=== PATIENT | female | born 1960 | race African-American/Black ===

== ENCOUNTER 2017-11-05 08:43 | Inpatient (IN) | payer MEDICARE, MEDICAID, SELFPAY ==
[2017-11-05] VITALS (14 sets, daily range): BP systolic 99–136; BP diastolic 64–80; PULSE 56–85; RESP 10–18; TEMP 36.6–37.4; O2SAT 100; BMI 44.4; BMI 40.7
--- NOTE | 2017-11-05 08:55 | CT_ITS ---
STUDY: CT BRAIN WITHOUT CONTRAST REASON FOR EXAM: Female, 57 years old. Change in mental status. Recent CVA RADIATION DOSAGE (If Supplied By Facility): CTDIvol = ( 44.99 ) mGy, DLP = ( 779.24 ) mGycm TECHNIQUE: Transaxial CT imaging of the brain was performed without administration of intravenous contrast material. Individualized dose optimization techniques were used for this CT. COMPARISON: 08/11/2017 FINDINGS: Normal soft tissue structures. Normal calvarium. There is mild cerebral atrophy with widening of the extra-axial spaces and ventricular dilatation. There are areas of decreased attenuation within the white matter tracts of the supratentorial brain, consistent with microvascular disease changes. Normal basal ganglia and thalami. Normal brainstem. There is mild cerebellar atrophy. There is no intracranial hemorrhage. There are no findings of an acute ischemic infarction. Normal visualized paranasal sinuses. CT/Brain/Head without Contrast IMPRESSION: Chronic involutional changes of the brain. Electronically Signed: Álvaro Brooke DO at 9:50 EDT Tel , Service support ,
--- NOTE | 2017-11-05 08:55 | EKG12_ITS ---
Test Reason : SYNCOPE Blood Pressure : / mmHG Vent. Rate : 075 BPM Atrial Rate : 075 BPM P-R Int : 154 ms QRS Dur : 106 ms QT Int : 390 ms P-R-T Axes : 040 -23 017 degrees QTc Int : 435 ms Normal sinus rhythm Normal ECG Confirmed by LUIS FELIPE ALFARO MD ([id number]), senior technical editor ATA LUGO ([id number] on 11/06/2017 2:31:35 PM Referred By: LUTHER Confirmed By:LUIS FELIPE ALFARO MD
--- NOTE | 2017-11-05 08:55 | RAD_ITS ---
STUDY: X-RAY CHEST REASON FOR EXAM: Female, 57 years old. Shortness of breath TECHNIQUE: Single AP portable view of the chest. COMPARISON: 08/11/2017 FINDINGS: Hypoinflated lungs. Mild interstitial edema and vascular congestion with bibasilar infiltrates. There is mild cardiac enlargement. Normal mediastinum and jayjay. Normal visualized pulmonary arteries. There is atherosclerotic tortuosity of the aortic arch and descending thoracic aorta. There are diffuse degenerative changes of the visualized thoracic spine. Normal visualized ribs, clavicles, and shoulders. There is no demonstrated abnormality of the visualized soft tissue structures of the upper abdomen. RAD/Chest 1 View (Portable) IMPRESSION: Hypoinflated lungs with interstitial edema and bibasilar infiltrates Electronically Signed: Álvaro Brooke DO at 9:54 EDT Tel , Service support ,
[2017-11-05 09:18] LABS: Mucous, Urine 0 SEEN /hpf (<or=2+)
[2017-11-05 09:21] LABS: Absolute Lymphocyte Count 2.72 X10^3/ul (0.83-4.51); Absolute Neutrophil Count 6.4 X10^3/uL (2.0-7.7); Basophil# 0.03 X10^3/uL; Basophil% 0.3 % (0-1); Eosinophil# 0.36 X10^3/uL; Eosinophils% 3.5 % (0-5); Hematocrit 39.5 % (37-47); Hemoglobin 12.2 g/dl (12.0-15.0); Lymphocyte # 2.72 X10^3/ul (4.0); Lymphocyte % 26.6 % (19-41); Mean Corp Hgb Conc 30.9 g/gl (32-36); Mean Corpuscular Hgb 29.8 pg (27.0-32.0); Mean Corpuscular Volume 96.3 fL (81-99); Mean Platelet Vol. 10.1 fl (6.2-12.0); Monocyte# 0.72 X10^3/uL; Neutrophil # 6.38 X10^3/uL (2.7-7.7); Neutrophil % 62.4 % (47-70); Platelet Count 281 K/mm3 (150-450); RBC Distribution Width CV 13.6 % (11.6-14.6); RBC Distribution Width SD 47.1 fl (35.1-43.9); White Blood Count 10.2 K/mm3 (4.4-11.0)
[2017-11-05 09:22] LABS: POSITIVE COUNT NO; POSITIVE DIFFERENTIAL NO; POSITIVE MORPHOLOGY NO
[2017-11-05 09:31] LABS: Allen Test POS; Base Excess 8 mmol/L (-2 to +2); Bicarbonate 32.4 mmol/L (22-26); Blood Gas Specimen Type ART; O2 Delivery Device Nasal Can; PO2 83 mmHG (75-100); SITE L Radial; SO2 96 % (95-99); Time Given 925; Total Carbon Dioxide 34 mmol/L; pCO2 49.5 mmHg (35-45); pH 7.42 (7.35-7.45)
[2017-11-05 09:33] LABS: Color, Urine Yellow (Yellow); Urine Clarity Clear (Clear)
[2017-11-05 09:34] LABS: Glucose, Dipstick NEGATIVE (Normal); Ketone-Dipstick Negative (Negative); Leukocyte Esterase-Dipstick 25 /ul (Negative); Nitrite-Dipstick Negative (Negative); Occult Blood-Urine 250 /ul (Negative); Protein-Dipstick Negative (Negative); Urine Bilirubin Dipstick Negative (Negative); Urine Urobilinogen 1 mg/dl (Normal)
[2017-11-05 09:35] LABS: Hyaline Cast 5-10 SEEN /lpf (0-5); Red Blood Cells-Urine 25-50 SEEN /hpf (0-5); Squamous Epithelial Cells - UA 0-5 SEEN /hpf (5-10); White Blood Cells 0-5 SEEN /hpf (0-5)
[2017-11-05 09:36] LABS: Bacteria RARE /hpf (None Seen)
[2017-11-05 09:50] LABS: ALB/GLOB Ratio 0.7 RATIO (0.9-2.4); AST(SGOT) 29 U/L (15-37); Alanine Aminotransfer ALT/SGPT 22 U/L (13-56); Albumin, Serum 3.1 g/dL (3.2-5.0); Alkaline Phosphatase 71 U/L (45-117); Anion Gap 7 (5-15); BUN 14 mg/dL (7-18); BUN/Creat Ratio 11.3 RATIO (10-20); Calcium,Total 9.5 mg/dL (8.5-10.1); Chloride 103 mmol/L (98-107); Creatinine, Serum 1.24 mg/dL (0.55-1.02); EST Glomerular Filtration Rate 47 mL/min (>60); Est Glom Filt Rate - Afr Amer 57 mL/min (>60); Estimated Creatinine Clearance 45.73 ml/min; Globulin 4.5 g/dL (2.2-4.2); Glucose 133 mg/dL (74-106); Potassium 3.9 mmol/L (3.5-5.1); Protein, Total 7.6 g/dL (6.4-8.2); Sodium Level 143 mmol/L (136-145)
[2017-11-05 09:51] LABS: BNP,B-Type NATRIURETIC PEPTIDE 13.6 pg/mL (0-100)
[2017-11-05 10:42] LABS: International Normalized Ratio 1.2; Prothrombin Time (Protime)PT. 14.9 SECONDS (11.7-14.9)
[2017-11-05 10:43] LABS: Partial Thromboplast Time 35.4 Seconds (24.1-36.2)
--- NOTE | 2017-11-05 10:48 | ED.RN ---
CALLED PHARMACY REGARDING ATB.
--- NOTE | 2017-11-05 10:50 | ED.VISSUMM ---
- ER Visit Summary Date of Service: 11/05/17 Chief Complaint: Altered mental status History of Present Illness: The patient is a 57 F with altered mental status. The patient has a remote history of stroke in 1982 and also had a stroke earlier this month. He has both chronic right and left side deficits. She also had cervical spine surgery earlier this month. Patient has recently went home. Today she was somnolent and may have briefly lost consciousness. The patient denies any other related symptoms. She has low back pain, but this is not new. Physical Examination: Afebrile and vital signs unremarkable. 100% on nasal cannula. Patient is somnolent but arouses to voice. No focal or lateralizing neurologic abnormalities grossly. NIH stroke scale is 1 for mental status. Atraumatic. Neck maintained in a cervical collar. Anterior incision site appears normal. Nontender. Heart regular. Lungs clear. Abdomen soft. Skin appears normal. Test Results: See below Emergency Department Course and Treatment: Patient has an extensive medical history, including COPD, stroke, and recent neck surgery with hospitalization. A broad workup was pursued. Head CT showed chronic changes. Chest x-ray showed hypoinflation, but signs of bilateral infiltrates. This is different from previous. EKG showed sinus rhythm. No sign of acute ischemia or infarction. Troponin and BMP unremarkable. Labs were all fairly unremarkable. Urinalysis showed blood but no sign of infection. ABG was also fairly unremarkable. Patient had no change in reevaluation. Her vitals remained stable. Her mental status remained the same. No new neurologic signs or symptoms. No focal abnormalities. Cultures were sent. She was started on Azactam and vancomycin. I spoke with the hospitalist who also recommended Lasix. She will be admitted for change in mental status, HCAP, and because of her underlying comorbidities. Treatment Plan: As above Disposition: Admission Impression: 1. Altered mental status--somnolence 2. HCAP This note was generated with sciencebite dictation software. It may contain incorrect words, spelling, and punctuation that were not noted in review of the chart prior to signing ED Disposition - Plan for ED Patient: Chief Complaint: Fatigue Referrals: Nicko Uribe MD [Primary Care Provider] -
[2017-11-05] MEDS: Furosemide 40 MG/4 ML Vial IV ×2 (11:04→17:04)
--- NOTE | 2017-11-05 12:01 | HP.PCM_ITS ---
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 Prior to that, patient returned to home on past Friday after rehab from cervical spine surgery. She has been weak and lethargic yesterday and then in the morning when she woke up she was found with whisper in low volume but no slurring and then she slumped over the chair. There is no concrete history of new weakness but patient has significant residual deficit from the previous stroke and her baseline was using Rollator to ambulate and she drags her left lower extremity as per the son. ] In the ER, basic workup including CT head does not show acute change. Chest x- ray shows interstitial edema and bibasilar infiltrates. She denies history of cough cold fever or tachypnea. In ED he was given vancomycin and aztreonam for the suspicion of pneumonia Past Medical History Allergies aspirin Allergy (Verified 11/05/17 08:54) Shortness of breath Penicillins [PCN] Allergy (Verified 11/05/17 08:54) Shortness of breath Home Medications: Ambulatory Orders Medication Instructions Recorded Cholecalciferol (Vitamin D3) 50,000 unit PO DAILY 11/05/17 [Vitamin D] Cyclobenzaprine [Flexeril] 10 mg PO BID 11/05/17 Diltiazem HCl [Diltiazem 24Hr ER] 120 mg PO BID 11/05/17 Duloxetine HCl 30 mg PO DAILY 11/05/17 Esomeprazole Magnesium 40 mg PO BID 11/05/17 Fluticasone/Salmeterol [Advair 1 each IH DAILY 11/05/17 500-50 Diskus] Levetiracetam [Levetiracetam ER] 500 mg PO BID 11/05/17 Methotrexate 20 mg PO Q7D 11/05/17 Mirtazapine [Remeron] 15 mg PO QHS 11/05/17 Oxybutynin [Ditropan] 5 mg PO TID 11/05/17 Oxycodone CR [Oxycontin] 10 mg PO BID 11/05/17 Oxycodone HCl/Acetaminophen 1 - 2 tablet PO Q6H PRN PRN 11/05/17 [Percocet 5-325] Potassium Chloride [Klor-Con M20] 2 tablet PO TID 11/05/17 Pregabalin [Lyrica] 150 mg PO BID 11/05/17 Torsemide [Demadex] 20 mg PO BID 11/05/17 Zolpidem Tartrate 5 mg PO QHS PRN 11/05/17 Smoking Status: Former smoker - *Family History Paternal History Items: No pertinent history Review of Systems Constitutional: Denies: Chills, Fever Cardiovascular: Denies: Chest Pain, Palpitations Respiratory: Denies: Cough, Shortness of breath at rest, Sputum production Gastrointestinal: Denies: Abdominal Pain, Nausea, Vomiting Genitourinary: Denies: Dysuria Musculoskeletal: Reports: Joint Pain. Denies: Joint Tenderness Skin: Denies: Rash, Wounds Neurological: Denies: Numbness, Tingling, Focal weakness Psychiatric: Denies: Anxiety, Depression, Homicidal Ideations, Suicidal Ideations Hematologic/ Lymphatic: Denies: Easy Bruising, Easy Bleeding Unable to obtain accurate/complete ROS d/t: Due to Altered mental status VTE Information - Inpt Only VTE Present on Admission: No VTE Mechan Device Prophylaxis: SCD's VTE Pharm Prophylaxis ordered?: Yes Patient Problems: Active and Suspected Problems Encephalopathy (Acute) - Physical Exam General: Confused, Disoriented, Lethargic HEENT: Atraumatic, PERRLA, EOMI, Normocephalic Oral: Dry Mucosa Neck: Supple, No JVD, Negative Carotid Bruits Lungs: No rhonchi, No wheeze, Diminished, Rales Cardiovascular: Regular rate, Regular Rhythm, Normal S1, Normal S2, No murmurs Abdomen: Bowel Sounds Present, Soft, Non Tender, Non-Distended Extremities: Capillary Refill Less than 3 Seconds, Edema Skin: No rashes, No breakdown Musculoskeletal: Arthritic Changes, Muscle Wasting Neurological: - - Patient is mainly bilateral lower extremity weakness with left more than right. Baseline, she walks on rolator. 3+/4 left knees jerk. 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 Prior to that, patient returned to home on past Friday after rehab from cervical spine surgery. She has been weak and lethargic yesterday and then in the morning when she woke up she was found with whisper in low volume but no slurring and then she slumped over the chair. There is no concrete history of new weakness but patient has significant residual deficit from the previous stroke and her baseline was using Rollator to ambulate and she drags her left lower extremity as per the son. ] In the ER, basic workup including CT head does not show acute change. The normal sinus rhythm. Chest x-ray shows interstitial edema and bibasilar infiltrates. She denies history of cough cold fever or tachypnea. In ED he was given vancomycin and aztreonam for the suspicion of pneumonia. 1. Acute encephalopathy most probably due to polypharmacy/metabolic encephalopathy: Patient is being admitted on PCU. MRI brain ordered to rule out new stroke. MRI C-spine ordered. 2D echo and carotid Doppler ordered. Neuro consult. On a stroke protocol until Ruled out. PT/OT and speech and swallow evaluation. shelter she was on mechanical soft diet. [facility] most of her workup regarding a stroke was done there. 2. CHF exacerbation: Even though, BNP is normal clinically she seems CHF exacerbation. 2D echo ordered as mentioned above. Lasix 40 mg IV daily. Strict I&O's. Home medication shows that she is on torsemide 20 mg twice daily 3. Bibasilar atelectasis with low suspicion for pneumonia with history of presumed COPD: Empirically started on IV vancomycin and aztreonam. Changed to IV Levaquin. Pneumonia workup ordered including urinary antigens, and sputum culture and blood cultures ?2. Does not have SIRS criteria. On Advair. Does not seem to be in COPD exacerbation 4. Multiple comorbidities including hypertension, COPD, chronic pain syndrome, chronic peripheral neuropathy/radiculopathy, possible GERD: She is on multiple pain medication, methotrexate, Lyrica and duloxetine exact indication unclear. Functional decline secondary to multiple strokes and morbid obesity: PT and OT ordered. DVT prophylaxis: On heparin 500 subcutaneous twice daily and B/L Below knee stockings. Total time spent in history and physical, labs and imaging review, discussion with the patient's son and [id number] more than 50 minutes This note was generated with Bactest dictation software. Every effort was made to ensure accuracy, however computerized admiralty lawyer mistakes may persist. Code Visit Inpatient E&M: 35166 Init Hosp L3
--- NOTE | 2017-11-05 12:21 | MRI_ITS ---
STUDY: MRI BRAIN WITHOUT CONTRAST REASON FOR EXAM: Female, 57 years old. TIA TECHNIQUE: Standardized multiplanar fat and water weighted pulse sequences were obtained. COMPARISON: CT of the brain on November 05, 2017 FINDINGS: Normal size of the ventricles and extra-axial spaces for the patient's age. Minimal periventricular white matter ischemic change without mass effect or restricted diffusion. Normal bilateral basal ganglia. Normal thalami. There is no extra-axial fluid accumulation. Normal flow voids within the major intracranial circulation suggesting patency by spin echo criteria. Normal sella turcica, pituitary gland, infundibular stalk, optic chiasm and hypothalamus. Normal tectal plate and pineal gland. Normal midbrain, garo and medulla. Normal cerebellum. Normal basal cisterns. Normal bilateral temporal bones. Normal bilateral internal auditory canals. No demonstrated orbital abnormality, within the constraints of a routine brain study. There is minor mucosal thickening of the ethmoid air cells. Normal calvarium and skull base. Normal visualized soft tissue structures. Normal visualized upper cervical spine. MRI/Brain without Contrast IMPRESSION: Minimal periventricular white matter ischemic changes without evidence for acute infarct Electronically Signed: Nicko Hernandez MD at 22:45 EDT , Service support ,
--- NOTE | 2017-11-05 12:23 | ECHOCS_ITS ---
Reason For Study: TIA/CVA Procedure This was a 2D Doppler, Color Flow transthoracic echocardiogram. The study was technically difficult. Pt scanned supine due to neck brace and recent neck surgery. Exam performed portable in patient room. Left Ventricle Normal LV size. Left ventricular systolic function is normal. The estimated ejection fraction is 65 %. Normal diastology for age. No regional wall motion abnormalities noted. Right Ventricle Normal RV size. Normal systolic function. Atria Normal left atrium. Normal right atrium. Mitral Valve Mitral valve not well visualized. Tricuspid Valve The tricuspid valve is not well visualized. Unable to estimate RV systolic pressure, pulmonary artery pressure probably normal. Aortic Valve The aortic valve is not well visualized. Pulmonic Valve The pulmonic valve is not well visualized. Great Vessels Normal aortic root. The pulmonary artery is normal size. Normal inferior vena cava. Pericardium/Pleural No pericardial effusion. Medication Performed a rapid injection of agitated mix of 9 cc saline and 1cc air to assess for atrial septal defect. Definity0.3ml given slow IV push to enhance endocardial definition. MMode/2D Measurements & Calculations LVIDd: 4.1 cm IVSd: 1.1 cm Ao root diam: 3.4 cm LVIDs: 2.9 cm LVPWd: 1.1 cm LA dimension: 4.3 cm FS: 29.6 % LAV(MOD-bp): 30.1 ml LAV(MOD-bp) Indexed: 13.0 ml/m2 LA A4 area: 15.7 cm2 RA A4 area: 8.8 cm2 LAV(MOD-sp2): 18.4 ml LAV(MOD-sp4): 37.8 ml Doppler Measurements & Calculations MV E max marcel: 75.3 cm/sec Lat Peak E' Marcel: 6.3 cm/sec Med Peak E' Marcel: 6.8 cm/sec MV A max marcel: 53.5 cm/sec E/E' lat: 11.9 E/E' med: 11.0 MV E/A: 1.4 Ao V2 max: 99.2 cm/sec LV V1 max: 88.2 cm/sec PA V2 max: 84.6 cm/sec Ao max P.9 mmHg LV V1 max P.1 mmHg Ao V2 mean: 79.2 cm/sec Ao mean P.6 mmHg Ao V2 VTI: 21.5 cm Interpretation Summary Normal LV size. Left ventricular systolic function is normal. The estimated ejection fraction is 65 %. Normal diastology for age. Contrast injection was performed. Ordering Physician: Baljinder Bernal Referring Physician: Nicko Uribe Performed By: Macey Webb RDCS, RVT
[2017-11-05 13:01] LABS: Thyroid Stim Hormone (TSH) 1.61 uIU/mL (0.358-3.74)
[2017-11-05] MEDS: Clopidogrel Bisulfate 75 MG Tablet PO (13:52)
--- NOTE | 2017-11-05 13:52 | PCM.CONS.GEN ---
Problem List (1) Encephalopathy Status: Acute Reason for Consult Date of Consultation: 11/05/17 Reason for Consultation: encephalopathy History of Present Illness: The patient is a 57 year old CF with PMH HTN, HLD, H/O stroke, ? H/O brain hemorrhage, ? leukemia, neuropathy, ? H/O seizures vs GARY, panic attacks, admitted with AMS. History could not be obtained from the patient, is obtained from medical records and charts. [id number] and son are extremely poor historians and not aware of her medical issues, per son she recently had cervical spine surgery for compression around October 10 2017, then was sent to [place], came back to stay with them about 3-4 days ago, this morning (11/05/17) was found slumped over on the chair, was not responding per son and daughter-in law, lasted for about 15 minutes, denies any tongue bite, or urinary continence or witnessed seizures. Patient's son not sure if she has any seizures, per patient she may have had seizures long time back, but she tells me she also had panic attacks. At present patient denies any focal motor weakness, denies any OLIVAREZ, dizziness, or sensory loss, denies any vision loss. Per son prior to the cervical spine surgery she used to live alone, was using cane and rollator to ambulate, had weakness in the right LE and was dragging it, does not drive, denies any frequent falls. [] Past Medical History Allergies aspirin Allergy (Verified 11/05/17 08:54) Shortness of breath Penicillins [PCN] Allergy (Verified 11/05/17 08:54) Shortness of breath Home Medications: Ambulatory Orders Medication Instructions Recorded Cholecalciferol (Vitamin D3) 50,000 unit PO DAILY 11/05/17 [Vitamin D] Cyclobenzaprine [Flexeril] 10 mg PO BID 11/05/17 Diltiazem HCl [Diltiazem 24Hr ER] 120 mg PO BID 11/05/17 Duloxetine HCl 30 mg PO DAILY 11/05/17 Esomeprazole Magnesium 40 mg PO BID 11/05/17 Fluticasone/Salmeterol [Advair 1 each IH DAILY 11/05/17 500-50 Diskus] Levetiracetam [Levetiracetam ER] 500 mg PO BID 03/28/18 Methotrexate 20 mg PO Q7D 11/05/17 Mirtazapine [Remeron] 15 mg PO QHS 11/05/17 Oxybutynin [Ditropan] 5 mg PO TID 11/05/17 Oxycodone CR [Oxycontin] 10 mg PO BID 11/05/17 Oxycodone HCl/Acetaminophen 1 - 2 tablet PO Q6H PRN PRN 11/05/17 [Percocet 5-325] Potassium Chloride [Klor-Con M20] 2 tablet PO TID 11/05/17 Pregabalin [Lyrica] 150 mg PO BID 11/05/17 Torsemide [Demadex] 20 mg PO BID 11/05/17 Zolpidem Tartrate 5 mg PO QHS PRN 11/05/17 Lives: Alone Smoking Status: Former smoker Alcohol: None Drugs: None Review of Systems Constitutional: Reports: - - ROS could not be obtained since patient has AMS Patient Problems: Active and Suspected Problems Encephalopathy (Acute) - Physical Exam General: Lethargic, - HEENT: Normocephalic Neck: Supple Lungs: Normal air movement Cardiovascular: Normal S1, Normal S2 Abdomen: Soft Extremities: No cyanosis Skin: No rashes Musculoskeletal: No Tenderness to Palpation of Joints or Extremities Neurological: - - drowsy, arousable, pupils BERL, no facial droop, CN 2-12 grossly intact, limited Neurology examination, moves all 4 extremities, sensory examination/cerebellar/gait could not be assessed. Reflexes + B/L B/S/T/K/A Vital Signs Temp Pulse Resp BP Pulse Ox 98.4 F 64 18 113/67 100 11/05/17 12:02 11/05/17 12:02 11/05/17 12:02 11/05/17 12:02 11/05/17 12:02 Oxygen Flow Rate (L/min) 3 Oxygen Delivery Method Nasal Cannula Weight: 121.5 kg Body Mass Index (BMI) 40.7 Intake and Output for Last 24 Hours 11/03/17 11/04/17 11/05/17 23:59 23:59 23:59 Intake Total 125 / 125 Balance 125 / 125 Laboratory Tests Past 24 Hrs 11/05/17 13:00 Troponin I < 0.02 Assessment/Plan Active and Suspected Problems Encephalopathy (Acute) The patient is a 57 year old CF with PMH HTN, HLD, H/O stroke, ? H/O brain hemorrhage, ? leukemia, neuropathy, ? H/O seizures vs GARY, panic attacks, admitted with AMS. History could not be obtained from the patient, is obtained from medical records and charts. [id number]-wod and son are extremely poor historians and not aware of her medical issues, per son she recently had cervical spine surgery for compression around October 10 2017, then was sent to [place], came back to stay with them about 3-4 days ago, this morning (11/05/17) was found slumped over on the chair, was not responding per son and daughter-in law, lasted for about 15 minutes, denies any tongue bite, or urinary continence or witnessed seizures. Patient's son not sure if she has any seizures, per patient she may have had seizures long time back, but she tells me she also had panic attacks. At present patient denies any focal motor weakness, denies any OLIVAREZ, dizziness, or sensory loss, denies any vision loss. Impression Metabolic Encephalopathy Possible Polypharmacy Plan -Recommend MRI brain w/o contrast and MRI C spine w/o contrast if no contraindication -Recommend EEG -Continue Keppra at home dose -Labs reviewed. -Please get records from [facility] if possible, all her care was there prior to this admission here and she and family are very poor historians -Further medical management per primary team -PT/OT -Seizure precautions -Fall precautions -GI/DVT prophylaxis -Please call with questions if any -Thank you for allowing us to participate in patient's care and management I spent 60 minutes taking history, doing physical examination, reviewing medical records, coordinating care and counseling patient and family. Code Visit Inpatient E&M: 34851 Init Hosp L3
--- NOTE | 2017-11-05 13:57 | MRI_ITS ---
STUDY: MRI CERVICAL SPINE WITHOUT CONTRAST REASON FOR EXAM: Female, 57 years old. Neck pain status post cervical fusion TECHNIQUE: Standardized fat and water weighted pulse sequences were obtained in the sagittal and axial planes. COMPARISON: None FINDINGS: Normal foramen magnum and brainstem-cervical cord junction. Normal craniovertebral junction. Normal anterior atlantoaxial articulation. Normal odontoid process. Normal cervical lordosis. Normal vertebral bodies and posterior osseous elements. C2-3: Normal endplates. Normal disc height, signal and morphology. Normal central canal and intervertebral neural foramina. C3-4: Normal endplates. Normal disc height, signal and morphology. Normal central canal and intervertebral neural foramina. C4-5: Status post anterior fusion. Tiny left paracentral osteophyte protrusion... Normal central canal. Moderate left neuroforaminal stenosis secondary to bony hypertrophy and mild narrowing on the right C5-6: Mild endplate spurring Narrowed disc height, signal and tiny left paracentral disc protrusion.. Mild narrowing of the central canal and impingement upon ventral surface of the cord. Severe left neuroforaminal stenosis secondary to bony hypertrophy C6-7: Mild endplate spurring. Normal disc height, signal and tiny central disc protrusion.. Mild narrowing of central canal severe left neuroforaminal stenosis secondary to bony hypertrophy C7-T1: Normal endplates. Normal disc height, signal and tiny central disc protrusion.. Normal central canal. Severe bilateral neural foraminal stenosis secondary to bony hypertrophy. Normal cervical cord. Normal visualized soft tissue structures. MRI/Spine Cervical (Routine) IMPRESSION: Postop change status post anterior fusion at C4-5. Moderate spondylosis and multilevel spinal stenosis secondary to disc disease and bony hypertrophy most severe at C7-T1. Findings as above Electronically Signed: Nicko Hernandez MD at 23:29 EDT , Service support ,
--- NOTE | 2017-11-05 14:03 | CON.PCM_ITS ---
Problem List (1) Encephalopathy Status: Acute Reason for Consult Date of Consultation: 11/05/17 Reason for Consultation: encephalopathy History of Present Illness: The patient is a 57 year old CF with PMH HTN, HLD, H/O stroke, ? H/O brain hemorrhage, ? leukemia, neuropathy, ? H/O seizures vs GARY, panic attacks, admitted with AMS. History could not be obtained from the patient, is obtained from medical records and charts. [id number] and son are extremely poor historians and not aware of her medical issues, per son she recently had cervical spine surgery for compression around October 10 2017, then was sent to ID, came back to stay with them about 3-4 days ago, this morning (11/05/17) was found slumped over on the chair, was not responding per son and daughter-in law , lasted for about 15 minutes, denies any tongue bite, or urinary continence or witnessed seizures. Patient's son not sure if she has any seizures, per patient she may have had seizures long time back, but she tells me she also had panic attacks. At present patient denies any focal motor weakness, denies any OLIVAREZ, dizziness, or sensory loss, denies any vision loss. Per son prior to the cervical spine surgery she used to live alone, was using cane and rollator to ambulate, had weakness in the right LE and was dragging it, does not drive, denies any frequent falls. [] Past Medical History Allergies aspirin Allergy (Verified 11/05/17 08:54) Shortness of breath Penicillins [PCN] Allergy (Verified 11/05/17 08:54) Shortness of breath Home Medications: Ambulatory Orders Medication Instructions Recorded Cholecalciferol (Vitamin D3) 50,000 unit PO DAILY 11/05/17 [Vitamin D] Cyclobenzaprine [Flexeril] 10 mg PO BID 11/05/17 Diltiazem HCl [Diltiazem 24Hr ER] 120 mg PO BID 11/05/17 Duloxetine HCl 30 mg PO DAILY 11/05/17 Esomeprazole Magnesium 40 mg PO BID 11/05/17 Fluticasone/Salmeterol [Advair 1 each IH DAILY 11/05/17 500-50 Diskus] Levetiracetam [Levetiracetam ER] 500 mg PO BID 03/28/18 Methotrexate 20 mg PO Q7D 11/05/17 Mirtazapine [Remeron] 15 mg PO QHS 11/05/17 Oxybutynin [Ditropan] 5 mg PO TID 11/05/17 Oxycodone CR [Oxycontin] 10 mg PO BID 11/05/17 Oxycodone HCl/Acetaminophen 1 - 2 tablet PO Q6H PRN PRN 11/05/17 [Percocet 5-325] Potassium Chloride [Klor-Con M20] 2 tablet PO TID 11/05/17 Pregabalin [Lyrica] 150 mg PO BID 11/05/17 Torsemide [Demadex] 20 mg PO BID 11/05/17 Zolpidem Tartrate 5 mg PO QHS PRN 11/05/17 Lives: Alone Smoking Status: Former smoker Alcohol: None Drugs: None Review of Systems Constitutional: Reports: - - ROS could not be obtained since patient has AMS Patient Problems: Active and Suspected Problems Encephalopathy (Acute) - Physical Exam General: Lethargic, - HEENT: Normocephalic Neck: Supple Lungs: Normal air movement Cardiovascular: Normal S1, Normal S2 Abdomen: Soft Extremities: No cyanosis Skin: No rashes Musculoskeletal: No Tenderness to Palpation of Joints or Extremities Neurological: - - drowsy, arousable, pupils BERL, no facial droop, CN 2-12 grossly intact, limited Neurology examination, moves all 4 extremities, sensory examination/cerebellar/gait could not be assessed. Reflexes + B/L B/S/T/K/A Vital Signs Temp Pulse Resp BP Pulse Ox 98.4 F 64 18 113/67 100 11/05/17 12:02 11/05/17 12:02 11/05/17 12:02 11/05/17 12:02 11/05/17 12:02 Oxygen Flow Rate (L/min) 3 Oxygen Delivery Method Nasal Cannula Weight: 121.5 kg Body Mass Index (BMI) 40.7 Intake and Output for Last 24 Hours 11/03/17 11/04/17 11/05/17 23:59 23:59 23:59 Intake Total 125 / 125 Balance 125 / 125 Laboratory Tests Past 24 Hrs 11/05/17 13:00 Troponin I < 0.02 Assessment/Plan Active and Suspected Problems Encephalopathy (Acute) The patient is a 57 year old CF with PMH HTN, HLD, H/O stroke, ? H/O brain hemorrhage, ? leukemia, neuropathy, ? H/O seizures vs GARY, panic attacks, admitted with AMS. History could not be obtained from the patient, is obtained from medical records and charts. [id number] and son are extremely poor historians and not aware of her medical issues, per son she recently had cervical spine surgery for compression around October 10 2017, then was sent to ID, came back to stay with them about 3-4 days ago, this morning (11/05/17) was found slumped over on the chair, was not responding per son and daughter-in law , lasted for about 15 minutes, denies any tongue bite, or urinary continence or witnessed seizures. Patient's son not sure if she has any seizures, per patient she may have had seizures long time back, but she tells me she also had panic attacks. At present patient denies any focal motor weakness, denies any OLIVAREZ, dizziness, or sensory loss, denies any vision loss. Impression Metabolic Encephalopathy Possible Polypharmacy Plan -Recommend MRI brain w/o contrast and MRI C spine w/o contrast if no contraindication -Recommend EEG -Continue Keppra at home dose -Labs reviewed. -Please get records from [facility] if possible, all her care was there prior to this admission here and she and family are very poor historians -Further medical management per primary team -PT/OT -Seizure precautions -Fall precautions -GI/DVT prophylaxis -Please call with questions if any -Thank you for allowing us to participate in patient's care and management I spent 60 minutes taking history, doing physical examination, reviewing medical records, coordinating care and counseling patient and family. Code Visit Inpatient E&M: 17330 Init Hosp L3
--- NOTE | 2017-11-05 15:01 | CDU_ITS ---
Reason For Study: CVA Rt. Velocities/BP Lt. Velocities/BP Prox CCA 102/18.8 cm/sec. Prox CCA 108/22.0 cm/sec. Mid CCA 114/23.5 cm/sec. Mid CCA 104/25.1 cm/sec. Dist CCA 79.2/17.6 cm/sec. Dist CCA 127/28.3 cm/sec. Prox ICA 79.7/17.0 cm/sec. Prox ICA 66.0/16.5 cm/sec. Mid ICA 67.4/19.9 cm/sec. Mid ICA 74.6/28.3 cm/sec. Dist ICA 52.2/19.9 cm/sec. Dist ICA 60.5/20.4 cm/sec. Rt. ICA/CCA = .7. Lt. ICA/CCA = .7. Prox ECA 79.7/14.7 cm/sec. Prox ECA 160/20.6 cm/sec. Rt. Vert. 65.1/15.8 cm/sec. Lt. Vert. 59.8/17.0 cm/sec. Right Extracranial There is intimal thickening but no significant atherosclerotic plaque noted in the right common carotid artery. There is intimal thickening but no significant atherosclerotic plaque noted in the right internal carotid artery. There is intimal thickening but no significant atherosclerotic plaque noted in the right external carotid artery. Antegrade flow is noted in the right vertebral artery. Left Extracranial There is intimal thickening but no significant atherosclerotic plaque noted in the left common carotid artery. There is intimal thickening but no significant atherosclerotic plaque noted in the left internal carotid artery. There is intimal thickening but no significant atherosclerotic plaque noted in the left external carotid artery. Antegrade flow is noted in the left vertebral artery. Procedure Carotid Duplex 56241. The exam was diagnostic. Exam performed portable in patient room. Interpretation Summary No hemodynamically significant plague bilateral internal carotid arteries with <50% stenosis bilaterally. Normal flow right external carotid Mild disease left external carotid Patent and antegrade vertebrals bilaterally. Ordering Physician: Baljinder Bernal Performed By: Travon Michelle RVT
[2017-11-05 15:52] LABS: M R Staph aureus DNA By PCR Negative (Negative); Probe Check PASS; Specimen Processing Control PASS
[2017-11-05 17:10] LABS: Bedside Glucose 81 mg/dL (70-110)
[2017-11-05] MEDS: Budesonide Respules 0.5 MG/2 ML AMPUL.NEB. INHALATION (18:26)
[2017-11-05] MEDS: Ipratropium/Albuterol Sulfate 3 ML AMPUL.NEB INHALATION ×2 (18:26→23:14)
[2017-11-05] MEDS: Menthol/Lanolin/Calamine/Znox 113 GM Tube 1 APPLIC TOPICAL (21:29)
[2017-11-05] MEDS: Oxybutynin 5 MG Tablet PO (21:30)
[2017-11-05] MEDS: Famotidine 20 MG Tablet PO (21:30)
[2017-11-05] MEDS: levETIRAcetam 500 MG Tablet PO (21:30)
[2017-11-05] MEDS: Heparin Injection 5,000 UNITS/ML Syringe 5000 UNITS SC (21:32)
[2017-11-05 21:56] LABS: Bedside Glucose 89 mg/dL (70-110)
[2017-11-06] VITALS (18 sets, daily range): BP systolic 100–139; BP diastolic 52–79; PULSE 64–96; RESP 14–18; TEMP 36.7–37.2; O2SAT 96–100; BMI 40.7
[2017-11-06] MEDS: Ipratropium/Albuterol Sulfate 3 ML AMPUL.NEB INHALATION ×6 (02:30→22:27)
--- NOTE | 2017-11-06 05:55 | RAD_ITS ---
STUDY: X-RAY CHEST REASON FOR EXAM: Female, 57 years old. Right lower lobe CAP TECHNIQUE: PA and lateral views of the chest. COMPARISON: Chest x-ray yesterday FINDINGS: Improved aeration of the lungs with continued bibasilar airspace disease. There is no demonstrated pleural abnormality. There is mild cardiac enlargement. Normal mediastinum and jayjay. Normal visualized pulmonary arteries. Normal visualized aortic arch and descending thoracic aorta. There are diffuse degenerative changes of the visualized thoracic spine. Normal visualized ribs, clavicles, and shoulders. There is no demonstrated abnormality of the visualized soft tissue structures of the upper abdomen. RAD/Chest PA and Lateral IMPRESSION: Improved aeration of the lungs with continued bibasilar airspace disease Electronically Signed: Álvaro Brooke DO at 9:16 EDT Tel , Service support ,
[2017-11-06] MEDS: Oxybutynin 5 MG Tablet PO ×3 (05:56→22:37)
[2017-11-06 06:29] LABS: Anion Gap 7 (5-15); BUN 13 mg/dL (7-18); BUN/Creat Ratio 16.3 RATIO (10-20); Calcium,Total 8.5 mg/dL (8.5-10.1); Chloride 103 mmol/L (98-107); Cholesterol 123 mg/dL (200); EST Glomerular Filtration Rate 78 mL/min (>60); Est Glom Filt Rate - Afr Amer 95 mL/min (>60); Estimated Creatinine Clearance 76.38 ml/min; Glucose 83 mg/dL (74-106); High Density Lipoprotein 57 mg/dL; Potassium 3.9 mmol/L (3.5-5.1); Sodium Level 141 mmol/L (136-145); Triglycerides 95 mg/dL; Very Low Density Lipoprotein 19 mg/dL (5-40)
[2017-11-06] MEDS: Budesonide Respules 0.5 MG/2 ML AMPUL.NEB. INHALATION ×2 (07:02→18:47)
[2017-11-06] MEDS: levETIRAcetam 500 MG Tablet PO ×2 (09:13→22:38)
[2017-11-06] MEDS: DULoxetine Hcl 30 MG Capsule PO (09:14)
[2017-11-06] MEDS: Furosemide 40 MG/4 ML Vial IV ×2 (09:15→17:11)
[2017-11-06] MEDS: Acetaminophen 325 MG Tablet 650 MG PO (09:15)
[2017-11-06] MEDS: Heparin Injection 5,000 UNITS/ML Syringe 5000 UNITS SC ×2 (09:15→22:37)
[2017-11-06] MEDS: Famotidine 20 MG Tablet PO ×2 (09:16→22:37)
[2017-11-06] MEDS: Atorvastatin Calcium 80 MG Tablet PO (09:16)
[2017-11-06] MEDS: Clopidogrel Bisulfate 75 MG Tablet PO (09:17)
[2017-11-06] MEDS: 0.9% NaCl Peripheral Flush Adult/Peds IV ×2 (09:27→17:11)
--- NOTE | 2017-11-06 10:22 | EEG ---
- Electroencephalogram Date of service: 11/06/17 History EEG is being done in this 57 yr F to rule out seizures EEG Description: This is an 18 channel EEG with 10-20 lead placement system. Bipolar montages, Referential and Circumferential montages were reviewed. Photic stimulation and Hyperventilation were performed. The posterior dominant background rhythm is 7 HZ synchronous, symmetric, reacting to eye opening and closing. Photo stimulation did not elicit normal driving response or any abnormal photoparoxysmal response, Hyperventilation did not elicit any abnormal photoparoxysmal response. Sleep was identified. There was no epileptiform discharges or electrographic seizures noted during this recording. There is generalized back ground slowing in the theta frequency range EEG Interpretation This is an abnormal EEG due to mild generalized background slowing. This can be seen in generalized cerebral dysfunction like encephalopathy. Clinical correlation is advised. There is no epileptiform discharges or electrographic seizures noted during the record.
[2017-11-06 11:10] LABS: Bedside Glucose 86 mg/dL (70-110)
[2017-11-06 11:20] LABS: Bedside Glucose 144 mg/dL (70-110)
--- NOTE | 2017-11-06 11:39 | CASEMGMT ---
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 Prior to that, patient returned to home on past Friday after rehab from cervical spine surgery. She has been weak and lethargic yesterday and then in the morning when she woke up she was found with whisper in low volume but no slurring and then she slumped over the chair. There is no concrete history of new weakness but patient has significant residual deficit from the previous stroke and her baseline was using Rollator to ambulate and she drags her left lower extremity as per the son. In the ER, basic workup including CT head does not show acute change. Chest x-ray shows interstitial edema and bibasilar infiltrates. She denies history of cough cold fever or tachypnea. In ED he was given vancomycin and aztreonam for the suspicion of pneumonia. Consults: Neurology, Wound RN, Nutrition Functional Status: Per patient and PT/OT documentation, prior to 10/10/17, pt living at home in apt, mod indep w/ quad cane, cooked/cleaned unsafe with tub transfers so started sponge bathing, states sleeping on her couch at home. Does not drive, household distance ambulator only, motorized cart in stores. Since 10/10/17, sx then trsfr to snf for rehab: at best walking 45ft w/ walker with therapy per friend at bedside. Patient was d/c from rehab 11/03 to son's home and admitted to [facility] 11/05. Mild memory impairment noted by BENEDICT VENTURA and therapy. Transition Planning/Care Coordination: BENEDICT VENTURA reviewed PT/OT documentation and note recommendations for SNF. BENEDICT VENTURA then met with patient to begin transition planning and to discuss goals and options. Per patient, she would be willing to go back to SNF, but states my insurance cut me early. Patient states she would like to speak with son, and BENEDICT VENTURA affirms this is a good decision and offers to come back when her son is here to discuss further. Patient is agreeable to this plan. BENEDICT VENTURA made referral to SW for placement and for coping and support due to patient's functional decline. Patient does have [facility], and if not approved by her [place] [employer] for transition to SNF, may be able to go under NURY. SW and BENEDICT VENTURA will continue to follow for safe transition plan. Rhina Castillo BSN, RN-BC, CCM
[2017-11-06] MEDS: Menthol/Lanolin/Calamine/Znox 113 GM Tube 1 APPLIC TOPICAL ×2 (14:45→22:36)
--- NOTE | 2017-11-06 15:39 | PCM.PN.HOSP ---
Patient Problems: Active and Suspected Problems Encephalopathy (Acute) Subjective: The patient is awake and alert and is able to comprehend speech and speak coherent. Lower extremities are weak, most probably from neuropathy as she had cervical spine decompression in October 2017. MRI brain reported as normal and does not show evidence of acute infarct or previous infarct. Vitals/I&O's: Vital Signs Temp Pulse Resp BP Pulse Ox 98.5 F 96 18 101/58 L 100 11/06/17 13:30 11/06/17 14:55 11/06/17 14:22 11/06/17 13:30 11/06/17 13:30 Oxygen Flow Rate (L/min) 3 Oxygen Delivery Method Nasal Cannula Weight: 267 lb 13.786 oz Body Mass Index (BMI) 40.7 Intake and Output for Last 24 Hours 11/04/17 11/05/17 11/06/17 23:59 23:59 23:59 Intake Total 991 / 991 684 / 684 Output Total 1550 / 1550 1150 / 1150 Balance -559 / -559 -466 / -466 General: Alert, Oriented x3, Cooperative HEENT: Atraumatic, PERRLA, EOMI, Normocephalic, - - cervical collar after C-spine surgery. Patient had surgical decompression of C4 and 5 vertebrae Oral: Dry Mucosa Neck: Supple, No JVD, Negative Carotid Bruits Lungs: No rhonchi, No wheeze, Diminished Cardiovascular: Regular rate, Regular Rhythm, Normal S1, Normal S2, No murmurs Abdomen: Bowel Sounds Present, Soft, Non Tender, Non-Distended Extremities: Capillary Refill Less than 3 Seconds, Edema Skin: No rashes, No breakdown Musculoskeletal: Arthritic Changes, Muscle Wasting Neurological: Cranial nerves II-XII grossly intact, - - Muscle strength 3/5 in left lower extremity are 4/5 in right lower extremity Psych/Mental Status: Normal Affect, Appropriate Microbiology Past 72 Hours 11/05/17 14:40 Mucosa - Nasopharyngeal Respiratory Panel (PCR) - Final 11/05/17 15:00 Urine Catheter - Catheter Legionella Antigen - Final 11/05/17 15:00 Urine Catheter - Catheter Streptococcus pneumoniae Antigen (M - Final Laboratory Results 11/05/17 14:00: MRSA (PCR) Negative 11/05/17 17:00: Troponin I < 0.02 11/05/17 17:04: POC Glucose 81 11/05/17 21:50: POC Glucose 89 11/05/17 23:25: Troponin I < 0.02 11/06/17 05:35: Sodium 141, Potassium 3.9, Chloride 103, Carbon Dioxide 31.0, Anion Gap 7, BUN 13, Creatinine 0.80, Estim Creat Clear Calc 76.38, Est GFR (MDRD) Af Amer 95, Est GFR (MDRD) Non-Af 78, BUN/Creatinine Ratio 16.3, Glucose 83, Calcium 8.5, Triglycerides 95, Cholesterol 123, LDL Cholesterol 47, VLDL Cholesterol 19, HDL Cholesterol 57 11/06/17 06:45: POC Glucose 86 11/06/17 11:07: POC Glucose 144 H Current Medications Acetaminophen (Tylenol) 650 mg PO Q4H PRN PRN PRN Reason: Headache/Temp>99F Last Admin: 11/06/17 09:15 Dose: 650 mg Acetaminophen (Tylenol) 650 mg RECTAL Q4H PRN PRN PRN Reason: Headache/Temp>99F Al Hydroxide/Mg Hydroxide (Mylanta Ii) 30 ml PO Q6H PRN PRN PRN Reason: Gastric Burning Albuterol Sulfate (Ventolin Aerosols) 2.5 mg INHALATION Q2H PRN PRN PRN Reason: SHORTNESS OF BREATH Albuterol/Ipratropium (Duoneb) 3 ml INHALATION Q4H.RT REPLACED BY [facility] Last Admin: 11/06/17 14:22 Dose: 3 ml Atorvastatin Calcium (Lipitor) 80 mg PO DAILY REPLACED BY [facility] Last Admin: 11/06/17 09:16 Dose: 80 mg Bisacodyl (Dulcolax) 10 mg RECTAL DAILY PRN PRN PRN Reason: Constipation Budesonide (Pulmicort Aerosol) 0.5 mg INHALATION Q12H.RT REPLACED BY [facility] Last Admin: 11/06/17 07:02 Dose: 0.5 mg Calamine/Phenol (Calmoseptine Ointment) 1 applic TOPICAL TID REPLACED BY [facility] PRN Reason: Protocol Last Admin: 11/06/17 14:45 Dose: 1 applicatio Clopidogrel Bisulfate (Plavix) 75 mg PO DAILY REPLACED BY [facility] Last Admin: 11/06/17 09:17 Dose: 75 mg Cyclobenzaprine HCl (Flexeril) 10 mg PO BID REPLACED BY [facility] Last Admin: 11/06/17 09:27 Dose: 10 mg Diltiazem HCl (Cardizem Sr) 120 mg PO BID REPLACED BY [facility] Last Admin: 11/06/17 09:13 Dose: Not Given Docusate Sodium (Colace) 200 mg PO BID PRN PRN PRN Reason: Constipation Duloxetine HCl (Cymbalta) 30 mg PO DAILY REPLACED BY [facility] Last Admin: 11/06/17 09:14 Dose: 30 mg Famotidine (Pepcid) 20 mg PO BID REPLACED BY [facility] Last Admin: 11/06/17 09:16 Dose: 20 mg Furosemide (Lasix) 40 mg IV BIDLX REPLACED BY [facility] Last Admin: 11/06/17 09:15 Dose: 40 mg Guaifenesin (Mucinex) 1,200 mg PO BID REPLACED BY [facility] Last Admin: 11/06/17 08:41 Dose: Not Given Heparin Sodium (Porcine) () 5,000 units SC BID REPLACED BY [facility] Last Admin: 11/06/17 09:15 Dose: 5,000 units Levofloxacin 500 mg/ N/A 100 mls @ 100 mls/hr IV Q24 REPLACED BY [facility] Last Admin: 11/06/17 09:16 Dose: 100 mls/hr Levetiracetam (Keppra Tablet) 500 mg PO BID REPLACED BY [facility] Last Admin: 11/06/17 09:13 Dose: 500 mg Mirtazapine (Remeron) 15 mg PO QHS REPLACED BY [facility] Last Admin: 11/05/17 21:31 Dose: Not Given Ondansetron HCl (Zofran) 4 mg IV Q8H PRN PRN PRN Reason: Nausea Oxybutynin Chloride (Ditropan) 5 mg PO TID REPLACED BY [facility] Last Admin: 11/06/17 14:45 Dose: 5 mg Oxycodone HCl (Oxyir) 5 mg PO Q4H PRN PRN Reason: PAIN Pantoprazole Sodium (Protonix) 40 mg PO BID REPLACED BY [facility] Last Admin: 11/06/17 09:17 Dose: Not Given Polyethylene Glycol (Miralax) 17 gm PO DAILY REPLACED BY [facility] Last Admin: 11/06/17 09:16 Dose: Not Given Potassium Chloride (K-Dur) 40 meq PO BID REPLACED BY [facility] Last Admin: 11/06/17 09:14 Dose: 40 meq Pregabalin (Lyrica) 150 mg PO BID REPLACED BY [facility] Last Admin: 11/06/17 09:16 Dose: Not Given Sodium Chloride () 5 - 30 ml IV UD PRN PRN Reason: SALINE FLUSH Last Admin: 11/06/17 09:27 Dose: 10 ml Zolpidem Tartrate (Ambien (Generic)) 5 mg PO QHS PRN PRN PRN Reason: INSOMNIA Medical Necessity - Tobacco Use Smoking Status: Former smoker Assessment/Plan Active and Suspected Problems Encephalopathy (Acute) The patient is a 57 year old F with multiple comorbidities but significant of a stroke ICH (1981 with left-sided hemiplegia) and an ischemic stroke with right-sided weakness about February 2017 with no record in [facility] (her care was in [facility]) and recent cervical spine decompression surgery on October 10, 2017 came to ER for episode of altered mental status and then passed out in the morning. Prior to that, patient returned to home on past Friday after rehab from cervical spine surgery. She has been weak and lethargic yesterday and then in the morning when she woke up she was found with whisper in low volume but no slurring and then she slumped over the chair. There is no concrete history of new weakness but patient has significant residual deficit from the previous stroke and her baseline was using Rollator to ambulate and she drags her left lower extremity as per the son. ] In the ER, basic workup including CT head does not show acute change. The normal sinus rhythm. Chest x-ray shows interstitial edema and bibasilar infiltrates. She denies history of cough cold fever or tachypnea. In ED he was given vancomycin and aztreonam for the suspicion of pneumonia. 1. Acute encephalopathy most probably due to polypharmacy/metabolic encephalopathy ruled out: Patient is being admitted on PCU. MRI brain reported as minimal periventricular white matter ischemic changes without evidence for acute infarct. MRI C-spine shows postop changes of anterior fusion of C4-C5. Moderate spondylosis and multilevel spinal stenosis due to disc degeneration and bony hypertrophy. Carotid Doppler does not show hemodynamically significant occlusion or stenosis. PT/OT and speech and swallow evaluation. assisted she was on mechanical soft diet. Medical record including MRI Brain of August 2017 reviewed from [facility] which does not show acute or chronic major infarct 2. CHF exacerbation: Even though, BNP is normal clinically she seems CHF exacerbation echo shows normal LV size with systolic function, EF 65%. Normal diastolic. Normal RV size and systolic function. Normal right and left atria. Rest tricuspid valve, aortic valve and pulmonary wall not visualized; technically difficult study because of body habitus. Continue Lasix 40 mg IV daily. Strict I&O's. Home medication shows that she is on torsemide 20 mg twice daily 3. Bibasilar atelectasis with history of presumed COPD; doubt: Empirically started on IV vancomycin and aztreonam and was changed to IV Levaquin. Pneumonia workup ordered including urinary antigens are negative. Urine culture negative. Blood cultures ?2 are negative till date. Does not have SIRS criteria. On Advair. I reviewed and shows bibasilar atelectasis with hypoventilation in peripheral and lower lobes. Incentive spirometry. Discontinue antibiotics. 4. Multiple comorbidities including hypertension, COPD, chronic pain syndrome, chronic peripheral neuropathy/radiculopathy, possible GERD: She is on multiple pain medication, methotrexate, Lyrica and duloxetine exact indication unclear. Functional decline secondary to multiple strokes and morbid obesity: PT and OT ordered. DVT prophylaxis: On heparin 500 subcutaneous twice daily and B/L Below knee stockings. Disposition: Depends on the recommendation of PT and OT Total time spent in history and physical, labs and imaging review, discussion with the patient's son and [id number] more than 50 minutes This note was generated with [employer] dictation software. Every effort was made to ensure accuracy, however computerized lithographic press operator apprentice mistakes may persist. Microbiology Past 72 Hours 11/05/17 09:05 Urine, Random Urine Culture - Preliminary Culture exhibits no growth. 11/05/17 14:40 Mucosa - Nasopharyngeal Respiratory Panel (PCR) - Final 11/05/17 15:00 Urine Catheter - Catheter Legionella Antigen - Final 11/05/17 15:00 Urine Catheter - Catheter Streptococcus pneumoniae Antigen (M - Final Laboratory Results 11/05/17 14:00: MRSA (PCR) Negative 11/05/17 17:00: Troponin I < 0.02 11/05/17 17:04: POC Glucose 81 11/05/17 21:50: POC Glucose 89 11/05/17 23:25: Troponin I < 0.02 11/06/17 05:35: Sodium 141, Potassium 3.9, Chloride 103, Carbon Dioxide 31.0, Anion Gap 7, BUN 13, Creatinine 0.80, Estim Creat Clear Calc 76.38, Est GFR (MDRD) Af Amer 95, Est GFR (MDRD) Non-Af 78, BUN/Creatinine Ratio 16.3, Glucose 83, Calcium 8.5, Triglycerides 95, Cholesterol 123, LDL Cholesterol 47, VLDL Cholesterol 19, HDL Cholesterol 57 11/06/17 06:45: POC Glucose 86 11/06/17 11:07: POC Glucose 144 H Clinical Impression(s) from Imaging Studies Brain CT 11/05/17 08:55 IMPRESSION: Chronic involutional changes of the brain. Chest X-Ray 11/05/17 08:55 IMPRESSION: Hypoinflated lungs with interstitial edema and bibasilar infiltrates Brain MRI 11/05/17 12:21 IMPRESSION: Minimal periventricular white matter ischemic changes without evidence for acute infarct Cervical Spine MRI 11/05/17 13:57 IMPRESSION: Postop change status post anterior fusion at C4-5. Moderate spondylosis and multilevel spinal stenosis secondary to disc disease and bony hypertrophy most severe at C7-T1. Findings as above Chest X-Ray 11/06/17 05:55 IMPRESSION: Improved aeration of the lungs with continued bibasilar airspace disease Code Visit Inpatient E&M: 95018 Subs Hosp L3
--- NOTE | 2017-11-06 15:57 | PN_ITS ---
Patient Problems: Active and Suspected Problems Encephalopathy (Acute) Subjective: The patient is awake and alert and is able to comprehend speech and speak coherent. Lower extremities are weak, most probably from neuropathy as she had cervical spine decompression in October 2017. MRI brain reported as normal and does not show evidence of acute infarct or previous infarct. Vitals/I&O's: Vital Signs Temp Pulse Resp BP Pulse Ox 98.5 F 96 18 101/58 L 100 11/06/17 13:30 11/06/17 14:55 11/06/17 14:22 11/06/17 13:30 11/06/17 13:30 Oxygen Flow Rate (L/min) 3 Oxygen Delivery Method Nasal Cannula Weight: 267 lb 13.786 oz Body Mass Index (BMI) 40.7 Intake and Output for Last 24 Hours 11/04/17 11/05/17 11/06/17 23:59 23:59 23:59 Intake Total 991 / 991 684 / 684 Output Total 1550 / 1550 1150 / 1150 Balance -559 / -559 -466 / -466 General: Alert, Oriented x3, Cooperative HEENT: Atraumatic, PERRLA, EOMI, Normocephalic, - - cervical collar after C- spine surgery. Patient had surgical decompression of C4 and 5 vertebrae Oral: Dry Mucosa Neck: Supple, No JVD, Negative Carotid Bruits Lungs: No rhonchi, No wheeze, Diminished Cardiovascular: Regular rate, Regular Rhythm, Normal S1, Normal S2, No murmurs Abdomen: Bowel Sounds Present, Soft, Non Tender, Non-Distended Extremities: Capillary Refill Less than 3 Seconds, Edema Skin: No rashes, No breakdown Musculoskeletal: Arthritic Changes, Muscle Wasting Neurological: Cranial nerves II-XII grossly intact, - - Muscle strength 3/5 in left lower extremity are 4/5 in right lower extremity Psych/Mental Status: Normal Affect, Appropriate Microbiology Past 72 Hours 11/05/17 14:40 Mucosa - Nasopharyngeal Respiratory Panel (PCR) - Final 11/05/17 15:00 Urine Catheter - Catheter Legionella Antigen - Final 11/05/17 15:00 Urine Catheter - Catheter Streptococcus pneumoniae Antigen ( M - Final Laboratory Results 11/05/17 14:00: MRSA (PCR) Negative 11/05/17 17:00: Troponin I < 0.02 11/05/17 17:04: POC Glucose 81 11/05/17 21:50: POC Glucose 89 11/05/17 23:25: Troponin I < 0.02 11/06/17 05:35: Sodium 141, Potassium 3.9, Chloride 103, Carbon Dioxide 31.0, Anion Gap 7, BUN 13, Creatinine 0.80, Estim Creat Clear Calc 76.38, Est GFR ( MDRD) Af Amer 95, Est GFR (MDRD) Non-Af 78, BUN/Creatinine Ratio 16.3, Glucose 83, Calcium 8.5, Triglycerides 95, Cholesterol 123, LDL Cholesterol 47, VLDL Cholesterol 19, HDL Cholesterol 57 11/06/17 06:45: POC Glucose 86 11/06/17 11:07: POC Glucose 144 H Current Medications Acetaminophen (Tylenol) 650 mg PO Q4H PRN PRN PRN Reason: Headache/Temp>99F Last Admin: 11/06/17 09:15 Dose: 650 mg Acetaminophen (Tylenol) 650 mg RECTAL Q4H PRN PRN PRN Reason: Headache/Temp>99F Al Hydroxide/Mg Hydroxide (Mylanta Ii) 30 ml PO Q6H PRN PRN PRN Reason: Gastric Burning Albuterol Sulfate (Ventolin Aerosols) 2.5 mg INHALATION Q2H PRN PRN PRN Reason: SHORTNESS OF BREATH Albuterol/Ipratropium (Duoneb) 3 ml INHALATION Q4H.RT [facility] Last Admin: 11/06/17 14:22 Dose: 3 ml Atorvastatin Calcium (Lipitor) 80 mg PO DAILY [facility] Last Admin: 11/06/17 09:16 Dose: 80 mg Bisacodyl (Dulcolax) 10 mg RECTAL DAILY PRN PRN PRN Reason: Constipation Budesonide (Pulmicort Aerosol) 0.5 mg INHALATION Q12H.RT [facility] Last Admin: 11/06/17 07:02 Dose: 0.5 mg Calamine/Phenol (Calmoseptine Ointment) 1 applic TOPICAL TID [facility] PRN Reason: Protocol Last Admin: 11/06/17 14:45 Dose: 1 applicatio Clopidogrel Bisulfate (Plavix) 75 mg PO DAILY [facility] Last Admin: 11/06/17 09:17 Dose: 75 mg Cyclobenzaprine HCl (Flexeril) 10 mg PO BID [facility] Last Admin: 11/06/17 09:27 Dose: 10 mg Diltiazem HCl (Cardizem Sr) 120 mg PO BID [facility] Last Admin: 11/06/17 09:13 Dose: Not Given Docusate Sodium (Colace) 200 mg PO BID PRN PRN PRN Reason: Constipation Duloxetine HCl (Cymbalta) 30 mg PO DAILY [facility] Last Admin: 11/06/17 09:14 Dose: 30 mg Famotidine (Pepcid) 20 mg PO BID [facility] Last Admin: 11/06/17 09:16 Dose: 20 mg Furosemide (Lasix) 40 mg IV BIDLX [facility] Last Admin: 11/06/17 09:15 Dose: 40 mg Guaifenesin (Mucinex) 1,200 mg PO BID [facility] Last Admin: 11/06/17 08:41 Dose: Not Given Heparin Sodium (Porcine) () 5,000 units SC BID [facility] Last Admin: 11/06/17 09:15 Dose: 5,000 units Levofloxacin 500 mg/ N/A 100 mls @ 100 mls/hr IV Q24 [facility] Last Admin: 11/06/17 09:16 Dose: 100 mls/hr Levetiracetam (Keppra Tablet) 500 mg PO BID [facility] Last Admin: 11/06/17 09:13 Dose: 500 mg Mirtazapine (Remeron) 15 mg PO QHS [facility] Last Admin: 11/05/17 21:31 Dose: Not Given Ondansetron HCl (Zofran) 4 mg IV Q8H PRN PRN PRN Reason: Nausea Oxybutynin Chloride (Ditropan) 5 mg PO TID [facility] Last Admin: 11/06/17 14:45 Dose: 5 mg Oxycodone HCl (Oxyir) 5 mg PO Q4H PRN PRN Reason: PAIN Pantoprazole Sodium (Protonix) 40 mg PO BID [facility] Last Admin: 11/06/17 09:17 Dose: Not Given Polyethylene Glycol (Miralax) 17 gm PO DAILY [facility] Last Admin: 11/06/17 09:16 Dose: Not Given Potassium Chloride (K-Dur) 40 meq PO BID [facility] Last Admin: 11/06/17 09:14 Dose: 40 meq Pregabalin (Lyrica) 150 mg PO BID [facility] Last Admin: 11/06/17 09:16 Dose: Not Given Sodium Chloride () 5 - 30 ml IV UD PRN PRN Reason: SALINE FLUSH Last Admin: 11/06/17 09:27 Dose: 10 ml Zolpidem Tartrate (Ambien (Generic)) 5 mg PO QHS PRN PRN PRN Reason: INSOMNIA Medical Necessity - Tobacco Use Smoking Status: Former smoker Assessment/Plan Active and Suspected Problems Encephalopathy (Acute) The patient is a 57 year old F with multiple comorbidities but significant of a 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 Prior to that, patient returned to home on past Friday after rehab from cervical spine surgery. She has been weak and lethargic yesterday and then in the morning when she woke up she was found with whisper in low volume but no slurring and then she slumped over the chair. There is no concrete history of new weakness but patient has significant residual deficit from the previous stroke and her baseline was using Rollator to ambulate and she drags her left lower extremity as per the son. ] In the ER, basic workup including CT head does not show acute change. The normal sinus rhythm. Chest x-ray shows interstitial edema and bibasilar infiltrates. She denies history of cough cold fever or tachypnea. In ED he was given vancomycin and aztreonam for the suspicion of pneumonia. 1. Acute encephalopathy most probably due to polypharmacy/metabolic encephalopathy ruled out: Patient is being admitted on PCU. MRI brain reported as minimal periventricular white matter ischemic changes without evidence for acute infarct. MRI C-spine shows postop changes of anterior fusion of C4-C5. Moderate spondylosis and multilevel spinal stenosis due to disc degeneration and bony hypertrophy. Carotid Doppler does not show hemodynamically significant occlusion or stenosis. PT/OT and speech and swallow evaluation. half-way she was on mechanical soft diet. Medical record including MRI Brain of August 2017 reviewed from [facility] which does not show acute or chronic major infarct 2. CHF exacerbation: Even though, BNP is normal clinically she seems CHF exacerbation echo shows normal LV size with systolic function, EF 65%. Normal diastolic. Normal RV size and systolic function. Normal right and left atria. Rest tricuspid valve, aortic valve and pulmonary wall not visualized; technically difficult study because of body habitus. Continue Lasix 40 mg IV daily. Strict I&O's. Home medication shows that she is on torsemide 20 mg twice daily 3. Bibasilar atelectasis with history of presumed COPD; doubt: Empirically started on IV vancomycin and aztreonam and was changed to IV Levaquin. Pneumonia workup ordered including urinary antigens are negative. Urine culture negative. Blood cultures ?2 are negative till date. Does not have SIRS criteria. On Advair. I reviewed and shows bibasilar atelectasis with hypoventilation in peripheral and lower lobes. Incentive spirometry. Discontinue antibiotics. 4. Multiple comorbidities including hypertension, COPD, chronic pain syndrome, chronic peripheral neuropathy/radiculopathy, possible GERD: She is on multiple pain medication, methotrexate, Lyrica and duloxetine exact indication unclear. Functional decline secondary to multiple strokes and morbid obesity: PT and OT ordered. DVT prophylaxis: On heparin 500 subcutaneous twice daily and B/L Below knee stockings. Disposition: Depends on the recommendation of PT and OT Total time spent in history and physical, labs and imaging review, discussion with the patient's son and [id number] more than 50 minutes This note was generated with [employer] dictation software. Every effort was made to ensure accuracy, however computerized drop crew laborer mistakes may persist. Microbiology Past 72 Hours 11/05/17 09:05 Urine, Random Urine Culture - Preliminary Culture exhibits no growth. 11/05/17 14:40 Mucosa - Nasopharyngeal Respiratory Panel (PCR) - Final 11/05/17 15:00 Urine Catheter - Catheter Legionella Antigen - Final 11/05/17 15:00 Urine Catheter - Catheter Streptococcus pneumoniae Antigen ( M - Final Laboratory Results 11/05/17 14:00: MRSA (PCR) Negative 11/05/17 17:00: Troponin I < 0.02 11/05/17 17:04: POC Glucose 81 11/05/17 21:50: POC Glucose 89 11/05/17 23:25: Troponin I < 0.02 11/06/17 05:35: Sodium 141, Potassium 3.9, Chloride 103, Carbon Dioxide 31.0, Anion Gap 7, BUN 13, Creatinine 0.80, Estim Creat Clear Calc 76.38, Est GFR ( MDRD) Af Amer 95, Est GFR (MDRD) Non-Af 78, BUN/Creatinine Ratio 16.3, Glucose 83, Calcium 8.5, Triglycerides 95, Cholesterol 123, LDL Cholesterol 47, VLDL Cholesterol 19, HDL Cholesterol 57 11/06/17 06:45: POC Glucose 86 11/06/17 11:07: POC Glucose 144 H Clinical Impression(s) from Imaging Studies Brain CT 11/05/17 08:55 IMPRESSION: Chronic involutional changes of the brain. Chest X-Ray 11/05/17 08:55 IMPRESSION: Hypoinflated lungs with interstitial edema and bibasilar infiltrates Brain MRI 11/05/17 12:21 IMPRESSION: Minimal periventricular white matter ischemic changes without evidence for acute infarct Cervical Spine MRI 11/05/17 13:57 IMPRESSION: Postop change status post anterior fusion at C4-5. Moderate spondylosis and multilevel spinal stenosis secondary to disc disease and bony hypertrophy most severe at C7-T1. Findings as above Chest X-Ray 11/06/17 05:55 IMPRESSION: Improved aeration of the lungs with continued bibasilar airspace disease Code Visit Inpatient E&M: 45002 Subs Hosp L3
[2017-11-06 17:21] LABS: Bedside Glucose 132 mg/dL (70-110)
[2017-11-06] MEDS: dilTIAZem 60 MG CAP.SR.12H 120 MG PO (22:36)
[2017-11-06] MEDS: Pregabalin 75 MG Capsule PO (22:37)
[2017-11-06] MEDS: Pantoprazole Sodium 40 MG Tablet PO (22:38)
[2017-11-06 23:06] LABS: Bedside Glucose 108 mg/dL (70-110)
[2017-11-07] VITALS (13 sets, daily range): BP systolic 95–100; BP diastolic 53–63; PULSE 67–83; RESP 14–18; TEMP 36.9–37; O2SAT 97–100; BMI 40.7
[2017-11-07] MEDS: Ipratropium/Albuterol Sulfate 3 ML AMPUL.NEB INHALATION ×4 (03:03→18:41)
[2017-11-07 06:19] LABS: Anion Gap 6 (5-15); BUN 11 mg/dL (7-18); BUN/Creat Ratio 13.8 RATIO (10-20); Chloride 103 mmol/L (98-107); EST Glomerular Filtration Rate 78 mL/min (>60); Est Glom Filt Rate - Afr Amer 95 mL/min (>60); Estimated Creatinine Clearance 76.38 ml/min; Glucose 88 mg/dL (74-106); Potassium 3.7 mmol/L (3.5-5.1); Sodium Level 141 mmol/L (136-145)
[2017-11-07] MEDS: Oxybutynin 5 MG Tablet PO ×2 (06:22→13:31)
[2017-11-07] MEDS: Acetaminophen 325 MG Tablet 650 MG PO (06:22)
[2017-11-07] MEDS: Budesonide Respules 0.5 MG/2 ML AMPUL.NEB. INHALATION ×2 (06:59→18:41)
[2017-11-07 07:16] LABS: Bedside Glucose 88 mg/dL (70-110)
--- NOTE | 2017-11-07 09:14 | CASEMGMT ---
NEHAL spoke with patient this am. She said she talked with her son and he will be in today when he gets off work at . He would like to talk with CM to see what their options are for d/c. She said they would like for her to go home with him. She was set up with home health through [facility] [employer] when d/c from [facility] on Friday, but they did not make it out yet as she came into the hospital. She said they appealed her d/c twice with [facility] and was denied both times. NEHAL told her that if they decide they want her to go to a [facility] she could go on her Medicaid also. NEHAL explained she would not get as much therapy as she would if she were going under her [facility]. NEHAL told her to ask for NEHAL when her son comes in today. Anna Marie BEDOYA
[2017-11-07] MEDS: Famotidine 20 MG Tablet PO (09:26)
[2017-11-07] MEDS: Pantoprazole Sodium 40 MG Tablet PO (09:26)
[2017-11-07] MEDS: DULoxetine Hcl 30 MG Capsule PO (09:26)
[2017-11-07] MEDS: Polyethylene Glycol 3350 17 GM PACKET PO (09:26)
[2017-11-07] MEDS: levETIRAcetam 500 MG Tablet PO (09:26)
[2017-11-07] MEDS: Atorvastatin Calcium 80 MG Tablet PO (09:26)
[2017-11-07] MEDS: Clopidogrel Bisulfate 75 MG Tablet PO (09:26)
[2017-11-07] MEDS: oxyCODONE 5 MG Tablet PO (09:32)
[2017-11-07] MEDS: Pregabalin 75 MG Capsule PO (09:32)
[2017-11-07] MEDS: Heparin Injection 5,000 UNITS/ML Syringe 5000 UNITS SC ×2 (09:33→23:15)
[2017-11-07 11:31] LABS: Bedside Glucose 113 mg/dL (70-110)
--- NOTE | 2017-11-07 12:31 | PCM.PROGNOTE ---
<Sierra Sam - Last Filed: 11/07/17 12:53> Patient Problems: Active and Suspected Problems Encephalopathy (Acute) Subjective: Patient seen and examined. Denies new neurological symptoms. Denies fever, chills. Denies chest pain, shortness of breath. States she has been ambulating from bed to chair with assistance. Denies other complaints. Her son is to come in this afternoon to help decide on arrangements to alf facility. - Physical Exam General: Alert, Oriented x3, Cooperative, No apparent distress HEENT: Atraumatic, PERRLA, EOMI, Normocephalic Oral: Dry Mucosa Neck: Supple, No JVD, Negative Carotid Bruits Lungs: Clear to auscultation, Diminished Cardiovascular: Regular rate, Regular Rhythm, Normal S1, Normal S2, No murmurs Abdomen: Bowel Sounds Present, Soft, Non Tender, Non-Distended, Obese Extremities: No clubbing, No cyanosis, Edema - BLLE Musculoskeletal: No Tenderness to Palpation of Joints or Extremities Neurological: Cranial nerves II-XII grossly intact, Neuro grossly intact Psych/Mental Status: Normal Affect, Appropriate Vital Signs Temp Pulse Resp BP Pulse Ox 98.5 F 80 18 95/53 L 98 11/07/17 09:17 11/07/17 10:44 11/07/17 09:17 11/07/17 09:17 11/07/17 09:17 Oxygen Flow Rate (L/min) 3 Oxygen Delivery Method Nasal Cannula Weight: 121.5 kg Body Mass Index (BMI) 40.7 Intake and Output for Last 24 Hours 11/05/17 11/06/17 11/07/17 23:59 23:59 23:59 Intake Total 991 / 991 1004 / 1004 Output Total 1550 / 1550 2600 / 2600 250 / 250 Balance -559 / -559 -1596 / -1596 -250 / -250 Microbiology Past 72 Hours 11/05/17 10:52 Blood Culture - Preliminary Blood Culture (Wb) - Anticubital Left No growth in 48 hours. 11/05/17 14:40 Respiratory Panel (PCR) - Final Mucosa - Nasopharyngeal 11/05/17 15:00 Legionella Antigen - Final Urine Catheter - Catheter 11/05/17 15:00 Streptococcus pneumoniae Antigen (M - Final Urine Catheter - Catheter Laboratory Tests Past 24 Hrs 11/07/17 05:40 Sodium 141 Potassium 3.7 Chloride 103 Carbon Dioxide 32.0 Anion Gap 6 BUN 11 Creatinine 0.80 Estim Creat Clear Calc 76.38 Est GFR (MDRD) Af Amer 95 Est GFR (MDRD) Non-Af 78 BUN/Creatinine Ratio 13.8 Glucose 88 Calcium 9.0 POC Glucose 11/07/17 11/07/17 11/06/17 11:11 06:51 22:54 POC Glucose 113 H 88 108 11/06/17 17:18 POC Glucose 132 H Medical Necessity - Tobacco Use Smoking Status: Unknown if ever smoked Assessment/Plan Active and Suspected Problems Encephalopathy (Acute) Patient is a 57-year-old female admitted 11/05/2017 due to unresponsiveness. She has a past medical history of ICH with left-sided hemiplegia, ischemic CVA with right-sided weakness, hypertension, COPD, chronic pain syndrome, GERD, chronic peripheral neuropathy/radiculopathy. 1. Acute toxic encephalopathy secondary to polypharmacy-improved. Neurology consulted. MRI of the brain shows minimal white matter ischemic changes without evidence of acute infarct. MRI of C-spine shows postop changes of anterior fusion of C4 through C5. Moderate spondylosis at multilevel spinal stenosis due to disc degeneration and bony hypertrophy. Carotid Doppler shows no significant occlusion or stenosis. EEG was abnormal due to mild generalized background slowing, no seizures noted. Continue home Keppra regimen. Unclear of seizure history? PT/OT/ST. speech therapy recommending modified barium swallow. Continue with pur?ed diet, nectar thick liquids. Discharge pending family choosing facility and pre-CERT. Patient started on statin and Plavix given questionable history of reported CVA. MRI did not show any old stroke. 2. Acute on chronic diastolic CHF-previously on IV Lasix which has since been discontinued. Continue home torsemide regimen. Echocardiogram shows an EF of 65%. Strict I's and O's, daily weight. 3. Bibasilar atelectasis with presumed COPD-no acute exacerbation. Continue incentive spirometry, albuterol and DuoNeb aerosols. Pneumonia ruled out and antibiotics previously discontinued. 4. Chronic pain syndrome-on multidrug regimen at home. Suspect patient may have been overmedicating herself. 5. Hypertension-stable, continue current regimen. 6. GERD-continue PPI. DVT prophylaxis-heparin subcu. Discharge planning: Family deciding on facility, pending pre-CERT. This patient was seen by RUSSEL Mccabe under the supervision of Dr. Bernal. <Baljinder Bernal - Last Filed: 11/07/17 17:44> Subjective: Patient is sitting in the chair. No obvious shortness of breath. Out of bed to chair with assistance. Failed dysphagia swallowing test. - Physical Exam General: Alert, Oriented x3, Cooperative HEENT: Atraumatic, PERRLA, EOMI, Normocephalic Neck: Supple, No JVD, Negative Carotid Bruits Lungs: Clear to auscultation, Diminished Cardiovascular: Regular rate, Regular Rhythm, Normal S1, Normal S2, No murmurs Abdomen: Bowel Sounds Present, Soft, Non Tender, Obese Extremities: No edema, Capillary Refill Less than 3 Seconds Skin: No rashes, No breakdown Musculoskeletal: No Tenderness to Palpation of Joints or Extremities Neurological: Cranial nerves II-XII grossly intact Psych/Mental Status: Normal Affect, Appropriate Vital Signs Temp Pulse Resp BP Pulse Ox 98.5 F 80 18 99/63 100 11/07/17 15:00 11/07/17 15:00 11/07/17 15:00 11/07/17 15:00 11/07/17 15:00 Oxygen Flow Rate (L/min) 2 Oxygen Delivery Method Nasal Cannula Weight: 267 lb 13.786 oz Body Mass Index (BMI) 40.7 Intake and Output for Last 24 Hours 11/05/17 11/06/17 11/07/17 23:59 23:59 23:59 Intake Total 991 / 991 1004 / 1004 360 / 360 Output Total 1550 / 1550 2600 / 2600 1150 / 1150 Balance -559 / -559 -1596 / -1596 -790 / -790 Microbiology Past 72 Hours 11/05/17 10:52 Blood Culture - Preliminary Blood Culture (Wb) - Anticubital Left No growth in 48 hours. 11/05/17 14:40 Respiratory Panel (PCR) - Final Mucosa - Nasopharyngeal 11/05/17 15:00 Legionella Antigen - Final Urine Catheter - Catheter 11/05/17 15:00 Streptococcus pneumoniae Antigen (M - Final Urine Catheter - Catheter Laboratory Tests Past 24 Hrs 11/07/17 05:40 Sodium 141 Potassium 3.7 Chloride 103 Carbon Dioxide 32.0 Anion Gap 6 BUN 11 Creatinine 0.80 Estim Creat Clear Calc 76.38 Est GFR (MDRD) Af Amer 95 Est GFR (MDRD) Non-Af 78 BUN/Creatinine Ratio 13.8 Glucose 88 Calcium 9.0 POC Glucose 11/07/17 11/07/17 11/07/17 16:27 11:11 06:51 POC Glucose 76 113 H 88 11/06/17 22:54 POC Glucose 108 Assessment/Plan This patient was seen in conjunction with [employer], Sierra. I have independently interviewed and examined the patient and reviewed pertinent history, examination findings, laboratory and plan of management. I have reviewed the note and agree with the documented findings with the few additional points. In brief, patient is admitted for acute toxic encephalopathy secondary to polypharmacy. Acute stroke ruled out with normal MRI brain. MRI C-spine showed postoperative changes with chronic disc degeneration and arthritic changes. Patient had modified barium swallow which showed pooling of thin barium within the distal esophagus with the appearance of severe subcutaneous dysmotility, likely due to lower esophageal sphincter nonrelaxation. This is suggestive of esophageal dysphagia. PEG tube was recommended. Possible on Friday Clinical Impression(s) from Imaging Studies Brain MRI 11/05/17 12:21 IMPRESSION: Minimal periventricular white matter ischemic changes without evidence for acute infarct Electronically Signed: Nicko Hernandez MD at 22:45 EDT , Service support , Cervical Spine MRI 11/05/17 13:57 IMPRESSION: Postop change status post anterior fusion at C4-5. Moderate spondylosis and multilevel spinal stenosis secondary to disc disease and bony hypertrophy most severe at C7-T1. Findings as above Chest X-Ray 11/06/17 05:55 IMPRESSION: Improved aeration of the lungs with continued bibasilar airspace disease Electronically Signed: Álvaro Brooke DO at 9:16 EDT Tel , Service support , Videofluoroscopic Swallow 11/07/17 13:30 IMPRESSION: Exam was terminated due to high risk of aspiration of the patient after trying only thin barium as described above due to reflux from the upper esophagus through the pharynx and oral cavity observed fluoroscopically. Additional imaging shows pooling of thin barium within the distal esophagus with the appearance of severe subcutaneous dysmotility, likely due to lower esophageal sphincter nonrelaxation. However, other etiologies are not excluded including partial or complete distal esophageal obstruction due to stricture, neoplasm or severe esophagitis/GE reflux disease. Clinical correlation recommended. The swallow study findings were discussed with the patient by the Speech Pathologist Larry at the conclusion of the examination. Please see Speech Pathology report for more information and recommendations. The procedure was performed by Speech Pathologist Larry under the direct supervision of Dr. Redmond. Code Visit Inpatient E&M: 84060 Subs Hosp L3
--- NOTE | 2017-11-07 12:47 | PN_ITS ---
<Sierra Sam - Last Filed: 11/07/17 12:53> Patient Problems: Active and Suspected Problems Encephalopathy (Acute) Subjective: Patient seen and examined. Denies new neurological symptoms. Denies fever, chills. Denies chest pain, shortness of breath. States she has been ambulating from bed to chair with assistance. Denies other complaints. Her son is to come in this afternoon to help decide on arrangements to retirement facility. - Physical Exam General: Alert, Oriented x3, Cooperative, No apparent distress HEENT: Atraumatic, PERRLA, EOMI, Normocephalic Oral: Dry Mucosa Neck: Supple, No JVD, Negative Carotid Bruits Lungs: Clear to auscultation, Diminished Cardiovascular: Regular rate, Regular Rhythm, Normal S1, Normal S2, No murmurs Abdomen: Bowel Sounds Present, Soft, Non Tender, Non-Distended, Obese Extremities: No clubbing, No cyanosis, Edema - BLLE Musculoskeletal: No Tenderness to Palpation of Joints or Extremities Neurological: Cranial nerves II-XII grossly intact, Neuro grossly intact Psych/Mental Status: Normal Affect, Appropriate Vital Signs Temp Pulse Resp BP Pulse Ox 98.5 F 80 18 95/53 L 98 11/07/17 09:17 11/07/17 10:44 11/07/17 09:17 11/07/17 09:17 11/07/17 09:17 Oxygen Flow Rate (L/min) 3 Oxygen Delivery Method Nasal Cannula Weight: 121.5 kg Body Mass Index (BMI) 40.7 Intake and Output for Last 24 Hours 11/05/17 11/06/17 11/07/17 23:59 23:59 23:59 Intake Total 991 / 991 1004 / 1004 Output Total 1550 / 1550 2600 / 2600 250 / 250 Balance -559 / -559 -1596 / -1596 -250 / -250 Microbiology Past 72 Hours 11/05/17 10:52 Blood Culture - Preliminary Blood Culture (Wb) - Anticubital Left No growth in 48 hours. 11/05/17 14:40 Respiratory Panel (PCR) - Final Mucosa - Nasopharyngeal 11/05/17 15:00 Legionella Antigen - Final Urine Catheter - Catheter 11/05/17 15:00 Streptococcus pneumoniae Antigen (M - Final Urine Catheter - Catheter Laboratory Tests Past 24 Hrs 11/07/17 05:40 Sodium 141 Potassium 3.7 Chloride 103 Carbon Dioxide 32.0 Anion Gap 6 BUN 11 Creatinine 0.80 Estim Creat Clear Calc 76.38 Est GFR (MDRD) Af Amer 95 Est GFR (MDRD) Non-Af 78 BUN/Creatinine Ratio 13.8 Glucose 88 Calcium 9.0 POC Glucose 11/07/17 11/07/17 11/06/17 11:11 06:51 22:54 POC Glucose 113 H 88 108 11/06/17 17:18 POC Glucose 132 H Medical Necessity - Tobacco Use Smoking Status: Unknown if ever smoked Assessment/Plan Active and Suspected Problems Encephalopathy (Acute) Patient is a 57-year-old female admitted 11/05/2017 due to unresponsiveness. She has a past medical history of ICH with left-sided hemiplegia, ischemic CVA with right-sided weakness, hypertension, COPD, chronic pain syndrome, GERD, chronic peripheral neuropathy/radiculopathy. 1. Acute toxic encephalopathy secondary to polypharmacy-improved. Neurology consulted. MRI of the brain shows minimal white matter ischemic changes without evidence of acute infarct. MRI of C-spine shows postop changes of anterior fusion of C4 through C5. Moderate spondylosis at multilevel spinal stenosis due to disc degeneration and bony hypertrophy. Carotid Doppler shows no significant occlusion or stenosis. EEG was abnormal due to mild generalized background slowing, no seizures noted. Continue home Keppra regimen. Unclear of seizure history? PT/OT/ST. speech therapy recommending modified barium swallow. Continue with pur?ed diet, nectar thick liquids. Discharge pending family choosing facility and pre-CERT. Patient started on statin and Plavix given questionable history of reported CVA. MRI did not show any old stroke. 2. Acute on chronic diastolic CHF-previously on IV Lasix which has since been discontinued. Continue home torsemide regimen. Echocardiogram shows an EF of 65%. Strict I's and O's, daily weight. 3. Bibasilar atelectasis with presumed COPD-no acute exacerbation. Continue incentive spirometry, albuterol and DuoNeb aerosols. Pneumonia ruled out and antibiotics previously discontinued. 4. Chronic pain syndrome-on multidrug regimen at home. Suspect patient may have been overmedicating herself. 5. Hypertension-stable, continue current regimen. 6. GERD-continue PPI. DVT prophylaxis-heparin subcu. Discharge planning: Family deciding on facility, pending pre-CERT. This patient was seen by RUSSEL Mccabe under the supervision of Dr. Bernal. <Baljidner Bernal - Last Filed: 11/07/17 17:44> Subjective: Patient is sitting in the chair. No obvious shortness of breath. Out of bed to chair with assistance. Failed dysphagia swallowing test. - Physical Exam General: Alert, Oriented x3, Cooperative HEENT: Atraumatic, PERRLA, EOMI, Normocephalic Neck: Supple, No JVD, Negative Carotid Bruits Lungs: Clear to auscultation, Diminished Cardiovascular: Regular rate, Regular Rhythm, Normal S1, Normal S2, No murmurs Abdomen: Bowel Sounds Present, Soft, Non Tender, Obese Extremities: No edema, Capillary Refill Less than 3 Seconds Skin: No rashes, No breakdown Musculoskeletal: No Tenderness to Palpation of Joints or Extremities Neurological: Cranial nerves II-XII grossly intact Psych/Mental Status: Normal Affect, Appropriate Vital Signs Temp Pulse Resp BP Pulse Ox 98.5 F 80 18 99/63 100 11/07/17 15:00 11/07/17 15:00 11/07/17 15:00 11/07/17 15:00 11/07/17 15:00 Oxygen Flow Rate (L/min) 2 Oxygen Delivery Method Nasal Cannula Weight: 267 lb 13.786 oz Body Mass Index (BMI) 40.7 Intake and Output for Last 24 Hours 11/05/17 11/06/17 11/07/17 23:59 23:59 23:59 Intake Total 991 / 991 1004 / 1004 360 / 360 Output Total 1550 / 1550 2600 / 2600 1150 / 1150 Balance -559 / -559 -1596 / -1596 -790 / -790 Microbiology Past 72 Hours 11/05/17 10:52 Blood Culture - Preliminary Blood Culture (Wb) - Anticubital Left No growth in 48 hours. 11/05/17 14:40 Respiratory Panel (PCR) - Final Mucosa - Nasopharyngeal 11/05/17 15:00 Legionella Antigen - Final Urine Catheter - Catheter 11/05/17 15:00 Streptococcus pneumoniae Antigen (M - Final Urine Catheter - Catheter Laboratory Tests Past 24 Hrs 11/07/17 05:40 Sodium 141 Potassium 3.7 Chloride 103 Carbon Dioxide 32.0 Anion Gap 6 BUN 11 Creatinine 0.80 Estim Creat Clear Calc 76.38 Est GFR (MDRD) Af Amer 95 Est GFR (MDRD) Non-Af 78 BUN/Creatinine Ratio 13.8 Glucose 88 Calcium 9.0 POC Glucose 11/07/17 11/07/17 11/07/17 16:27 11:11 06:51 POC Glucose 76 113 H 88 11/06/17 22:54 POC Glucose 108 Assessment/Plan This patient was seen in conjunction with WORKERS COMPENSATION CLAIMS SPECIALIST, Sierra. I have independently interviewed and examined the patient and reviewed pertinent history, examination findings, laboratory and plan of management. I have reviewed the note and agree with the documented findings with the few additional points. In brief, patient is admitted for acute toxic encephalopathy secondary to polypharmacy. Acute stroke ruled out with normal MRI brain. MRI C-spine showed postoperative changes with chronic disc degeneration and arthritic changes. Patient had modified barium swallow which showed pooling of thin barium within the distal esophagus with the appearance of severe subcutaneous dysmotility, likely due to lower esophageal sphincter nonrelaxation. This is suggestive of esophageal dysphagia. PEG tube was recommended. Possible on Friday Clinical Impression(s) from Imaging Studies Brain MRI 11/05/17 12:21 IMPRESSION: Minimal periventricular white matter ischemic changes without evidence for acute infarct Electronically Signed: Nicko Hernandez MD at 22:45 EDT , Service support , Cervical Spine MRI 11/05/17 13:57 IMPRESSION: Postop change status post anterior fusion at C4-5. Moderate spondylosis and multilevel spinal stenosis secondary to disc disease and bony hypertrophy most severe at C7-T1. Findings as above Chest X-Ray 11/06/17 05:55 IMPRESSION: Improved aeration of the lungs with continued bibasilar airspace disease Electronically Signed: Álvaro Brooke DO at 9:16 EDT Tel , Service support , Videofluoroscopic Swallow 11/07/17 13:30 IMPRESSION: Exam was terminated due to high risk of aspiration of the patient after trying only thin barium as described above due to reflux from the upper esophagus through the pharynx and oral cavity observed fluoroscopically. Additional imaging shows pooling of thin barium within the distal esophagus with the appearance of severe subcutaneous dysmotility, likely due to lower esophageal sphincter nonrelaxation. However, other etiologies are not excluded including partial or complete distal esophageal obstruction due to stricture, neoplasm or severe esophagitis/GE reflux disease. Clinical correlation recommended. The swallow study findings were discussed with the patient by the Speech Pathologist Larry at the conclusion of the examination. Please see Speech Pathology report for more information and recommendations. The procedure was performed by Speech Pathologist Larry under the direct supervision of Dr. Redmond. Code Visit Inpatient E&M: 37544 Subs Hosp L3
[2017-11-07] MEDS: Menthol/Lanolin/Calamine/Znox 113 GM Tube 1 APPLIC TOPICAL ×2 (13:30→23:15)
--- NOTE | 2017-11-07 13:30 | SP.MBSS_ITS ---
PRIMARY / SECONDARY DIAGNOSIS: dysphagia (R13.12) REFERRING PHYSICIAN: Dr. Baljinder Bernal MD CURRENT DIET: pureed textures, nectar thickened liquids DENTITION: edentulous MENTAL STATUS: WNL RESPIRATORY STATUS: O2 at 4L/min via nasal cannula PREVIOUS MODIFIED BARIUM SWALLOW STUDY: none REASON FOR REFERRAL: Patient is a 57 year old female referred for a modified barium swallow (MBS) study to objectively assess the Patients oropharyngeal swallow function under fluoroscopy secondary to reported dysphagia for solids with intermittent coughing, feeling of bolus catching in throat with coughing, intermittent coughing with thin liquid chasers to a lesser extent occurring post anterior cervical fusion. Patient placed on a mechanical soft, thin liquid diet upon discharge from half-way facility, with reported continued signs and symptoms of dysphagia. Assessment at bedside complicated by presence of cervical collar. Patient currently admitted to [facility] ( admitted 11/05/2017) due to change in mental status, with reported chronic bilateral side deficits associated with a cerebrovascular accident, though no imaging results verifying report. 11/06/2017 EEG revealed an abnormal EEG due to mild generalized background slowing, can be seen in generalized cerebral dysfunction like encephalopathy. 11/06/2017 CXR revealed improved aeration of the lungs with continued bibasilar airspace disease 11/05/2017 CXR revealed hypoinflated lungs with interstitial edema and bibasilar infiltrates 11/05/2017 CT revealed chronic involutional changes of the brain. 08/11/2017 CT revealed chronic involutional changes of the brain. 09/10/2016 upper GI series revealed a small sliding scale hiatal hernia without gastroesophageal reflux. 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 STUDY FINDINGS: Patient participated in a Modified Barium Swallow (MBS) study on 11/07/2017. Dr. Redmond was the radiologist present for this evaluation. This study was recorded in the lateral view and images were sent to PACs for storage. The following consistencies were presented to this patient for analysis of oropharyngeal swallow function: thin liquids; with further trials held due to the severity of esophageal dysmotility and esophageal reflux. Results of the MBS are as follows: PENETRATION / ASPIRATION SCALE (BYRD): 1 = does not enter airway 2 = enters airway/above vocal folds/ejected 3 = enters airway/above vocal folds/not ejected 4 = enters airway/contacts vocal folds/ejected 5 = enters airway/contacts vocal folds/not ejected 6 = enters airway/below vocal folds/ejected 7 = enters airway/below vocal folds/not ejected despite effort 8 = enters airway/below vocal folds/no effort PENETRATION / ASPIRATION SCALE (SCORE): Thin liquid - 5 mL tsp.: 1 Thin liquids via cup (single sip): 1 Thin liquids via cup (single sip): 5* Thin liquids via cup (sequential swallows): 1 Thin liquids via straw (single sip): 3 Thin liquids via straw (sequential swallows): 3 * denotes post prandial coughing without visualization IMPRESSION: DIAGNOSIS: mild to moderate oropharyngeal dysphagia (R13.12) with severe esophageal dysmotility and esophageal reflux ORAL PHASE CHARACTERIZED BY: LABIAL SEAL: no labial escape TONGUE CONTROL DURING BOLUS MANIPULATION: posterior escape of less than half of bolus BOLUS PREPARATION / MASTICATION: did not test BOLUS TRANSPORT / LINGUAL MOTION: brisk tongue motion; piecemeal deglutition of larger bolus volumes of thin liquids. ORAL RESIDUE: trace residue lining oral structures PHARYNGEAL PHASE CHARACTERIZED BY: INITIATION OF PHARYNGEAL SWALLOW: bolus head in pyriforms at first hyoid excursion SOFT PALATE ELEVATION: no bolus between soft palate and pharyngeal wall LARYNGEAL ELEVATION: minimal superior movement of thyroid cartilage/minimal approximation of arytenoids cartilage to epiglottic petiole ANTERIOR HYOID EXCURSION: complete anterior movement EPIGLOTTIC MOVEMENT: partial epiglottic inversion LARYNGEAL VESTIBULE CLOSURE AT HEIGHT OF SWALLOW: incomplete laryngeal vestibule closure with narrow column of air/contrast in laryngeal vestibule PHARYNGEAL STRIPPING WAVE: unable to fully assess PHARYNGOESOPHAGEAL SEGMENT OPENING: minimal distension and minimal duration with obstruction of flow TONGUE BASE RETRACTION: unable to fully assess PHARYNGEAL RESIDUE: collection of residue within or on pharyngeal structures ESOPHAGEAL PHASE CHARACTERIZED BY: ESOPHAGEAL BOLUS CLEARANCE IN THE UPRIGHT POSITION: minimal to no esophageal clearance with multiple instances of large volume retrograde flow through PES to / through the pharyngeal cavity and to the oral cavity, with little to no esophageal clearance following the initial trial to the final of 6 trials; allowed 5 minutes to facilitate esophageal clearance, with continued esophageal retention within the inferior half of the esophagus with retrograde flow below pharyngoesophageal segment (PES) DIET TEXTURE RECOMMENDATIONS: NPO pending further workup of esophageal motility completed, repeat MBS as indicated INTERPRETATION OF RESULTS: Patient presents with mild to moderate oropharyngeal dysphagia (R13.12) with severe esophageal dysmotility and esophageal reflux. Limited assessment of the oropharyngeal function completed out of concern for aspiration of post prandial bolus with possible gastric contents. Esophageal phase marked by minimal to no esophageal clearance with multiple instances of large volume retrograde flow through PES to / through the pharyngeal cavity and to the oral cavity, with little to no esophageal clearance following the initial trial to the final of 6 trials; allowed 5 minutes to facilitate esophageal clearance, with continued esophageal retention within the inferior half of the esophagus with retrograde flow below pharyngoesophageal segment (PES), with further trials held due to concern for post prandial aspiration of barium in addition to gastric contents. Patient reporting frequently experiencing material re-enter the oral cavity with acidic taste following completion of the MBS (no prior report of esophageal motility symptoms), with the Patient at times required to excuse self from meals to spit her food back up, reports this occurring well prior to the cervical fusion. Insufficient laryngeal vestibule pressure generated to expel penetrated material. Noted coughing after image capturing of the 3rd thin liquid trial with minimal penetration to the vocal folds, weak in nature, unclear as to effectiveness. Cervical fusion located at C 5-6 with suspected tissue swelling. RECOMMENDATIONS: Recommend full workup of the Patients esophageal functioning, as it is outside the scope of the modified barium swallow study to objectively assess esophageal functioning, though clear dysmotility and reflux issues are present. May consider completion of an esophagram, though Patient likely requires further workup via stock sheets cleaner inspector prior to proceeding with workup. Cannot expect PO tolerance of any texture due to the severity of dysmotility, with high risk of aspiration of gastric contents. Patient likely experiencing dysmotility at some degree prior to current hospitalization, based on additional subjective reports provided by the Patient post MBS completion. Recommend a repeat modified barium swallow study if clinically appropriate to fully assess the oropharyngeal swallow function, as trials were terminated prior to completion of thicker viscosities. ADDITIONAL COMMENTS/RECOMMENDATIONS: Results and recommendations were discussed with the Patient immediately following MBS completion, with the Patient verbalizing understanding and agreement with all recommendations and education provided. IMAGE COUNT: [id number]
--- NOTE | 2017-11-07 13:30 | RAD_ITS ---
STUDY: SWALLOWING STUDY REASON FOR EXAM: Female, 57 years old. Dysphagia. Recent cervical spine surgery. TECHNIQUE: The examination was performed with Speech Pathology (Larry) in attendance. Under fluoroscopic observation, the patient ingested thin barium. FLUOROSCOPY TIME: 2:00 minutes. RADIOLOGIST INVOLVEMENT: Radiologist was present and providing direct supervision. COMPARISON: None available. FINDINGS: The following was observed during swallowing of the various mixtures of barium: Thin Barium: There was no finding of aspiration below the vocal cords identified. Mild transient laryngeal penetration noted. However, reflux of thin barium was noted from the cervical upper esophagus into the subglottic and pharyngeal regions extending into the oral cavity. Additional imaging of the lower thorax in the lateral projection shows thin barium pooling within the distal esophagus and appearance consistent with severe esophageal dysmotility. Cannot exclude lower esophageal sphincter nonrelaxation resulting in increased distal esophageal pressure or other etiology. Exam was terminated at this point due to high risk of aspiration of the patient. RAD/Swallowing Function w/Video IMPRESSION: Exam was terminated due to high risk of aspiration of the patient after trying only thin barium as described above due to reflux from the upper esophagus through the pharynx and oral cavity observed fluoroscopically. Additional imaging shows pooling of thin barium within the distal esophagus with the appearance of severe subcutaneous dysmotility, likely due to lower esophageal sphincter nonrelaxation. However, other etiologies are not excluded including partial or complete distal esophageal obstruction due to stricture, neoplasm or severe esophagitis/GE reflux disease. Clinical correlation recommended. The swallow study findings were discussed with the patient by the Speech Pathologist Larry at the conclusion of the examination. Please see Speech Pathology report for more information and recommendations. The procedure was performed by Speech Jose Roberto Juarez under the direct supervision of Dr. Redmond. Electronically Signed: Rojelio Redmond, at 15:16 EDT Tel , Service support ,
--- NOTE | 2017-11-07 15:13 | CASEMGMT ---
SW spoke with patient, her son, Ronda and his fiance, Paty. They just learned that patient may need a peg tube. SW answered some of their questions that SW was able to answer. Patient really wants to go home. Her daughter in law said she is willing to learn how to care for the peg tube. SW told them that [facility] will follow up with them on Friday as right now there are a lot of unknowns. They agreed with this plan. Plan: undetermined at this time as there is talk of possible peg tube placement. Anna Marie [employer] SPREAD CUTTER
[2017-11-07 17:06] LABS: Bedside Glucose 76 mg/dL (70-110)
[2017-11-07] MEDS: 0.9% NaCl Peripheral Flush Adult/Peds IV ×2 (17:30→20:35)
[2017-11-07] MEDS: Dextrose 5%/0.9% NaCl 1,000 ML 100 ML IV (17:30)
[2017-11-07 18:40] LABS: Bedside Glucose 66 mg/dL (70-110)
[2017-11-07] MEDS: Dextrose 50%-Water 25 GM/50 ML DISP.SYRIN IV (18:44)
[2017-11-07 19:31] LABS: Bedside Glucose 119 mg/dL (70-110)
[2017-11-07] MEDS: Morphine 2 MG/ML Syringe IV (20:33)
[2017-11-07 20:41] LABS: Bedside Glucose 89 mg/dL (70-110)
[2017-11-07 23:10] LABS: Bedside Glucose 94 mg/dL (70-110)
[2017-11-08] VITALS (12 sets, daily range): BP systolic 105–118; BP diastolic 59–72; PULSE 61–93; RESP 16–20; TEMP 36.8–37.3; O2SAT 94–100; BMI 40.7
[2017-11-08] MEDS: Dextrose 5%/0.9% NaCl 1,000 ML 100 ML IV ×2 (03:14→13:29)
[2017-11-08] MEDS: Menthol/Lanolin/Calamine/Znox 113 GM Tube 1 APPLIC TOPICAL ×2 (05:08→15:11)
[2017-11-08] MEDS: Ipratropium/Albuterol Sulfate 3 ML AMPUL.NEB INHALATION ×4 (06:45→18:43)
[2017-11-08] MEDS: Budesonide Respules 0.5 MG/2 ML AMPUL.NEB. INHALATION ×2 (06:45→18:43)
[2017-11-08 06:56] LABS: Bedside Glucose 113 mg/dL (70-110)
[2017-11-08 07:45] LABS: Bedside Glucose 91 mg/dL (70-110)
--- NOTE | 2017-11-08 07:51 | PCM.CONS.GEN ---
Reason for Consult Date of Consultation: 11/08/17 Reason for Consultation: PEG secondary to dysphagia History of Present Illness: The patient is a 57 year old F admitted for MS change consulted for PEG due to dysphagia. Pt failed swallow study. Pt states she has had dysphagia for 4-5 months even before recent cervical surgery 10/10/2017. Pt states she felt like the food (solid and liquid) would get stuck in her throat and she would have to vomit because she was unable to swallow the food/liquid. Pt had gastric bypass in 2008. Past Medical History Allergies aspirin Allergy (Verified 11/05/17 08:54) Shortness of breath Penicillins [PCN] Allergy (Verified 11/05/17 08:54) Shortness of breath Home Medications: Ambulatory Orders Medication Instructions Recorded Cholecalciferol (Vitamin D3) 50,000 unit PO DAILY 11/05/17 [Vitamin D] Cyclobenzaprine [Flexeril] 10 mg PO BID 11/05/17 Diltiazem HCl [Diltiazem 24Hr ER] 120 mg PO BID 11/05/17 Duloxetine HCl 30 mg PO DAILY 11/05/17 Esomeprazole Magnesium 40 mg PO BID 11/05/17 Fluticasone/Salmeterol [Advair 1 each IH DAILY 11/05/17 500-50 Diskus] Levetiracetam [Levetiracetam ER] 500 mg PO BID 11/05/17 Methotrexate 20 mg PO Q7D 11/05/17 Mirtazapine [Remeron] 15 mg PO QHS 11/05/17 Oxybutynin [Ditropan] 5 mg PO TID 11/05/17 Oxycodone CR [Oxycontin] 10 mg PO BID 11/05/17 Oxycodone HCl/Acetaminophen 1 - 2 tablet PO Q6H PRN PRN 11/05/17 [Percocet 5-325] Potassium Chloride [Klor-Con M20] 2 tablet PO TID 11/05/17 Pregabalin [Lyrica] 150 mg PO BID 11/05/17 Torsemide [Demadex] 20 mg PO BID 11/05/17 Zolpidem Tartrate 5 mg PO QHS PRN 11/05/17 Surgical History: cholecystectomy, gastric bypass - 2008 at [facility], hysterectomy, - - abdominoplasty to remove excess skin Psychiatric History: Depression Lives: Alone Smoking Status: Unknown if ever smoked Alcohol: None Drugs: None - *Family History Paternal History Items: No pertinent history Review of Systems Constitutional: Denies: Chills, Fever Eyes: Reports: Blurred vision HEENT: Reports: Difficulty Swallowing Cardiovascular: Denies: Chest Pain Respiratory: Denies: Shortness of breath at rest Gastrointestinal: Denies: Abdominal Pain Genitourinary: Denies: Dysuria Skin: Denies: Rash Neurological: Reports: Numbness - In her hands, Tingling Psychiatric: Reports: Depression - Controlled medications - Physical Exam General: Alert, Oriented x3, Cooperative HEENT: - - C collar in place Cardiovascular: Regular rate Abdomen: Soft, Non Tender, Non-Distended, - - no guarding/rebound, well healed abdominoplasty incisions Extremities: No clubbing, No cyanosis, No edema Skin: No rashes Neurological: - - 3/5 in right upper arm, 4/5 left upper arm Psych/Mental Status: Normal Affect Vital Signs Temp Pulse Resp BP Pulse Ox 98.3 F 70 20 H 105/59 L 97 11/08/17 05:06 11/08/17 06:45 11/08/17 06:45 11/08/17 05:06 11/08/17 06:45 Oxygen Flow Rate (L/min) 3 Oxygen Delivery Method Nasal Cannula Weight: 267 lb 13.786 oz Body Mass Index (BMI) 40.7 Intake and Output for Last 24 Hours 11/06/17 11/07/17 11/08/17 23:59 23:59 23:59 Intake Total 1004 / 1004 473 / 473 1114 / 1114 Output Total 2600 / 2600 1400 / 1400 390 / 390 Balance -1596 / -1596 -927 / -927 724 / 724 Microbiology Past 72 Hours 11/05/17 10:52 Blood Culture - Preliminary Blood Culture (Wb) - Anticubital Left No growth in 48 hours. 11/05/17 14:40 Respiratory Panel (PCR) - Final Mucosa - Nasopharyngeal 11/05/17 15:00 Legionella Antigen - Final Urine Catheter - Catheter 11/05/17 15:00 Streptococcus pneumoniae Antigen (M - Final Urine Catheter - Catheter POC Glucose 11/08/17 11/08/17 11/07/17 07:41 03:10 23:03 POC Glucose 91 113 H 94 11/07/17 11/07/17 11/07/17 20:32 19:26 18:35 POC Glucose 89 119 H 66 L 11/07/17 11/07/17 16:27 11:11 POC Glucose 76 113 H Assessment/Plan 57-year-old female with encephalopathy, dysphasia, history of a gastric bypass in 2008 1. Due to patient's history of gastric bypass in 2008, I would not be able to place PEG. Recommend IR guided J-tube for feeding as patient states her dysmotility problem has been going on for about 4 or 5 months where she has felt like food is caught in her throat after 5 minutes since she has had to go throw it up and she states that this happens with all types of food. Discussed with Sierra Sam SOLAR ENERGY SYSTEM INSTALLER as well as patient who is agreeable to a J-tube. Also d/w her son Ronda-per pt request-over the phone. He would like to be notified when there is a decision on where she will go for the J tube. Ginny Clement M.D. Pager: [phone] [facility] [address] [place] [address], [address] [place] [address] Office: [phone] Code Visit Inpatient E&M: 65335 Init Hosp L1
--- NOTE | 2017-11-08 07:56 | CON.PCM_ITS ---
Reason for Consult Date of Consultation: 11/08/17 Reason for Consultation: PEG secondary to dysphagia History of Present Illness: The patient is a 57 year old F admitted for MS change consulted for PEG due to dysphagia. Pt failed swallow study. Pt states she has had dysphagia for 4-5 months even before recent cervical surgery 10/10/2017. Pt states she felt like the food (solid and liquid) would get stuck in her throat and she would have to vomit because she was unable to swallow the food/liquid. Pt had gastric bypass in 2008. Past Medical History Allergies aspirin Allergy (Verified 11/05/17 08:54) Shortness of breath Penicillins [PCN] Allergy (Verified 11/05/17 08:54) Shortness of breath Home Medications: Ambulatory Orders Medication Instructions Recorded Cholecalciferol (Vitamin D3) 50,000 unit PO DAILY 11/05/17 [Vitamin D] Cyclobenzaprine [Flexeril] 10 mg PO BID 11/05/17 Diltiazem HCl [Diltiazem 24Hr ER] 120 mg PO BID 11/05/17 Duloxetine HCl 30 mg PO DAILY 11/05/17 Esomeprazole Magnesium 40 mg PO BID 11/05/17 Fluticasone/Salmeterol [Advair 1 each IH DAILY 11/05/17 500-50 Diskus] Levetiracetam [Levetiracetam ER] 500 mg PO BID 11/05/17 Methotrexate 20 mg PO Q7D 11/05/17 Mirtazapine [Remeron] 15 mg PO QHS 11/05/17 Oxybutynin [Ditropan] 5 mg PO TID 11/05/17 Oxycodone CR [Oxycontin] 10 mg PO BID 11/05/17 Oxycodone HCl/Acetaminophen 1 - 2 tablet PO Q6H PRN PRN 11/05/17 [Percocet 5-325] Potassium Chloride [Klor-Con M20] 2 tablet PO TID 11/05/17 Pregabalin [Lyrica] 150 mg PO BID 11/05/17 Torsemide [Demadex] 20 mg PO BID 11/05/17 Zolpidem Tartrate 5 mg PO QHS PRN 11/05/17 Surgical History: cholecystectomy, gastric bypass - 2008 at [facility], hysterectomy, - - abdominoplasty to remove excess skin Psychiatric History: Depression Lives: Alone Smoking Status: Unknown if ever smoked Alcohol: None Drugs: None - *Family History Paternal History Items: No pertinent history Review of Systems Constitutional: Denies: Chills, Fever Eyes: Reports: Blurred vision HEENT: Reports: Difficulty Swallowing Cardiovascular: Denies: Chest Pain Respiratory: Denies: Shortness of breath at rest Gastrointestinal: Denies: Abdominal Pain Genitourinary: Denies: Dysuria Skin: Denies: Rash Neurological: Reports: Numbness - In her hands, Tingling Psychiatric: Reports: Depression - Controlled medications - Physical Exam General: Alert, Oriented x3, Cooperative HEENT: - - C collar in place Cardiovascular: Regular rate Abdomen: Soft, Non Tender, Non-Distended, - - no guarding/rebound, well healed abdominoplasty incisions Extremities: No clubbing, No cyanosis, No edema Skin: No rashes Neurological: - - 3/5 in right upper arm, 4/5 left upper arm Psych/Mental Status: Normal Affect Vital Signs Temp Pulse Resp BP Pulse Ox 98.3 F 70 20 H 105/59 L 97 11/08/17 05:06 11/08/17 06:45 11/08/17 06:45 11/08/17 05:06 11/08/17 06:45 Oxygen Flow Rate (L/min) 3 Oxygen Delivery Method Nasal Cannula Weight: 267 lb 13.786 oz Body Mass Index (BMI) 40.7 Intake and Output for Last 24 Hours 11/06/17 11/07/17 11/08/17 23:59 23:59 23:59 Intake Total 1004 / 1004 473 / 473 1114 / 1114 Output Total 2600 / 2600 1400 / 1400 390 / 390 Balance -1596 / -1596 -927 / -927 724 / 724 Microbiology Past 72 Hours 11/05/17 10:52 Blood Culture - Preliminary Blood Culture (Wb) - Anticubital Left No growth in 48 hours. 11/05/17 14:40 Respiratory Panel (PCR) - Final Mucosa - Nasopharyngeal 11/05/17 15:00 Legionella Antigen - Final Urine Catheter - Catheter 11/05/17 15:00 Streptococcus pneumoniae Antigen (M - Final Urine Catheter - Catheter POC Glucose 11/08/17 11/08/17 11/07/17 07:41 03:10 23:03 POC Glucose 91 113 H 94 11/07/17 11/07/17 11/07/17 20:32 19:26 18:35 POC Glucose 89 119 H 66 L 11/07/17 11/07/17 16:27 11:11 POC Glucose 76 113 H Assessment/Plan 57-year-old female with encephalopathy, dysphasia, history of a gastric bypass in 2008 1. Due to patient's history of gastric bypass in 2008, I would not be able to place PEG. Recommend IR guided J-tube for feeding as patient states her dysmotility problem has been going on for about 4 or 5 months where she has felt like food is caught in her throat after 5 minutes since she has had to go throw it up and she states that this happens with all types of food. Discussed with Sierra Sam PRODUCTION EXPEDITER as well as patient who is agreeable to a J-tube. Also d/w her son Ronda-per pt request-over the phone. He would like to be notified when there is a decision on where she will go for the J tube. Ginny Clement M.D. Pager: [phone] [facility] [address] [place] [address], [address] [place] [address] Office: [phone] Code Visit Inpatient E&M: 79337 Init Hosp L1
[2017-11-08] MEDS: Morphine 2 MG/ML Syringe IV ×2 (08:38→18:32)
--- NOTE | 2017-11-08 09:43 | CASEMGMT ---
received call from U. Patient is to be transferred to [facility]. According to [employer] provider directory after putting in the prefix for this patient's [facility]-->[facility] is in network. Notified Sharon, hospice patient care secretary on U. Liborio Vega RN, [facility].
[2017-11-08 12:36] LABS: Bedside Glucose 94 mg/dL (70-110)
--- NOTE | 2017-11-08 13:10 | NURSING ---
Per ZANDER Esquivel okay for patient to receive SC heparin
[2017-11-08] MEDS: Heparin Injection 5,000 UNITS/ML Syringe 5000 UNITS SC (14:24)
--- NOTE | 2017-11-08 14:28 | PCM.PROGNOTE ---
<Sierra Sam - Last Filed: 11/08/17 14:33> Patient Problems: Active and Suspected Problems Encephalopathy (Acute) Subjective: Patient seen and examined. Denies current complaints. Awaiting bed at [facility] due to severe esophageal dysmotility as noted on swallow study yesterday. She was evaluated by surgery and not a candidate for PEG tube due to previous gastric bypass. She is aware of plan for transfer for J-tube placement. She denies current complaints. She is alert and oriented. No signs of distress. - Physical Exam General: Alert, Oriented x3, Cooperative, No apparent distress HEENT: Atraumatic, PERRLA, EOMI, Normocephalic Neck: Supple, No JVD, Negative Carotid Bruits Lungs: Clear to auscultation, Diminished Cardiovascular: Regular rate, Regular Rhythm, Normal S1, Normal S2, No murmurs Abdomen: Bowel Sounds Present, Soft, Non Tender, Non-Distended, Obese Extremities: No clubbing, No cyanosis, Capillary Refill Less than 3 Seconds, Edema - BLLE Skin: No rashes, No breakdown Musculoskeletal: No Tenderness to Palpation of Joints or Extremities Neurological: Cranial nerves II-XII grossly intact, Neuro grossly intact Psych/Mental Status: Normal Affect, Appropriate Vital Signs Temp Pulse Resp BP Pulse Ox 98.3 F 84 18 105/59 L 97 11/08/17 05:06 11/08/17 14:18 11/08/17 14:18 11/08/17 05:06 11/08/17 06:45 Oxygen Flow Rate (L/min) 3 Oxygen Delivery Method Nasal Cannula Weight: 121.5 kg Body Mass Index (BMI) 40.7 Intake and Output for Last 24 Hours 11/06/17 11/07/17 11/08/17 23:59 23:59 23:59 Intake Total 1004 / 1004 473 / 473 1114 / 1114 Output Total 2600 / 2600 1400 / 1400 390 / 390 Balance -1596 / -1596 -927 / -927 724 / 724 Microbiology Past 72 Hours 11/05/17 10:52 Blood Culture - Preliminary Blood Culture (Wb) - Anticubital Left No growth in 48 hours. 11/05/17 14:40 Respiratory Panel (PCR) - Final Mucosa - Nasopharyngeal 11/05/17 15:00 Legionella Antigen - Final Urine Catheter - Catheter 11/05/17 15:00 Streptococcus pneumoniae Antigen (M - Final Urine Catheter - Catheter POC Glucose 11/08/17 11/08/17 11/08/17 12:22 07:41 03:10 POC Glucose 94 91 113 H 11/07/17 11/07/17 11/07/17 23:03 20:32 19:26 POC Glucose 94 89 119 H 11/07/17 11/07/17 18:35 16:27 POC Glucose 66 L 76 Medical Necessity - Tobacco Use Smoking Status: Unknown if ever smoked Assessment/Plan Active and Suspected Problems Encephalopathy (Acute) Patient is a 57-year-old female admitted 11/05/2017 due to unresponsiveness. She has a past medical history of ICH with left-sided hemiplegia, ischemic CVA with right-sided weakness, hypertension, COPD, chronic pain syndrome, GERD, chronic peripheral neuropathy/radiculopathy. 1. Acute toxic encephalopathy secondary to polypharmacy-improved. Neurology consulted. MRI of the brain shows minimal white matter ischemic changes without evidence of acute infarct. MRI of C-spine shows postop changes of anterior fusion of C4 through C5. Moderate spondylosis at multilevel spinal stenosis due to disc degeneration and bony hypertrophy. Carotid Doppler shows no significant occlusion or stenosis. EEG was abnormal due to mild generalized background slowing, no seizures noted. Continue home Keppra regimen. Unclear of seizure history? PT/OT/ST. 2. Severe esophageal dysmotility video swallow demonstrated high risk of aspiration-after trying only thin barium due to reflux from the upper esophagus through the pharynx and oral cavity. Imaging showed pooling of thin barium within the distal esophagus with the appearance of severe subcutaneous dysmotility likely due to lower esophageal sphincter nonrelaxation. Patient is n.p.o. Awaiting transfer to [facility] for G-tube placement for nutrition. Patient was evaluated by surgery for PEG tube placement and is not a candidate due to history of gastric bypass surgery in 2008. 3. Acute on chronic diastolic CHF-previously on IV Lasix which has since been discontinued. Continue home torsemide regimen. Echocardiogram shows an EF of 65%. Strict I's and O's, daily weight. 4. Bibasilar atelectasis with presumed COPD-no acute exacerbation. Continue incentive spirometry, albuterol and DuoNeb aerosols. Pneumonia ruled out and antibiotics previously discontinued. 5. Chronic pain syndrome-on multidrug regimen at home. Suspect patient may have been overmedicating herself. 6. Hypertension-stable, continue current regimen. 7. GERD-continue PPI. DVT prophylaxis-heparin subcu. Discharge planning: Discharge to [facility] pending bed availability. This patient was seen by RUSSEL Mccabe under the supervision of Dr. Bernal. <Baljinder Bernal - Last Filed: 11/08/17 16:39> Subjective: Seen and examined. Patient swallow study showed severe esophageal dysmotility which needs J-tube insertion. N.p.o. Patient is on the process of being transferred to [facility]. - Physical Exam Cardiovascular: Regular rate, Normal S1, Normal S2, No murmurs Abdomen: Bowel Sounds Present Vital Signs Temp Pulse Resp BP Pulse Ox 98.5 F 84 18 105/65 100 11/08/17 11:06 11/08/17 14:18 11/08/17 14:18 11/08/17 11:06 11/08/17 11:06 Oxygen Flow Rate (L/min) 3 Oxygen Delivery Method Nasal Cannula Weight: 267 lb 13.786 oz Body Mass Index (BMI) 40.7 Intake and Output for Last 24 Hours 11/06/17 11/07/17 11/08/17 23:59 23:59 23:59 Intake Total 1004 / 1004 473 / 473 1980 / 1980 Output Total 2600 / 2600 1400 / 1400 790 / 790 Balance -1596 / -1596 -927 / -927 1191 / 1191 Microbiology Past 72 Hours 11/05/17 10:52 Blood Culture - Preliminary Blood Culture (Wb) - Anticubital Left No growth in 48 hours. 11/05/17 14:40 Respiratory Panel (PCR) - Final Mucosa - Nasopharyngeal 11/05/17 15:00 Legionella Antigen - Final Urine Catheter - Catheter 11/05/17 15:00 Streptococcus pneumoniae Antigen (M - Final Urine Catheter - Catheter POC Glucose 11/08/17 11/08/17 11/08/17 12:22 07:41 03:10 POC Glucose 94 91 113 H 11/07/17 11/07/17 11/07/17 23:03 20:32 19:26 POC Glucose 94 89 119 H 11/07/17 11/07/17 18:35 16:27 POC Glucose 66 L 76 Assessment/Plan This patient was seen in conjunction with FOOD TECHNICIAN, Sierra. I have independently interviewed and examined the patient and reviewed pertinent history, examination findings, laboratory and plan of management. I have reviewed the note and agree with the documented findings with the few additional points. In brief, patient is admitted for acute toxic encephalopathy secondary to polypharmacy. Acute stroke ruled out with normal MRI brain. MRI C-spine showed postoperative changes with chronic disc degeneration and arthritic changes. Patient had modified barium swallow which showed pooling of thin barium within the distal esophagus with the appearance of severe subcutaneous dysmotility, likely due to lower esophageal sphincter nonrelaxation. This is suggestive of esophageal dysphagia. It was further learned that patient has gastric bypass surgery in 2008 and need J-tube. Patient in the process of being transferred to [facility]. Code Visit Inpatient E&M: 55681 Subs Hosp L3
[2017-11-08 17:31] LABS: Bedside Glucose 86 mg/dL (70-110)
--- NOTE | 2017-11-08 17:52 | PCM.DC.SUM ---
<Sierra Sam - Last Filed: 11/08/17 17:58> Discharge Date and Diagnosis Date of Admission: 11/05/17 Date of Discharge: 11/08/17 - Primary Discharge Diagnosis Active and Suspected Problems 1. Acute toxic encephalopathy secondary to polypharmacy 2. Severe esophageal dysmotility 3. Acute on chronic diastolic CHF - Secondary Discharge Diagnosis Bibasilar atelectasis with presumed COPD Chronic pain syndrome Hypertension GERD Hospital Course and Treatment Imaging Results: Diagnostic Data Brain CT 11/05/17 08:55 IMPRESSION: Chronic involutional changes of the brain. Electronically Signed: Álvaro Brooke DO at 9:50 EDT Tel , Service support , Brain MRI 11/05/17 12:21 IMPRESSION: Minimal periventricular white matter ischemic changes without evidence for acute infarct Electronically Signed: Nicko Hernandez MD at 22:45 EDT , Service support , Cervical Spine MRI 11/05/17 13:57 IMPRESSION: Postop change status post anterior fusion at C4-5. Moderate spondylosis and multilevel spinal stenosis secondary to disc disease and bony hypertrophy most severe at C7-T1. Findings as above Electronically Signed: Nicko Hernandez MD at 23:29 EDT , Service support , Chest X-Ray 11/06/17 05:55 IMPRESSION: Improved aeration of the lungs with continued bibasilar airspace disease Electronically Signed: Álvaro Brooke DO at 9:16 EDT Tel , Service support , Videofluoroscopic Swallow 11/07/17 13:30 IMPRESSION: Exam was terminated due to high risk of aspiration of the patient after trying only thin barium as described above due to reflux from the upper esophagus through the pharynx and oral cavity observed fluoroscopically. Additional imaging shows pooling of thin barium within the distal esophagus with the appearance of severe subcutaneous dysmotility, likely due to lower esophageal sphincter nonrelaxation. However, other etiologies are not excluded including partial or complete distal esophageal obstruction due to stricture, neoplasm or severe esophagitis/GE reflux disease. Clinical correlation recommended. The swallow study findings were discussed with the patient by the Speech Pathologist Larry at the conclusion of the examination. Please see Speech Pathology report for more information and recommendations. The procedure was performed by Speech Jose Roberto Juarez under the direct supervision of Dr. Redmond. Electronically Signed: Rojelio Redmond, at 15:16 EDT Tel , Service support , Consultations 11/05/17 17:29 Consult: Onc/Wound/project specialist Routine Comment: Dr. Mora- Neurology Dr. Clement- Surgery Operations: None Procedures: 2-D Echocardiogram, Electroencephalogram, - - Modified barium swallow Summary of Care Provided: Patient is a 57-year-old female admitted 11/05/2017 due to unresponsiveness. She has a past medical history of ICH with left-sided hemiplegia, ischemic CVA with right-sided weakness, hypertension, COPD, chronic pain syndrome, GERD, chronic peripheral neuropathy/radiculopathy. 1. Acute toxic encephalopathy secondary to polypharmacy-resolved. Neurology consulted. MRI of the brain shows minimal white matter ischemic changes without evidence of acute infarct. MRI of C-spine shows postop changes of anterior fusion of C4 through C5. Moderate spondylosis at multilevel spinal stenosis due to disc degeneration and bony hypertrophy. Carotid Doppler shows no significant occlusion or stenosis. EEG was abnormal due to mild generalized background slowing, no seizures noted. Continue home Keppra regimen. Unclear of seizure history? MRI showed no old infarct. 2. Severe esophageal dysmotility video swallow demonstrated high risk of aspiration-after trying only thin barium due to reflux from the upper esophagus through the pharynx and oral cavity. Imaging showed pooling of thin barium within the distal esophagus with the appearance of severe subcutaneous dysmotility likely due to lower esophageal sphincter nonrelaxation. Patient is n.p.o. Transfer to [facility] for J-tube placement for nutrition. Patient was evaluated by surgery for PEG tube placement and is not a candidate due to history of gastric bypass surgery in 2008. 3. Acute on chronic diastolic CHF-previously on IV Lasix which has since been discontinued. Continue home torsemide regimen. Echocardiogram shows an EF of 65%. Strict I's and O's, daily weight. 4. Bibasilar atelectasis with presumed COPD-no acute exacerbation. Continue incentive spirometry, albuterol and DuoNeb aerosols. Pneumonia ruled out and antibiotics previously discontinued. 5. Chronic pain syndrome-on multidrug regimen at home. Suspect patient may have been overmedicating herself. 6. Hypertension-stable, continue current regimen. 7. GERD-continue PPI. General: Alert, Oriented x3, Cooperative, No apparent distress HEENT: Atraumatic, PERRLA, EOMI, Normocephalic Neck: Supple, No JVD, Negative Carotid Bruits Lungs: Clear to auscultation, Diminished Cardiovascular: Regular rate, Regular Rhythm, Normal S1, Normal S2, No murmurs Abdomen: Bowel Sounds Present, Soft, Non Tender, Non-Distended, Obese Extremities: No clubbing, No cyanosis, Capillary Refill Less than 3 Seconds, Edema - BLLE Skin: No rashes, No breakdown Musculoskeletal: No Tenderness to Palpation of Joints or Extremities Neurological: Cranial nerves II-XII grossly intact, Neuro grossly intact Psych/Mental Status: Normal Affect, Appropriate Patient seen and examined prior to discharge. Physical assessment as noted above. Patient stable for discharge to [facility] for evaluation for G-tube placement. This patient was seen by RUSSEL Mccabe under the supervision of Dr. Bernal. Home Medications: Medications to take at Discharge Cholecalciferol (Vitamin D3) [Vitamin D] 50,000 unit PO DAILY 11/05/17 Cyclobenzaprine [Flexeril] 10 mg PO BID 11/05/17 Diltiazem HCl [Diltiazem 24Hr ER] 120 mg PO BID 11/05/17 Duloxetine HCl 30 mg PO DAILY 11/05/17 Esomeprazole Magnesium 40 mg PO BID 11/05/17 Fluticasone/Salmeterol [Advair 500-50 Diskus] 1 each IH DAILY 11/05/17 Levetiracetam [Levetiracetam ER] 500 mg PO BID 11/05/17 Methotrexate 20 mg PO Q7D 11/05/17 Mirtazapine [Remeron] 15 mg PO QHS 11/05/17 Oxybutynin [Ditropan] 5 mg PO TID 11/05/17 Oxycodone CR [Oxycontin] 10 mg PO BID 11/05/17 Oxycodone HCl/Acetaminophen [Percocet 5-325] 1 - 2 tablet PO Q6H PRN PRN 11/05/17 Potassium Chloride [Klor-Con M20] 2 tablet PO TID 11/05/17 Pregabalin [Lyrica] 150 mg PO BID 11/05/17 Torsemide [Demadex] 20 mg PO BID 11/05/17 Zolpidem Tartrate 5 mg PO QHS PRN 11/05/17 Primary Care Physician: Nicko Uribe MD [Primary Care Provider] - Disposition: Acute care Hospital Minutes spent on discharge:: 35 Patient Condition:: Stable Medical Necessity - Tobacco Use Smoking Status: Unknown if ever smoked Meaningful Use Info Meaningful Use Diagnoses (Choose all that apply): CHF - CHF ZUNILDA/ARB ordered at discharge?: No Reason ZUNILDA/ARB not ordered?: Allergy Documented LVEF (%): 65 - not indicated to pEF <Baljinder Bernal - Last Filed: 11/09/17 15:43> Hospital Course and Treatment Consultations 11/05/17 17:29 Consult: Onc/Wound/project specialist Routine Comment: Summary of Care Provided: This patient was seen in conjunction with IMPROVEMENT ENGINEER, Sierra. I have independently interviewed and examined the patient and reviewed pertinent history, examination findings, laboratory and plan of management. I have reviewed the note and agree with the documented findings with the few additional points. In brief, patient is admitted for acute toxic encephalopathy secondary to polypharmacy. Acute stroke ruled out with normal MRI brain. MRI C-spine showed postoperative changes with chronic disc degeneration and arthritic changes. Patient had modified barium swallow which showed pooling of thin barium within the distal esophagus with the appearance of severe subcutaneous dysmotility, likely due to lower esophageal sphincter nonrelaxation. This is suggestive of esophageal dysphagia. It was further learned that patient has gastric bypass surgery in 2008 and need J-tube. The patient was transferred to [facility] for J-tube placement in view of complicated anatomy of GI tract because of history of bypass surgery Code Visit Inpatient E&M: 83966 Disch Hosp
--- NOTE | 2017-11-08 17:58 | DS.PCM_ITS ---
<Sierra Sam - Last Filed: 11/08/17 17:58> Discharge Date and Diagnosis Date of Admission: 11/05/17 Date of Discharge: 11/08/17 - Primary Discharge Diagnosis Active and Suspected Problems 1. Acute toxic encephalopathy secondary to polypharmacy 2. Severe esophageal dysmotility 3. Acute on chronic diastolic CHF - Secondary Discharge Diagnosis Bibasilar atelectasis with presumed COPD Chronic pain syndrome Hypertension GERD Hospital Course and Treatment Imaging Results: Diagnostic Data Brain CT 11/05/17 08:55 IMPRESSION: Chronic involutional changes of the brain. Electronically Signed: Álvaro Brooke DO at 9:50 EDT Tel , Service support , Brain MRI 11/05/17 12:21 IMPRESSION: Minimal periventricular white matter ischemic changes without evidence for acute infarct Electronically Signed: Nicko Hernandez MD at 22:45 EDT , Service support , Cervical Spine MRI 11/05/17 13:57 IMPRESSION: Postop change status post anterior fusion at C4-5. Moderate spondylosis and multilevel spinal stenosis secondary to disc disease and bony hypertrophy most severe at C7-T1. Findings as above Electronically Signed: Nicko Hernandez MD at 23:29 EDT , Service support , Chest X-Ray 11/06/17 05:55 IMPRESSION: Improved aeration of the lungs with continued bibasilar airspace disease Electronically Signed: Álvaro Brooke DO at 9:16 EDT Tel , Service support , Videofluoroscopic Swallow 11/07/17 13:30 IMPRESSION: Exam was terminated due to high risk of aspiration of the patient after trying only thin barium as described above due to reflux from the upper esophagus through the pharynx and oral cavity observed fluoroscopically. Additional imaging shows pooling of thin barium within the distal esophagus with the appearance of severe subcutaneous dysmotility, likely due to lower esophageal sphincter nonrelaxation. However, other etiologies are not excluded including partial or complete distal esophageal obstruction due to stricture, neoplasm or severe esophagitis/GE reflux disease. Clinical correlation recommended. The swallow study findings were discussed with the patient by the Speech Pathologist Larry at the conclusion of the examination. Please see Speech Pathology report for more information and recommendations. The procedure was performed by Speech Jose Roberto Juarez under the direct supervision of Dr. Redmond. Electronically Signed: Rojelio Redmond, at 15:16 EDT Tel , Service support , Consultations 11/05/17 17:29 Consult: Onc/Wound/hair worker Routine Comment: Dr. Mora- Neurology Dr. Clement- Surgery Operations: None Procedures: 2-D Echocardiogram, Electroencephalogram, - - Modified barium swallow Summary of Care Provided: Patient is a 57-year-old female admitted 11/05/2017 due to unresponsiveness. She has a past medical history of ICH with left-sided hemiplegia, ischemic CVA with right-sided weakness, hypertension, COPD, chronic pain syndrome, GERD, chronic peripheral neuropathy/radiculopathy. 1. Acute toxic encephalopathy secondary to polypharmacy-resolved. Neurology consulted. MRI of the brain shows minimal white matter ischemic changes without evidence of acute infarct. MRI of C-spine shows postop changes of anterior fusion of C4 through C5. Moderate spondylosis at multilevel spinal stenosis due to disc degeneration and bony hypertrophy. Carotid Doppler shows no significant occlusion or stenosis. EEG was abnormal due to mild generalized background slowing, no seizures noted. Continue home Keppra regimen. Unclear of seizure history? MRI showed no old infarct. 2. Severe esophageal dysmotility video swallow demonstrated high risk of aspiration-after trying only thin barium due to reflux from the upper esophagus through the pharynx and oral cavity. Imaging showed pooling of thin barium within the distal esophagus with the appearance of severe subcutaneous dysmotility likely due to lower esophageal sphincter nonrelaxation. Patient is n.p.o. Transfer to [facility] for J-tube placement for nutrition. Patient was evaluated by surgery for PEG tube placement and is not a candidate due to history of gastric bypass surgery in 2008. 3. Acute on chronic diastolic CHF-previously on IV Lasix which has since been discontinued. Continue home torsemide regimen. Echocardiogram shows an EF of 65%. Strict I's and O's, daily weight. 4. Bibasilar atelectasis with presumed COPD-no acute exacerbation. Continue incentive spirometry, albuterol and DuoNeb aerosols. Pneumonia ruled out and antibiotics previously discontinued. 5. Chronic pain syndrome-on multidrug regimen at home. Suspect patient may have been overmedicating herself. 6. Hypertension-stable, continue current regimen. 7. GERD-continue PPI. General: Alert, Oriented x3, Cooperative, No apparent distress HEENT: Atraumatic, PERRLA, EOMI, Normocephalic Neck: Supple, No JVD, Negative Carotid Bruits Lungs: Clear to auscultation, Diminished Cardiovascular: Regular rate, Regular Rhythm, Normal S1, Normal S2, No murmurs Abdomen: Bowel Sounds Present, Soft, Non Tender, Non-Distended, Obese Extremities: No clubbing, No cyanosis, Capillary Refill Less than 3 Seconds, Edema - BLLE Skin: No rashes, No breakdown Musculoskeletal: No Tenderness to Palpation of Joints or Extremities Neurological: Cranial nerves II-XII grossly intact, Neuro grossly intact Psych/Mental Status: Normal Affect, Appropriate Patient seen and examined prior to discharge. Physical assessment as noted above. Patient stable for discharge to [facility] for evaluation for G-tube placement. This patient was seen by RUSSEL Mccabe under the supervision of Dr. Bernal. Home Medications: Medications to take at Discharge Cholecalciferol (Vitamin D3) [Vitamin D] 50,000 unit PO DAILY 11/05/17 Cyclobenzaprine [Flexeril] 10 mg PO BID 11/05/17 Diltiazem HCl [Diltiazem 24Hr ER] 120 mg PO BID 11/05/17 Duloxetine HCl 30 mg PO DAILY 11/05/17 Esomeprazole Magnesium 40 mg PO BID 11/05/17 Fluticasone/Salmeterol [Advair 500-50 Diskus] 1 each IH DAILY 11/05/17 Levetiracetam [Levetiracetam ER] 500 mg PO BID 11/05/17 Methotrexate 20 mg PO Q7D 11/05/17 Mirtazapine [Remeron] 15 mg PO QHS 11/05/17 Oxybutynin [Ditropan] 5 mg PO TID 11/05/17 Oxycodone CR [Oxycontin] 10 mg PO BID 11/05/17 Oxycodone HCl/Acetaminophen [Percocet 5-325] 1 - 2 tablet PO Q6H PRN PRN Potassium Chloride [Klor-Con M20] 2 tablet PO TID 11/05/17 Pregabalin [Lyrica] 150 mg PO BID 11/05/17 Torsemide [Demadex] 20 mg PO BID 11/05/17 Zolpidem Tartrate 5 mg PO QHS PRN 11/05/17 Primary Care Physician: Nicko Uribe MD [Primary Care Provider] - Disposition: Acute care Hospital Minutes spent on discharge:: 35 Patient Condition:: Stable Medical Necessity - Tobacco Use Smoking Status: Unknown if ever smoked Meaningful Use Info Meaningful Use Diagnoses (Choose all that apply): CHF - CHF ZUNILDA/ARB ordered at discharge?: No Reason ZUNILDA/ARB not ordered?: Allergy Documented LVEF (%): 65 - not indicated to pEF <Baljinder Bernal - Last Filed: 11/09/17 15:43> Hospital Course and Treatment Consultations 11/05/17 17:29 Consult: Onc/Wound/hair worker Routine Comment: Summary of Care Provided: This patient was seen in conjunction with SHELLFISH MANAGER, Sierra. I have independently interviewed and examined the patient and reviewed pertinent history, examination findings, laboratory and plan of management. I have reviewed the note and agree with the documented findings with the few additional points. In brief, patient is admitted for acute toxic encephalopathy secondary to polypharmacy. Acute stroke ruled out with normal MRI brain. MRI C-spine showed postoperative changes with chronic disc degeneration and arthritic changes. Patient had modified barium swallow which showed pooling of thin barium within the distal esophagus with the appearance of severe subcutaneous dysmotility, likely due to lower esophageal sphincter nonrelaxation. This is suggestive of esophageal dysphagia. It was further learned that patient has gastric bypass surgery in 2008 and need J-tube. The patient was transferred to [facility] for J-tube placement in view of complicated anatomy of GI tract because of history of bypass surgery Code Visit Inpatient E&M: [id number] Disch Hosp
[2017-11-08] MEDS: Dextrose 50%-Water 25 GM/50 ML DISP.SYRIN IV (18:32)
--- NOTE | 2017-11-08 18:52 | NURSING ---
Son at bedside aware that patient is being transferred tonight to [facility]. Attempted to reach Kaylan. No answer. Message left to return call to hospital.
--- NOTE | 2017-11-08 19:20 | NURSING ---
Called report to Candice at [facility]
== END 2017-11-08 20:00 | disposition short-term general hospital (02) | DRG 91 ==
LOC: ED 10:37 → PCU 11:29
PROVIDERS: Admitting Provider Internal Medicine; Emergency Provider Emergency Medicine; Family Provider Family Medicine; PCP Family Medicine; Visit Provider Internal Medicine
DX: G92 Toxic encephalopathy (principal); I50.33 Acute on chronic diastolic (congestive) heart failure; E66.01 Morbid (severe) obesity due to excess calories; G62.9 Polyneuropathy, unspecified; M48.02 Spinal stenosis, cervical region; I50.43 Acute on chronic combined systolic (congestive) and diastolic (congestive) heart failure; Z68.41 Body mass index [BMI] 40.0-44.9, adult; I69.354 Hemiplegia and hemiparesis following cerebral infarction affecting left non-dominant side; K22.4 Dyskinesia of esophagus; J44.9 Chronic obstructive pulmonary disease, unspecified; Z79.899 Other long term (current) drug therapy; Z87.891 Personal history of nicotine dependence; G89.4 Chronic pain syndrome; M54.10 Radiculopathy, site unspecified; Z98.84 Bariatric surgery status; F32.9 Major depressive disorder, single episode, unspecified; K21.9 Gastro-esophageal reflux disease without esophagitis; M47.9 Spondylosis, unspecified; I11.0 Hypertensive heart disease with heart failure; F41.0 Panic disorder [episodic paroxysmal anxiety]; M48.04 Spinal stenosis, thoracic region; I69.351 Hemiplegia and hemiparesis following cerebral infarction affecting right dominant side
CPT/HCPCS: 36415; 36600; 70450; 70551; 71045; 71046; 72141; 74230; 80048; 80053; 80061; 81001; 82803; 82962; 83880; 84443; 84484; 85025; 85610; 85730; 87040; 87086; 87449; 87633; 87641; 92526; 92611; 93005; 93306; 93880; 94640; 94667; 94668; 95819; 97110; 97163; 97166; 97530; 97802; 99285; J7040; J7050; P9612; Q9957; A4216; C8929; J1940

== ENCOUNTER 2018-10-11 10:59 | Inpatient (IN) | payer MEDICARE, SELFPAY ==
[2018-10-11] VITALS (7 sets, daily range): BP systolic 140–168; BP diastolic 75–93; PULSE 75–103; RESP 16–18; TEMP 36.4–36.8; O2SAT 95–100; BMI 42.5; BMI 47.3
--- NOTE | 2018-10-11 11:58 | EKG12_ITS ---
Test Reason : Blood Pressure : / mmHG Vent. Rate : 071 BPM Atrial Rate : 071 BPM P-R Int : 152 ms QRS Dur : 098 ms QT Int : 410 ms P-R-T Axes : 000 -15 008 degrees QTc Int : 445 ms Normal sinus rhythm Normal ECG Confirmed by DOMINIC RAI, LUIS FELIPE ([id number]), editor publications ATA LUGO ([id number]) on 10/12/2018 2:21:58 PM Referred By: Baljinder Bernal Confirmed By:LUIS FELIPE ALFARO MD
--- NOTE | 2018-10-11 12:04 | ED.VISSUMM ---
- ER Visit Summary Date of Service: 10/11/18 Chief Complaint: [] Right upper extremity abscess for a week History of Present Illness: The patient is a 58 F [] of diabetes achalasia and feeding tube pump, history of chronic COPD on home O2, history of recent right axillary resection related to some unspecified tissue problem by Dr. Hsu in September 2018 He had for the last week she has had swelling and redness to the right medial upper arm muscular area, it is now developed to involve almost the entire part of her right upper biceps region medially it is draining, she has had no trauma to the area no history of MRSA or abscess she indicates however when she had this unspecified tissue in her right axilla that required surgical resection the etiology is unclear. She indicates her other health conditions are generally stable Physical Examination: [] Afebrile vital signs within normal range General, no distress resting comfortably she is a large woman HEENT is generally unremarkable The neck is supple no adenopathy biopsy sites of the thyroid unremarkable Cardiovascular, regular rate and rhythm Lungs, clear bilateral Abdomen, soft nontender Extremities, right upper medial side of the biceps region there is a 2 cm circular area that appears to be soft draining some clear fluid it is surrounded by a 10 cm zone of redness there is no crepitance or subcu air or fluctuance, realize tenderness, she has full range of motion of her right upper extremity neurovascular function normal left upper extremities unremarkable the lower extremities show edema neurologically he is awake alert answering questions able to walk around the ED Neurologic, awake alert answering questions appropriately moving all 4 extremities Test Results: [] Emergency Department Course and Treatment: [] Arm for over a week, it is predated by some unspecified right axillary surgery as above but certainly concern for infection or abscess, at this time IV fluids were started IV antibiotic screening labs pain management I paged Dr. Hsu for consultation and will arrange for admission to medicine Treatment Plan: [] Disposition: [] Impression: [] This note was generated with [employer] dictation software. It may contain incorrect words, spelling, and punctuation that were not noted in review of the chart prior to signing ED Disposition - Plan for ED Patient: Referrals: Nicko Uribe MD [Primary Care Provider] -
[2018-10-11] MEDS: morphine 8 MG/ML Syringe IV ×2 (12:52→15:30)
[2018-10-11] MEDS: Ondansetron 4 MG/2 ML Vial IV (12:52)
[2018-10-11] MEDS: 0.9% Normal Saline 1,000 ML 125 ML IV (12:52)
--- NOTE | 2018-10-11 12:55 | RAD_ITS ---
STUDY: X-RAY - RIGHT HUMERUS REASON FOR EXAM: Female, 58 years old. Right mid arm abscess. TECHNIQUE: 3 view(s) of the humerus. COMPARISON: None. FINDINGS: Normal visualized humerus. There is no demonstrated fracture or osseous destructive process. Soft tissue swelling overlying the proximal half of the humeral shaft but no visible gas forming abscess. RAD/Humerus min 2 Views IMPRESSION: 1. No acute osseous abnormality of the right humerus. 2. Soft tissue swelling in the upper half of the right arm is presumably secondary to the soft tissue abscess. There is no plain film evidence of gas-forming abscess. Electronically Signed: Aaron Calderon MD at 13:37 EST , Service support ,
[2018-10-11] MEDS: Ceftriaxone 1 GM/50 ML BAG IV (13:03)
[2018-10-11 13:10] LABS: Absolute Lymphocyte Count 3.27 X10^3/ul (0.83-4.51); Absolute Neutrophil Count 9.3 X10^3/uL (2.0-7.7); Basophil# 0.03 X10^3/uL; Basophil% 0.2 % (0-1); Eosinophil# 0.16 X10^3/uL; Eosinophils% 1.2 % (0-5); Hematocrit 43.6 % (37-47); Hemoglobin 13.3 g/dl (12.0-15.0); Lymphocyte # 3.27 X10^3/ul (4.0); Mean Corp Hgb Conc 30.5 g/gl (32-36); Mean Corpuscular Hgb 27.8 pg (27.0-32.0); Mean Corpuscular Volume 91.2 fL (81-99); Mean Platelet Vol. 11.1 fl (6.2-12.0); Monocyte# 0.85 X10^3/uL; Monocyte% 6.2 % (0-10); Neutrophil # 9.28 X10^3/uL (2.7-7.7); Neutrophil % 68.2 % (47-70); Platelet Count 307 K/mm3 (150-450); RBC Distribution Width CV 14.6 % (11.6-14.6); RBC Distribution Width SD 48.8 fl (35.1-43.9); Red Blood Count 4.78 M/mm3 (4.2-5.4); White Blood Count 13.6 K/mm3 (4.4-11.0)
[2018-10-11 13:13] LABS: POSITIVE COUNT NO; POSITIVE DIFFERENTIAL NO; POSITIVE MORPHOLOGY NO
[2018-10-11 13:17] LABS: Anion Gap 6 (5-15); BUN 9 mg/dL (7-18); BUN/Creat Ratio 12.5 RATIO (10-20); Calcium,Total 8.7 mg/dL (8.5-10.1); Chloride 105 mmol/L (98-107); Creatinine, Serum 0.72 mg/dL (0.55-1.02); EST Glomerular Filtration Rate 88 mL/min (>60); Est Glom Filt Rate - Afr Amer 106 mL/min (>60); Estimated Creatinine Clearance 83.82 ml/min; Glucose 93 mg/dL (74-106); Potassium 3.8 mmol/L (3.5-5.1); Sodium Level 142 mmol/L (136-145)
--- NOTE | 2018-10-11 15:10 | PCM.HP.STD ---
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 Earlier, about a month ago she had right axillary lymph node sampling with some tissue removal by Dr. Hsu for abnormal mammogram. Her axillary surgical incision healed well but she started having swelling, pain, induration and on and off fever for last 3 weeks. The swelling and medial aspect of right arm burst open and is draining purulent discharge. Patient has leukocytosis on initial lab work. No tachycardia/tachypnea. Patient is on 3 L of home oxygen secondary to COPD with chronic hypoxic respiratory failure and is AUTO-C-pap machine Past Medical History Past Medical History (Chronic Problems): Chronic Problems Cellulitis right arm (Chronic) Esophageal motility disorder (Chronic) Heart failure (Chronic) Arthritis with psoriasis (Chronic) Diabetes mellitus type 2 in obese (Chronic) CVA (cerebral vascular accident) (Chronic) Peripheral arterial disease (Chronic) Allergies aspirin Allergy (Verified 11/05/17 08:54) Shortness of breath Penicillins [PCN] Allergy (Verified 11/05/17 08:54) Shortness of breath Home Medications: Ambulatory Orders Medication Instructions Recorded Cholecalciferol (Vitamin D3) 50,000 unit PO DAILY 11/05/17 [Vitamin D] Cyclobenzaprine [Flexeril] 10 mg PO BID 11/05/17 Diltiazem HCl [Diltiazem 24Hr ER] 120 mg PO BID 11/05/17 Esomeprazole Magnesium 40 mg PO BID 11/05/17 Fluticasone/Salmeterol [Advair 1 each IH DAILY 11/05/17 500-50 Diskus] Levetiracetam [Levetiracetam ER] 500 mg PO BID 11/05/17 Mirtazapine [Remeron] 15 mg PO QHS 11/05/17 Potassium Chloride [Klor-Con M20] 2 tablet PO TID 11/05/17 Pregabalin [Lyrica] 150 mg PO BID 11/05/17 Torsemide [Demadex] 20 mg PO BID 11/05/17 Albuterol IH (ProAir) [Proair Hfa 1 - 2 puff INHALATION Q4H PRN PRN 10/11/18 (SP)Vent Pts] Betamethasone Dipropionate 1 dose TOPICAL BID 10/11/18 Ferrous Sulfate 5 mg JT BID 10/11/18 Hydrocodone/Acetaminophen [[place] 1 - 2 each PO Q8H PRN 10/11/18 5-325 Tablet] Hydroxychloroquine [Plaquenil] 200 mg PO BIDCM 10/11/18 Lorazepam [Ativan] 1 mg PO BID 10/11/18 Ondansetron HCl [Zofran Solution] 4 mg JT Q8H 10/11/18 Polyethylene Glycol 3350 [Miralax] 17 gm PO BID 10/11/18 Risperidone [Risperidone Odt] 0.5 mg PO QHS 10/11/18 Sumatriptan [Imitrex] 5 mg NS .X1 PRN PRN 10/11/18 Surgical History: cholecystectomy, gastric bypass, hysterectomy Smoking Status: Former smoker - *Family History Paternal History Items: No pertinent history Review of Systems Constitutional: Reports: Fever, Malaise, Weakness. Denies: Chills, Weight Change HEENT: Reports: Difficulty Swallowing - Chronic esophageal dysphagia. Denies: Head Aches, Sinus Drainage Cardiovascular: Denies: Chest Pain, Palpitations Respiratory: Reports: Shortness of breath upon exertion - Chronic. Denies: Cough, Shortness of breath at rest, Sputum production Gastrointestinal: Denies: Abdominal Pain, Nausea, Vomiting Genitourinary: Reports: Incontinence. Denies: Dysuria Musculoskeletal: Reports: Joint Pain, Joint stiffness. Denies: Joint Tenderness Skin: Reports: Dryness, Rash, Wounds Neurological: Denies: Numbness, Tingling, Focal weakness Psychiatric: Denies: Anxiety, Depression, Homicidal Ideations, Suicidal Ideations Hematologic/ Lymphatic: Denies: Easy Bruising, Easy Bleeding VTE Information - Inpt Only VTE Present on Admission: No VTE Mechan Device Prophylaxis: None VTE Pharm Prophylaxis ordered?: Yes Patient Problems: Active and Suspected Problems Abscess of right arm (Acute) - Physical Exam General: Alert, Oriented x3, Cooperative HEENT: Atraumatic, PERRLA, EOMI, Normocephalic, - - Short neck Oral: No Gingival or Mucosal Lesions/ Ulcerations, Dry Mucosa, - Neck: Supple, No JVD, Negative Carotid Bruits Lungs: Clear to auscultation, No rhonchi, No wheeze, No rales, Diminished Cardiovascular: Regular rate, Regular Rhythm, Normal S1, Normal S2, No murmurs Abdomen: Bowel Sounds Present, Soft, Non Tender, Non-Distended, - - J-tube present Extremities: No edema, Capillary Refill Less than 3 Seconds Skin: Ulcer/ Wound - Small abscess with purulent discharge in medial aspect of right arm, Rash Present - Erythematous rash surrounding the abscess and medial aspect of right arm. Chronic Dry skin predominantly in hands and feet secondary to psoriasis Musculoskeletal: No Tenderness to Palpation of Joints or Extremities, Arthritic Changes, Muscle Wasting Neurological: Cranial nerves II-XII grossly intact Psych/Mental Status: Normal Affect, Appropriate Vital Signs Temp Pulse Resp BP Pulse Ox 98.2 F 77 18 165/88 H 97 10/11/18 14:00 10/11/18 14:00 10/11/18 14:00 10/11/18 14:00 10/11/18 14:00 Oxygen Flow Rate (L/min) 3 Oxygen Delivery Method Nasal Cannula Weight: 280 lb Body Mass Index (BMI) 42.5 Laboratory Tests Past 24 Hrs 10/11/18 10/11/18 12:55 12:55 WBC 13.6 H RBC 4.78 Hgb 13.3 Hct 43.6 MCV 91.2 MCH 27.8 MCHC 30.5 L RDW 14.6 RDW Differential 48.8 H Plt Count 307 MPV 11.1 Immature Gran % (Auto) 0.200 Neut % (Auto) 68.2 Lymph % (Auto) 24.0 [place] % (Auto) 6.2 Eos % (Auto) 1.2 Baso % (Auto) 0.2 Absolute Neuts (auto) 9.3 H Absolute Lymphs (auto) 3.27 Total Counted Not Reportable Sodium 142 Potassium 3.8 Chloride 105 Carbon Dioxide 31.0 Anion Gap 6 BUN 9 Creatinine 0.72 Estim Creat Clear Calc 83.82 Est GFR (MDRD) Af Amer 106 Est GFR (MDRD) Non-Af 88 BUN/Creatinine Ratio 12.5 Glucose 93 Calcium 8.7 Assessment/Plan All Active Problems Abscess of right arm (Acute) Encephalopathy (Acute) The patient is a 58 year old female with multiple comorbidities including 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 Earlier, about a month ago she had right axillary lymph node sampling with some tissue removal by Dr. Hsu for abnormal mammogram. Her axillary surgical incision healed well but she started having swelling, pain, induration and on and off fever for last 3 weeks. The swelling and medial aspect of right arm burst open and is draining purulent discharge. Patient has leukocytosis on initial lab work. No tachycardia/tachypnea. Patient is on 3 L of home oxygen secondary to COPD with chronic hypoxic respiratory failure and is AUTO-C-pap machine 1. Right arm abscess with surrounding cellulitis: Patient is being admitted on MedSurg floor. Vancomycin and ceftriaxone is ordered from ER physician. Started on IV cefazolin 1 g every [address] Hsu has been consulted for incision and drainage as abscess is not adequately draining spontaneously. Right upper extremity venous Doppler ordered for tomorrow a.m. to rule out DVT as she has significant chronic venous insufficiency and peripheral arterial disease. 2. Severe esophageal dysmotility, most probably achalasia on J-tube does not as much oral intake because of high risk of aspiration. And had gastric bypass surgery in 2009. 3. Cardiac conditions: chronic diastolic CHF, hypertension. Continue home torsemide regimen. Echo in October 2017 reported as EF 65%. Normal right and left atria. Study was technically difficult secondary to patient body habitus. Patient denies history of coronary artery disease/PA. Strict intake and output. 4. COPD, obstructive sleep apnea, chronic hypoxic respiratory failure on 3 L of home oxygen: Patient has on auto CPAP machine. Can 5. Chronic pain syndrome, anxiety and depression: Continue patient home medication. Hold anti-depression/angiolytic medications if patient gets lethargic. 6. Rheumatology conditions: Psoriasis with dry skin, psoriatic arthritis, chronic degenerative joint disease, chronic disease muscle atrophy is after CVA: PT and OT ordered. 7. GERD-continue PPI. 8. DVT prophylaxis: On Lovenox 40 mg subcut daily. Discontinue if platelet count drops less than 50,000 or hemoglobin less than 8 g% Code Visit Inpatient E&M: 82358 Init Hosp L3
[2018-10-11 16:23] LABS: Bacteria 0 SEEN /hpf (None Seen); Mucous, Urine 0 SEEN /hpf (<or=2+); Red Blood Cells-Urine 0 SEEN /hpf (0-5); White Blood Cells 0 SEEN /hpf (0-5)
[2018-10-11 16:29] LABS: Color, Urine Yellow (Yellow); Glucose, Dipstick Normal (Normal); Ketone-Dipstick Negative (Negative); Leukocyte Esterase-Dipstick Negative /ul (Negative); Nitrite-Dipstick Negative (Negative); Occult Blood-Urine 10 /ul (Negative); Protein-Dipstick Negative (Negative); Specific Gravity, Urine 1.005 (1.002-1.030); Urine Bilirubin Dipstick Negative (Negative); Urine Clarity Clear (Clear); Urine Urobilinogen Normal (Normal)
[2018-10-11 16:36] LABS: Squamous Epithelial Cells - UA 0-5 SEEN /hpf (5-10)
--- NOTE | 2018-10-11 17:20 | CT_ITS ---
STUDY: CT RIGHT UPPER EXTREMITY / HUMERUS REASON FOR EXAM: Female, 58 years old. Right arm swelling and redness for 3 weeks, purulent drainage RADIATION DOSAGE (If Supplied By Facility): CTDIvol = ( 26.98 ) mGy, DLP = ( 952.39 ) mGycm TECHNIQUE: High resolution transaxial imaging was performed without the administration of intravenous contrast material. Individualized dose optimization techniques were used for this CT. COMPARISON: None. FINDINGS: Along the anterior mid upper arm, there is focal skin thickening with induration of the underlying subcutaneous fat. There is a focal, oval-shaped hyperechoic nodule measuring 1.4 x 2.4 cm on image 78 and may represent localized infection or blood product. However, no focal fluid collection is seen. The skin thickening extends distally to the level of just above the elbow. No focal fluid collection is seen. Normal visualized muscles. Normal humerus. No destructive bony process. CT/Extremity Upper without Contra IMPRESSION: 1. Superficial localized cellulitis of the mid upper arm but with extension to the elbow. No focal fluid collection. No destructive bony process. Electronically Signed: Julio Asencio MD at 19:45 EST , Service support ,
[2018-10-11 17:27] LABS: Hemoglobin A1c 6.2 % (4.2-6.3)
[2018-10-11] MEDS: 0.9% Normal Saline 1,000 ML 100 ML IV (17:49)
[2018-10-11] MEDS: Morphine 2 MG/ML Syringe IV (18:35)
[2018-10-11 18:40] LABS: Bedside Glucose 62 mg/dL (70-110)
[2018-10-11 18:58] LABS: Probe Check PASS; Staph aureus DNA By PCR POSITIVE (Negative)
[2018-10-11 19:00] LABS: M R Staph aureus DNA By PCR POSITIVE (Negative)
--- NOTE | 2018-10-11 19:25 | PCM.RX.CS ---
Consult Pharmacy has been consulted to manage selected antiobiotic: Vancomycin Type of Consult: New start Suspected Infection: Skin/Soft tissue Labs: Sodium 142 mmol/L (136-145) 10/11/18 12:55 Potassium 3.8 mmol/L (3.5-5.1) 10/11/18 12:55 Chloride 105 mmol/L (98-107) 10/11/18 12:55 Carbon Dioxide 31.0 mmol/L (21.0-32.0) 10/11/18 12:55 Anion Gap 6 (5-15) 10/11/18 12:55 BUN 9 mg/dL (7-18) 10/11/18 12:55 Creatinine 0.72 mg/dL (0.55-1.02) 10/11/18 12:55 Est GFR (MDRD) Af Amer 106 mL/min (>60) 10/11/18 12:55 Est GFR (MDRD) Non-Af 88 mL/min (>60) 10/11/18 12:55 BUN/Creatinine Ratio 12.5 RATIO (10-20) 10/11/18 12:55 Glucose 93 mg/dL (74-106) 10/11/18 12:55 Weight used for dosin.2 kg Estimated Creatinine Clearance: 83.82 Goal Trough: 10-15 mcg/mL Pharmacy Plan for Drug Dosing: Pharmacy Service will continue to monitor and adjust dosing as required. Medications Vancomycin HCl 1,250 mg/ (Sodium Chloride) 275 mls @ 167 mls/hr IV Q12H [facility] Discontinued Medications Vancomycin HCl 2,000 mg/ (Sodium Chloride) 540 mls @ 250 mls/hr IV X1 ONE Stop: 10/11/18 14:39 Last Admin: 10/11/18 13:55 Dose: 250 mls/hr Follow-Up Labs: Trough Vancomycin Labs to be done on [date and time ordered]: 10/13 @ 0200
[2018-10-11] MEDS: Albuterol 2.5 MG/3 ML VIAL.NEB. INHALATION (19:54)
[2018-10-11] MEDS: Budesonide Respules 0.5 MG/2 ML AMPUL.NEB. INHALATION (19:54)
[2018-10-11] MEDS: Enoxaparin 40 MG/0.4 ML Syringe SC (20:24)
[2018-10-11] MEDS: Furosemide 40 MG Tablet PO (20:24)
[2018-10-11] MEDS: Hydroxychloroquine 200 MG Tablet PO (20:24)
[2018-10-11] MEDS: HYDROcodone Bitartrate/Apap 5/325 Tablet PO (20:35)
[2018-10-11] MEDS: 0.9% NaCl Peripheral Flush Adult/Peds IV (20:36)
[2018-10-11] MEDS: Clobetasol Propionate 0.05% Ointment 1 APPLIC TOPICAL (22:30)
[2018-10-11] MEDS: Pregabalin 75 MG Capsule 150 MG PO (22:32)
[2018-10-11] MEDS: dilTIAZem CD 120 MG Capsule PO (22:32)
[2018-10-11] MEDS: Pantoprazole Sodium 40 MG Tablet PO (22:32)
[2018-10-11] MEDS: Polyethylene Glycol 3350 17 GM PACKET PO (22:32)
[2018-10-11] MEDS: Mirtazapine 15 MG Tablet PO (22:33)
[2018-10-11] MEDS: RisperiDONE 0.5 MG Tablet PO (22:33)
[2018-10-11 22:45] LABS: Bedside Glucose 124 mg/dL (70-110)
[2018-10-11] MEDS: LORazepam 1 MG Tablet PO (22:57)
[2018-10-12] VITALS (7 sets, daily range): BP systolic 107–127; BP diastolic 61–75; PULSE 66–82; RESP 14–18; TEMP 36.6–37.3; O2SAT 97–100
[2018-10-12] MEDS: Morphine 2 MG/ML Syringe IV ×3 (00:31→19:40)
[2018-10-12 00:41] LABS: Bedside Glucose 96 mg/dL (70-110)
[2018-10-12] MEDS: HYDROcodone Bitartrate/Apap 5/325 Tablet PO ×2 (05:43→16:28)
[2018-10-12] MEDS: 0.9% NaCl Peripheral Flush Adult/Peds IV ×2 (05:44→22:19)
--- NOTE | 2018-10-12 05:55 | VDUE_ITS ---
Reason For Study: RUE swelling and cellulitis Right Proximal Right jugular vein is spontaneous, widely patent, phasic, with no intraluminal echogenicity noted. Right subclavian vein is spontaneous, widely patent, phasic, with no intraluminal echogenicity noted. Right Lower Arm Right radial vein is compressible. Right ulnar vein is compressible. Right Arm Right axillary vein is spontaneous, patent, phasic, competent, compressible and demonstrates augmentation. Right brachial vein is compressible. Right cephalic vein is compressible. Right basilic vein not visualized. Interpretation Summary No evidence for acute deep venous thrombosis[right] upper extremity with patent and compressible cephalic and basilic veins. Right basilic vein not visualized Ordering Physician: Baljinder Bernal Referring Physician: Nicko Uribe Performed By: Debbie Vázquez RVT and Student ?
[2018-10-12 06:36] LABS: Bedside Glucose 80 mg/dL (70-110)
[2018-10-12 06:49] LABS: Absolute Lymphocyte Count 3.26 X10^3/ul (0.83-4.51); Absolute Neutrophil Count 8.1 X10^3/uL (2.0-7.7); Basophil# 0.02 X10^3/uL; Basophil% 0.2 % (0-1); Eosinophil# 0.24 X10^3/uL; Eosinophils% 1.9 % (0-5); Hematocrit 40.1 % (37-47); Lymphocyte # 3.26 X10^3/ul (4.0); Lymphocyte % 26.2 % (19-41); Mean Corp Hgb Conc 29.9 g/gl (32-36); Mean Corpuscular Hgb 27.6 pg (27.0-32.0); Mean Corpuscular Volume 92.2 fL (81-99); Mean Platelet Vol. 9.7 fl (6.2-12.0); Monocyte# 0.82 X10^3/uL; Monocyte% 6.6 % (0-10); Neutrophil # 8.08 X10^3/uL (2.7-7.7); Neutrophil % 64.9 % (47-70); POSITIVE COUNT NO; POSITIVE DIFFERENTIAL NO; POSITIVE MORPHOLOGY NO; Platelet Count 282 K/mm3 (150-450); RBC Distribution Width SD 50.4 fl (35.1-43.9); Red Blood Count 4.35 M/mm3 (4.2-5.4); White Blood Count 12.4 K/mm3 (4.4-11.0)
[2018-10-12 06:50] LABS: Bedside Glucose 110 mg/dL (70-110)
[2018-10-12] MEDS: Budesonide Respules 0.5 MG/2 ML AMPUL.NEB. INHALATION ×2 (07:00→19:40)
[2018-10-12] MEDS: Albuterol 2.5 MG/3 ML VIAL.NEB. INHALATION ×3 (07:00→19:40)
[2018-10-12 07:07] LABS: Anion Gap 9 (5-15); BUN 8 mg/dL (7-18); BUN/Creat Ratio 10.8 RATIO (10-20); Calcium,Total 8.3 mg/dL (8.5-10.1); Chloride 105 mmol/L (98-107); Creatinine, Serum 0.74 mg/dL (0.55-1.02); EST Glomerular Filtration Rate 85 mL/min (>60); Est Glom Filt Rate - Afr Amer 102 mL/min (>60); Estimated Creatinine Clearance 78.62 ml/min; Glucose 153 mg/dL (74-106); Potassium 3.5 mmol/L (3.5-5.1); Sodium Level 142 mmol/L (136-145)
--- NOTE | 2018-10-12 07:28 | PN_ITS ---
Patient Problems: Active and Suspected Problems Abscess of right arm (Acute) Subjective: Patient was seen and examined. She complains of pain inthe right arm. Complains of fever with chills. No fevers seen here. WBC is slightly improved. Seen by general surgery, will be reevaluated for possible bedside I&D BS are running slightly low - treated, on enteral feed. Vitals/I&O's: Vital Signs Temp Pulse Resp BP Pulse Ox 98 F 68 18 122/71 H 100 10/12/18 01:53 10/12/18 01:53 10/12/18 01:53 10/12/18 01:53 10/12/18 01:53 Oxygen Flow Rate (L/min) 4 Oxygen Delivery Method Nasal Cannula Weight: 137.212 kg Body Mass Index (BMI) 47.3 Intake and Output for Last 24 Hours 10/10/18 10/11/18 10/12/18 23:59 23:59 23:59 Intake Total 1742 / 1742 Output Total 600 / 600 Balance 1142 / 1142 General: Alert, Oriented x3, Cooperative, No apparent distress, - - morbidly obese, on 3L chronic oxygen HEENT: Atraumatic, PERRLA, EOMI, Normocephalic Oral: Moist Mucosa Neck: Supple Lungs: Normal air movement, Diminished Cardiovascular: Regular rate, Regular Rhythm, Normal S1, Normal S2, No murmurs Abdomen: Bowel Sounds Present, Soft, Non Tender, Non-Distended, No Hepato- splenomegaly Extremities: - - Right anteromedial aspect of arm is erythematous, warm to touch, area of bloody-serosanguinous discharge Skin: No rashes, No breakdown Musculoskeletal: No Tenderness to Palpation of Joints or Extremities Lymphatic: No Cervical, Supraclavicular, or Inguinal Adenopathy Neurological: Cranial nerves II-XII grossly intact, Neuro grossly intact Psych/Mental Status: Normal Affect, Appropriate Laboratory Results 10/11/18 12:55: WBC 13.6 H, RBC 4.78, Hgb 13.3, Hct 43.6, MCV 91.2, MCH 27.8, MCHC 30.5 L, RDW 14.6, RDW Differential 48.8 H, Plt Count 307, MPV 11.1, Immature Gran % (Auto) 0.200, Neut % (Auto) 68.2, Lymph % (Auto) 24.0, [place] % (Auto) 6.2, Eos % (Auto) 1.2, Baso % (Auto) 0.2, Absolute Neuts (auto) 9.3 H, Absolute Lymphs (auto) 3.27, Total Counted Not Reportable 10/11/18 12:55: Sodium 142, Potassium 3.8, Chloride 105, Carbon Dioxide 31.0, Anion Gap 6, BUN 9, Creatinine 0.72, Estim Creat Clear Calc 83.82, Est GFR (MDRD) Af Amer 106, Est GFR (MDRD) Non-Af 88, BUN/Creatinine Ratio 12.5, Glucose 93, Calcium 8.7 10/11/18 12:55: Hemoglobin A1c 6.2 10/11/18 16:19: Urine Color Yellow, Urine Clarity Clear, Urine pH 7.0, Ur Specific [place] 1.005, Urine Protein Negative, Urine Glucose (UA) Normal, Urine Ketones Negative, Urine Occult Blood 10 H, Urine Nitrite Negative, Urine Bilirubin Negative, Urine Urobilinogen Normal, Ur Leukocyte Esterase Negative, Urine RBC 0 SEEN, Urine WBC 0 SEEN, Ur Squamous Epith Cells 0-5 SEEN, Urine Bacteria 0 SEEN, Urine Mucus 0 SEEN 10/11/18 17:15: S.aureus Protein A PCR POSITIVE H, MRSA (PCR) POSITIVE H 10/11/18 17:36: POC Glucose 62 L 10/11/18 22:41: POC Glucose 124 H 10/12/18 00:30: POC Glucose 96 10/12/18 05:54: POC Glucose 80 10/12/18 06:30: Sodium 142, Potassium 3.5, Chloride 105, Carbon Dioxide 28.0, Anion Gap 9, BUN 8, Creatinine 0.74, Estim Creat Clear Calc 78.62, Est GFR (MDRD) Af Amer 102, Est GFR (MDRD) Non-Af 85, BUN/Creatinine Ratio 10.8, Glucose 153 H, Calcium 8.3 L 10/12/18 06:30: WBC 12.4 H, RBC 4.35, Hgb 12.0, Hct 40.1, MCV 92.2, MCH 27.6, MCHC 29.9 L, RDW 15.0 H, RDW Differential 50.4 H, Plt Count 282, MPV 9.7, [place] Gran % (Auto) 0.200, Neut % (Auto) 64.9, Lymph % (Auto) 26.2, [place] % (Auto) 6.6, Eos % (Auto) 1.9, Baso % (Auto) 0.2, Absolute Neuts (auto) 8.1 H, Absolute Lymphs (auto) 3.26, Total Counted Not Reportable 10/12/18 06:45: POC Glucose 110 Current Medications Acetaminophen (Tylenol) 650 mg PO Q6H PRN PRN PRN Reason: Mild Pain (scale 0-3)/T>100.7 Hydrocodone Bitart/Acetaminophen ([place] 5mg-325mg) 1 - 2 tablet PO Q8H PRN PRN Reason: PAIN Last Admin: 10/12/18 05:43 Dose: 2 tablet Albuterol Sulfate (Ventolin Aerosols) 2.5 mg INHALATION Q4H PRN PRN PRN Reason: WHEEZING Albuterol Sulfate (Ventolin Aerosols) 2.5 mg INHALATION Q6HWA.RT [facility] Last Admin: 10/11/18 19:54 Dose: 2.5 mg Bisacodyl (Dulcolax) 10 mg RECTAL DAILY PRN PRN PRN Reason: Constipation Budesonide (Pulmicort Aerosol) 0.5 mg INHALATION Q12H.RT [facility] Last Admin: 10/11/18 19:54 Dose: 0.5 mg Clobetasol Propionate (Temovate Ointment) 1 applic TOPICAL BID [facility] Last Admin: 10/11/18 22:30 Dose: 1 applicatio Cyclobenzaprine HCl (Flexeril) 10 mg PO BID [facility] Last Admin: 10/11/18 22:32 Dose: 10 mg Dextrose (D50w Syringe) 0 gm IV X1 PRN; Protocol PRN Reason: Hypoglycemia Diltiazem HCl (Cardizem Cd) 120 mg PO BID [facility] Last Admin: 10/11/18 22:32 Dose: 120 mg Docusate Sodium (Colace) 200 mg PO BID PRN PRN PRN Reason: Constipation Enoxaparin Sodium (Lovenox) 40 mg SC DAILY [facility] Last Admin: 10/11/18 20:24 Dose: 40 mg Furosemide (Lasix) 40 mg PO BIDLX [facility] Last Admin: 10/11/18 20:24 Dose: 40 mg Glucagon () 1 mg IM .X1 PRN PRN Reason: Hypoglycemia Hydroxychloroquine Sulfate (Plaquenil) 200 mg PO BIDCM [facility] Last Admin: 10/11/18 20:24 Dose: 200 mg Nutritional Formula (Osmolite 1.2) 1,000 mls @ 45 mls/hr JT .[id number] [facility] Last Admin: 10/11/18 20:21 Dose: 45 mls/hr Vancomycin IV Pharmacy to Dose (1 ea/ Sodium Chloride) 500 mls @ 250 mls/hr IV DAILY PRN; Protocol Vancomycin HCl 1,250 mg/ (Sodium Chloride) 275 mls @ 167 mls/hr IV Q12H [facility] Last Admin: 10/12/18 01:45 Dose: 167 mls/hr Insulin Human Lispro (Humalog Kwikpen (Bkc)) 0 unit SQ Q6 [facility]; Protocol Last Admin: 10/12/18 05:58 Dose: Not Given Lorazepam (Ativan) 1 mg PO BID [facility] Last Admin: 10/11/18 22:57 Dose: 1 mg Mirtazapine (Remeron) 15 mg PO QHS [facility] Last Admin: 10/11/18 22:33 Dose: 15 mg Morphine Sulfate () 1 - 2 mg IV Q4H PRN PRN PRN Reason: SEVERE PAIN (6-1010) Last Admin: 10/12/18 00:31 Dose: 2 mg Non-Formulary Medication (Cholecalciferol (Vitamin D3) [Vitamin D3]) 50,000 unit PO DAILY [facility] Non-Formulary Medication (Ondansetron Hcl [Zofran Solution]) 4 mg JT Q8H [facility] Non-Formulary Medication (Sumatriptan [Imitrex]) 5 mg NS .X1 PRN PRN PRN Reason: migraines Non-Formulary Medication (Ferrous Sulfate [Ferrous Sulfate]) 5 mg JT BID [facility] Non-Formulary Medication (Levetiracetam [Levetiracetam Er]) 500 mg PO BID [facility] Pantoprazole Sodium (Protonix) 40 mg PO BID [facility] Last Admin: 10/11/18 22:32 Dose: 40 mg Polyethylene Glycol (Miralax) 17 gm PO BID [facility] Last Admin: 10/11/18 22:32 Dose: 17 gm Potassium Chloride (K-Dur) 40 meq PO TIDCM [facility] Pregabalin (Lyrica) 150 mg PO BID [facility] Last Admin: 10/11/18 22:32 Dose: 150 mg Risperidone (Risperdal) 0.5 mg PO QHS [facility] Last Admin: 10/11/18 22:33 Dose: 0.5 mg Sodium Chloride () 5 - 15 ml IV UD PRN PRN Reason: SALINE FLUSH Last Admin: 10/12/18 05:44 Dose: 10 ml Medical Necessity - Tobacco Use Smoking Status: Former smoker Assessment/Plan All Active Problems Abscess of right arm (Acute) Encephalopathy (Acute) 58-year-old with multiple comorbidities, recently had right axillary lymph node sampling done with the tissue removal by Dr. Baugh comes in with a 3-week history of swelling, pain, induration and fever on and off. 1. Right arm cellulitis, possible abscess, without sepsis status post recent right axillary lymph node sampling, general surgery consulted MRSA screen is positive, on IV vancomycin, continue for now, 2. Severe esophagitis with debility, with probable achalasia on J-tube, GERD, high risk of aspiration, history of gastric bypass in 2008 3. Chronic diastolic CHF, signs of acute exacerbation, continue home Lasix dose 4. Hypertension, controlled, continue on Cardizem 5. COPD with chronic respiratory failure, on 3 L home oxygen/MICHAELA on CPAP 6. Chronic pain syndrome/anxiety/depression, on Ativan, Remeron 7. History of ICH with left-sided hemiparesis, ischemic CVA with right-sided weakness, on Keppra 8. Psoriasis, complicated by psoriatic arthritis, chronic degenerative joint disease, on Plaquenil, Flexeril, Vicodin follows up in the outpatient 9. DVT PPx- Lovenox SC 10. Disposition: Possible DC in 24-48 hours Code Visit Inpatient E&M: 54628 Subs Hosp L2
--- NOTE | 2018-10-12 07:29 | PCM.CONS.B ---
- Consult Date of Consult: 10/12/18 - Reason for Consult Asked by hospitalist service to evaluation patient Anabelle is a 58 y/o obese, diabetic female who presents with infection of right upper arm. I had seen patient in late August for boil/abscess of right axilla for which I did an I&D in the office. This healed completely within a few weeks. She states that for the past 10 days, she has noted swelling and tenderness in her upper right arm. Denies fevers. Patient is diabetic and she states that her serum glucoses were up and down. She states that in the past 4 days, the pain has severely worsened, and she noted drainage recently. Found to be MRSA positive, CT scan obtained - revealed no fluid collection or air in the soft tissues. Denies trauma to area. Denies fevers. Complaint of severe pain. PAST MEDICAL HISTORY ? Acquired hypothyroidism 07/19/[address] Quiroz ? Acquired palmar and plantar hyperkeratosis 09/16/2014 ? Allergic rhinitis, cause unspecified ? Bilateral leg edema 05/03/2014 ? Cataract of both eyes ? CERV SPONDYL W MYELOPATH 12/13/2008 ? COPD without exacerbation (HCC) Sees Dr. Garcia On chronic O2 at 3 L per NC. ? Corns and callus 10/11/2014 ? Coronary atherosclerosis due to lipid rich plaque 07/19/2015 Stress test 04/2014 within normal limits. Cardiac catheterization done in [facility], 2006, medical disease. ? Eczema 05/12/2014 ? Epilepsy (HCC) 12/20/2017 ? Esophageal dysmotility 12/14/2017 ? Essential hypertension, benign ? Gastric ulcer ? Gastroesophageal reflux disease without esophagitis 03/10/2015 ? Generalized anxiety disorder ? Generalized osteoarthrosis, unspecified site ? Generalized weakness 02/09/2012 ? H/O gastric bypass 05/12/2014 ? Headache(784.0) s/p neurostimulator implant in OSH 2005 ? History of CVA (cerebrovascular accident) ? Intestinal malabsorption 07/19/2015 ? Iron deficiency anemia 07/19/2015 ? Iron malabsorption 11/09/[address] Blake ? Knee pain 01/31/2010 ? Left thyroid nodule 12/03/2016 ? Leukocytosis 10/27/2015 ? Lumbago 01/31/2010 ? Lumbar disc displacement without myelopathy 04/07/2013 ? Lumbar radiculopathy 04/07/2013 ? Major depressive disorder 03/02/[address] Blanton at the [facility]. ? Malnutrition of mild degree (HCC) 11/17/2017 ? Migraine without aura and without status migrainosus, not intractable 07/19/[address] Sterling: Due to head trauma when she was younger has had chronic headaches. ? Mixed hyperlipidemia ? Mixed stress and urge urinary incontinence 07/28/2018 ? Moderate persistent asthma without complication 07/19/[address] Garcia [facility] ? Morbid obesity (HCC) 01/10/2009 pre-surgical BMI 50.07 wt 329 s/pLRYGB, Liver biopsy, EGD and YAEL 01/2009 ? Obesity, Class II, BMI 35-39.9 E66.9 12/20/2017 ? Obstructive sleep apnea syndrome DME [facility] ? Oxygen dependent 3 liters 03/03 ? PEG (percutaneous endoscopic gastrostomy) adjustment/replacement/removal (HCC) 11/08/2017 ? Personal history of tobacco use, presenting hazards to health 12 pack year history, quit 2004. normal spirometry 10/2007. ? Psoriasis 09/16/[address] Love ? Rheumatoid arthritis involving multiple sites (HCC) ? Right leg pain 08/07/2018 ? Secondary hyperparathyroidism, non-renal (HCC) 09/03/[address] Quiroz ? SHOULDER REGION DIS NEC 12/13/2008 ? Vitamin B12 deficiency (dietary) anemia 05/13/2014 ? Vitamin D deficiency 05/13/[address] Quiroz ? Zinc deficiency 05/14/2014 PAST SURGICAL HISTORY ? 2D ECHO (EXEP) 11/05/2017 EF=65%, no valve issues ? COLONOSCOP W/ OR W/O BRSH SPEC 11/29/14 Colonoscopy outpt [facility] with mac, repeat 5 yrs ? COLONOSCOP W/ OR W/O BRSH SPEC 02/28/16 repeat 3 yrs Colonoscopy-[facility] ? COLONOSCOPY, GI 12/2008 poor prep-repeat 5 years ? EGD W/O OR W/BRUSH/WASH 02/28/16 EGD-[facility] ? GASTRIC BYPASS HX ? KNEE SCOPE,DIAGNOSTIC bilateral ? LAP GASTRIC BYPASS/JUAN-EN-Y 01-16-09 Dr Beverly ? OOPHORECTOMY, PART/TOTAL UNILAT/BILAT 2002 bilateral ? ORTHOPEDICS SURGERY HX ? PANNICULECTOMY 10/22/13 Dr Sánchez ? PAST SURGICAL HISTORY OF total thyroidectomy ? PAST SURGICAL HISTORY OF right ankle fracture surgery ? PAST SURGICAL HISTORY OF removal of ankle pins and plates ? PAST SURGICAL HISTORY OF bilateral reduction mammoplasty ? REVISE MEDIAN N/CARPAL TUNNEL SURG bilateral ? S NEURO STIMULATOR removed ? SHX VASCULAR SURGERY ? STRESS TEST 04/2014 Normal ? TOTAL ABDOM HYSTERECTOMY 1977, 2002 Hysterectomy 1977 for fibroids, BSO 2002 for endometriois and cysts Current Outpatient Prescriptions: ondansetron (ZOFRAN) 4 mg/5 mL solution take 5 milliliters by mouth twice a day if needed [START ON 09/17/2018] HYDROcodone-acetaminophen (NORCO) 5-325 mg per tablet May take BID to TID daily as needed for pain up to 30 daysEarliest Fill Date: 09/17/18 HYDROcodone-acetaminophen (NORCO) 5-325 mg per tablet May take by mouth bid to tid daily as needed for pain for up to 30 days cyclobenzaprine (FLEXERIL) 10 mg tablet Take 1 tablet by mouth twice daily as needed. esomeprazole (NEXIUM) 40 mg capsule Take 1 capsule by mouth twice daily. acetic acid 0.25 % IRRIGATION Use 1-2 times to clean around j-tube site hydroxychloroquine (PLAQUENIL) 200 mg tablet Take 1 tablet by mouth twice daily. LYRICA 150 mg capsule take 1 capsule by mouth twice a day potassium chloride ER (K-DUR, KLOR-CON) 20 mEq tablet take 2 tablets by mouth three times a day torsemide (DEMADEX) 20 mg tablet take 1 tablet by mouth twice a day cyanocobalamin 1,000 mcg/mL soln Inject 1 mL intramuscularly every 2 weeks. ADVAIR DISKUS 500-50 mcg/dose dsdv inhale 1 dose by mouth twice a day - RINSE AND GARGLE MOUTH WITH WATER AFTER USE TAB-A-BAILEY tablet take 1 tablet by mouth once daily silver nitrate applicators 75-25 % applicator Application to J-tub hypergranulation tissue 1-2 times a week mirabegron (MYRBETRIQ) 50 mg Tb24 Take 1 tablet by mouth every 10 days. SUMAtriptan (IMITREX) 5 mg/actuation nasal spray instill 1 spray into each nostril WITH ONSET OF HEADACHE. MAY REPEAT DOSE ONCE AFTER 2 HOURS IF NEEDED. Syringe, Disposable, 3 mL syrg Use For B-12 injections every 2 weeks Dx: D51.8 Needle, Disp, 25 G 25 gauge x 5/8 ndle Use For B-12 injections every 2 weeks Dx: D51.8 nitroglycerin sublingual (NITROQUICK) 0.3 mg SL tablet dissolve 1 tablet under the tongue EVERY 5 MINUTES if needed melatonin 3 mg tablet take 1 tablet by mouth at bedtime folic acid 1 mg tablet take 1 tablet by mouth once daily lisinopril (ZESTRIL, PRINIVIL) 10 mg tablet take 1 tablet by mouth once daily Diaper,Brief, Adult,Disposable (BRIEFS EXTRA LARGE) misc Use as directed Size: XL Dx: Urge Incontinence N39.41 and Stress Incontinence N39.3 ferrous sulfate 220 mg (44 mg iron)/5 mL elixir Take 6.5 ml per j tub three times a day. Mirtazapine (REMERON SOLTAB) 45 mg disintegrating tablet Take 1 tablet by mouth daily at bedtime. Per Dr. Benoti, psychiatrist, for depression COMPOUNDED PRESCRIPTION Eggcrate mattress for a standard hospital bed. Dx M47.26; M17.0; M48.02; G89.4; R26.89; Z91.81 COMPOUNDED PRESCRIPTION Tug Transfer Bath Bench, #;one Dx: M47.26, M17.0, M48.02, G89.4, R26.89 and Z91.81 ergocalciferol, vitamin D2, (DRISDOL) 50,000 unit capsule Take 1 capsule by mouth once each week. Zinc 50 mg tab Take 1 tablet by mouth once daily. ipratropium-albuterol (DUONEB) 0.5 mg-3 mg(2.5 mg base)/3 mL nebu Inhale 3 mL as instructed four times daily. Lactose-Free Food with Fiber (JEVITY 1.5 TK) 0.06 gram-1.5 kcal/mL liqd 60 mary-units/hr by PEG Tube route continuous. methotrexate 2.5 mg tablet 10 tabs once every Friday per Rheum Blood-Glucose Meter monitoring kit Glucose Meter of Choice - Kit - Dx: E11.42, Brand covered by insurance Lancets lancets Test blood sugar(s) 2 times daily. Dx: E11.42 Insulin: Yes, Brand covered by insurance blood sugar diagnostic (BLOOD GLUCOSE TEST) test strip Test blood sugar(s) 2 times daily. Dx: E11.42 Insulin: yes, Brand covered by insurance diltiazem CD (CARDIZEM CD, CARTIA XT) 120 mg 24 hr capsule Take 1 capsule by mouth twice daily. therapeutic multivitamin (THERA VITAMIN) tablet Take 1 tablet by mouth once daily. zinc oxide 20 % ointment Apply 1 application to affected area twice daily. albuterol HFA (PROAIR HFA) 90 mcg/actuation inhaler Inhale 2 Puffs as instructed once daily. polyethylene glycol 3350 (MIRALAX, GLYCOLAX) 17 gram packet MIX 1 PACKET IN LIQUID TWICE DAILY AND DRINK atorvastatin (LIPITOR) 20 mg tablet Take 1 tablet by mouth once daily. cyanocobalamin 1,000 mcg/mL soln Inject 1 mL intramuscularly every 2 weeks. levETIRAcetam (KEPPRA) 500 mg/5 mL (5 mL) CUP Take 5 mL by mouth twice daily. calcium citrate (CALCITRATE) 200 mg (950 mg) tab Take 1 tablet by mouth twice daily. thiamine (VITAMIN B1) 100 mg tablet Take 1 tablet by mouth once daily. insulin lispro (HUMALOG) 100 unit/mL injection ADMINISTER CORRECTIONAL INSULIN REGARDLESS OF MEAL OR NUTRITION INTAKEScale 1If Blood Glucose (mg/dL) is:Less than 110 Give 0 -494 Give 0 [id number] Give 1 [id number] Give 2 -008 Give 3 -712 Give 4 [id number] Give 5 CPAP Mask refit suitable mask per pt preference (cannot tolerate a mask that has a strap along upper portion of head), chin strap, head gear, humidity, tubing, lifetime supplies. G47.33 Obstructive Sleep Apnea CPAP Patient needs 3 Liters oxygen bleed into PAP. COMPRESSION SOCKS, LARGE MISC Thigh high, not sure of compression. COMPOUNDED PRESCRIPTION Knee High Compression Stockings 20-30 mm, DX: Venous insufficiency CALCIUM PHOSPHATE DIBAS/VIT D3 (VITAMIN D, WITH CALCIUM, ORAL) 1 tablet by ORAL/FEEDING TUBE route once daily. COMPOUNDED PRESCRIPTION oxygen @ 3L per nasal cannula - 24hrs/day HYDROcodone-acetaminophen (NORCO) 5-325 mg per tablet Take 1 tablet by mouth every 8 hours as needed for Pain for up to 3 days. ALLERGIES: Bee Pollen; Fish Allergy [Other]; Penicillins; Asa [Salicylates]; Grass Pollen; Pet Dander [Other]; Pollen Extracts; Seasonal Allergies PERSONAL HISTORY: Social History Marital status: Spouse name: Years of education: 16 Number of children: 1 Occupational History Occupation Employer Comment Disabled Social History Main Topics Smoking status: Former Smoker Packs/day: 1.00 Years: 12.00 Types: Cigarettes Quit date: 08/11/2004 Smokeless tobacco: Never Used Alcohol use: No Drug use: No Sexual activity: Not Currently Other Topics Concern Sleep Concern Yes Exercise Yes Comment:low impact cardio and weight exercises Self-Exams Yes FAMILY HISTORY ? Hypertension Mother ? Cataract Mother ? Glaucoma Mother ? Diabetes Mother ? Breast Cancer Mother ? Stroke Father 80's. ? Cataract Father ? Glaucoma Father ? Diabetes Sister ? other (leukemia) Sister ? Glaucoma Paternal Grandmother ? Breast Cancer Maternal Grandmother ? other (sickle cell trait) Maternal Grandmother ? Stroke Brother 2016 REVIEW OF SYSTEMS: General - denies fevers Cardiovascular - denies chest pain Pulmonary - has chronic shortness of breath Gastrointestinal - denies hematemesis, tube feeding 24 hours at 45 ml/hr Neurological - has history of CVA Hematological - denies spontaneous/prolonged bleeding Skin - see above Musculoskeletal - has chronic joint and back pain Endocrine - is morbidly obese and has diabetes and hypothyroidism Psychological ? normal mood PHYSICAL EXAMINATION: General: The patient is 58 year old female, well nourished, well hydrated in no acute distress. The patient is oriented to time, place, and person. VITALS: Ht: 5'8 Wt: 310# Head ? Normocephalic. EOM intact with sclera clear and no icterus noted. Mouth with mucus membranes moist. Neck - supple with no jugular venous distention noted. Trachea is midline. . Lungs ? no labored breathing noted, such as retractions. No cough heard. Abdomen ? soft and benign. Difficult to determine if any masses or organomegaly due to body habitus. Skin ? right upper arm with swelling and erythema and central area of inner aspect - circular area of skin breakdown and granulation tissue exposed with surrounding induration and tenderness Psych ? calm and appropriate IMPRESSION: right upper arm cellulitis - MRSA PLAN: I have discussed the above with the patient. There is no area of fluctuance to drain and the wound is already open to allow for drainage. However, may consider debridement - which can be done at the bedside, will re-evaluate later this afternoon Continue antibiotics I have answered all questions to the patient?s satisfaction and the patient has no further questions.
[2018-10-12] MEDS: Enoxaparin 40 MG/0.4 ML Syringe SC (08:22)
[2018-10-12] MEDS: Clobetasol Propionate 0.05% Ointment 1 APPLIC TOPICAL ×2 (08:22→22:15)
[2018-10-12] MEDS: LORazepam 1 MG Tablet PO ×2 (08:22→22:13)
[2018-10-12] MEDS: Polyethylene Glycol 3350 17 GM PACKET PO ×2 (08:23→22:13)
[2018-10-12] MEDS: Hydroxychloroquine 200 MG Tablet PO ×2 (08:23→16:28)
[2018-10-12] MEDS: Pantoprazole Sodium 40 MG Tablet PO ×2 (08:23→22:13)
[2018-10-12] MEDS: Furosemide 40 MG Tablet PO (08:23)
[2018-10-12] MEDS: dilTIAZem CD 120 MG Capsule PO ×2 (08:24→22:13)
[2018-10-12] MEDS: Pregabalin 75 MG Capsule 150 MG PO ×2 (08:35→22:13)
--- NOTE | 2018-10-12 11:30 | CASEMGMT ---
RN CM Assessment Presentation: R arm cellulitis in area of axillary surgical incision from axillary lymh node tissue sample done one month ago. Introduced role of RN CM to patient. Patient is alert, oriented and able to participate in RN CM Assessment. Care providers, pharmacy, and demographics verified. PCP: Dr. Uribe Specialists: Dr. Hsu Insurance: [facility] MCRDUAL Comp HMO Preferred Pharmacy: [facility] [place] Prescription Benefit: yes LNOK: Son, Ronda Lindo Living Arrangements: Lives in one story apartment independently. Pt states she does own ADL's, but does have difficulty when not feeling well. Pt also states she has CM through her [facility] that is working on having aides come into home. This has not been set up yet. Transportation: son will drive pt. DME: Home Oxygen through [employer]. Liquid oxygen with portability per patient. Walker, cane, wheelchair. JT: pt uses [facility] for supplies. States she does not need any supplies on dc for this. HHC: [facility]. Called and verified active for RN for monitoring and J-T care. PH: FX: DC PLAN: anticipate home on discharge. Will need to resume RN through [facility] and evaluate for PT/OT needs. Gamal BAKERN RN AC
[2018-10-12 11:55] LABS: Bedside Glucose 50 mg/dL (70-110)
--- NOTE | 2018-10-12 12:18 | NURSING ---
1130: patient's blood sugar 50. gave 4 oz oj at this time. 1200 patient's blood sugar still low at 58. patient requests sprite. Will send physician a message regarding recurrent hypoglycemia.
[2018-10-12 12:35] LABS: Bedside Glucose 81 mg/dL (70-110)
[2018-10-12 12:35] LABS: Bedside Glucose 58 mg/dL (70-110)
[2018-10-12 13:41] LABS: Bedside Glucose 114 mg/dL (70-110)
[2018-10-12 17:21] LABS: Bedside Glucose 72 mg/dL (70-110)
[2018-10-12] MEDS: Midazolam 2 MG/2 ML Syringe IV (18:05)
[2018-10-12] MEDS: fentaNYL 100 MCG/2 ML Ampul 50 MCG IV (18:07)
--- NOTE | 2018-10-12 18:29 | PCM.OPRPT ---
Report of Operation Date of Procedure: 10/12/18 Pre-Operative Diagnosis: right upper arm cellulitis (MRSA) and abscess Post-Operative Diagnosis: same Surgery/Procedure Performed:: incision and drainage of right upper arm abscess Description of Surgical Findings:: necrotic fatty tissues of subcutaneous tissue in a circular fashion of inner aspect of upper right arm, with surrounding induration and tender (possible spider bite? etiology) Type of Anesthesia:: IV Sedation - 2 mg versed and 50 micrograms of fentanyl Anesthesiologist: Mayda Hsu Estimated Blood Loss (mL): < 10 ml Fluids Replaced: 100 ml NS Description of Procedure: After informed consent was obtained, patient counseled to risks/benefits and agrees to proceed. Appropriate time out protocol was followed. Patient was given IV sedation - 2 mg versed and 50 micrograms of fentanyl by ri. Patient was placed in the supine position. The skin overlying the lesion (upper inner aspect of right arm) was cleansed with betadyne skin preparation. Sterile surgical drapes were placed. The skin and subcutaneous tissues around the lesion were infiltrated with 1% xylocaine with epinephrine - 13 ml used. There was an area of breakdown of epidermis with necrotic subcutaneous tissues. It was 2.5 cm in diameter. This area was opened and sharply debrided. There was minimal purulent drainage. There was necrotic fatty tissue and debris that was removed. The wound was incised to normal tissues. The depth of the wound was 1.5 cm. Hemostasis was achieved by pressure. The wound was densely packed with saline soaked gauze. Dry gauze was placed over the wound and the arm was wrapped with kerlex gauze.. Patient tolerated the procedure well. - Complications none noted - Admit VTE Documentation VTE Present on Admission: Yes VTE Mechan Device Prophylaxis: SCD's
--- NOTE | 2018-10-12 18:30 | NURSING ---
Dr. Hsu just completed bedside debridement at this time. See moderate sedation sheet for documentation of intra-procedure vs and patient response.
[2018-10-12] MEDS: RisperiDONE 0.5 MG Tablet PO (22:13)
[2018-10-12] MEDS: Mirtazapine 15 MG Tablet PO (22:13)
[2018-10-12] MEDS: levETIRAcetam Oral Solution 500 MG/5 ML PO (22:18)
[2018-10-13] VITALS (8 sets, daily range): BP systolic 115–131; BP diastolic 62–68; PULSE 72–88; RESP 16–20; TEMP 36.8–37; O2SAT 95–100
[2018-10-13] MEDS: Insulin Lispro 100 UNIT/ML INSULN.PEN SQ (00:18)
[2018-10-13] MEDS: Morphine 2 MG/ML Syringe IV ×2 (00:23→20:19)
[2018-10-13 00:26] LABS: Bedside Glucose 189 mg/dL (70-110)
[2018-10-13 02:42] LABS: Vancomycin, Trough Level 9.4 ug/mL (5.0-15.0)
--- NOTE | 2018-10-13 04:25 | PCM.RX.CS ---
<Mani No - Last Filed: 10/13/18 04:25> Consult Pharmacy has been consulted to manage selected antiobiotic: Vancomycin Type of Consult: Follow-up Suspected Infection: Skin/Soft tissue Labs: Sodium 142 mmol/L (136-145) 10/12/18 06:30 Potassium 3.5 mmol/L (3.5-5.1) 10/12/18 06:30 Chloride 105 mmol/L (98-107) 10/12/18 06:30 Carbon Dioxide 28.0 mmol/L (21.0-32.0) 10/12/18 06:30 Anion Gap 9 (5-15) 10/12/18 06:30 BUN 8 mg/dL (7-18) 10/12/18 06:30 Creatinine 0.74 mg/dL (0.55-1.02) 10/12/18 06:30 Est GFR (MDRD) Af Amer 102 mL/min (>60) 10/12/18 06:30 Est GFR (MDRD) Non-Af 85 mL/min (>60) 10/12/18 06:30 BUN/Creatinine Ratio 10.8 RATIO (10-20) 10/12/18 06:30 Glucose 153 mg/dL (74-106) H 10/12/18 06:30 Vancomycin Trough 9.4 ug/mL (5.0-15.0) 10/13/18 01:45 Microbiology: Microbiology 10/11/18 17:15 Wound Abcess - Other Gram Stain - Final 10/11/18 17:15 Wound Abcess - Other Wound Culture - Preliminary Staphylococcus aureus Weight used for dosin.2 kg Estimated Creatinine Clearance: 78.62 Goal Trough: 10-15 mcg/mL Pharmacy Plan for Drug Dosing: Pharmacy Service will continue to monitor and adjust dosing as required. TROUGH 9.4 NO CHANGES Follow-Up Labs: Trough Vancomycin Labs to be done on [date and time ordered]: 10/16 @ 0200 <Sue Emerson - Last Filed: 10/13/18 14:09> Consult Labs: Sodium 142 mmol/L (136-145) 10/12/18 06:30 Potassium 3.5 mmol/L (3.5-5.1) 10/12/18 06:30 Chloride 105 mmol/L (98-107) 10/12/18 06:30 Carbon Dioxide 28.0 mmol/L (21.0-32.0) 10/12/18 06:30 Anion Gap 9 (5-15) 10/12/18 06:30 BUN 8 mg/dL (7-18) 10/12/18 06:30 Creatinine 0.74 mg/dL (0.55-1.02) 10/12/18 06:30 Est GFR (MDRD) Af Amer 102 mL/min (>60) 10/12/18 06:30 Est GFR (MDRD) Non-Af 85 mL/min (>60) 10/12/18 06:30 BUN/Creatinine Ratio 10.8 RATIO (10-20) 10/12/18 06:30 Glucose 153 mg/dL (74-106) H 10/12/18 06:30 Vancomycin Trough 9.4 ug/mL (5.0-15.0) 10/13/18 01:45 Microbiology: Microbiology 10/11/18 17:15 Wound Abcess - Other Gram Stain - Final 10/11/18 17:15 Wound Abcess - Other Wound Culture - Final Meth. resistant Staph. aureus Pharmacy Plan for Drug Dosing: Pharmacy Service will continue to monitor and adjust dosing as required.
[2018-10-13 07:01] LABS: Bedside Glucose 96 mg/dL (70-110)
--- NOTE | 2018-10-13 07:20 | PCM.PN.SRG ---
Patient Problems: Active and Suspected Problems Abscess of right arm (Acute) Subjective: patient states that pain is same as prior to procedure - Physical Exam Vital Signs Temp Pulse Resp BP Pulse Ox 98.5 F 80 16 125/65 H 100 10/13/18 05:30 10/13/18 05:30 10/13/18 05:30 10/13/18 05:30 10/13/18 05:30 Oxygen Flow Rate (L/min) 3 Oxygen Delivery Method Nasal Cannula Weight: 137.212 kg Body Mass Index (BMI) 47.3 Intake and Output for Last 24 Hours 10/11/18 10/12/18 10/13/18 23:59 23:59 23:59 Intake Total 3944 / 3944 999 / 999 Output Total 2725 / 2725 Balance 1219 / 1219 999 / 999 Microbiology Past 72 Hours 10/11/18 17:15 Gram Stain - Final Wound Abcess - Other Wound Culture - Preliminary Staphylococcus aureus Laboratory Tests Past 24 Hrs 10/13/18 01:45 Vancomycin Trough 9.4 POC Glucose 10/13/18 10/13/18 10/12/18 06:44 00:17 16:58 POC Glucose 96 189 H 72 10/12/18 10/12/18 10/12/18 13:20 12:27 12:09 POC Glucose 114 H 81 58 L 10/12/18 11:37 POC Glucose 50 L Medical Necessity - Tobacco Use Smoking Status: Former smoker Assessment/Plan All Active Problems Abscess of right arm (Acute) Encephalopathy (Acute) Impression: abscess/cellulitis of right upper arm - s/p I&D/debridement Plan: did not really seem as typical abscess - more like a spider bit injury - no purulent drainage and large amount of necrotic fatty tissue I would recommend consult to Patricia and patient can follow up with [facility] clinic
[2018-10-13] MEDS: Budesonide Respules 0.5 MG/2 ML AMPUL.NEB. INHALATION ×2 (07:52→19:33)
[2018-10-13] MEDS: Albuterol 2.5 MG/3 ML VIAL.NEB. INHALATION ×3 (07:53→19:33)
[2018-10-13] MEDS: dilTIAZem CD 120 MG Capsule PO ×2 (09:19→23:15)
[2018-10-13] MEDS: levETIRAcetam Oral Solution 500 MG/5 ML PO ×2 (09:19→23:14)
[2018-10-13] MEDS: Polyethylene Glycol 3350 17 GM PACKET PO ×2 (09:20→23:14)
[2018-10-13] MEDS: Pregabalin 75 MG Capsule 150 MG PO ×2 (09:20→23:13)
[2018-10-13] MEDS: Enoxaparin 40 MG/0.4 ML Syringe SC (09:20)
[2018-10-13] MEDS: Pantoprazole Sodium 40 MG Tablet PO ×2 (09:20→23:13)
[2018-10-13] MEDS: Hydroxychloroquine 200 MG Tablet PO ×2 (09:20→16:54)
[2018-10-13] MEDS: LORazepam 1 MG Tablet PO ×2 (09:20→23:14)
[2018-10-13] MEDS: Furosemide 40 MG Tablet PO ×2 (09:21→16:54)
[2018-10-13] MEDS: Clobetasol Propionate 0.05% Ointment 1 APPLIC TOPICAL ×2 (09:21→23:15)
[2018-10-13 12:11] LABS: Bedside Glucose 68 mg/dL (70-110)
--- NOTE | 2018-10-13 14:09 | PN_ITS ---
Patient Problems: Active and Suspected Problems Abscess of right arm (Acute) Subjective: Patient was seen and examined. She complains of severe pain in the surgical site. Denies any fever or chills. Wound dressing in place. Objective: Physical exam: General: Alert, Oriented x3, Cooperative, No apparent distress, - - morbidly obese, on 3L chronic oxygen HEENT: Atraumatic, PERRLA, EOMI, Normocephalic Oral: Moist Mucosa Neck: Supple Lungs: Normal air movement, Diminished Cardiovascular: Regular rate, Regular Rhythm, Normal S1, Normal S2, No murmurs Abdomen: Bowel Sounds Present, Soft, Non Tender, Non-Distended, No Hepato- splenomegaly Extremities: - - Right anteromedial aspect of arm erythema is improved, dressing in place Skin: No rashes, No breakdown Musculoskeletal: No Tenderness to Palpation of Joints or Extremities Lymphatic: No Cervical, Supraclavicular, or Inguinal Adenopathy Neurological: Cranial nerves II-XII grossly intact, Neuro grossly intact Psych/Mental Status: Normal Affect, Appropriate Vitals/I&O's: Vital Signs Temp Pulse Resp BP Pulse Ox 98.6 F 84 16 131/68 H 100 10/13/18 09:34 10/13/18 09:34 10/13/18 09:34 10/13/18 09:34 10/13/18 09:34 Oxygen Flow Rate (L/min) 3 Oxygen Delivery Method Nasal Cannula Weight: 137.212 kg Body Mass Index (BMI) 47.3 Intake and Output for Last 24 Hours 10/11/18 10/12/18 10/13/18 23:59 23:59 23:59 Intake Total 3944 / 3944 2479 / 2479 Output Total 2725 / 2725 800 / 800 Balance 1219 / 1219 1679 / 1679 Microbiology Past 72 Hours 10/11/18 17:15 Wound Abcess - Other Gram Stain - Final 10/11/18 17:15 Wound Abcess - Other Wound Culture - Final Meth. resistant Staph. aureus Laboratory Results 10/12/18 16:58: POC Glucose 72 10/13/18 00:17: POC Glucose 189 H 10/13/18 01:45: Vancomycin Trough 9.4 10/13/18 06:44: POC Glucose 96 10/13/18 12:03: POC Glucose 68 L Current Medications Acetaminophen (Tylenol) 1,000 mg PO TID [facility] Albuterol Sulfate (Ventolin Aerosols) 2.5 mg INHALATION Q4H PRN PRN PRN Reason: WHEEZING Albuterol Sulfate (Ventolin Aerosols) 2.5 mg INHALATION Q6HWA.RT [facility] Last Admin: 10/13/18 13:48 Dose: 2.5 mg Bisacodyl (Dulcolax) 10 mg RECTAL DAILY PRN PRN PRN Reason: Constipation Budesonide (Pulmicort Aerosol) 0.5 mg INHALATION Q12H.RT [facility] Last Admin: 10/13/18 07:52 Dose: 0.5 mg Clobetasol Propionate (Temovate Ointment) 1 applic TOPICAL BID [facility] Last Admin: 10/13/18 09:21 Dose: 1 applicatio Cyclobenzaprine HCl (Flexeril) 10 mg PO BID [facility] Last Admin: 10/13/18 09:21 Dose: 10 mg Dextrose (D50w Syringe) 0 gm IV X1 PRN; Protocol PRN Reason: Hypoglycemia Diltiazem HCl (Cardizem Cd) 120 mg PO BID [facility] Last Admin: 10/13/18 09:19 Dose: 120 mg Docusate Sodium (Colace) 200 mg PO BID PRN PRN PRN Reason: Constipation Enoxaparin Sodium (Lovenox) 40 mg SC DAILY [facility] Last Admin: 10/13/18 09:20 Dose: 40 mg Furosemide (Lasix) 40 mg PO BIDLX [facility] Last Admin: 10/13/18 09:21 Dose: 40 mg Glucagon () 1 mg IM .X1 PRN PRN Reason: Hypoglycemia Hydroxychloroquine Sulfate (Plaquenil) 200 mg PO BIDCM [facility] Last Admin: 10/13/18 09:20 Dose: 200 mg Nutritional Formula (Osmolite 1.2) 1,000 mls @ 45 mls/hr JT .[id number] [facility] Last Admin: 10/12/18 16:32 Dose: 45 mls/hr Vancomycin IV Pharmacy to Dose (1 ea/ Sodium Chloride) 500 mls @ 250 mls/hr IV DAILY PRN; Protocol Vancomycin HCl 1,250 mg/ (Sodium Chloride) 275 mls @ 167 mls/hr IV Q12H [facility] Last Admin: 10/13/18 01:58 Dose: 167 mls/hr Insulin Human Lispro (Humalog Kwikpen (Bkc)) 0 unit SQ Q6 [facility]; Protocol Last Admin: 10/13/18 12:04 Dose: Not Given Levetiracetam (Keppra Oral Solution) 500 mg PO BID [facility] Last Admin: 10/13/18 09:19 Dose: 500 mg Lorazepam (Ativan) 1 mg PO BID [facility] Last Admin: 10/13/18 09:20 Dose: 1 mg Mirtazapine (Remeron) 15 mg PO QHS [facility] Last Admin: 10/12/18 22:13 Dose: 15 mg Morphine Sulfate () 2 mg IV Q4H PRN PRN PRN Reason: SEVERE PAIN (6-10/10) Ondansetron HCl (Zofran Odt) 4 mg PO BID PRN PRN PRN Reason: NAUSEA/VOMITING Oxycodone HCl (Oxyir) 5 mg PO Q6H PRN PRN PRN Reason: SEVERE PAIN (6-10/10) Pantoprazole Sodium (Protonix) 40 mg PO BID [facility] Last Admin: 10/13/18 09:20 Dose: 40 mg Polyethylene Glycol (Miralax) 17 gm PO BID [facility] Last Admin: 10/13/18 09:20 Dose: 17 gm Potassium Chloride (K-Dur) 40 meq PO TIDCM [facility] Last Admin: 10/13/18 12:08 Dose: 40 meq Pregabalin (Lyrica) 150 mg PO BID [facility] Last Admin: 10/13/18 09:20 Dose: 150 mg Risperidone (Risperdal) 0.5 mg PO QHS [facility] Last Admin: 10/12/18 22:13 Dose: 0.5 mg Sodium Chloride () 5 - 15 ml IV UD PRN PRN Reason: SALINE FLUSH Last Admin: 10/12/18 22:19 Dose: 10 ml Medical Necessity - Tobacco Use Smoking Status: Former smoker Assessment/Plan All Active Problems Abscess of right arm (Acute) Encephalopathy (Acute) 58-year-old with multiple comorbidities, recently had right axillary lymph node sampling done with the tissue removal by Dr. Baugh comes in with a 3-week history of swelling, pain, induration and fever on and off. 1. Right arm MRSA cellulitis and abscess, without sepsis , status post I&D of right upper arm abscess on 10/12/2008, findings included necrotic fatty tissue with subcutaneous tissue,questionable insect bite status post recent right axillary lymph node sampling about 1 month ago, general surgery consulted On IV vancomycin, wound cultures positive for MRSA, almost pansensitive, switch to doxycycline from tomorrow Just made to the pain regimen with scheduled Tylenol, oxycodone 5mg every 6, will continue to monitor. 2. Severe esophagitis with debility, with probable achalasia on J-tube, GERD, high risk of aspiration, history of gastric bypass in 2008 3. Chronic diastolic CHF, signs of acute exacerbation, continue home Lasix dose 4. Hypertension, controlled, continue on Cardizem 5. COPD with chronic respiratory failure, on 3 L home oxygen/MICHAELA on CPAP 6. Chronic pain syndrome/anxiety/depression, on Ativan, Remeron 7. History of ICH with left-sided hemiparesis, ischemic CVA with right-sided weakness, on Keppra 8. Psoriasis, complicated by psoriatic arthritis, chronic degenerative joint disease, on Plaquenil, Flexeril, Vicodin follows up in the outpatient 9. DVT PPx- Lovenox SC 10. Disposition: Possible DC home tomorrow Code Visit Inpatient E&M: 49699 Subs Hosp L2
[2018-10-13] MEDS: oxyCODONE 5 MG Tablet PO ×2 (14:16→23:12)
[2018-10-13] MEDS: Acetaminophen 500 MG Tablet 1000 MG PO ×2 (14:16→23:13)
--- NOTE | 2018-10-13 14:20 | NURSING ---
wound photo: right upper arm
[2018-10-13 17:00] LABS: Bedside Glucose 113 mg/dL (70-110)
[2018-10-13] MEDS: Ondansetron ODT 4 MG Tablet PO (20:44)
[2018-10-13] MEDS: RisperiDONE 0.5 MG Tablet PO (23:14)
[2018-10-13] MEDS: Mirtazapine 15 MG Tablet PO (23:14)
[2018-10-13 23:46] LABS: Bedside Glucose 100 mg/dL (70-110)
[2018-10-14] VITALS (7 sets, daily range): BP systolic 109–141; BP diastolic 52–75; PULSE 72–86; RESP 14–16; TEMP 36.5–36.8; O2SAT 92–98
[2018-10-14] MEDS: Acetaminophen 500 MG Tablet 1000 MG PO ×2 (06:22→13:23)
[2018-10-14] MEDS: oxyCODONE 5 MG Tablet PO ×2 (06:25→12:37)
[2018-10-14 06:45] LABS: Bedside Glucose 95 mg/dL (70-110)
[2018-10-14 06:53] LABS: Absolute Lymphocyte Count 3.17 X10^3/ul (0.83-4.51); Absolute Neutrophil Count 6.9 X10^3/uL (2.0-7.7); Basophil# 0.04 X10^3/uL; Basophil% 0.4 % (0-1); Eosinophils% 3.5 % (0-5); Hematocrit 40.7 % (37-47); Hemoglobin 12.1 g/dl (12.0-15.0); Lymphocyte # 3.17 X10^3/ul (4.0); Mean Corp Hgb Conc 29.7 g/gl (32-36); Mean Corpuscular Hgb 27.8 pg (27.0-32.0); Mean Corpuscular Volume 93.3 fL (81-99); Mean Platelet Vol. 9.7 fl (6.2-12.0); Monocyte# 0.76 X10^3/uL; Monocyte% 6.7 % (0-10); Neutrophil # 6.93 X10^3/uL (2.7-7.7); Platelet Count 294 K/mm3 (150-450); RBC Distribution Width CV 15.1 % (11.6-14.6); RBC Distribution Width SD 50.5 fl (35.1-43.9); Red Blood Count 4.36 M/mm3 (4.2-5.4); White Blood Count 11.3 K/mm3 (4.4-11.0)
[2018-10-14 06:57] LABS: POSITIVE COUNT NO; POSITIVE DIFFERENTIAL NO; POSITIVE MORPHOLOGY NO
[2018-10-14] MEDS: Budesonide Respules 0.5 MG/2 ML AMPUL.NEB. INHALATION (07:10)
[2018-10-14] MEDS: Albuterol 2.5 MG/3 ML VIAL.NEB. INHALATION ×2 (07:10→12:52)
[2018-10-14 07:12] LABS: BUN 11 mg/dL (7-18); Creatinine, Serum 0.84 mg/dL (0.55-1.02); EST Glomerular Filtration Rate 73 mL/min (>60); Estimated Creatinine Clearance 69.26 ml/min; Glucose 121 mg/dL (74-106)
[2018-10-14 07:13] LABS: Anion Gap 5 (5-15); BUN/Creat Ratio 13.1 RATIO (10-20); Chloride 106 mmol/L (98-107); Est Glom Filt Rate - Afr Amer 89 mL/min (>60); Sodium Level 142 mmol/L (136-145)
[2018-10-14] MEDS: Enoxaparin 40 MG/0.4 ML Syringe SC (09:02)
[2018-10-14] MEDS: Polyethylene Glycol 3350 17 GM PACKET PO (09:03)
[2018-10-14] MEDS: dilTIAZem CD 120 MG Capsule PO (09:03)
[2018-10-14] MEDS: Hydroxychloroquine 200 MG Tablet PO ×2 (09:04→16:13)
[2018-10-14] MEDS: Furosemide 40 MG Tablet PO (09:04)
[2018-10-14] MEDS: Pantoprazole Sodium 40 MG Tablet PO (09:04)
[2018-10-14] MEDS: Clobetasol Propionate 0.05% Ointment 1 APPLIC TOPICAL (09:06)
[2018-10-14] MEDS: LORazepam 1 MG Tablet PO (09:10)
[2018-10-14] MEDS: Pregabalin 75 MG Capsule 150 MG PO (09:10)
[2018-10-14] MEDS: levETIRAcetam Oral Solution 500 MG/5 ML PO (11:19)
--- NOTE | 2018-10-14 11:26 | PCM.DC ---
- Discharge Diagnoses Current Active Problems: Current Active and Chronic Problems Abscess of right arm (Acute) Cellulitis right arm (Chronic) Esophageal motility disorder (Chronic) Heart failure (Chronic) Arthritis with psoriasis (Chronic) Diabetes mellitus type 2 in obese (Chronic) CVA (cerebral vascular accident) (Chronic) Peripheral arterial disease (Chronic) Reason(s) for Visit for Discharge Instructions: Right arm swelling You will use the following diet at home:: Calorie/Carbohydrate Controlled (specify 1200, 1400, etc), Cardiac Your food should be the consistency of: Regular Your liquids should be the consistency of: Regular/Thin Discharge Activity: Return to Normal Activity Weight Bearing Status: Weight bearing as tolerated Additional Instructions: Complete your antibiotics. Continue wound care per instructions. Continue to follow-up in the wound center and with Dr. Hsu. Follow-up with your primary care doctor within 1-2 weeks. Continue to use your oxygen as previous. Allergies/Adverse Reactions: Allergies aspirin Allergy (Verified 11/05/17 08:54) Shortness of breath Penicillins [PCN] Allergy (Verified 11/05/17 08:54) Shortness of breath Medications to take at Discharge Cholecalciferol (Vitamin D3) [Vitamin D3] 50,000 unit PO DAILY 11/05/17 Cyclobenzaprine [Flexeril] 10 mg PO BID 11/05/17 Diltiazem HCl [Diltiazem 24Hr ER] 120 mg PO BID 11/05/17 Esomeprazole Magnesium 40 mg PO BID 11/05/17 Fluticasone/Salmeterol [Advair 500-50 Diskus] 1 each IH DAILY 11/05/17 Levetiracetam [Levetiracetam ER] 500 mg PO BID 11/05/17 Mirtazapine [Remeron] 15 mg PO QHS 11/05/17 Potassium Chloride [Klor-Con M20] 2 tablet PO TID 11/05/17 Pregabalin [Lyrica] 150 mg PO BID 11/05/17 Torsemide [Demadex] 20 mg PO BID 11/05/17 Albuterol IH (ProAir) [Proair Hfa] 1 - 2 puff INHALATION Q4H PRN PRN 10/11/18 Betamethasone Dipropionate 1 dose TOPICAL BID 10/11/18 Ferrous Sulfate [Ferosul] 5 ml PO DAILY 10/11/18 Hydrocodone/Acetaminophen [[place] 5-325 Tablet] 1 - 2 each PO Q6H PRN PRN 10/11/18 Hydroxychloroquine [Plaquenil] 200 mg PO BIDCM 10/11/18 Lactose-Reduced Food/Fiber [Isosource 1.5 King Tube Feed Lq] 45 ml JT CONT 10/11/18 Lorazepam [Ativan] 1 mg PO BID 10/11/18 Ondansetron HCl [Zofran Solution] 4 mg JT Q8H 10/11/18 Polyethylene Glycol 3350 [Miralax] 17 gm PO BID 10/11/18 Risperidone [Risperidone Odt] 0.5 mg PO QHS 10/11/18 Sumatriptan [Imitrex] 5 mg NS .X1 PRN PRN 10/11/18 Acetaminophen [Tylenol] 1,000 mg PO TID tablet 10/14/18 Docusate Sodium [Colace] 200 mg PO BID PRN PRN #20 capsule 10/14/18 Doxycycline 100 mg PO BID #14 capsule 10/14/18 Melatonin 3 mg PO QHS 10/14/18 Melatonin 3 mg PO QHS PRN #20 tablet 10/14/18 Oxycodone [Oxyir] 5 mg PO Q6H PRN PRN 5 Days #20 tablet 10/14/18 The following prescriptions were given: Oxycodone [Oxyir] 5 mg PO Q6H PRN PRN 5 Days #20 tablet PRN Reason: Severe Pain (6-10/10) Docusate Sodium [Colace] 200 mg PO BID PRN PRN #20 capsule PRN Reason: Constipation Melatonin 3 mg PO QHS PRN #20 tablet PRN Reason: Insomnia Doxycycline 100 mg PO BID #14 capsule Primary Care Physician: Nicko Uribe MD [Primary Care Provider] - Please follow up with your Primary Care Physician in: within 1-2 weeks Test Results: Test results from this visit will be discussed in further detail at your follow-up appointment, if applicable. Please Follow Up With: Mayda Hsu MD When: within 1-2 weeks Proposed Discharge Date: 10/14/18
--- NOTE | 2018-10-14 11:31 | PCM.DC.SUM ---
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 Hsu comes in with a 3-week history of swelling, pain, induration and fever on and off. She was found to right arm MRSA cellulitis and abscess, without sepsis. She had I&D of right upper arm abscess on 10/12/2018 and the findings included necrotic fatty tissue with subcutaneous tissue,questionable insect bite. She was managed on IV vancomycin. Wound cultures were positive for MRSA, pansensitive. During the course of her stay, her pain was controlled with scheduled tylenol and prn oxycodone. She was continued on her tube feeds for history of severe esophagitis, s/p J tube as well as her chronic oxygen therapy. She was discharged on doxycycline Subjective: On the day of discharge, patient was seen and examined. She feels well.Denies any active complaints. Objective: Physical exam: General: Alert, Oriented x3, Cooperative, No apparent distress, - - morbidly obese, on 3L chronic oxygen HEENT: Atraumatic, PERRLA, EOMI, Normocephalic Oral: Moist Mucosa Neck: Supple Lungs: Normal air movement, Diminished Cardiovascular: Regular rate, Regular Rhythm, Normal S1, Normal S2, No murmurs Abdomen: Bowel Sounds Present, Soft, Non Tender, Non-Distended, No Hepato-splenomegaly, J tube site is clean and dry Extremities: - - Right anteromedial aspect of arm erythema is improved, dressing in place Skin: No rashes, No breakdown Musculoskeletal: No Tenderness to Palpation of Joints or Extremities Lymphatic: No Cervical, Supraclavicular, or Inguinal Adenopathy Neurological: Cranial nerves II-XII grossly intact, Neuro grossly intact Psych/Mental Status: Normal Affect, Appropriate - Physical Exam Vital Signs Temp Pulse Resp BP Pulse Ox 97.7 F L 78 16 141/69 H 95 10/14/18 09:05 10/14/18 09:05 10/14/18 09:05 10/14/18 09:05 10/14/18 09:05 Oxygen Flow Rate (L/min) 3 Oxygen Delivery Method Nasal Cannula Weight: 137.212 kg Body Mass Index (BMI) 47.3 Intake and Output for Last 24 Hours 10/12/18 10/13/18 10/14/18 23:59 23:59 23:59 Intake Total 3944 / 3944 3189 / 3189 1229 / 1229 Output Total 2725 / 2725 800 / 800 300 / 300 Balance 1219 / 1219 2389 / 2389 929 / 929 Microbiology Past 72 Hours 10/11/18 17:15 Gram Stain - Final Wound Abcess - Other Wound Culture - Final Meth. resistant Staph. aureus Anaerobic Culture - Final No anaerobic bacteria isolated. 10/11/18 12:50 Blood Culture - Preliminary Blood Culture (Wb) - Anticubital Left No growth in 5 days. Laboratory Tests Past 24 Hrs 10/14/18 10/14/18 06:32 06:32 WBC 11.3 H RBC 4.36 Hgb 12.1 Hct 40.7 MCV 93.3 MCH 27.8 MCHC 29.7 L RDW 15.1 H RDW Differential 50.5 H Plt Count 294 MPV 9.7 Immature Gran % (Auto) 0.400 Neut % (Auto) 61.0 Lymph % (Auto) 28.0 Keith % (Auto) 6.7 Eos % (Auto) 3.5 Baso % (Auto) 0.4 Absolute Neuts (auto) 6.9 Absolute Lymphs (auto) 3.17 Total Counted Not Reportable Sodium 142 Potassium 5.0 Chloride 106 Carbon Dioxide 31.0 Anion Gap 5 BUN 11 Creatinine 0.84 Estim Creat Clear Calc 69.26 Est GFR (MDRD) Af Amer 89 Est GFR (MDRD) Non-Af 73 BUN/Creatinine Ratio 13.1 Glucose 121 H Calcium 9.0 POC Glucose 10/14/18 10/13/18 10/13/18 06:29 23:12 16:52 POC Glucose 95 100 113 H 10/13/18 12:03 POC Glucose 68 L Discharge Diet: Low fat/ Low Cholesterol, 2000 mg Sodium Diet, Carb Control Diet Discharge Activity: Return to Normal Activity Weight Bearing Status: Weight bearing as tolerated Home Medications: Medications to take at Discharge Cholecalciferol (Vitamin D3) [Vitamin D3] 50,000 unit PO DAILY 11/05/17 Cyclobenzaprine [Flexeril] 10 mg PO BID 11/05/17 Diltiazem HCl [Diltiazem 24Hr ER] 120 mg PO BID 11/05/17 Esomeprazole Magnesium 40 mg PO BID 11/05/17 Fluticasone/Salmeterol [Advair 500-50 Diskus] 1 each IH DAILY 11/05/17 Levetiracetam [Levetiracetam ER] 500 mg PO BID 11/05/17 Mirtazapine [Remeron] 15 mg PO QHS 11/05/17 Potassium Chloride [Klor-Con M20] 2 tablet PO TID 11/05/17 Pregabalin [Lyrica] 150 mg PO BID 11/05/17 Torsemide [Demadex] 20 mg PO BID 11/05/17 Albuterol IH (ProAir) [Proair Hfa] 1 - 2 puff INHALATION Q4H PRN PRN 10/11/18 Betamethasone Dipropionate 1 dose TOPICAL BID 10/11/18 Ferrous Sulfate [Ferosul] 5 ml PO DAILY 10/11/18 Hydrocodone/Acetaminophen [[place] 5-325 Tablet] 1 - 2 each PO Q6H PRN PRN 10/11/18 Hydroxychloroquine [Plaquenil] 200 mg PO BIDCM 10/11/18 Lactose-Reduced Food/Fiber [Isosource 1.5 King Tube Feed Lq] 45 ml JT CONT 10/11/18 Lorazepam [Ativan] 1 mg PO BID 10/11/18 Ondansetron HCl [Zofran Solution] 4 mg JT Q8H 10/11/18 Polyethylene Glycol 3350 [Miralax] 17 gm PO BID 10/11/18 Risperidone [Risperidone Odt] 0.5 mg PO QHS 10/11/18 Sumatriptan [Imitrex] 5 mg NS .X1 PRN PRN 10/11/18 Acetaminophen [Tylenol] 1,000 mg PO TID tablet 10/14/18 Docusate Sodium [Colace] 200 mg PO BID PRN PRN #20 capsule 10/14/18 Doxycycline 100 mg PO BID #14 capsule 10/14/18 Melatonin 3 mg PO QHS 10/14/18 Melatonin 3 mg PO QHS PRN #20 tablet 10/14/18 Oxycodone [Oxyir] 5 mg PO Q6H PRN PRN 5 Days #20 tablet 10/14/18 Following Prescrptions Were Given to Patient: Oxycodone [Oxyir] 5 mg PO Q6H PRN PRN 5 Days #20 tablet PRN Reason: Severe Pain (-05/20) Docusate Sodium [Colace] 200 mg PO BID PRN PRN #20 capsule PRN Reason: Constipation Melatonin 3 mg PO QHS PRN #20 tablet PRN Reason: Insomnia Doxycycline 100 mg PO BID #14 capsule Primary Care Physician: Nicko Uribe MD [Primary Care Provider] - Please follow up with your Primary Care Physician in: within 1-2 weeks Please Follow Up With: Mayda Hsu MD When: within 1-2 weeks Disposition: Home Minutes spent on discharge:: 40 Patient Condition:: Stable Medical Necessity - Tobacco Use Smoking Status: Former smoker Tobacco Use: Non-smoker Meaningful Use Info Meaningful Use Diagnoses (Choose all that apply): None applicable Code Visit Inpatient E&M: 27321 Disch Hosp
[2018-10-14 11:51] LABS: Bedside Glucose 66 mg/dL (70-110)
--- NOTE | 2018-10-14 13:19 | CASEMGMT ---
Addendum entered by Sofiya Collins 10/14/18 14:38: Copy of Script for daily dsg changes for rt upper arm also faxed to [facility]. Ximena MCMULLEN, states will send enough supplies home with for next couple of days until HHC can get supplies for pt. Original Note: BENEDICT VENTURA NOTE: Reviewed ST progress notes and spoke w/, Larry. Larry states pt would benefit from Out-pt ST. To room to talk with pt. Pt currently receiving custodial with [facility]. Pt agreeable to PT/OT and states would also like ST. Resumption order for HHC placed. Also added PT, OT, and ST eval and treat. Call placed to [facility]. They confirmed they do have ST. They were made aware pt discharging home today 10/14/18. They were notified resumption order for HHC has been placed and that PT, OT, and ST is being added. They were also made aware pt will need wound care teaching and that pt's son is willing to learn. Ximena MCMULLEN, has been given script for wound care supplies and states she will give to pt. Resumption order w/therapies added faxed to [facility]. Discharge summary and instructions also faxed to them as well. Annabel PRICE RN, CM
[2018-10-14] MEDS: Ondansetron ODT 4 MG Tablet PO (13:29)
[2018-10-14 16:15] LABS: Bedside Glucose 135 mg/dL (70-110)
--- NOTE | 2018-10-15 15:46 | CASEMGMT ---
RN CM Discharge Follow-Up Phone Call. Lace:?11? Strata: 3 Discharge Date: 10-14-18 Adm Dx:?? Rt arm abscess w/cellulitis. Attempted discharge follow-up phone call. No answer. Message left for pt to return call if she has any questions about discharge instructions, medications, or follow-up appts. Phone number to this RN CM provided. Annabel BAKERN RN CM
--- NOTE | 2018-10-16 09:26 | CASEMGMT ---
SW received a call from Laura w/[facility] inquiring when pt was discharged. SW called back and left a message for Laura letting her know pt went home on Friday with [facility]. NEHAL also called the coverage line and let them know pt went home Friday with [facility]. LANG Kang, TRANSMITTER SUPERVISOR
== END 2018-10-14 18:00 | disposition home or self-care (01) | DRG 571 ==
LOC: ED 12:27 → MS2 16:15
PROVIDERS: Admitting Provider Internal Medicine; Emergency Provider Emergency Medicine; Family Provider Family Medicine; PCP Family Medicine; Referring Provider Internal Medicine; Visit Provider Internal Medicine
DX: L02.413 Cutaneous abscess of right upper limb (principal); I50.32 Chronic diastolic (congestive) heart failure; J96.11 Chronic respiratory failure with hypoxia; Z68.42 Body mass index [BMI] 45.0-49.9, adult; I69.154 Hemiplegia and hemiparesis following nontraumatic intracerebral hemorrhage affecting left non-dominant side; I69.351 Hemiplegia and hemiparesis following cerebral infarction affecting right dominant side; I11.0 Hypertensive heart disease with heart failure; Z99.81 Dependence on supplemental oxygen; E66.01 Morbid (severe) obesity due to excess calories; L03.113 Cellulitis of right upper limb; B95.62 Methicillin resistant Staphylococcus aureus infection as the cause of diseases classified elsewhere; Z98.84 Bariatric surgery status; G89.4 Chronic pain syndrome; L40.50 Arthropathic psoriasis, unspecified; M19.90 Unspecified osteoarthritis, unspecified site; J44.9 Chronic obstructive pulmonary disease, unspecified; G47.33 Obstructive sleep apnea (adult) (pediatric); I73.9 Peripheral vascular disease, unspecified; K22.4 Dyskinesia of esophagus; E11.42 Type 2 diabetes mellitus with diabetic polyneuropathy; Z87.891 Personal history of nicotine dependence
CPT/HCPCS: 36415; 73060; 73200; 80048; 80202; 81001; 82962; 83036; 85025; 87040; 87070; 87075; 87077; 87186; 87205; 87640; 92526; 92610; 93005; 93971; 94640; 97162; 97165; 97802; 99283; J7030; J7040; J7050; A4216; J2405

== ENCOUNTER 2018-11-03 12:45 | Outpatient (RCR) | payer MEDICARE, SELFPAY ==
[2018-10-11 17:08] VITALS: BMI 47.3
[2018-10-20 13:23] VITALS: BP 130/84; PULSE 76; RESP 22; TEMP 36.9; BMI 42.4
--- NOTE | 2018-10-20 14:40 | PCM.WC.HP ---
(1) Open wound of right upper arm Status: Acute Current Visit: Yes Code(s): S41.101A - Unspecified open wound of right upper arm, initial encounter (2) Abscess of right arm Status: Acute Current Visit: Yes Code(s): L02.413 - Cutaneous abscess of right upper limb (3) Diabetes mellitus type 2 in obese Status: Chronic Current Visit: Yes Code(s): E11.69 - Type 2 diabetes mellitus with other specified complication; E66.9 - Obesity, unspecified (4) Peripheral arterial disease Status: Chronic Current Visit: Yes History of Present Illness Date of Service: 10/20/18 Chief Complaint: Opened wound left medial upper arm after abscess drainage. History of Wound: Patient had a right medial upper arm abscess a month after having a right axxillary lymph node sampling. On 10/12/18 she had an I&D by Dr. Hsu. She cultured positive for MRSA. She was started on Doxycycline which she will finish up tomorrow. She has been dpomg aquacel silver dressing changes daily. She was referred to the wound center by Dr. Hsu for further wound management. Past Medical History Past Medical History: Chronic Problems Cellulitis right arm (Chronic) Esophageal motility disorder (Chronic) Heart failure (Chronic) Arthritis with psoriasis (Chronic) Diabetes mellitus type 2 in obese (Chronic) CVA (cerebral vascular accident) (Chronic) Peripheral arterial disease (Chronic) Surgical History: cholecystectomy, gastric bypass, hysterectomy Allergies/Adverse Reactions: Allergies aspirin Allergy (Verified 10/20/18 13:45) Shortness of breath Penicillins [PCN] Allergy (Verified 10/20/18 13:45) Shortness of breath Home Medications: Ambulatory Orders Medication Instructions Recorded Cholecalciferol (Vitamin D3) 50,000 unit PO DAILY 11/05/17 [Vitamin D3] Cyclobenzaprine [Flexeril] 10 mg PO BID 11/05/17 Diltiazem HCl [Diltiazem 24Hr ER] 120 mg PO BID 11/05/17 Esomeprazole Magnesium 40 mg PO BID 11/05/17 Fluticasone/Salmeterol [Advair 1 each IH DAILY 11/05/17 500-50 Diskus] Levetiracetam [Levetiracetam ER] 500 mg PO BID 11/05/17 Mirtazapine [Remeron] 15 mg PO QHS 11/05/17 Potassium Chloride [Klor-Con M20] 2 tablet PO TID 11/05/17 Pregabalin [Lyrica] 150 mg PO BID 11/05/17 Torsemide [Demadex] 20 mg PO BID 11/05/17 Albuterol IH (ProAir) [Proair Hfa] 1 - 2 puff INHALATION Q4H PRN PRN 10/11/18 Betamethasone Dipropionate 1 dose TOPICAL BID 10/11/18 Ferrous Sulfate [Ferosul] 5 ml PO DAILY 10/11/18 Hydrocodone/Acetaminophen [[place] 1 - 2 each PO Q6H PRN PRN 10/11/18 5-325 Tablet] Hydroxychloroquine [Plaquenil] 200 mg PO BIDCM 10/11/18 Lactose-Reduced Food/Fiber 45 ml JT CONT 10/11/18 [Isosource 1.5 King Tube Feed Lq] Lorazepam [Ativan] 1 mg PO BID 10/11/18 Ondansetron HCl [Zofran Solution] 4 mg JT Q8H 10/11/18 Polyethylene Glycol 3350 [Miralax] 17 gm PO BID 10/11/18 Risperidone [Risperidone Odt] 0.5 mg PO QHS 10/11/18 Sumatriptan [Imitrex] 5 mg NS .X1 PRN PRN 10/11/18 Docusate Sodium [Colace] 200 mg PO BID PRN PRN #20 capsule 10/14/18 Doxycycline 100 mg PO BID #14 capsule 10/14/18 Melatonin 3 mg PO QHS 10/14/18 Melatonin 3 mg PO QHS PRN #20 tablet 10/14/18 Atorvastatin Calcium [Lipitor] 10 mg PO 10/20/18 Diltiazem [Cardizem] 20 DAILY 10/20/18 Esomeprazole Mag Trihydrate 40 mg PO DAILY 10/20/18 [Nexium] Hydroxychloroquine Sulfate 200 mg PO 10/20/18 [Plaquenil] Lisinopril [Prinivil] 10 mg PO 10/20/18 Lorazepam [Ativan] 1 mg PO DAILY 10/20/18 Mirtazapine [Remeron] 15 mg PO QHS 10/20/18 Ondansetron HCl [Zofran] 4 mg PO 10/20/18 Risperidone [Risperdal] 0.5 mg PO 10/20/18 - Family History Paternal No pertinent history Smoking Status: Former smoker Review of Systems Constitutional: Denies: Chills, Fever Eyes: Denies: Pain, Vision Change HEENT: Denies: Difficulty Hearing, Difficulty Swallowing, Sinus Congestion Cardiovascular: Denies: Chest Pain, Palpitations Respiratory: Reports: Shortness of Breath - She is on chronic O2 at 3L NC. History of CHF Gastrointestinal: Reports: - - She has a PEG tube which she is tube fed through for an esophogeal motility issue. Genitourinary: Denies: Dysuria, Hematuria Musculoskeletal: Reports: Joint stiffness, Muscle pain Skin: Reports: Wounds - Right medial upper arm wound Neurological: Reports: Balance problems - She has a history of CVA 2018, Difficulty swallowing Psychiatric: Reports: Anxiety, Depression Endocrine: Denies: Heat/ Cold Intolerance, Polydipsia, Polyuria Hematologic/ Lymphatic: Denies: Easy Bruising, Easy Bleeding - Physical Exam Vital Signs Temp Pulse Resp BP 98.4 F 76 22 H 130/84 H 10/20/18 13:23 10/20/18 13:23 10/20/18 13:23 10/20/18 13:23 General: Alert, Oriented x3, Cooperative HEENT: Atraumatic Oral: Moist Mucosa Lungs: Clear to auscultation, Normal air movement - On O2 NC Cardiovascular: Regular rate, Regular Rhythm Abdomen: Bowel Sounds Present, Soft, Non Tender Extremities: No cyanosis, Capillary Refill Less than 3 Seconds, Peripheral Pulses Normal Skin: Ulcer/ Wound - Right medial upper arm wound is beefy red in color Wound Measurements and Assessment WC - Nurse 1 - General Ulcer Measurement Start: 10/20/18 13:12 Freq: Status: Active Protocol: Activity Type Activity Date Activity User E-Sign Co-Sign Detail Recorded Client Recorded Date Recorded By Document 10/20/18 13:23 DL [id number] 10/20/18 13:40 DL 10/20/18 13:23 Wound Center Nurse 1 [Ulcer Assessment] #1 R Upper Arm -Current Size (cm) - Length 1.2 -Current Size (cm) - Width 2.5 -Current Size (cm) - Depth 0.2 -Total Square Cm 3.00 -Photo Taken Yes -Exudate Amt Small -Exudate Type Sanguineous -Wound Margin Distinct, Outline Attached -Granulation Amt Large (67-100%) -Granulation Quality Red -Necrosis Amt None Present (0 %) -Structure Exposed N/A -Texture (Sonam-wound Skin Appearance) Localized Edema Scarring -Moisture (Sonam-wound Skin Appearance Dry/Scaly ) -Color (Sonam-wound Skin Appearance) No Abnormality -Temperature (Sonam-wound Skin No Abnormality Appearance) (Pt Warm) -Tenderness on Palpation (Sonam-wound Yes Skin Appearance) -Ulcer Cleansing Wound Cleanser -Foul Odor after Cleansing No -Anesthetic Used 5% Lidocaine Gel WC - Nurse 2 - General Ulcer CM Notes Start: 10/20/18 13:12 Freq: Status: Active Protocol: Activity Type Activity Date Activity User E-Sign Co-Sign Detail Recorded Client Recorded Date Recorded By Document 10/20/18 14:33 AN [id number] 10/20/18 14:37 AN 10/20/18 14:33 Wound Center Nurse 2 [Procedure/Treatment] -Time 14:34 -Correct Patient Yes -Correct Side, Site, Position Yes -Correct Procedure Yes -Procedure Performed Yes -Type of Procedure Debridement -Clinical Debridement Subcutaneous -Post Debridement Size (cm) - Length 1.7 -Post Debridement Size (cm) - Width 2.4 -Post Debridement Size (cm) - Depth 0.1 -Total Square Cm 4.08 -Wound/Ulcer Outcome Not Healed -Ulcer Cleansing Rinsed/ Irrigated with Saline -Foul Odor after Cleansing No -Bleeding Controlled with Pressure -Offloading Yes -Treatment Response Procedure Tolerated Well [See Physician Procedure note for Specifics] Pain Scale: 0-10 Numeric [Pain] -Is Patient Pain Free? Yes Musculoskeletal: No Tenderness to Palpation of Joints or Extremities Neurological: Neuro grossly intact Psych/Mental Status: Normal Affect, Appropriate Debridement Note Post-Debridement Measurements/Treatment WC - Nurse 2 - General Ulcer CM Notes Start: 10/20/18 13:12 Freq: Status: Active Protocol: Activity Type Activity Date Activity User E-Sign Co-Sign Detail Recorded Client Recorded Date Recorded By Document 10/20/18 14:33 AN [id number] 10/20/18 14:37 AN 10/20/18 14:33 Wound Center Nurse 2 #1 R Upper Arm -Time 14:34 -Correct Patient Yes -Correct Side, Site, Position Yes -Correct Procedure Yes -Procedure Performed Yes -Type of Procedure Debridement -Clinical Debridement Subcutaneous -Post Debridement Size (cm) - Length 1.7 -Post Debridement Size (cm) - Width 2.4 -Post Debridement Size (cm) - Depth 0.1 -Total Square Cm 4.08 -Wound/Ulcer Outcome Not Healed -Ulcer Cleansing Rinsed/ Irrigated with Saline -Foul Odor after Cleansing No -Bleeding Controlled with Pressure -Offloading Yes -Treatment Response Procedure Tolerated Well Pain Scale: 0-10 Numeric Is Patient Pain Free? Yes Wound debrided: Right medial upper arm Laterality: Right Type of Debridement: Excisional debridement Anesthesia Used: 5% Lidocaine Gel Depth: Down to and including healthy tissue, in the subcutaneous layer Percentage of wound debrided: 100 Instrument Used: 5mm curette Tissue Removed: Subcutaneous tissue and slough Severity: Fat Layer Exposed Amount of bleeding with debridement: Mild Bleeding Controlled with: Pressure Patient tolerated procedure well Assessment/Plan Active Problems Abscess of right arm (Acute) Diabetes mellitus type 2 in obese (Chronic) Peripheral arterial disease (Chronic) Open wound of right upper arm (Acute) Assessment: 1. Open wound of right upper arm. 2. Abscess of right arm. 3. Diabetes mellitus type 2 in obese. 4. Peripheral arterial disease Plan: Patient seen and evaluated in the Wound Center today. Subcutaneous debridement performed, patient tolerated it well. Plan of care developed and discussed with patient. Patient will continue aquacel silver daily to right medial upper arm wound. Her wound cultures from 10/12/18 showed MRSA, she will finish with her Doxycycline this week. Her last HgA1C was 5.7. On 10/12/18 she had Venous Doppler study of right upper extremity for swelling and cellulitis which showed no evidence for acute DVT and had patenet and compressible cephalic and basilic veins. She will follow up in one week. Code Visit Office Visits / Consults: [id number] OV L3 Est - 25 modifier 111xxx-113xx: [id number] [place] subq tissue 20 sq cm/<
[2018-11-03 12:41] VITALS: BP 152/99; PULSE 86; RESP 20; TEMP 37.2; BMI 42.4
--- NOTE | 2018-11-03 14:22 | PCM.WC.PN ---
(1) Open wound of right upper arm Status: Acute Current Visit: Yes Code(s): S41.101A - Unspecified open wound of right upper arm, initial encounter (2) Cellulitis right arm Status: Acute Current Visit: Yes (3) Abscess of right arm Status: Acute Current Visit: Yes Code(s): L02.413 - Cutaneous abscess of right upper limb (4) Diabetes mellitus type 2 in obese Status: Chronic Current Visit: Yes Code(s): E11.69 - Type 2 diabetes mellitus with other specified complication; E66.9 - Obesity, unspecified (5) Peripheral arterial disease Status: Chronic Current Visit: Yes Type of Wound Date of Service: 11/03/18 Chief Complaint: Opened wound left medial upper arm after abscess drainage. History of Wound: Patient had a right medial upper arm abscess a month after having a right axxillary lymph node sampling. On 10/12/18 she had an I&D by Dr. Hsu. She cultured positive for MRSA. She was started on Doxycycline which she will finish up tomorrow. She has been dpomg aquacel silver dressing changes daily. She was referred to the wound center by Dr. Hsu for further wound management. Progress of Wound: Improving. - Physical Exam Vital Signs Temp Pulse Resp BP 98.9 F 86 20 H 152/99 H 11/03/18 12:41 11/03/18 12:41 11/03/18 12:41 11/03/18 12:41 General: Alert, Oriented x3, Cooperative HEENT: Atraumatic Oral: Moist Mucosa Lungs: Normal air movement Cardiovascular: Regular rate Extremities: Edema - Right upper arm swollen, red and tender above site of wound Skin: Ulcer/ Wound - Right upper medial arm wound Wound Measurements and Assessment WC - Nurse 1 - General Ulcer Measurement Start: 10/20/18 13:12 Freq: Status: Active Protocol: Activity Type Activity Date Activity User E-Sign Co-Sign Detail Recorded Client Recorded Date Recorded By Document 11/03/18 12:41 AN [id number] 11/03/18 13:04 AN 11/03/18 12:41 Wound Center Nurse 1 [Ulcer Assessment] #1 R Upper Arm -Current Size (cm) - Length 0.8 -Current Size (cm) - Width 1.4 -Current Size (cm) - Depth 0.1 -Total Square Cm 1.12 -Photo Taken No -Classification - Thickness Full Thickness without Exposed Support Structure -Exudate Amt Medium -Exudate Type Sanguineous -Wound Margin Distinct, Outline Attached -Granulation Amt Large (67-100%) -Granulation Quality Red -Slough/Fibrin Yes -Necrosis Amt Small (1-33%) -Necrotic Tissue Type Adherent Slough -Structure Exposed Fascia Fat Layer Exposed -Texture (Sonam-wound Skin Appearance) Assessed -Moisture (Sonam-wound Skin Appearance Assessed ) -Color (Sonam-wound Skin Appearance) Assessed Erythema -Temperature (Sonam-wound Skin Hot Appearance) -Tenderness on Palpation (Sonam-wound Yes Skin Appearance) -Ulcer Cleansing Rinsed/ Irrigated with Saline -Foul Odor after Cleansing No -Anesthetic Used 5% Lidocaine Gel WC - Nurse 2 - General Ulcer CM Notes Start: 10/20/18 13:12 Freq: Status: Active Protocol: Activity Type Activity Date Activity User E-Sign Co-Sign Detail Recorded Client Recorded Date Recorded By Document 11/03/18 13:20 HILTON [id number] 11/03/18 13:22 HILTON 11/03/18 13:20 Wound Center Nurse 2 [Procedure/Treatment] -Time 13:20 -Correct Patient Yes -Correct Side, Site, Position Yes -Correct Procedure Yes -Procedure Performed Yes -Type of Procedure Debridement -Clinical Debridement Subcutaneous -Post Debridement Size (cm) - Length 0.8 -Post Debridement Size (cm) - Width 1.5 -Post Debridement Size (cm) - Depth 0.1 -Total Square Cm 1.20 -Wound/Ulcer Outcome Not Healed -Ulcer Cleansing Rinsed/ Irrigated with Saline -Foul Odor after Cleansing No -Bioengineered Tissue No -Bleeding Controlled with Pressure -Offloading No -Treatment Response Procedure Tolerated Well [See Physician Procedure note for Specifics] Pain Scale: 0-10 Numeric [Pain] -Is Patient Pain Free? Yes Musculoskeletal: No Muscle Wasting Lymphatic: - - No axillary adenopathy Neurological: Neuro grossly intact Psych/Mental Status: Normal Affect Debridement Note Post-Debridement Measurements/Treatment - Nurse 2 - General Ulcer CM Notes Start: 10/20/18 13:12 Freq: Status: Active Protocol: Activity Type Activity Date Activity User E-Sign Co-Sign Detail Recorded Client Recorded Date Recorded By Document 10/20/18 14:33 [email or web address] [id number] 10/20/18 14:37 AN Document 11/03/18 13:20 [id number] 11/03/18 13:22 JF 10/20/18 11/03/18 14:33 13:20 Wound Center Nurse 2 #1 R Upper Arm -Time 14:34 13:20 -Correct Patient Yes Yes -Correct Side, Site, Position Yes Yes -Correct Procedure Yes Yes -Procedure Performed Yes Yes -Type of Procedure Debridement Debridement -Clinical Debridement Subcutaneous Subcutaneous -Post Debridement Size (cm) - Length 1.7 0.8 -Post Debridement Size (cm) - Width 2.4 1.5 -Post Debridement Size (cm) - Depth 0.1 0.1 -Total Square Cm 4.08 1.20 -Wound/Ulcer Outcome Not Healed Not Healed -Ulcer Cleansing Rinsed/ Rinsed/ Irrigated with Irrigated with Saline Saline -Foul Odor after Cleansing No No -Bioengineered Tissue No -Bleeding Controlled with Pressure Pressure -Offloading Yes No -Treatment Response Procedure Procedure Tolerated Well Tolerated Well Pain Scale: 0-10 Numeric Is Patient Pain Free? Yes Yes Wound debrided: Right upper medial arm Laterality: Right Type of Debridement: Excisional debridement Anesthesia Used: 4% Lidocaine Solution Depth: Down to and including healthy tissue, in the subcutaneous layer Percentage of wound debrided: 100 Instrument Used: 3mm curette Tissue Removed: Subcutaneous tissue and slough Severity: Limited To Skin Breakdown Bleeding Controlled with: Pressure, Compression and gauze Patient tolerated procedure well Assessment/Plan Active Problems Abscess of right arm (Acute) Cellulitis right arm (Acute) Diabetes mellitus type 2 in obese (Chronic) Peripheral arterial disease (Chronic) Open wound of right upper arm (Acute) Assessment: 1. Open wound of right upper arm. 2. Abscess of right arm. 3. Diabetes mellitus type 2 in obese. 4. Peripheral arterial disease. 5. Cellulitis of right upper arm Plan: Patient seen and evaluated in the Wound Center today. Subcutaneous debridement performed, patient tolerated it well. Plan of care developed and discussed with patient. Patient will stop the aquacel silver and start using collagen hydrogel on her right upper medial arm. Her wound is much improved today. She is complaining of redness, pain and warmth above the wound site. It started several days ago. Her wound cultures from 10/12/18 showed MRSA, she will finished her Doxycycline. Will order Doxycycline again for her cellulitis. Her last HgA1C was 5.7. On 10/12/18 she had Venous Doppler study of right upper extremity for swelling and cellulitis which showed no evidence for acute DVT and had patenet and compressible cephalic and basilic veins. Instructed her to take the Doxycycline with food. If her pain or redness worsen, or develop a fever, chills, nausea/vomiting go to the ER for further evaluation. Patient verbalized understanding. She will follow up in one week. Code Visit 111xxx-113xx: [id number] [place] subq tissue 20 sq cm/<
== END 2018-11-08 23:59 ==
LOC: WC 12:45
PROVIDERS: Family Provider Family Medicine; PCP Family Medicine; Referring Provider Surgery; Visit Provider Nurse Practitioner Family
DX: E11.51 Type 2 diabetes mellitus with diabetic peripheral angiopathy without gangrene (principal); E66.9 Obesity, unspecified; I50.9 Heart failure, unspecified; F41.9 Anxiety disorder, unspecified; F32.9 Major depressive disorder, single episode, unspecified; Z79.899 Other long term (current) drug therapy; Z68.41 Body mass index [BMI] 40.0-44.9, adult; Z71.3 Dietary counseling and surveillance; Z86.14 Personal history of Methicillin resistant Staphylococcus aureus infection; Z87.891 Personal history of nicotine dependence; Z99.81 Dependence on supplemental oxygen; L02.413 Cutaneous abscess of right upper limb
CPT/HCPCS: 11042; 99213; G0463

== ENCOUNTER 2018-12-08 14:00 | Outpatient (RCR) | payer MEDICARE, SELFPAY ==
[2018-11-09 01:33] VITALS: BP 152/99; PULSE 86; RESP 20; TEMP 37.2
[2018-11-10 14:43] VITALS: BP 160/93; PULSE 80; RESP 22; TEMP 35.9; BMI 42.4
--- NOTE | 2018-11-10 16:15 | PN.PCM_ITS ---
(1) Open wound of right upper arm Status: Acute Current Visit: Yes Code(s): S41.101A - Unspecified open wound of right upper arm, initial encounter (2) Abscess of right arm Status: Acute Current Visit: Yes Code(s): L02.413 - Cutaneous abscess of right upper limb (3) Cellulitis right arm Status: Acute Current Visit: Yes (4) Diabetes mellitus type 2 in obese Status: Chronic Current Visit: Yes Code(s): E11.69 - Type 2 diabetes mellit us with other specified complication; E66.9 - Obesity, unspecified (5) Peripheral arterial disease Status: Chronic Current Visit: Yes Type of Wound Date of Service: 11/10/18 Chief Complaint: Opened wound left medial upper arm after abscess drainage. History of Wound: Patient had a right medial upper arm abscess a month after having a right axxillary lymph node sampling. On 10/12/18 she had an I&D by Dr. Hsu. She cultured positive for MRSA. She was started on Doxycycline which she will finish up tomorrow. She had been doing aquacel silver dressing changes daily which was changed to collagen hydrogel. She has developed hypergranulat ion. Will restart aquacel silver dressing changes again. She was referred to the wound center by Dr. Hsu for further wound management. Progress of Wound: Hypergranulation - Physical Exam Vital Signs Temp Pulse Resp BP 96.6 F L 80 22 H 160/93 H 11/10/18 14:43 11/10/18 14:43 11/10/18 14:43 11/10/18 14:43 General: Alert, Oriented x3, Cooperative HEENT: Atraumatic Oral: Moist Mucosa Lungs: Normal air movement Cardiovascular: Regular rate Extremities: No edema, Capillary Refill Less than 3 Seconds, Peripheral Pulses Normal Skin: Ulcer/ Wound - Right medial arm Wound Measurements and Assessment WC - Nurse 1 - General Ulcer Measurement Start: 11/10/18 14:42 Freq: Status: Active Protocol: Activity Type Activity Date Activity User E-Sign Co-Sign Detail Recorded Client Recorded Date Recorded By Document 11/10/18 14:43 DL [id number] 11/10/18 14:49 DL 11/10/18 14:43 Wound Center Nurse 1 [Ulcer Assessment] #1 R Upper Arm -Current Size (cm) - Length 0.8 -Current Size (cm) - Width 1.7 -Current Size (cm) - Depth 0.1 -Total Square Cm 1.36 -Photo Taken No -Exudate Amt None Present -Wound Margin Distinct, Outline Attached -Granulation Amt Large (67-100%) -Granulation Quality Red -Necrosis Amt None Present (0 %) -Structure Exposed Fat Layer Exposed -Texture (Sonam-wound Skin Appearance) Scarring -Moisture (Sonam-wound Skin Appearance No Abnormality ) -Color (Sonam-wound Skin Appearance) No Abnormality -Temperature (Sonam-wound Skin No Abnormality Appearance) (Pt Warm) -Tenderness on Palpation (Sonam-wound No Skin Appearance) -Ulcer Cleansing Rinsed/ Irrigated with Saline -Foul Odor after Cleansing No -Anesthetic Used 5% Lidocaine Gel - Nurse 2 - General Ulcer CM Notes Start: 11/10/18 14:42 Freq: Status: Active Protocol: Activity Type Activity Date Activity User E-Sign Co-Sign Detail Recorded Client Recorded Date Recorded By Document 11/10/18 15:07 HILTON [id number] 11/10/18 15:08 HILTON 11/10/18 15:07 Wound Center Nurse 2 [Procedure/Treatment] -Time 15:08 -Correct Patient Yes -Correct Side, Site, Position Yes -Correct Procedure Yes -Procedure Performed Yes -Type of Procedure Debridement -Clinical Debridement Subcutaneous -Post Debridement Size (cm) - Length 1.7 -Post Debridement Size (cm) - Width 1.0 -Post Debridement Size (cm) - Depth 0.1 -Total Square Cm 1.70 -Wound/Ulcer Outcome Not Healed -Ulcer Cleansing Rinsed/ Irrigated with Saline -Foul Odor after Cleansing No -Bioengineered Tissue No -Bleeding Controlled with Pressure Silver Nitrate -Offloading No -Treatment Response Procedure Tolerated Well [See Physician Procedure note for Specifics] Pain Scale: 0-10 Numeric [Pain] -Is Patient Pain Free? Yes Musculoskeletal: No Tenderness to Palpation of Joints or Extremities Neurological: Neuro grossly intact Psych/Mental Status: Normal Affect, Appropriate Debridement Note Post-Debridement Measurements/Treatment - Nurse 2 - General Ulcer CM Notes Start: 11/10/18 14:42 Freq: Status: Active Protocol: Activity Type Activity Date Activity User E-Sign Co-Sign Detail Recorded Client Recorded Date Recorded By Document 11/10/18 15:07 HILTON [id number] 11/10/18 15:08 HILTON 11/10/18 15:07 Wound Center Nurse 2 #1 R Upper Arm -Time 15:08 -Correct Patient Yes -Correct Side, Site, Position Yes -Correct Procedure Yes -Procedure Performed Yes -Type of Procedure Debridement -Clinical Debridement Subcutaneous -Post Debridement Size (cm) - Length 1.7 -Post Debridement Size (cm) - Width 1.0 -Post Debridement Size (cm) - Depth 0.1 -Total Square Cm 1.70 -Wound/Ulcer Outcome Not Healed -Ulcer Cleansing Rinsed/ Irrigated with Saline -Foul Odor after Cleansing No -Bioengineered Tissue No -Bleeding Controlled with Pressure Silver Nitrate -Offloading No -Treatment Response Procedure Tolerated Well Pain Scale: 0-10 Numeric Is Patient Pain Free? Yes Wound debrided: right medial upper arm Laterality: Right Type of Debridement: Excisional debridement Anesthesia Used: 5% Lidocaine Gel Depth: Down to and including healthy tissue, in the subcutaneous layer Percentage of wound debrided: 100 Instrument Used: 5mm curette Tissue Removed: Subcutaneous tissue and slough with increased hypergranulation Severity: Fat Layer Exposed Amount of bleeding with debridement: Moderate Bleeding Controlled with: Compression and gauze, Silver Nitrate Patient tolerated procedure well Assessment/Plan Active Problems Abscess of right arm (Acute) Cellulitis right arm (Acute) Diabetes mellitus type 2 in obese (Chronic) Peripheral arterial disease (Chronic) Open wound of right upper arm (Acute) Assessment: 1. Open wound of right upper arm. 2. Abscess of right arm. 3. Diabetes mellitus type 2 in obese. 4. Peripheral arterial disease. 5. Cellulitis of right upper arm Plan: Patient seen and evaluated in the Wound Center today. Subcutaneous debridement performed, patient tolerated it well. Did use silver nitrate to help with the hypergranulation. Patient started using collagen hydrogel on her right upper medial arm. She developed hypergranulation of her wound. Will restart the aquacel silver daily. Her redness, pain and warmth above the wound site has resloved. She is finishing her Doxycyline. Her wound cultures from 10/12/18 showed MRSA, she will finished her Doxycycline. Her last HgA1C was 5.7. On 10/12/18 she had Venous Doppler study of right upper extremity for swelling and cellulitis which showed no evidence for acute DVT and had patent and compressible cephalic and basilic veins. Instructed her to take the Doxycycline with food. If her pain or redness worsen, or develop a fever, chills, nausea/vomiting go to the ER for further evaluation. Patient verbalized understanding. She will follow up in one week. Code Visit 111xxx-113xx: [id number] [place] subq tissue 20 sq cm/<
[2018-11-16 09:30] VITALS: PULSE 98; RESP 18; TEMP 36.3; BMI 42.4
--- NOTE | 2018-11-16 10:26 | PN.PCM_ITS ---
(1) Open wound of right upper arm Status: Acute Current Visit: Yes Code(s): S41.101A - Unspecified open wound of right upper arm, initial encounter (2) Abscess of right arm Status: Acute Current Visit: Yes Code(s): L02.413 - Cutaneous abscess of right upper limb (3) Cellulitis right arm Status: Acute Current Visit: Yes (4) Diabetes mellitus type 2 in obese Status: Chronic Current Visit: Yes Code(s): E11.69 - Type 2 diabetes mellit us with other specified complication; E66.9 - Obesity, unspecified (5) Peripheral arterial disease Status: Chronic Current Visit: Yes Type of Wound Date of Service: 11/16/18 Chief Complaint: Opened wound left medial upper arm after abscess drainage. History of Wound: Patient had a right medial upper arm abscess a month after having a right axxillary lymph node sampling. On 10/12/18 she had an I&D by Dr. Hsu. She cultured positive for MRSA. She was started on Doxycycline which she will finish up tomorrow. She had been doing aquacel silver dressing changes daily which was changed to collagen hydrogel. She has developed hypergranulat ion. Will restart aquacel silver dressing changes again. She was referred to the wound center by Dr. Hsu for further wound management. Progress of Wound: Improved. - Physical Exam Vital Signs Temp Pulse Resp BP 97.3 F L 98 18 160/93 H 11/16/18 09:30 11/16/18 09:30 11/16/18 09:30 11/10/18 14:43 General: Alert, Oriented x3, Cooperative HEENT: Atraumatic Oral: Moist Mucosa Lungs: Normal air movement, - - On oxygen Cardiovascular: Regular rate Skin: Ulcer/ Wound - Right medial upper arm wound beefy red Wound Measurements and Assessment WC - Nurse 1 - General Ulcer Measurement Start: 11/10/18 14:42 Freq: Status: Active Protocol: Activity Type Activity Date Activity User E-Sign Co-Sign Detail Recorded Client Recorded Date Recorded By Document 11/16/18 09:30 MW [id number] 11/16/18 09:33 MW 11/16/18 09:30 Wound Center Nurse 1 [Ulcer Assessment] #1 R Upper Arm -Combined with other wound No -Current Size (cm) - Length 1.3 -Current Size (cm) - Width 0.7 -Current Size (cm) - Depth 0.1 -Total Square Cm 0.91 -Photo Taken No -Epithelialization Small 1-33% -Tunneling No -Undermining/Tunneling No -Granulation Amt Large (67-100%) -Granulation Quality Red -Slough/Fibrin No -Necrosis Amt None Present (0 %) -Structure Exposed N/A -Texture (Sonam-wound Skin Appearance) Assessed Scarring -Moisture (Sonam-wound Skin Appearance No Abnormality ) Assessed -Color (Sonam-wound Skin Appearance) No Abnormality Assessed -Temperature (Sonam-wound Skin No Abnormality Appearance) (Pt Warm) -Tenderness on Palpation (Sonam-wound No Skin Appearance) -Ulcer Cleansing Rinsed/ Irrigated with Saline -Foul Odor after Cleansing No -Anesthetic Used 5% Lidocaine Gel [Edema Assessment] -Lower Limb Edema Present No WC - Nurse 2 - General Ulcer CM Notes Start: 11/10/18 14:42 Freq: Status: Active Protocol: Activity Type Activity Date Activity User E-Sign Co-Sign Detail Recorded Client Recorded Date Recorded By Document 11/16/18 10:14 [id number] 11/16/18 10:19 11/16/18 10:14 Wound Center Nurse 2 [Procedure/Treatment] #1 R Upper Arm -Time 10:17 -Correct Patient Yes -Correct Side, Site, Position Yes -Correct Procedure Yes -Procedure Performed Yes -Type of Procedure Debridement -Clinical Debridement Subcutaneous -Post Debridement Size (cm) - Length 0.7 -Post Debridement Size (cm) - Width 1.3 -Post Debridement Size (cm) - Depth 0.1 -Total Square Cm 0.91 -Wound/Ulcer Outcome Not Healed -Ulcer Cleansing Rinsed/ Irrigated with Saline -Foul Odor after Cleansing No -Bioengineered Tissue No -Bleeding Controlled with Pressure -Offloading No -Type of Offloading Surgical Shoe -Treatment Response Procedure Tolerated Well [See Physician Procedure note for Specifics] Pain Scale: 0-10 Numeric [Pain] -Is Patient Pain Free? Yes Musculoskeletal: No Tenderness to Palpation of Joints or Extremities Neurological: Neuro grossly intact Psych/Mental Status: Normal Affect, Appropriate Debridement Note Post-Debridement Measurements/Treatment WC - Nurse 2 - General Ulcer CM Notes Start: 11/10/18 14:42 Freq: Status: Active Protocol: Activity Type Activity Date Activity User E-Sign Co-Sign Detail Recorded Client Recorded Date Recorded By Document 11/10/18 15:07 [id number] 11/10/18 15:08 Document 11/16/18 10:14 [id number] 11/16/18 10:19 11/10/18 11/16/18 15:07 10:14 Wound Center Nurse 2 #1 R Upper Arm -Time 15:08 10:17 -Correct Patient Yes Yes -Correct Side, Site, Position Yes Yes -Correct Procedure Yes Yes -Procedure Performed Yes Yes -Type of Procedure Debridement Debridement -Clinical Debridement Subcutaneous Subcutaneous -Post Debridement Size (cm) - Length 1.7 0.7 -Post Debridement Size (cm) - Width 1.0 1.3 -Post Debridement Size (cm) - Depth 0.1 0.1 -Total Square Cm 1.70 0.91 -Wound/Ulcer Outcome Not Healed Not Healed -Ulcer Cleansing Rinsed/ Rinsed/ Irrigated with Irrigated with Saline Saline -Foul Odor after Cleansing No No -Bioengineered Tissue No No -Bleeding Controlled with Pressure Pressure Silver Nitrate -Offloading No No -Type of Offloading Surgical Shoe -Treatment Response Procedure Procedure Tolerated Well Tolerated Well Pain Scale: 0-10 Numeric Is Patient Pain Free? Yes Yes Wound debrided: Right medial upper arm Laterality: Right Type of Debridement: Excisional debridement Anesthesia Used: 5% Lidocaine Gel Depth: Down to and including healthy tissue, in the subcutaneous layer Percentage of wound debrided: 100 Instrument Used: 5mm curette Tissue Removed: Subcutaneous tissue and slough Severity: Fat Layer Exposed Amount of bleeding with debridement: Mild Bleeding Controlled with: Pressure Patient tolerated procedure well Hypergranulation is improved with the aquacel silver. Assessment/Plan Active Problems Abscess of right arm (Acute) Cellulitis right arm (Acute) Diabetes mellitus type 2 in obese (Chronic) Peripheral arterial disease (Chronic) Open wound of right upper arm (Acute) Assessment: 1. Open wound of right upper arm. 2. Abscess of right arm. 3. Diabetes mellitus type 2 in obese. 4. Peripheral arterial disease. 5. Cellulitis of right upper arm Plan: Patient seen and evaluated in the Wound Center today. Subcutaneous debridement performed, patient tolerated it well. No hypergranulation this week. Using aquacel silver daily. Her redness, pain and warmth above the wound site has resolved. She has finished her Doxycyline. Her wound cultures from 10/12/18 showed MRSA. Her last HgA1C was 5.7. On 10/12/18 she had Venous Doppler study of right upper extremity for swelling and cellulitis which showed no evidence for acute DVT and had patent and compressible cephalic and basilic veins. She has some swelling around the wound site. Does not look infected. Will continue to monitor. She will follow up in one week. Code Visit 111xxx-113xx: [id number] [place] subq tissue 20 sq cm/<
[2018-11-24 14:37] VITALS: BP 138/94; PULSE 108; RESP 22; TEMP 36.9; BMI 42.4
--- NOTE | 2018-11-24 16:24 | PCM.WC.PN ---
(1) Open wound of right upper arm Status: Acute Current Visit: Yes Code(s): S41.101A - Unspecified open wound of right upper arm, initial encounter (2) Abscess of right arm Status: Acute Current Visit: Yes Code(s): L02.413 - Cutaneous abscess of right upper limb (3) Cellulitis right arm Status: Acute Current Visit: Yes (4) Diabetes mellitus type 2 in obese Status: Chronic Current Visit: Yes Code(s): E11.69 - Type 2 diabetes mellitus with other specified complication; E66.9 - Obesity, unspecified (5) Peripheral arterial disease Status: Chronic Current Visit: Yes (6) Pain of right upper arm Status: Acute Current Visit: Yes Code(s): M79.621 - Pain in right upper arm Type of Wound Date of Service: 11/24/18 Chief Complaint: Opened wound left medial upper arm after abscess drainage. History of Wound: Patient had a right medial upper arm abscess a month after having a right axxillary lymph node sampling. On 10/12/18 she had an I&D by Dr. Hsu. She cultured positive for MRSA. She was started on Doxycycline which she finished. She is doing aquacel silver dressing changes daily. She was referred to the wound center by Dr. Hsu for further wound management. Progress of Wound: Mild improvement. She is having increased right upper arm pain with movement and palpation. - Physical Exam Vital Signs Temp Pulse Resp BP 98.4 F 108 H 22 H 138/94 H 11/24/18 14:37 11/24/18 14:37 11/24/18 14:37 11/24/18 14:37 General: Alert, Oriented x3, Cooperative HEENT: Atraumatic Oral: Moist Mucosa Lungs: Normal air movement Cardiovascular: Regular rate Extremities: Peripheral Pulses Normal Skin: Ulcer/ Wound - right medial upper arm Wound Measurements and Assessment WC - Nurse 1 - General Ulcer Measurement Start: 11/10/18 14:42 Freq: Status: Active Protocol: Activity Type Activity Date Activity User E-Sign Co-Sign Detail Recorded Client Recorded Date Recorded By Document 11/24/18 14:37 DL [id number] 11/24/18 14:41 DL 11/24/18 14:37 Wound Center Nurse 1 [Ulcer Assessment] #1 R Upper Arm -Current Size (cm) - Length 0.4 -Current Size (cm) - Width 0.5 -Current Size (cm) - Depth 0.1 -Total Square Cm 0.20 -Photo Taken No -Exudate Amt None Present -Wound Margin Flat & Intact -Granulation Amt Small (1-33%) -Granulation Quality Red -Necrosis Amt None Present (0 %) -Structure Exposed N/A -Texture (Sonam-wound Skin Appearance) Scarring -Moisture (Sonam-wound Skin Appearance No Abnormality ) Dry/Scaly -Color (Sonam-wound Skin Appearance) No Abnormality -Temperature (Sonam-wound Skin No Abnormality Appearance) (Pt Warm) -Tenderness on Palpation (Sonam-wound Yes Skin Appearance) -Ulcer Cleansing Rinsed/ Irrigated with Saline -Foul Odor after Cleansing No -Anesthetic Used 5% Lidocaine Gel - Nurse 2 - General Ulcer CM Notes Start: 11/10/18 14:42 Freq: Status: Active Protocol: Activity Type Activity Date Activity User E-Sign Co-Sign Detail Recorded Client Recorded Date Recorded By Document 11/24/18 15:19 HILTON [id number] 11/24/18 15:23 11/24/18 15:19 Wound Center Nurse 2 [Procedure/Treatment] -Time 15:23 -Correct Patient Yes -Correct Side, Site, Position Yes -Correct Procedure Yes -Procedure Performed Yes -Type of Procedure Debridement -Clinical Debridement Subcutaneous -Post Debridement Size (cm) - Length 0.8 -Post Debridement Size (cm) - Width 0.8 -Post Debridement Size (cm) - Depth 0.1 -Total Square Cm 0.64 -Wound/Ulcer Outcome Not Healed -Ulcer Cleansing Rinsed/ Irrigated with Saline -Foul Odor after Cleansing No -Bioengineered Tissue No -Bleeding Controlled with Pressure -Offloading No -Treatment Response Procedure Tolerated Well [See Physician Procedure note for Specifics] Pain Scale: 0-10 Numeric [Pain] -Is Patient Pain Free? Yes Neurological: Neuro grossly intact Psych/Mental Status: Normal Affect, Appropriate Debridement Note Post-Debridement Measurements/Treatment - Nurse 2 - General Ulcer CM Notes Start: 11/10/18 14:42 Freq: Status: Active Protocol: Activity Type Activity Date Activity User E-Sign Co-Sign Detail Recorded Client Recorded Date Recorded By Document 11/10/18 15:07 HILTON [id number] 11/10/18 15:08 Document 11/16/18 10:14 HILTON [id number] 11/16/18 10:19 JF Document 11/24/18 15:19 JF [id number] 11/24/18 15:23 JF 11/10/18 11/16/18 11/24/18 15:07 10:14 15:19 Wound Center Nurse 2 #1 R Upper Arm -Time 15:08 10:17 15:23 -Correct Patient Yes Yes Yes -Correct Side, Site, Position Yes Yes Yes -Correct Procedure Yes Yes Yes -Procedure Performed Yes Yes Yes -Type of Procedure Debridement Debridement Debridement -Clinical Debridement Subcutaneous Subcutaneous Subcutaneous -Post Debridement Size (cm) - Length 1.7 0.7 0.8 -Post Debridement Size (cm) - Width 1.0 1.3 0.8 -Post Debridement Size (cm) - Depth 0.1 0.1 0.1 -Total Square Cm 1.70 0.91 0.64 -Wound/Ulcer Outcome Not Healed Not Healed Not Healed -Ulcer Cleansing Rinsed/ Rinsed/ Rinsed/ Irrigated with Irrigated with Irrigated with Saline Saline Saline -Foul Odor after Cleansing No No No -Bioengineered Tissue No No No -Bleeding Controlled with Pressure Pressure Pressure Silver Nitrate -Offloading No No No -Type of Offloading Surgical Shoe -Treatment Response Procedure Procedure Procedure Tolerated Well Tolerated Well Tolerated Well Pain Scale: 0-10 Numeric Is Patient Pain Free? Yes Yes Yes Wound debrided: Right upper medial arm Laterality: Right Type of Debridement: Excisional debridement Anesthesia Used: 4% Lidocaine Solution Depth: Down to and including healthy tissue, in the subcutaneous layer Percentage of wound debrided: 100 Instrument Used: 3mm curette Tissue Removed: Subcutaneous tissue and slough Severity: Limited To Skin Breakdown Amount of bleeding with debridement: Mild Bleeding Controlled with: Pressure Patient tolerated procedure well No debridement was completed today Assessment/Plan Active Problems Abscess of right arm (Acute) Cellulitis right arm (Acute) Diabetes mellitus type 2 in obese (Chronic) Peripheral arterial disease (Chronic) Open wound of right upper arm (Acute) Pain of right upper arm (Acute) Assessment: 1. Open wound of right upper arm. 2. Abscess of right arm. 3. Diabetes mellitus type 2 in obese. 4. Peripheral arterial disease. 5. Cellulitis of right upper arm Plan: Patient seen and evaluated in the Wound Center today. Subcutaneous debridement performed, patient tolerated it well. Using aquacel silver daily. She has finished her Doxycyline. Her wound cultures from 10/12/18 showed MRSA. Her last HgA1C was 5.7. On 10/12/18 she had Venous Doppler study of right upper extremity for swelling and cellulitis which showed no evidence for acute DVT and had patent and compressible cephalic and basilic veins. She has increased pain at the site of the wound and above it. She has some swelling above the site of the wound. Will obtain wound cultures today. Depending on the results of the wound cultures she may require antibiotic treatement. Will order venous doppler of right upper extremity. She will follow up in one week. Code Visit 111xxx-113xx: [id number] [place] subq tissue 20 sq cm/<
--- NOTE | 2018-11-24 16:35 | PN.PCM_ITS ---
(1) Open wound of right upper arm Status: Acute Current Visit: Yes Code(s): S41.101A - Unspecified open wound of right upper arm, initial encounter (2) Abscess of right arm Status: Acute Current Visit: Yes Code(s): L02.413 - Cutaneous abscess of right upper limb (3) Cellulitis right arm Status: Acute Current Visit: Yes (4) Diabetes mellitus type 2 in obese Status: Chronic Current Visit: Yes Code(s): E11.69 - Type 2 diabetes mellit us with other specified complication; E66.9 - Obesity, unspecified (5) Peripheral arterial disease Status: Chronic Current Visit: Yes (6) Pain of right upper arm Status: Acute Current Visit: Yes Code(s): M79.621 - Pain in right upper arm Type of Wound Date of Service: 11/24/18 Chief Complaint: Opened wound left medial upper arm after abscess drainage. History of Wound: Patient had a right medial upper arm abscess a month after having a right axxillary lymph node sampling. On 10/12/18 she had an I&D by Dr. Hsu. She cultured positive for MRSA. She was started on Doxycycline which she finished. She is doing aquacel silver dressing changes daily. She was referred to the wound center by Dr. Hsu for further wound management. Progress of Wound: Mild improvement. She is having increased right upper arm pain with movement and palpation. - Physical Exam Vital Signs Temp Pulse Resp BP 98.4 F 108 H 22 H 138/94 H 11/24/18 14:37 11/24/18 14:37 11/24/18 14:37 11/24/18 14:37 General: Alert, Oriented x3, Cooperative HEENT: Atraumatic Oral: Moist Mucosa Lungs: Normal air movement Cardiovascular: Regular rate Extremities: Peripheral Pulses Normal Skin: Ulcer/ Wound - right medial upper arm Wound Measurements and Assessment WC - Nurse 1 - General Ulcer Measurement Start: 11/10/18 14:42 Freq: Status: Active Protocol: Activity Type Activity Date Activity User E-Sign Co-Sign Detail Recorded Client Recorded Date Recorded By Document 11/24/18 14:37 DL [id number] 11/24/18 14:41 DL 11/24/18 14:37 Wound Center Nurse 1 [Ulcer Assessment] #1 R Upper Arm -Current Size (cm) - Length 0.4 -Current Size (cm) - Width 0.5 -Current Size (cm) - Depth 0.1 -Total Square Cm 0.20 -Photo Taken No -Exudate Amt None Present -Wound Margin Flat & Intact -Granulation Amt Small (1-33%) -Granulation Quality Red -Necrosis Amt None Present (0 %) -Structure Exposed N/A -Texture (Sonam-wound Skin Appearance) Scarring -Moisture (Sonam-wound Skin Appearance No Abnormality ) Dry/Scaly -Color (Sonam-wound Skin Appearance) No Abnormality -Temperature (Sonam-wound Skin No Abnormality Appearance) (Pt Warm) -Tenderness on Palpation (Sonam-wound Yes Skin Appearance) -Ulcer Cleansing Rinsed/ Irrigated with Saline -Foul Odor after Cleansing No -Anesthetic Used 5% Lidocaine Gel - Nurse 2 - General Ulcer CM Notes Start: 11/10/18 14:42 Freq: Status: Active Protocol: Activity Type Activity Date Activity User E-Sign Co-Sign Detail Recorded Client Recorded Date Recorded By Document 11/24/18 15:19 HILTON [id number] 11/24/18 15:23 11/24/18 15:19 Wound Center Nurse 2 [Procedure/Treatment] -Time 15:23 -Correct Patient Yes -Correct Side, Site, Position Yes -Correct Procedure Yes -Procedure Performed Yes -Type of Procedure Debridement -Clinical Debridement Subcutaneous -Post Debridement Size (cm) - Length 0.8 -Post Debridement Size (cm) - Width 0.8 -Post Debridement Size (cm) - Depth 0.1 -Total Square Cm 0.64 -Wound/Ulcer Outcome Not Healed -Ulcer Cleansing Rinsed/ Irrigated with Saline -Foul Odor after Cleansing No -Bioengineered Tissue No -Bleeding Controlled with Pressure -Offloading No -Treatment Response Procedure Tolerated Well [See Physician Procedure note for Specifics] Pain Scale: 0-10 Numeric [Pain] -Is Patient Pain Free? Yes Neurological: Neuro grossly intact Psych/Mental Status: Normal Affect, Appropriate Debridement Note Post-Debridement Measurements/Treatment - Nurse 2 - General Ulcer CM Notes Start: 11/10/18 14:42 Freq: Status: Active Protocol: Activity Type Activity Date Activity User E-Sign Co-Sign Detail Recorded Client Recorded Date Recorded By Document 11/10/18 15:07 HILTON [id number] 11/10/18 15:08 Document 11/16/18 10:14 [id number] 11/16/18 10:19 Document 11/24/18 15:19 [id number] 11/24/18 15:23 11/10/18 11/16/18 11/24/18 15:07 10:14 15:19 Wound Center Nurse 2 #1 R Upper Arm -Time 15:08 10:17 15:23 -Correct Patient Yes Yes Yes -Correct Side, Site, Position Yes Yes Yes -Correct Procedure Yes Yes Yes -Procedure Performed Yes Yes Yes -Type of Procedure Debridement Debridement Debridement -Clinical Debridement Subcutaneous Subcutaneous Subcutaneous -Post Debridement Size (cm) - Length 1.7 0.7 0.8 -Post Debridement Size (cm) - Width 1.0 1.3 0.8 -Post Debridement Size (cm) - Depth 0.1 0.1 0.1 -Total Square Cm 1.70 0.91 0.64 -Wound/Ulcer Outcome Not Healed Not Healed Not Healed -Ulcer Cleansing Rinsed/ Rinsed/ Rinsed/ Irrigated with Irrigated with Irrigated with Saline Saline Saline -Foul Odor after Cleansing No No No -Bioengineered Tissue No No No -Bleeding Controlled with Pressure Pressure Pressure Silver Nitrate -Offloading No No No -Type of Offloading Surgical Shoe -Treatment Response Procedure Procedure Procedure Tolerated Well Tolerated Well Tolerated Well Pain Scale: 0-10 Numeric Is Patient Pain Free? Yes Yes Yes Wound debrided: Right upper medial arm Laterality: Right Type of Debridement: Excisional debridement Anesthesia Used: 4% Lidocaine Solution Depth: Down to and including healthy tissue, in the subcutaneous layer Percentage of wound debrided: 100 Instrument Used: 3mm curette Tissue Removed: Subcutaneous tissue and slough Severity: Limited To Skin Breakdown Amount of bleeding with debridement: Mild Bleeding Controlled with: Pressure Patient tolerated procedure well No debridement was completed today Assessment/Plan Active Problems Abscess of right arm (Acute) Cellulitis right arm (Acute) Diabetes mellitus type 2 in obese (Chronic) Peripheral arterial disease (Chronic) Open wound of right upper arm (Acute) Pain of right upper arm (Acute) Assessment: 1. Open wound of right upper arm. 2. Abscess of right arm. 3. Diabetes mellitus type 2 in obese. 4. Peripheral arterial disease. 5. Cellulitis of right upper arm Plan: Patient seen and evaluated in the Wound Center today. Subcutaneous debridement performed, patient tolerated it well. Using aquacel silver daily. She has finished her Doxycyline. Her wound cultures from 3/4/19 showed MRSA. Her last HgA1C was 5.7. On 10/12/18 she had Venous Doppler study of right upper extremity for swelling and cellulitis which showed no evidence for acute DVT and had patent and compressible cephalic and basilic veins. She has increased pain at the site of the wound and above it. She has some swelling above the site of the wound. Will obtain wound cultures today. Depending on the results of the wound cultures she may require antibiotic treatement. Will order venous doppler of right upper extremity. She will follow up in one week. Code Visit 111xxx-113xx: [id number] [place] subq tissue 20 sq cm/<
--- NOTE | 2018-11-25 14:47 | VDUE_ITS ---
Reason For Study: Pain Right Proximal Left Proximal Right jugular vein is spontaneous, widely Left jugular vein is spontaneous, widely patent, phasic, with no intraluminal patent, phasic, with no intraluminal echogenicity noted. echogenicity noted. Right subclavian vein is spontaneous, widely patent, phasic, with no intraluminal echogenicity noted. Right Lower Arm Right radial vein is compressible. Right ulnar vein is compressible. Right Arm Right axillary vein is spontaneous, patent, phasic, competent, compressible and demonstrates augmentation. Right brachial vein is compressible. Right cephalic vein is compressible. Right basilic vein is compressible. Patient Safety Unable to visualize Rt Brachial mid, Origin of Rt BasilicV, and mid upper arm CephV due to wound/bandages. Interpretation Summary Deep veins of the right upper extremity are patent and compressible segmentally. There is no evidence of deep vein thrombosis. The superficial veins of the right upper extremity, the basilic and cephalic veins, are patent and compressible. There is no evidence of right upper extremity superficial thrombophlebitis involving the veins imaged. Ordering Physician: Delaney Mendez, ZANDER-C Referring Physician: Nicko Uribe Performed By: Macey Webb, NANCY, RVT ?
[2018-12-01 13:14] VITALS: BP 149/94; PULSE 81; RESP 18; TEMP 36.6; BMI 42.4
--- NOTE | 2018-12-01 17:11 | PCM.WC.PN ---
(1) Open wound of right upper arm Status: Chronic Current Visit: Yes Code(s): S41.101A - Unspecified open wound of right upper arm, initial encounter (2) Abscess of right arm Status: Acute Current Visit: Yes Code(s): L02.413 - Cutaneous abscess of right upper limb (3) Cellulitis right arm Status: Acute Current Visit: Yes (4) Diabetes mellitus type 2 in obese Status: Chronic Current Visit: Yes Code(s): E11.69 - Type 2 diabetes mellitus with other specified complication; E66.9 - Obesity, unspecified (5) Peripheral arterial disease Status: Chronic Current Visit: Yes (6) Pain of right upper arm Status: Acute Current Visit: Yes Code(s): M79.621 - Pain in right upper arm Type of Wound Date of Service: 12/01/18 Chief Complaint: Opened wound left medial upper arm after abscess drainage. History of Wound: Patient had a right medial upper arm abscess a month after having a right axxillary lymph node sampling. On 10/12/18 she had an I&D by Dr. Hsu. She cultured positive for MRSA. She was started on Doxycycline which she finished. She is doing aquacel silver dressing changes daily. She was referred to the wound center by Dr. Hsu for further wound management. Progress of Wound: Mild improvement. - Physical Exam Vital Signs Temp Pulse Resp BP 97.9 F 81 18 149/94 H 12/01/18 13:14 12/01/18 13:14 12/01/18 13:14 12/01/18 13:14 General: Alert, Oriented x3, Cooperative HEENT: Atraumatic Oral: Moist Mucosa Lungs: - - Uses O2 Cardiovascular: Regular rate Extremities: Tenderness - Right upper arm proximal to the wound is tender to palpation. Good ROM Skin: Ulcer/ Wound - Right medial upper arm Wound Measurements and Assessment WC - Nurse 1 - General Ulcer Measurement Start: 11/10/18 14:42 Freq: Status: Active Protocol: Activity Type Activity Date Activity User E-Sign Co-Sign Detail Recorded Client Recorded Date Recorded By Document 12/01/18 13:14 AN [id number] 12/01/18 13:28 AN 12/01/18 13:14 Wound Center Nurse 1 [Ulcer Assessment] #1 R Upper Arm -Current Size (cm) - Length 0.4 -Current Size (cm) - Width 0.8 -Current Size (cm) - Depth 0.1 -Total Square Cm 0.32 -Classification - Thickness Full Thickness without Exposed Support Structure -Exudate Amt Medium -Exudate Type Sanguineous -Wound Margin Distinct, Outline Attached -Granulation Amt Large (67-100%) -Granulation Quality Red -Slough/Fibrin No -Necrosis Amt None Present (0 %) -Structure Exposed None/Limited to Skin Breakdown -Texture (Sonam-wound Skin Appearance) Assessed Localized Edema -Moisture (Sonam-wound Skin Appearance Assessed ) -Color (Sonam-wound Skin Appearance) Assessed Erythema -Temperature (Sonam-wound Skin No Abnormality Appearance) (Pt Warm) -Tenderness on Palpation (Sonam-wound Yes Skin Appearance) -Ulcer Cleansing SOAP AND WATER -Anesthetic Used 4% Lidocaine Solution 5% Lidocaine Gel WC - Nurse 2 - General Ulcer CM Notes Start: 11/10/18 14:42 Freq: Status: Active Protocol: Activity Type Activity Date Activity User E-Sign Co-Sign Detail Recorded Client Recorded Date Recorded By Document 12/01/18 13:43 HILTON [id number] 12/01/18 13:44 HILTON 12/01/18 13:43 Wound Center Nurse 2 [Procedure/Treatment] -Time 13:43 -Correct Patient Yes -Correct Side, Site, Position Yes -Correct Procedure Yes -Procedure Performed Yes -Type of Procedure Debridement -Clinical Debridement Subcutaneous -Post Debridement Size (cm) - Length 0.5 -Post Debridement Size (cm) - Width 0.7 -Post Debridement Size (cm) - Depth 0.1 -Total Square Cm 0.35 -Wound/Ulcer Outcome Not Healed -Ulcer Cleansing Rinsed/ Irrigated with Saline -Foul Odor after Cleansing No -Bioengineered Tissue No -Bleeding Controlled with Pressure -Offloading No -Treatment Response Procedure Tolerated Well [See Physician Procedure note for Specifics] Pain Scale: 0-10 Numeric [Pain] -Is Patient Pain Free? Yes Musculoskeletal: No Tenderness to Palpation of Joints or Extremities Neurological: Neuro grossly intact Psych/Mental Status: Normal Affect, Appropriate Debridement Note Post-Debridement Measurements/Treatment - Nurse 2 - General Ulcer CM Notes Start: 11/10/18 14:42 Freq: Status: Active Protocol: Activity Type Activity Date Activity User E-Sign Co-Sign Detail Recorded Client Recorded Date Recorded By Document 11/10/18 15:07 [id number] 11/10/18 15:08 Document 11/16/18 10:14 [id number] 11/16/18 10:19 Document 11/24/18 15:19 [id number] 11/24/18 15:23 Document 12/01/18 13:43 [id number] 12/01/18 13:44 11/10/18 11/16/18 11/24/18 15:07 10:14 15:19 Wound Center Nurse 2 #1 R Upper Arm -Time 15:08 10:17 15:23 -Correct Patient Yes Yes Yes -Correct Side, Site, Position Yes Yes Yes -Correct Procedure Yes Yes Yes -Procedure Performed Yes Yes Yes -Type of Procedure Debridement Debridement Debridement -Clinical Debridement Subcutaneous Subcutaneous Subcutaneous -Post Debridement Size (cm) - Length 1.7 0.7 0.8 -Post Debridement Size (cm) - Width 1.0 1.3 0.8 -Post Debridement Size (cm) - Depth 0.1 0.1 0.1 -Total Square Cm 1.70 0.91 0.64 -Wound/Ulcer Outcome Not Healed Not Healed Not Healed -Ulcer Cleansing Rinsed/ Rinsed/ Rinsed/ Irrigated with Irrigated with Irrigated with Saline Saline Saline -Foul Odor after Cleansing No No No -Bioengineered Tissue No No No -Bleeding Controlled with Pressure Pressure Pressure Silver Nitrate -Offloading No No No -Type of Offloading Surgical Shoe -Treatment Response Procedure Procedure Procedure Tolerated Well Tolerated Well Tolerated Well Pain Scale: 0-10 Numeric Is Patient Pain Free? Yes Yes Yes 12/01/18 13:43 Wound Center Nurse 2 #1 R Upper Arm -Time 13:43 -Correct Patient Yes -Correct Side, Site, Position Yes -Correct Procedure Yes -Procedure Performed Yes -Type of Procedure Debridement -Clinical Debridement Subcutaneous -Post Debridement Size (cm) - Length 0.5 -Post Debridement Size (cm) - Width 0.7 -Post Debridement Size (cm) - Depth 0.1 -Total Square Cm 0.35 -Wound/Ulcer Outcome Not Healed -Ulcer Cleansing Rinsed/ Irrigated with Saline -Foul Odor after Cleansing No -Bioengineered Tissue No -Bleeding Controlled with Pressure -Offloading No -Type of Offloading -Treatment Response Procedure Tolerated Well Pain Scale: 0-10 Numeric Is Patient Pain Free? Yes Wound debrided: Right medial upper arm Laterality: Right Type of Debridement: Excisional debridement Anesthesia Used: 4% Lidocaine Solution Depth: Down to and including healthy tissue, in the subcutaneous layer Percentage of wound debrided: 100 Instrument Used: 3mm curette Tissue Removed: Subcutaneous tissue and slough Severity: Limited To Skin Breakdown Amount of bleeding with debridement: Mild Bleeding Controlled with: Pressure Patient tolerated procedure well Assessment/Plan Active Problems Abscess of right arm (Acute) Cellulitis right arm (Acute) Diabetes mellitus type 2 in obese (Chronic) Peripheral arterial disease (Chronic) Open wound of right upper arm (Chronic) Pain of right upper arm (Acute) Assessment: 1. Open wound of right upper arm. 2. Abscess of right arm. 3. Diabetes mellitus type 2 in obese. 4. Peripheral arterial disease. 5. Cellulitis of right upper arm Plan: Patient seen and evaluated in the Wound Center today. Subcutaneous debridement performed, patient tolerated it well. Using moistened aquacel silver daily. She has finished her Doxycyline. Her wound cultures from 10/12/18 showed MRSA. Her last HgA1C was 5.7. On 10/12/18 she had Venous Doppler study of right upper extremity for swelling and cellulitis which showed no evidence for acute DVT and had patent and compressible cephalic and basilic veins. She had increased pain at the site of the wound and above it. She has some swelling above the site of the wound. Wound cultures from 11/24/18 were negative for bacterial growth. Venous doppler of right upper extremity on 11/25/18 negative for DVT and thrombophlebitis. She is very hypersensitive to this area even with light touch. Encouraged her to allow the shower spray to hit upper arm for how long she can tolerate it and gradually add time to that. Also encouraged her to rub her upper right arm to help desensitize it. She will follow up in one week. Code Visit 111xxx-113xx: [id number] [place] subq tissue 20 sq cm/<
--- NOTE | 2018-12-01 17:16 | PN.PCM_ITS ---
(1) Open wound of right upper arm Status: Chronic Current Visit: Yes Code(s): S41.101A - Unspecified open wound of right upper arm, initial encounter (2) Abscess of right arm Status: Acute Current Visit: Yes Code(s): L02.413 - Cutaneous abscess of right upper limb (3) Cellulitis right arm Status: Acute Current Visit: Yes (4) Diabetes mellitus type 2 in obese Status: Chronic Current Visit: Yes Code(s): E11.69 - Type 2 diabetes ta itus with other specified complication; E66.9 - Obesity, unspecified (5) Peripheral arterial disease Status: Chronic Current Visit: Yes (6) Pain of right upper arm Status: Acute Current Visit: Yes Code(s): M79.621 - Pain in right upper arm Type of Wound Date of Service: 12/01/18 Chief Complaint: Opened wound left medial upper arm after abscess drainage. History of Wound: Patient had a right medial upper arm abscess a month after having a right axxillary lymph node sampling. On 10/12/18 she had an I&D by Dr. Hsu. She cultured positive for MRSA. She was started on Doxycycline which she finished. She is doing aquacel silver dressing changes daily. She was referred to the wound center by Dr. Hsu for further wound management. Progress of Wound: Mild improvement. - Physical Exam Vital Signs Temp Pulse Resp BP 97.9 F 81 18 149/94 H 12/01/18 13:14 12/01/18 13:14 12/01/18 13:14 12/01/18 13:14 General: Alert, Oriented x3, Cooperative HEENT: Atraumatic Oral: Moist Mucosa Lungs: - - Uses O2 Cardiovascular: Regular rate Extremities: Tenderness - Right upper arm proximal to the wound is tender to palpation. Good ROM Skin: Ulcer/ Wound - Right medial upper arm Wound Measurements and Assessment WC - Nurse 1 - General Ulcer Measurement Start: 11/10/18 14:42 Freq: Status: Active Protocol: Activity Type Activity Date Activity User E-Sign Co-Sign Detail Recorded Client Recorded Date Recorded By Document 12/01/18 13:14 AN [id number] 12/01/18 13:28 AN 12/01/18 13:14 Wound Center Nurse 1 [Ulcer Assessment] #1 R Upper Arm -Current Size (cm) - Length 0.4 -Current Size (cm) - Width 0.8 -Current Size (cm) - Depth 0.1 -Total Square Cm 0.32 -Classification - Thickness Full Thickness without Exposed Support Structure -Exudate Amt Medium -Exudate Type Sanguineous -Wound Margin Distinct, Outline Attached -Granulation Amt Large (67-100%) -Granulation Quality Red -Slough/Fibrin No -Necrosis Amt None Present (0 %) -Structure Exposed None/Limited to Skin Breakdown -Texture (Sonam-wound Skin Appearance) Assessed Localized Edema -Moisture (Sonam-wound Skin Appearance Assessed ) -Color (Sonam-wound Skin Appearance) Assessed Erythema -Temperature (Sonam-wound Skin No Abnormality Appearance) (Pt Warm) -Tenderness on Palpation (Sonam-wound Yes Skin Appearance) -Ulcer Cleansing SOAP AND WATER -Anesthetic Used 4% Lidocaine Solution 5% Lidocaine Gel WC - Nurse 2 - General Ulcer CM Notes Start: 11/10/18 14:42 Freq: Status: Active Protocol: Activity Type Activity Date Activity User E-Sign Co-Sign Detail Recorded Client Recorded Date Recorded By Document 12/01/18 13:43 HILTON [id number] 12/01/18 13:44 HILTON 12/01/18 13:43 Wound Center Nurse 2 [Procedure/Treatment] -Time 13:43 -Correct Patient Yes -Correct Side, Site, Position Yes -Correct Procedure Yes -Procedure Performed Yes -Type of Procedure Debridement -Clinical Debridement Subcutaneous -Post Debridement Size (cm) - Length 0.5 -Post Debridement Size (cm) - Width 0.7 -Post Debridement Size (cm) - Depth 0.1 -Total Square Cm 0.35 -Wound/Ulcer Outcome Not Healed -Ulcer Cleansing Rinsed/ Irrigated with Saline -Foul Odor after Cleansing No -Bioengineered Tissue No -Bleeding Controlled with Pressure -Offloading No -Treatment Response Procedure Tolerated Well [See Physician Procedure note for Specifics] Pain Scale: 0-10 Numeric [Pain] -Is Patient Pain Free? Yes Musculoskeletal: No Tenderness to Palpation of Joints or Extremities Neurological: Neuro grossly intact Psych/Mental Status: Normal Affect, Appropriate Debridement Note Post-Debridement Measurements/Treatment WC - Nurse 2 - General Ulcer CM Notes Start: 11/10/18 14:42 Freq: Status: Active Protocol: Activity Type Activity Date Activity User E-Sign Co-Sign Detail Recorded Client Recorded Date Recorded By Document 11/10/18 15:07 [id number] 11/10/18 15:08 Document 11/16/18 10:14 [id number] 11/16/18 10:19 Document 11/24/18 15:19 [id number] 11/24/18 15:23 Document 12/01/18 13:43 [id number] 12/01/18 13:44 11/10/18 11/16/18 11/24/18 15:07 10:14 15:19 Wound Center Nurse 2 #1 R Upper Arm -Time 15:08 10:17 15:23 -Correct Patient Yes Yes Yes -Correct Side, Site, Position Yes Yes Yes -Correct Procedure Yes Yes Yes -Procedure Performed Yes Yes Yes -Type of Procedure Debridement Debridement Debridement -Clinical Debridement Subcutaneous Subcutaneous Subcutaneous -Post Debridement Size (cm) - Length 1.7 0.7 0.8 -Post Debridement Size (cm) - Width 1.0 1.3 0.8 -Post Debridement Size (cm) - Depth 0.1 0.1 0.1 -Total Square Cm 1.70 0.91 0.64 -Wound/Ulcer Outcome Not Healed Not Healed Not Healed -Ulcer Cleansing Rinsed/ Rinsed/ Rinsed/ Irrigated with Irrigated with Irrigated with Saline Saline Saline -Foul Odor after Cleansing No No No -Bioengineered Tissue No No No -Bleeding Controlled with Pressure Pressure Pressure Silver Nitrate -Offloading No No No -Type of Offloading Surgical Shoe -Treatment Response Procedure Procedure Procedure Tolerated Well Tolerated Well Tolerated Well Pain Scale: 0-10 Numeric Is Patient Pain Free? Yes Yes Yes 12/01/18 13:43 Wound Center Nurse 2 #1 R Upper Arm -Time 13:43 -Correct Patient Yes -Correct Side, Site, Position Yes -Correct Procedure Yes -Procedure Performed Yes -Type of Procedure Debridement -Clinical Debridement Subcutaneous -Post Debridement Size (cm) - Length 0.5 -Post Debridement Size (cm) - Width 0.7 -Post Debridement Size (cm) - Depth 0.1 -Total Square Cm 0.35 -Wound/Ulcer Outcome Not Healed -Ulcer Cleansing Rinsed/ Irrigated with Saline -Foul Odor after Cleansing No -Bioengineered Tissue No -Bleeding Controlled with Pressure -Offloading No -Type of Offloading -Treatment Response Procedure Tolerated Well Pain Scale: 0-10 Numeric Is Patient Pain Free? Yes Wound debrided: Right medial upper arm Laterality: Right Type of Debridement: Excisional debridement Anesthesia Used: 4% Lidocaine Solution Depth: Down to and including healthy tissue, in the subcutaneous layer Percentage of wound debrided: 100 Instrument Used: 3mm curette Tissue Removed: Subcutaneous tissue and slough Severity: Limited To Skin Breakdown Amount of bleeding with debridement: Mild Bleeding Controlled with: Pressure Patient tolerated procedure well Assessment/Plan Active Problems Abscess of right arm (Acute) Cellulitis right arm (Acute) Diabetes mellitus type 2 in obese (Chronic) Peripheral arterial disease (Chronic) Open wound of right upper arm (Chronic) Pain of right upper arm (Acute) Assessment: 1. Open wound of right upper arm. 2. Abscess of right arm. 3. Diabetes mellitus type 2 in obese. 4. Peripheral arterial disease. 5. Cellulitis of right upper arm Plan: Patient seen and evaluated in the Wound Center today. Subcutaneous debridement performed, patient tolerated it well. Using moistened aquacel silver daily. She has finished her Doxycyline. Her wound cultures from 10/12/18 showed MRSA. Her last HgA1C was 5.7. On 10/12/18 she had Venous Doppler study of right upper extremity for swelling and cellulitis which showed no evidence for acute DVT and had patent and compressible cephalic and basilic veins. She had increased pain at the site of the wound and above it. She has some swelling above the site of the wound. Wound cultures from 11/24/18 were negative for bacterial growth. Venous doppler of right upper extremity on 11/25/18 negative for DVT and thrombophlebitis. She is very hypersensitive to this area even with light touch. Encouraged her to allow the shower spray to hit upper arm for how long she can tolerate it and gradually add time to that. Also encouraged her to rub her upper right arm to help desensitize it. She will follow up in one week. Code Visit 111xxx-113xx: [id number] [place] subq tissue 20 sq cm/<
[2018-12-08 13:56] VITALS: BP 150/96; PULSE 83; RESP 18; TEMP 36.5; BMI 42.4
--- NOTE | 2018-12-08 17:00 | PCM.WC.PN ---
(1) Open wound of right upper arm Status: Chronic Code(s): S41.101A - Unspecified open wound of right upper arm, initial encounter (2) Pain of right upper arm Status: Acute Code(s): M79.621 - Pain in right upper arm (3) Diabetes mellitus type 2 in obese Status: Chronic Code(s): E11.69 - Type 2 diabetes mellitus with other specified complication; E66.9 - Obesity, unspecified (4) Peripheral arterial disease Status: Chronic Type of Wound Date of Service: 12/08/18 Chief Complaint: Opened wound left medial upper arm after abscess drainage. History of Wound: Patient had a right medial upper arm abscess a month after having a right axxillary lymph node sampling. On 10/12/18 she had an I&D by Dr. Hsu. She cultured positive for MRSA. She was started on Doxycycline which she finished. She is doing aquacel silver dressing changes daily. She was referred to the wound center by Dr. Hsu for further wound management. Progress of Wound: Mild improvement. - Physical Exam Vital Signs Temp Pulse Resp BP 97.7 F L 83 18 150/96 H 12/08/18 13:56 12/08/18 13:56 12/08/18 13:56 12/08/18 13:56 General: Alert, Oriented x3, Cooperative HEENT: Atraumatic Oral: Moist Mucosa Lungs: Normal air movement Cardiovascular: Regular rate Extremities: Capillary Refill Less than 3 Seconds, Edema - Right upper arm above the wound site., Peripheral Pulses Normal Wound Measurements and Assessment WC - Nurse 1 - General Ulcer Measurement Start: 11/10/18 14:42 Freq: Status: Active Protocol: Activity Type Activity Date Activity User E-Sign Co-Sign Detail Recorded Client Recorded Date Recorded By Document 12/08/18 13:56 AN [id number] 12/08/18 14:01 AN 12/08/18 13:56 Wound Center Nurse 1 [Ulcer Assessment] #1 R Upper Arm -Current Size (cm) - Length 0.3 -Current Size (cm) - Width 0.5 -Current Size (cm) - Depth 0.1 -Total Square Cm 0.15 -Exudate Amt Small -Exudate Type Purulent -Wound Margin Distinct, Outline Attached -Granulation Amt Large (67-100%) -Granulation Quality Red -Slough/Fibrin Yes -Necrosis Amt Small (1-33%) -Necrotic Tissue Type Adherent Slough -Structure Exposed Fat Layer Exposed -Texture (Sonam-wound Skin Appearance) Assessed -Moisture (Sonam-wound Skin Appearance Assessed ) -Color (Sonam-wound Skin Appearance) Assessed -Temperature (Sonam-wound Skin No Abnormality Appearance) (Pt Warm) -Tenderness on Palpation (Sonam-wound Yes Skin Appearance) -Ulcer Cleansing Rinsed/ Irrigated with Saline -Foul Odor after Cleansing No -Anesthetic Used 4% Lidocaine Solution 5% Lidocaine Gel - Nurse 2 - General Ulcer CM Notes Start: 11/10/18 14:42 Freq: Status: Active Protocol: Activity Type Activity Date Activity User E-Sign Co-Sign Detail Recorded Client Recorded Date Recorded By Document 12/08/18 14:15 [id number] 12/08/18 14:16 12/08/18 14:15 Wound Center Nurse 2 [Procedure/Treatment] -Time 14:16 -Correct Patient Yes -Correct Side, Site, Position Yes -Correct Procedure Yes -Procedure Performed Yes -Type of Procedure Debridement -Clinical Debridement Subcutaneous -Post Debridement Size (cm) - Length 0.3 -Post Debridement Size (cm) - Width 0.5 -Post Debridement Size (cm) - Depth 0.1 -Total Square Cm 0.15 -Wound/Ulcer Outcome Not Healed -Ulcer Cleansing Rinsed/ Irrigated with Saline -Foul Odor after Cleansing No -Bioengineered Tissue No -Bleeding Controlled with Pressure -Offloading No -Treatment Response Procedure Tolerated Well [See Physician Procedure note for Specifics] Pain Scale: 0-10 Numeric [Pain] -Is Patient Pain Free? Yes Neurological: Neuro grossly intact Psych/Mental Status: Normal Affect, Appropriate Debridement Note Post-Debridement Measurements/Treatment - Nurse 2 - General Ulcer CM Notes Start: 11/10/18 14:42 Freq: Status: Active Protocol: Activity Type Activity Date Activity User E-Sign Co-Sign Detail Recorded Client Recorded Date Recorded By Document 11/10/18 15:07 [id number] 11/10/18 15:08 Document 11/16/18 10:14 [id number] 11/16/18 10:19 Document 11/24/18 15:19 [id number] 11/24/18 15:23 Document 12/01/18 13:43 [id number] 12/01/18 13:44 Document 12/08/18 14:15 [id number] 12/08/18 14:16 11/10/18 11/16/18 11/24/18 15:07 10:14 15:19 Wound Center Nurse 2 #1 R Upper Arm -Time 15:08 10:17 15:23 -Correct Patient Yes Yes Yes -Correct Side, Site, Position Yes Yes Yes -Correct Procedure Yes Yes Yes -Procedure Performed Yes Yes Yes -Type of Procedure Debridement Debridement Debridement -Clinical Debridement Subcutaneous Subcutaneous Subcutaneous -Post Debridement Size (cm) - Length 1.7 0.7 0.8 -Post Debridement Size (cm) - Width 1.0 1.3 0.8 -Post Debridement Size (cm) - Depth 0.1 0.1 0.1 -Total Square Cm 1.70 0.91 0.64 -Wound/Ulcer Outcome Not Healed Not Healed Not Healed -Ulcer Cleansing Rinsed/ Rinsed/ Rinsed/ Irrigated with Irrigated with Irrigated with Saline Saline Saline -Foul Odor after Cleansing No No No -Bioengineered Tissue No No No -Bleeding Controlled with Pressure Pressure Pressure Silver Nitrate -Offloading No No No -Type of Offloading Surgical Shoe -Treatment Response Procedure Procedure Procedure Tolerated Well Tolerated Well Tolerated Well Pain Scale: 0-10 Numeric Is Patient Pain Free? Yes Yes Yes 12/01/18 12/08/18 13:43 14:15 Wound Center Nurse 2 #1 R Upper Arm -Time 13:43 14:16 -Correct Patient Yes Yes -Correct Side, Site, Position Yes Yes -Correct Procedure Yes Yes -Procedure Performed Yes Yes -Type of Procedure Debridement Debridement -Clinical Debridement Subcutaneous Subcutaneous -Post Debridement Size (cm) - Length 0.5 0.3 -Post Debridement Size (cm) - Width 0.7 0.5 -Post Debridement Size (cm) - Depth 0.1 0.1 -Total Square Cm 0.35 0.15 -Wound/Ulcer Outcome Not Healed Not Healed -Ulcer Cleansing Rinsed/ Rinsed/ Irrigated with Irrigated with Saline Saline -Foul Odor after Cleansing No No -Bioengineered Tissue No No -Bleeding Controlled with Pressure Pressure -Offloading No No -Type of Offloading -Treatment Response Procedure Procedure Tolerated Well Tolerated Well Pain Scale: 0-10 Numeric Is Patient Pain Free? Yes Yes Wound debrided: Upper medial arm Laterality: Right Type of Debridement: Excisional debridement Anesthesia Used: 5% Lidocaine Gel Depth: Down to and including healthy tissue, in the subcutaneous layer Percentage of wound debrided: 100 Instrument Used: 3mm curette Tissue Removed: Subcutaneous tissue and slough Severity: Limited To Skin Breakdown Amount of bleeding with debridement: Mild Bleeding Controlled with: Pressure Patient tolerated procedure well Assessment/Plan Assessment: 1. Open wound of right upper arm. 2. Abscess of right arm. 3. Diabetes mellitus type 2 in obese. 4. Peripheral arterial disease. 5. Cellulitis of right upper arm Plan: Patient seen and evaluated in the Wound Center today. Subcutaneous debridement performed, patient tolerated it well. Using moistened aquacel silver daily. She has finished her Doxycyline. Her wound cultures from 10/12/18 showed MRSA. Her last HgA1C was 5.7. On 10/12/18 she had Venous Doppler study of right upper extremity for swelling and cellulitis which showed no evidence for acute DVT and had patent and compressible cephalic and basilic veins. She had increased pain at the site of the wound and above it. She has some swelling above the site of the wound. Wound cultures from 11/24/18 were negative for bacterial growth. Venous doppler of right upper extremity on 11/25/18 negative for DVT and thrombophlebitis. She is very hypersensitive to this area even with light touch. Encouraged her to allow the shower spray to hit upper arm for how long she can tolerate it and gradually add time to that. Also encouraged her to rub her upper right arm to help desensitize it. Encouraged her to try applying ice 20 minutes at a time 3-4 times per day to right upper arm to see if this would help with swelling. If this swelling and pain continue may consider sending her to the lymphadema clinic or to OT to see if that would be beneficial. She did have a couple axilla lymph nodes removed prior to her cellulitis and abscess drainage. She will follow up in one week. Code Visit 111xxx-113xx: [id number] [place] subq tissue 20 sq cm/<
== END 2018-12-08 23:59 ==
LOC: WC 14:00
PROVIDERS: Family Provider Family Medicine; PCP Family Medicine; Referring Provider Nurse Practitioner Family; Visit Provider Nurse Practitioner Family
DX: E11.51 Type 2 diabetes mellitus with diabetic peripheral angiopathy without gangrene (principal); L02.413 Cutaneous abscess of right upper limb; E66.9 Obesity, unspecified; Z68.41 Body mass index [BMI] 40.0-44.9, adult; Z71.3 Dietary counseling and surveillance; Z86.14 Personal history of Methicillin resistant Staphylococcus aureus infection; L03.113 Cellulitis of right upper limb; M79.621 Pain in right upper arm
CPT/HCPCS: 11042; 17250; 87070; 87075; 87205; 93971

== ENCOUNTER 2018-12-28 14:15 | Outpatient (RCR) | payer MEDICARE, SELFPAY ==
[2018-12-09 01:31] VITALS: BP 150/96; PULSE 83; RESP 18; TEMP 36.5
[2018-12-14 14:46] VITALS: BP 153/95; PULSE 88; RESP 18; TEMP 36.1; BMI 42.4
--- NOTE | 2018-12-14 16:32 | PN.PCM_ITS ---
(1) Open wound of right upper arm Status: Chronic Code(s): S41.101A - Unspecified open wound of right upper arm, initial encounter (2) Pain of right upper arm Status: Chronic Code(s): M79.621 - Pain in right upper arm (3) Diabetes mellitus type 2 in obese Status: Chronic Code(s): E11.69 - Type 2 diabetes mellitus with other specified complication; E66.9 - Obesity, unspecified Type of Wound Date of Service: 12/14/18 Chief Complaint: Opened wound left medial upper arm after abscess drainage. History of Wound: Patient had a right medial upper arm abscess a month after having a right axxillary lymph node sampling. On 10/12/18 she had an I&D by Dr. Hsu. She cultured positive for MRSA. She was started on Doxycycline which she finished. She is doing aquacel silver dressing changes daily. She was referred to the wound center by Dr. Hsu for further wound management. Progress of Wound: Mild improvement. - Physical Exam Vital Signs Temp Pulse Resp BP 96.9 F L 88 18 153/95 H 12/14/18 14:46 12/14/18 14:46 12/14/18 14:46 12/14/18 14:46 General: Alert, Oriented x3, Cooperative HEENT: Atraumatic Oral: Moist Mucosa Lungs: Normal air movement, - - She is on home O2 Cardiovascular: Regular rate Extremities: Capillary Refill Less than 3 Seconds, Edema - right upper arm, Peripheral Pulses Normal, Tenderness - right upper arm Skin: Ulcer/ Wound - Right medial upper arm Wound Measurements and Assessment WC - Nurse 1 - General Ulcer Measurement Start: 12/14/18 14:46 Freq: Status: Active Protocol: Activity Type Activity Date Activity User E-Sign Co-Sign Detail Recorded Client Recorded Date Recorded By Document 12/14/18 14:46 DL [id number] 12/14/18 14:49 DL 12/14/18 14:46 Wound Center Nurse 1 [Ulcer Assessment] #1 R Upper Arm -Current Size (cm) - Length 0.2 -Current Size (cm) - Width 0.2 -Current Size (cm) - Depth 0.1 -Total Square Cm 0.04 -Photo Taken No -Exudate Amt None Present -Wound Margin Flat & Intact -Granulation Amt Small (1-33%) -Granulation Quality [place] -Necrosis Amt None Present (0 %) -Structure Exposed N/A -Texture (Sonam-wound Skin Appearance) Scarring -Moisture (Sonam-wound Skin Appearance No Abnormality ) -Color (Sonam-wound Skin Appearance) No Abnormality -Temperature (Sonam-wound Skin No Abnormality Appearance) (Pt Warm) -Tenderness on Palpation (Sonam-wound No Skin Appearance) -Ulcer Cleansing Rinsed/ Irrigated with Saline -Foul Odor after Cleansing No -Anesthetic Used 5% Lidocaine Gel - Nurse 2 - General Ulcer CM Notes Start: 12/14/18 14:46 Freq: Status: Active Protocol: Activity Type Activity Date Activity User E-Sign Co-Sign Detail Recorded Client Recorded Date Recorded By Document 12/14/18 15:28 JF [id number] 12/14/18 15:29 12/14/18 15:28 Wound Center Nurse 2 [Procedure/Treatment] -Time 15:28 -Correct Patient Yes -Correct Side, Site, Position Yes -Correct Procedure Yes -Procedure Performed Yes -Type of Procedure Debridement -Clinical Debridement Subcutaneous -Post Debridement Size (cm) - Length 0.4 -Post Debridement Size (cm) - Width 0.5 -Post Debridement Size (cm) - Depth 0.1 -Total Square Cm 0.20 -Wound/Ulcer Outcome Not Healed -Ulcer Cleansing Rinsed/ Irrigated with Saline -Foul Odor after Cleansing No -Bioengineered Tissue No -Bleeding Controlled with Pressure -Offloading No -Treatment Response Procedure Tolerated Well [See Physician Procedure note for Specifics] Pain Scale: 0-10 Numeric [Pain] -Is Patient Pain Free? Yes Neurological: Neuro grossly intact Psych/Mental Status: Normal Affect, Appropriate Debridement Note Post-Debridement Measurements/Treatment - Nurse 2 - General Ulcer CM Notes Start: 12/14/18 14:46 Freq: Status: Active Protocol: Activity Type Activity Date Activity User E-Sign Co-Sign Detail Recorded Client Recorded Date Recorded By Document 12/14/18 15:28 JF [id number] 12/14/18 15:29 12/14/18 15:28 Wound Center Nurse 2 #1 R Upper Arm -Time 15:28 -Correct Patient Yes -Correct Side, Site, Position Yes -Correct Procedure Yes -Procedure Performed Yes -Type of Procedure Debridement -Clinical Debridement Subcutaneous -Post Debridement Size (cm) - Length 0.4 -Post Debridement Size (cm) - Width 0.5 -Post Debridement Size (cm) - Depth 0.1 -Total Square Cm 0.20 -Wound/Ulcer Outcome Not Healed -Ulcer Cleansing Rinsed/ Irrigated with Saline -Foul Odor after Cleansing No -Bioengineered Tissue No -Bleeding Controlled with Pressure -Offloading No -Treatment Response Procedure Tolerated Well Pain Scale: 0-10 Numeric Is Patient Pain Free? Yes Wound debrided: Right medial upper arm Laterality: Right Type of Debridement: Excisional debridement Anesthesia Used: 5% Lidocaine Gel Depth: Down to and including healthy tissue, in the subcutaneous layer Percentage of wound debrided: 100 Instrument Used: 3mm curette Tissue Removed: Subcutaneous tissue and slough Severity: Limited To Skin Breakdown Amount of bleeding with debridement: Mild Bleeding Controlled with: Pressure Patient tolerated procedure well Assessment/Plan Assessment: 1. Open wound of right upper arm. 2. Abscess of right arm. 3. Diabetes mellitus type 2 in obese. 4. Peripheral arterial disease. 5. Cellulitis of right upper arm Plan: Patient seen and evaluated in the Wound Center today. Subcutaneous debridement performed, patient tolerated it well. Using moistened aquacel silver daily. She has finished her Doxycyline. Her wound cultures from 10/12/18 showed MRSA. Her last HgA1C was 5.7. On 10/12/18 she had Venous Doppler study of right upper extremity for swelling and cellulitis which showed no evidence for acute DVT and had patent and compressible cephalic and basilic veins. She had increased pain at the site of the wound and above it. She has some swelling above the site of the wound. Wound cultures from 11/24/18 were negative for bacterial growth. Venous doppler of right upper extremity on 11/25/18 negative for DVT and thrombophlebitis. She is very hypersensitive to this area even with light touch. Encouraged her to allow the shower spray to hit upper arm for how long she can tolerate it and gradually add time to that. Also encouraged her to rub her upper right arm to help desensitize it. Will refer her to OT for the pain and possible lymphadema from the lymph nodes being removed. She will continue the aquacel-ag and follow up in one week. She will follow up in one week. Code Visit 111xxx-113xx: [id number] [place] subq tissue 20 sq cm/<
[2018-12-21 14:59] VITALS: BP 153/102; PULSE 100; RESP 20; TEMP 35.4; BMI 42.4
--- NOTE | 2018-12-21 16:53 | PN.PCM_ITS ---
(1) Open wound of right upper arm Status: Chronic Current Visit: Yes Code(s): S41.101A - Unspecified open wound of right upper arm, initial encounter (2) Pain of right upper arm Status: Chronic Current Visit: Yes Code(s): M79.621 - Pain in right upper arm (3) Diabetes mellitus type 2 in obese Status: Chronic Current Visit: Yes Code(s): E11.69 - Type 2 diabetes mellitus with other specified complication; E66.9 - Obesity, unspecified Type of Wound Date of Service: 12/21/18 Chief Complaint: Opened wound left medial upper arm after abscess drainage. History of Wound: Patient had a right medial upper arm abscess a month after having a right axxillary lymph node sampling. On 10/12/18 she had an I&D by Dr. Hsu. She cultured positive for MRSA. She was started on Doxycycline which she finished. She is doing aquacel silver dressing changes daily. She was referred to the wound center by Dr. Hsu for further wound management. Progress of Wound: Stable. - Physical Exam Vital Signs Temp Pulse Resp BP 95.7 F L 100 20 H 153/102 H 12/21/18 14:59 12/21/18 14:59 12/21/18 14:59 12/21/18 14:59 General: Alert, Oriented x3, Cooperative HEENT: Atraumatic Oral: Moist Mucosa Lungs: Normal air movement Cardiovascular: Regular rate Abdomen: Soft, Non Tender Extremities: Edema - Right upper arm with swelling and tenderness, Tenderness Skin: Ulcer/ Wound - Right medial upper arm. Wound Measurements and Assessment WC - Nurse 1 - General Ulcer Measurement Start: 12/14/18 14:46 Freq: Status: Active Protocol: Activity Type Activity Date Activity User E-Sign Co-Sign Detail Recorded Client Recorded Date Recorded By Document 12/21/18 14:59 MW [id number] 12/21/18 15:05 MW 12/21/18 14:59 Wound Center Nurse 1 [Ulcer Assessment] #1 R Upper Arm -Combined with other wound No -Current Size (cm) - Length 0.3 -Current Size (cm) - Width 0.4 -Current Size (cm) - Depth 0.1 -Total Square Cm 0.12 -Photo Taken No -Epithelialization None Present -Tunneling No -Undermining/Tunneling No -Circular Undermining No -Exudate Amt None Present -Wound Margin Flat & Intact -Granulation Amt Large (67-100%) -Granulation Quality Red -Slough/Fibrin Yes -Necrosis Amt None Present (0 %) -Structure Exposed N/A -Texture (Sonam-wound Skin Appearance) Assessed Scarring -Moisture (Sonam-wound Skin Appearance No Abnormality ) Assessed -Color (Sonam-wound Skin Appearance) No Abnormality Assessed -Temperature (Sonam-wound Skin No Abnormality Appearance) (Pt Warm) -Tenderness on Palpation (Sonam-wound No Skin Appearance) -Ulcer Cleansing Rinsed/ Irrigated with Saline -Foul Odor after Cleansing No -Anesthetic Used 5% Lidocaine Gel [Edema Assessment] -Lower Limb Edema Present No WC - Nurse 2 - General Ulcer CM Notes Start: 12/14/18 14:46 Freq: Status: Active Protocol: Activity Type Activity Date Activity User E-Sign Co-Sign Detail Recorded Client Recorded Date Recorded By Document 12/21/18 15:47 [id number] 12/21/18 15:47 12/21/18 15:47 Wound Center Nurse 2 [Procedure/Treatment] #1 R Upper Arm -Time 15:47 -Correct Patient Yes -Correct Side, Site, Position Yes -Correct Procedure Yes -Procedure Performed Yes -Type of Procedure Debridement -Clinical Debridement Subcutaneous -Post Debridement Size (cm) - Length 0.4 -Post Debridement Size (cm) - Width 0.5 -Post Debridement Size (cm) - Depth 0.1 -Total Square Cm 0.20 -Wound/Ulcer Outcome Not Healed -Ulcer Cleansing Rinsed/ Irrigated with Saline -Foul Odor after Cleansing No -Bioengineered Tissue No -Bleeding Controlled with Pressure -Offloading No -Treatment Response Procedure Tolerated Well [See Physician Procedure note for Specifics] Pain Scale: 0-10 Numeric [Pain] -Is Patient Pain Free? Yes Musculoskeletal: No Tenderness to Palpation of Joints or Extremities Neurological: Neuro grossly intact Psych/Mental Status: Normal Affect, Appropriate Debridement Note Post-Debridement Measurements/Treatment WC - Nurse 2 - General Ulcer CM Notes Start: 12/14/18 14:46 Freq: Status: Active Protocol: Activity Type Activity Date Activity User E-Sign Co-Sign Detail Recorded Client Recorded Date Recorded By Document 12/14/18 15:28 [id number] 12/14/18 15:29 Document 12/21/18 15:47 [id number] 12/21/18 15:47 12/14/18 12/21/18 15:28 15:47 Wound Center Nurse 2 #1 R Upper Arm -Time 15:28 15:47 -Correct Patient Yes Yes -Correct Side, Site, Position Yes Yes -Correct Procedure Yes Yes -Procedure Performed Yes Yes -Type of Procedure Debridement Debridement -Clinical Debridement Subcutaneous Subcutaneous -Post Debridement Size (cm) - Length 0.4 0.4 -Post Debridement Size (cm) - Width 0.5 0.5 -Post Debridement Size (cm) - Depth 0.1 0.1 -Total Square Cm 0.20 0.20 -Wound/Ulcer Outcome Not Healed Not Healed -Ulcer Cleansing Rinsed/ Rinsed/ Irrigated with Irrigated with Saline Saline -Foul Odor after Cleansing No No -Bioengineered Tissue No No -Bleeding Controlled with Pressure Pressure -Offloading No No -Treatment Response Procedure Procedure Tolerated Well Tolerated Well Pain Scale: 0-10 Numeric Is Patient Pain Free? Yes Yes Wound debrided: Right medial upper arm Laterality: Right Type of Debridement: Excisional debridement Anesthesia Used: 5% Lidocaine Gel Depth: Down to and including healthy tissue, in the subcutaneous layer Percentage of wound debrided: 100 Instrument Used: 3mm curette Tissue Removed: Subcutaneous tissue and slough Severity: Limited To Skin Breakdown Amount of bleeding with debridement: Mild Bleeding Controlled with: Pressure Patient tolerated procedure well Assessment/Plan Active Problems Diabetes mellitus type 2 in obese (Chronic) Open wound of right upper arm (Chronic) Pain of right upper arm (Chronic) Assessment: 1. Open wound of right upper arm. 2. Abscess of right arm. 3. Diabetes mellitus type 2 in obese. 4. Peripheral arterial disease. 5. Cellulitis of right upper arm Plan: Patient seen and evaluated in the Wound Center today. Subcutaneous debridement performed, patient tolerated it well. Using moistened aquacel silver daily. She has finished her Doxycyline. Her wound cultures from 10/12/18 showed MRSA. Her last HgA1C was 5.7. On 10/12/18 she had Venous Doppler study of right upper extremity for swelling and cellulitis which showed no evidence for acute DVT and had patent and compressible cephalic and basilic veins. She had increased pain at the site of the wound and above it. She has some swelling above the site of the wound. Wound cultures from 11/24/18 were negative for bacterial growth. Venous doppler of right upper extremity on 11/25/18 negative for DVT and thrombophlebitis. She is very hypersensitive to this area even with light touch. Encouraged her to allow the shower spray to hit upper arm for how long she can tolerate it and gradually add time to that. Also encouraged her to rub her upper right arm to help desensitize it. Will refer her to OT for the pain and possible lymphadema from the lymph nodes being removed. She will continue the aquacel-ag and follow up in one week. We had referred [facility] to OT for pain managment and lymphadema management. But because she has home health for her other health issues she is not able to go for therapy. Will order therapy through her home health. She is currently on antibiotics for MRSA and another bacteria that was cultured from her PEG site. She is on oral Vancomycin and another antibiotic. If there is not much improvement to her right upper arm wound will refer her either back to Dr. Hsu or to Dr. Bland for another evaluation. She will follow up in one week. Code Visit 111xxx-113xx: [id number] [place] subq tissue 20 sq cm/<
[2018-12-28 14:26] VITALS: BP 141/91; PULSE 87; RESP 18; TEMP 36.8; BMI 42.4
--- NOTE | 2018-12-28 17:20 | PCM.WC.PN ---
(1) Non-healing ulcer of upper extremity Status: Chronic Current Visit: Yes Code(s): L98.499 - Non-pressure chronic ulcer of skin of other sites with unspecified severity (2) Pain of right upper arm Status: Chronic Current Visit: Yes Code(s): M79.621 - Pain in right upper arm (3) Diabetes mellitus type 2 in obese Status: Chronic Current Visit: Yes Code(s): E11.69 - Type 2 diabetes mellitus with other specified complication; E66.9 - Obesity, unspecified Type of Wound Date of Service: 12/28/18 Chief Complaint: Opened wound left medial upper arm after abscess drainage. History of Wound: Patient had a right medial upper arm abscess a month after having a right axillary lymph node sampling. On 10/12/18 she had an I&D by Dr. Hsu. She cultured positive for MRSA. She was started on Doxycycline which she finished. She has been doing aquacel silver dressing changes daily with no improvement, will switch her to collagen hydrogel. . She was referred to the wound center by Dr. Hsu for further wound management. She is not showing any further improvement and continues to have pain of her right upper arm. Will refer her to Dr. Bland for further evaluation of this ulcer and pain. Progress of Wound: Stable, not improving. - Physical Exam Vital Signs Temp Pulse Resp BP 98.3 F 87 18 141/91 H 12/28/18 14:26 12/28/18 14:26 12/28/18 14:26 12/28/18 14:26 General: Alert, Oriented x3, Cooperative HEENT: Atraumatic Lungs: Normal air movement Cardiovascular: Regular rate Extremities: Capillary Refill Less than 3 Seconds, Peripheral Pulses Normal, Tenderness - right upper arm Skin: Ulcer/ Wound - Right medial upper arm ulcer Wound Measurements and Assessment WC - Nurse 1 - General Ulcer Measurement Start: 12/14/18 14:46 Freq: Status: Active Protocol: Activity Type Activity Date Activity User E-Sign Co-Sign Detail Recorded Client Recorded Date Recorded By Document 12/28/18 14:26 RB [id number] 12/28/18 14:30 RB 12/28/18 14:26 Wound Center Nurse 1 [Ulcer Assessment] #1 R Upper Arm -Combined with other wound No -Current Size (cm) - Length 1 -Current Size (cm) - Width 0.4 -Current Size (cm) - Depth 0.1 -Total Square Cm 0.4 -Tunneling No -Undermining/Tunneling No -Circular Undermining No -Exudate Amt Small -Exudate Type Serosanguineous -Wound Margin Distinct, Outline Attached -Granulation Amt Large (67-100%) -Granulation Quality Red -Slough/Fibrin Yes -Necrosis Amt Small (1-33%) -Necrotic Tissue Type Adherent Slough -Structure Exposed N/A -Texture (Sonam-wound Skin Appearance) Assessed -Moisture (Sonam-wound Skin Appearance Assessed ) -Color (Sonam-wound Skin Appearance) Assessed -Temperature (Sonam-wound Skin No Abnormality Appearance) (Pt Warm) -Tenderness on Palpation (Sonam-wound No Skin Appearance) -Ulcer Cleansing Rinsed/ Irrigated with Saline -Foul Odor after Cleansing No -Anesthetic Used 4% Lidocaine Solution - Nurse 2 - General Ulcer CM Notes Start: 12/14/18 14:46 Freq: Status: Active Protocol: Activity Type Activity Date Activity User E-Sign Co-Sign Detail Recorded Client Recorded Date Recorded By Document 12/28/18 15:23 [id number] 12/28/18 15:24 12/28/18 15:23 Wound Center Nurse 2 [Procedure/Treatment] -Time 15:23 -Correct Patient Yes -Correct Side, Site, Position Yes -Correct Procedure Yes -Procedure Performed Yes -Type of Procedure Debridement -Clinical Debridement Subcutaneous -Post Debridement Size (cm) - Length 0.5 -Post Debridement Size (cm) - Width 0.8 -Post Debridement Size (cm) - Depth 0.2 -Total Square Cm 0.40 -Wound/Ulcer Outcome Not Healed -Ulcer Cleansing Rinsed/ Irrigated with Saline -Foul Odor after Cleansing No -Bioengineered Tissue No -Bleeding Controlled with Pressure -Offloading No -Treatment Response Procedure Tolerated Well [See Physician Procedure note for Specifics] Pain Scale: 0-10 Numeric [Pain] -Is Patient Pain Free? Yes Neurological: Neuro grossly intact Psych/Mental Status: Normal Affect Debridement Note Post-Debridement Measurements/Treatment - Nurse 2 - General Ulcer CM Notes Start: 12/14/18 14:46 Freq: Status: Active Protocol: Activity Type Activity Date Activity User E-Sign Co-Sign Detail Recorded Client Recorded Date Recorded By Document 12/14/18 15:28 [email or web address] [id number] 12/14/18 15:29 Document 12/21/18 15:47 [id number] 12/21/18 15:47 Document 12/28/18 15:23 [id number] 12/28/18 15:24 12/14/18 12/21/18 12/28/18 15:28 15:47 15:23 Wound Center Nurse 2 #1 R Upper Arm -Time 15:28 15:47 15:23 -Correct Patient Yes Yes Yes -Correct Side, Site, Position Yes Yes Yes -Correct Procedure Yes Yes Yes -Procedure Performed Yes Yes Yes -Type of Procedure Debridement Debridement Debridement -Clinical Debridement Subcutaneous Subcutaneous Subcutaneous -Post Debridement Size (cm) - Length 0.4 0.4 0.5 -Post Debridement Size (cm) - Width 0.5 0.5 0.8 -Post Debridement Size (cm) - Depth 0.1 0.1 0.2 -Total Square Cm 0.20 0.20 0.40 -Wound/Ulcer Outcome Not Healed Not Healed Not Healed -Ulcer Cleansing Rinsed/ Rinsed/ Rinsed/ Irrigated with Irrigated with Irrigated with Saline Saline Saline -Foul Odor after Cleansing No No No -Bioengineered Tissue No No No -Bleeding Controlled with Pressure Pressure Pressure -Offloading No No No -Treatment Response Procedure Procedure Procedure Tolerated Well Tolerated Well Tolerated Well Pain Scale: 0-10 Numeric Is Patient Pain Free? Yes Yes Yes Wound debrided: Right upper medial arm ulcer Laterality: Right Type of Debridement: Excisional debridement Anesthesia Used: 5% Lidocaine Gel Depth: Down to and including healthy tissue, in the subcutaneous layer Percentage of wound debrided: 100 Instrument Used: 3mm curette Tissue Removed: Subcutaneous tissue and slough Severity: Limited To Skin Breakdown Amount of bleeding with debridement: Mild Bleeding Controlled with: Pressure Patient tolerated procedure well Assessment/Plan Active Problems Diabetes mellitus type 2 in obese (Chronic) Open wound of right upper arm (Chronic) Pain of right upper arm (Chronic) Non-healing ulcer of upper extremity (Chronic) Assessment: 1. Non healing ulcer to right upper arm. 2. Abscess of right arm. 3. Diabetes mellitus type 2 in obese. 4. Peripheral arterial disease. 5. Cellulitis of right upper arm Plan: Patient seen and evaluated in the Wound Center today. Subcutaneous debridement performed, patient tolerated it well. She has finished her Doxycyline. Her wound cultures from 10/12/18 showed MRSA. Her last HgA1C was 5.7. On 10/12/18 she had Venous Doppler study of right upper extremity for swelling and cellulitis which showed no evidence for acute DVT and had patent and compressible cephalic and basilic veins. She had increased pain at the site of the wound and above it. She has some swelling above the site of the wound. Wound cultures from 11/24/18 were negative for bacterial growth. Venous doppler of right upper extremity on 11/25/18 negative for DVT and thrombophlebitis. She is very hypersensitive to this area even with light touch. Encouraged her to allow the shower spray to hit upper arm for how long she can tolerate it and gradually add time to that. Also encouraged her to rub her upper right arm to help desensitize it. Will refer her to OT for the pain and possible lymphadema from the lymph nodes being removed. Will stop the aquacel silver and change her dressings to collagen hydrogel daily. We had referred her to [facility] to OT for pain managment and lymphadema management. But because she has home health for her other health issues she is not able to go for therapy. Ordered therapy through her home health, but will put on hold at this time. Referring her to Dr. Bland for further evaluation of this non healing ulcer and pain and swelling. She is currently on antibiotics for MRSA and another bacteria that was cultured from her PEG site. She is on oral Vancomycin and another antibiotic. She will follow up in two weeks with Dr. Bland.
== END 2019-01-08 23:59 ==
LOC: WC 14:15
PROVIDERS: Family Provider Family Medicine; PCP Family Medicine; Referring Provider Nurse Practitioner Family; Visit Provider Nurse Practitioner Family
DX: E11.51 Type 2 diabetes mellitus with diabetic peripheral angiopathy without gangrene (principal); E66.9 Obesity, unspecified; Z68.41 Body mass index [BMI] 40.0-44.9, adult; M79.621 Pain in right upper arm; L02.413 Cutaneous abscess of right upper limb; Z86.14 Personal history of Methicillin resistant Staphylococcus aureus infection; Z99.81 Dependence on supplemental oxygen; L03.113 Cellulitis of right upper limb
CPT/HCPCS: 11042

== ENCOUNTER 2019-01-18 08:16 | Outpatient (RCR) | payer MEDICARE, SELFPAY ==
[2019-01-09 00:59] VITALS: BP 141/91; PULSE 87; RESP 18; TEMP 36.8
[2019-01-18 08:29] VITALS: BP 146/72; PULSE 80; RESP 18; TEMP 36.3; BMI 42.4
--- NOTE | 2019-01-18 12:18 | PCM.WC.PN ---
(1) Swelling of right upper extremity Status: Chronic Current Visit: Yes Code(s): M79.89 - Other specified soft tissue disorders (2) Pain of right upper arm Status: Chronic Current Visit: Yes Code(s): M79.621 - Pain in right upper arm (3) Non-healing ulcer of upper extremity Status: Chronic Current Visit: Yes Code(s): L98.499 - Non-pressure chronic ulcer of skin of other sites with unspecified severity (4) Diabetes mellitus type 2 in obese Status: Chronic Current Visit: Yes Code(s): E11.69 - Type 2 diabetes mellitus with other specified complication; E66.9 - Obesity, unspecified Type of Wound Date of Service: 01/18/19 Chief Complaint: Opened wound left medial upper arm after abscess drainage. History of Wound: Patient had a right medial upper arm abscess a month after having a right axillary lymph node sampling. On 10/12/18 she had an I&D by Dr. Hsu. She cultured positive for MRSA. She was started on Doxycycline which she finished. She has been doing aquacel silver dressing changes daily with no improvement, will switch her to collagen hydrogel. . She was referred to the wound center by Dr. Hsu for further wound management. She is not showing any further improvement and continues to have pain of her right upper arm. Will refer her to Dr. Bland for further evaluation of this ulcer and pain. Progress of Wound: Right medial upper arm is healed today. - Physical Exam Vital Signs Temp Pulse Resp BP 97.3 F L 80 18 146/72 H 01/18/19 08:29 01/18/19 08:29 01/18/19 08:29 01/18/19 08:29 General: Alert, Oriented x3, Cooperative HEENT: Atraumatic Oral: Moist Mucosa Lungs: Normal air movement, - - on home O2 Cardiovascular: Regular rate Extremities: Edema, Tenderness - Right upper medial arm tenderness with palpation Skin: Ulcer/ Wound - Healed today Wound Measurements and Assessment WC - Nurse 1 - General Ulcer Measurement Start: 01/18/19 08:29 Freq: Status: Active Protocol: Activity Type Activity Date Activity User E-Sign Co-Sign Detail Recorded Client Recorded Date Recorded By Document 01/18/19 08:29 DL [id number] 01/18/19 08:32 DL 01/18/19 08:29 Wound Center Nurse 1 [Ulcer Assessment] #1 R Upper Arm -Current Size (cm) - Length 0 -Current Size (cm) - Width 0 -Current Size (cm) - Depth 0 -Total Square Cm 0 -Photo Taken Yes -Exudate Amt None Present -Wound Margin Flat & Intact -Granulation Amt Large (67-100%) -Granulation Quality N/A -Necrosis Amt None Present (0 %) -Structure Exposed N/A -Texture (Sonam-wound Skin Appearance) Scarring -Moisture (Sonam-wound Skin Appearance No Abnormality ) -Color (Sonam-wound Skin Appearance) No Abnormality -Temperature (Sonam-wound Skin No Abnormality Appearance) (Pt Warm) -Ulcer Cleansing Rinsed/ Irrigated with Saline -Foul Odor after Cleansing No WC - Nurse 2 - General Ulcer CM Notes Start: 01/18/19 08:29 Freq: Status: Active Protocol: Activity Type Activity Date Activity User E-Sign Co-Sign Detail Recorded Client Recorded Date Recorded By Document 01/18/19 09:16 [id number] 01/18/19 09:16 01/18/19 09:16 Wound Center Nurse 2 [Procedure/Treatment] -Correct Patient No -Correct Side, Site, Position No -Correct Procedure No -Procedure Performed No -Post Debridement Size (cm) - Length 0 -Post Debridement Size (cm) - Width 0 -Post Debridement Size (cm) - Depth 0 -Total Square Cm 0 -Wound/Ulcer Outcome Healed- Epithelialized [See Physician Procedure note for Specifics] Pain Scale: 0-10 Numeric [Pain] -Is Patient Pain Free? Yes Neurological: Neuro grossly intact Psych/Mental Status: Normal Affect, Appropriate Debridement Note Post-Debridement Measurements/Treatment WC - Nurse 2 - General Ulcer CM Notes Start: 01/18/19 08:29 Freq: Status: Active Protocol: Activity Type Activity Date Activity User E-Sign Co-Sign Detail Recorded Client Recorded Date Recorded By Document 01/18/19 09:16 [id number] [id number] 01/18/19 09:16 01/18/19 09:16 Wound Center Nurse 2 #1 R Upper Arm -Correct Patient No -Correct Side, Site, Position No -Correct Procedure No -Procedure Performed No -Post Debridement Size (cm) - Length 0 -Post Debridement Size (cm) - Width 0 -Post Debridement Size (cm) - Depth 0 -Total Square Cm 0 -Wound/Ulcer Outcome Healed- Epithelialized Pain Scale: 0-10 Numeric Is Patient Pain Free? Yes No debridement was completed today Assessment/Plan Active Problems Diabetes mellitus type 2 in obese (Chronic) Pain of right upper arm (Chronic) Non-healing ulcer of upper extremity (Chronic) Swelling of right upper extremity (Chronic) Assessment: 1. Non healing ulcer to right upper arm. 2. Abscess of right arm. 3. Diabetes mellitus type 2 in obese. 4. Peripheral arterial disease. 5. Cellulitis of right upper arm Plan: Patient seen and evaluated in the Wound Center today. She has finished her Doxycyline. Her wound cultures from 10/12/18 showed MRSA. Her last HgA1C was 5.7. On 10/12/18 she had Venous Doppler study of right upper extremity for swelling and cellulitis which showed no evidence for acute DVT and had patent and compressible cephalic and basilic veins. She had increased pain at the site of the wound and above it. She has some swelling above the site of the wound. Wound cultures from 11/24/18 were negative for bacterial growth. Venous doppler of right upper extremity on 11/25/18 negative for DVT and thrombophlebitis. She is very hypersensitive to this area even with light touch. Encouraged her to allow the shower spray to hit upper arm for how long she can tolerate it and gradually add time to that. Also encouraged her to rub her upper right arm to help desensitize it. Referred her to OT for the pain and possible lymphadema from the lymph nodes being remove, but she was told that she can not go to OT since she is receiving home health. Will put an OT referral from her home health agency to come and evaluate her right upper arm for pain, swelling and lymphadema management. Had Dr. Bland look at her wound today since it was not healing, but her wound healed in the time it took for him to see her. He feels this is lymphadema from having the lymph nodes removed from her right axilla and that OT would be appropriate. She does not require any surgery at this time. She is currently on antibiotics for MRSA and another bacteria that was cultured from her PEG site. We will discharge her today from the wound center. Stressed importance of having OT evaluate her for the pain and swelling of her right upper arm. Code Visit Office Visits / Consults: [id number] OV L3 Est
== END 2019-02-07 23:59 ==
LOC: WC 08:16
PROVIDERS: Family Provider Family Medicine; PCP Family Medicine; Referring Provider Nurse Practitioner Family; Visit Provider Nurse Practitioner Family
DX: Z09 Encounter for follow-up examination after completed treatment for conditions other than malignant neoplasm (principal); E11.51 Type 2 diabetes mellitus with diabetic peripheral angiopathy without gangrene; E66.9 Obesity, unspecified; Z71.3 Dietary counseling and surveillance; Z86.14 Personal history of Methicillin resistant Staphylococcus aureus infection
CPT/HCPCS: 99213; G0463

== ENCOUNTER → 2019-04-05 | Outpatient (CLI) | payer MEDICARE, SELFPAY ==
[2019-03-23 13:25] VITALS: BMI 49.9
--- NOTE | 2019-04-05 08:43 | ECHOCS_ITS ---
Reason For Study: Dyspnea/SOB Procedure This was a 2D Doppler, Color Flow transthoracic echocardiogram. The study was technically difficult. Contrast injection was performed. Exam performed in department. Left Ventricle Normal size and thickness. The estimated ejection fraction is 75 %. Normal diastology for age. No regional wall motion abnormalities noted. Right Ventricle Normal size and thickness. Tricuspid Valve Unable to estimate RV systolic pressure due to insufficient tricuspid regurgitant envelope. Medication 22 gauge I.V. with prn adaptor inserted into right arm. Diluted definity 4ml given slow IV push to enhance endocardial definition. MMode/2D Measurements & Calculations LVIDd: 4.0 cm FS: 33.6 % LVIDs: 2.6 cm Time Measurements MV dec time: 0.21 sec Doppler Measurements & Calculations MV E max marcel: 66.9 cm/sec Lat Peak E' Marcel: 5.9 cm/sec Med Peak E' Marcel: 7.6 cm/sec MV A max marcel: 70.9 cm/sec E/E' lat: 11.3 E/E' med: 8.8 MV E/A: 0.94 MV V2 max: 90.5 cm/sec MV P1/2t max marcel: 78.0 cm/sec Ao V2 max: 98.7 cm/sec MV max P.3 mmHg MV P1/2t: 73.1 msec Ao max P.9 mmHg MV V2 mean: 47.8 cm/sec Ao V2 mean: 66.6 cm/sec MV mean P.1 mmHg MV dec slope: 312.5 cm/sec2 Ao mean P.0 mmHg MV V2 VTI: 22.7 cm MVA(P1/2t): 3.0 cm2 Ao V2 VTI: 20.6 cm LV V1 max: 83.5 cm/sec PA V2 max: 89.6 cm/sec LV V1 max P.8 mmHg LV V1 mean P.3 mmHg LV V1 mean: 52.9 cm/sec LV V1 VTI: 16.5 cm Interpretation Summary The estimated ejection fraction is 75 %. Normal diastology for age. Unable to estimate RV systolic pressure due to insufficient tricuspid regurgitant envelope. Compared to echo report dated 11/05/2017, no appreciable changes noted. Consider ALAN or other mode of testing to eval RVSP due to TDS. The study was technically difficult. Contrast injection was performed. Ordering Physician: Mendel Randall Referring Physician: Nicko Uribe Performed By: Garth Sellers RCS
[2019-04-05 09:34] LABS: Absolute Lymphocyte Count 3.48 X10^3/uL (0.83-4.51); Absolute Neutrophil Count 4.1 X10^3/uL (2.0-7.7); Basophil# 0.05 X10^3/uL; Basophil% 0.6 % (0-1); Eosinophil# 0.34 X10^3/uL; Hematocrit 42.4 % (37-47); Hemoglobin 13.1 g/dL (12.0-15.0); Lymphocyte # 3.48 X10^3/ul (4.0); Lymphocyte % 40.5 % (19-41); Mean Corp Hgb Conc 30.9 g/dL (32-36); Mean Corpuscular Hgb 28.5 pg (27.0-32.0); Mean Corpuscular Volume 92.2 fL (81-99); Mean Platelet Vol. 10.1 fl (6.2-12.0); Monocyte# 0.63 X10^3/uL; Monocyte% 7.3 % (0-10); NRBC Flagged by Analyzer 0 % (0-5); Neutrophil # 4.07 X10^3/uL (2.7-7.7); Neutrophil % 47.3 % (47-70); Platelet Count 256 K/mm3 (150-450); RBC Distribution Width CV 15.2 % (11.6-14.6); RBC Distribution Width SD 51.6 fl (35.1-43.9); White Blood Count 8.6 K/mm3 (4.4-11.0)
[2019-04-05 09:39] LABS: International Normalized Ratio 1.1; Prothrombin Time (Protime)PT. 14.2 SECONDS (11.7-14.9)
[2019-04-05 10:06] LABS: AST(SGOT) 33 U/L (15-37); Alanine Aminotransfer ALT/SGPT 34 U/L (13-56); Alkaline Phosphatase 77 U/L (45-117); Anion Gap 6 (5-15); BUN 9 mg/dL (7-18); BUN/Creat Ratio 12.7 RATIO (10-20); Calcium,Total 8.8 mg/dL (8.5-10.1); Chloride 108 mmol/L (98-107); Cholesterol 206 mg/dL (200); Creatinine, Serum 0.71 mg/dL (0.55-1.02); EST Glomerular Filtration Rate 89 mL/min (>60); Est Glom Filt Rate - Afr Amer 108 mL/min (>60); Globulin 4.4 g/dL (2.2-4.2); Glucose 92 mg/dL (74-106); High Density Lipoprotein 84 mg/dL; Potassium 3.9 mmol/L (3.5-5.1); Protein, Total 7.4 g/dL (6.4-8.2); Sodium Level 145 mmol/L (136-145); Triglycerides 115 mg/dL; Very Low Density Lipoprotein 23 mg/dL (5-40)
== END | disposition home or self-care (01) ==
PROVIDERS: Family Provider Family Medicine; PCP Family Medicine; Referring Provider Internal Medicine Cardiovascular Disease; Visit Provider Internal Medicine Cardiovascular Disease
DX: G47.33 Obstructive sleep apnea (adult) (pediatric) (principal); Z99.89 Dependence on other enabling machines and devices; R06.09 Other forms of dyspnea; I73.9 Peripheral vascular disease, unspecified; R60.0 Localized edema; I25.10 Atherosclerotic heart disease of native coronary artery without angina pectoris; E78.5 Hyperlipidemia, unspecified; E78.00 Pure hypercholesterolemia, unspecified
CPT/HCPCS: 36415; 80048; 80061; 80076; 85025; 85610; 93306; Q9957; A4216; C8929

== ENCOUNTER 2019-04-07 07:43 | Day surgery (SDC) | payer MEDICARE, SELFPAY ==
--- NOTE | 2019-03-23 02:15 | HP_ITS ---
HPI HPI History of Present Illness Surgical H&P: Yes Details: Ms Lindo is a very pleasant 58-year-old morbidly obese - [place]ese female with a history of hypertension, diabetes, peripheral artery disease, coronary artery disease, COPD on chronic O2 therapy, obstructive sleep apnea compliant with CPAP therapy, hypothyroidism, hyperlipidemia, and history of multiple CVAs, the most recent of which was August 2017. Patient was most recently admitted to [facility] on 10/11/2018 for an abscess over her right arm requiring surgical debridement. Patient is a previous smoker who quit on 08/11/2004 after a [id number] smoking history. She also apparently has a history of swallowing difficulty and currently has a PEG tube. Her main complaint is dyspnea on exertion, shortness of breath, and lower extremity edema. Her most recent echocardiogram took place on 11/05/2017 which showed the following results: Normal LV size. Left ventricular systolic function is normal. The estimated ejection fraction is 65 %. Normal diastology for age. Contrast injection was performed. Patient had another echocardiogram dated 03/22/2019 however her LV chamber was uninterpretable and there was no attendant around to use Definity agent contrast. Essentially a uninterpretable study. Patient underwent lower extremity Dopplers on 08/28/2017 which were negative for DVT. On 09/05/2017 the patient underwent a non-walking nuclear stress test which was negative for inducible ischemia. Patient reports that she is compliant with her medications. Her main complaint is worsening dyspnea on exertion, shortness of breath, lower extremity edema. Patient did have an episode of chest pain about 6 months ago which was relieved with sublingual nitroglycerin. Patient been diagnosed with congestive heart failure symptoms mostly diastolic dysfunction since 2004. She apparently has known COPD and had pulmonary function test about 1 year ago. She is compliant with her CPAP. She is allergic to aspirin and has not been on Plavix despite her previous CVAs per In our office today her blood pressure is 120/60, pulse is 80 and regular. Physical exam demonstrates regular rate and rhythm, normal S1/S2, no S3 or S4, no murmurs are noted. She has 2+ bilateral lower extremity edema. EKG dated 10/11/2018 shows normal sinus rhythm, normal axis, normal intervals, poor R wave progression across precordium which may suggest a previous anterior wall myocardial infarction versus lead misplacement. Lipids as of 12/01/2017 show an LDL of 40 and HDL of 62. Intake Vital Signs 03/23/19 Height 5 ft 7 in 03/23/19 Weight: 319 lb 03/23/19 Body Mass Index (BMI) 49.9 03/23/19 Blood Pressure 120/60 03/23/19 Blood Pressure Location Lt brachial 03/23/19 Respiratory Rate 24 H 03/23/19 Pulse Rate 80 03/23/19 Pulse Source Auscultation Intake Visit Reasons: PCP ref'd for SHARP, CAD Legal Administrative Assistant Required: No Is patient in pain?: No Allergies Fish Containing Products Allergy (Severe, Verified 03/22/19 10:49) hives, swellimg aspirin Allergy (Verified 10/20/18 13:45) Shortness of breath Penicillins [PCN] Allergy (Verified 10/20/18 13:45) Shortness of breath Medications Diltiazem HCl [Diltiazem 24Hr ER (Cd)] 120 mg PO BID 11/05/17 [History Confirmed 03/23/19] Esomeprazole Magnesium 40 mg PO BID 11/05/17 [History Confirmed 03/23/19] Potassium Chloride [Klor-Con M20] 2 tab PO TID 11/05/17 [History Confirmed 03/23/19] Torsemide [Demadex] 20 mg PO BID 11/05/17 [History Confirmed 03/23/19] cycloBENZAPRine HCl [Flexeril] 10 mg PO BID 11/05/17 [History Confirmed 03/23/19] Betamethasone Dipropionate 1 dose TOPICAL BID 10/11/18 [History Confirmed 03/23/19] Hydroxychloroquine [Plaquenil] 200 mg PO BIDCM 10/11/18 [History Confirmed 03/23/19] Lactose-Reduced Food/Fiber [Isosource 1.5 King Tube Feed Lq] 45 ml JT CONT 10/11/18 [History Confirmed 03/23/19] Polyethylene Glycol 3350 [Miralax] 17 gm PO BID 10/11/18 [History Confirmed 03/23/19] Risperidone [Risperidone Odt] 0.5 mg PO QHS 10/11/18 [History Confirmed 03/23/19] Sumatriptan [Imitrex] 5 mg NS .X1 PRN PRN 10/11/18 [History Confirmed 03/23/19] Melatonin 3 mg PO QHS PRN #20 tab 10/14/18 [Rx Confirmed 03/23/19] adalimumab 40 mg/0.4 mL subcutaneous pen kit 40 mg SC Q2W ea 03/22/19 [History Confirmed 03/23/19] albuterol sulfate HFA 90 mcg/actuation aerosol inhaler 2 puff INHALATION DAILY PRN g 03/22/19 [History Confirmed 03/23/19] atorvastatin 40 mg tablet 40 mg PO QHS 03/22/19 [History Confirmed 03/23/19] calcium carbonate-vitamin D3 600 mg(1,500 mg)-400 unit chewable tablet 1 tab PO DAILY tab 03/22/19 [History Confirmed 03/23/19] calcium citrate 200 mg (950 mg) tablet 200 mg PO BID tab 03/22/19 [History Confirmed 03/23/19] chlorhexidine gluconate 4 % topical liquid 1 applic TOPICAL DAILY ml 03/22/19 [History Confirmed 03/23/19] cyanocobalamin (vit B-12) 1,000 mcg/mL injection kit 1,000 mcg IM Q2W ea 03/22/19 [History Confirmed 03/23/19] ergocalciferol (vitamin D2) 50,000 unit capsule 50,000 unit PO DAILY cap 03/22/19 [History Confirmed 03/23/19] ferrous sulfate 220 mg (44 mg iron)/5 mL oral elixir 286 mg PO TID ml 03/22/19 [History Confirmed 03/23/19] fluticasone 500 mcg-salmeterol 50 mcg/dose blistr powdr for inhalation 1 ea INHALATION BID ea 03/22/19 [History Confirmed 03/23/19] folic acid 1 mg tablet 1 mg PO DAILY 03/22/19 [History Confirmed 03/23/19] gabapentin 100 mg capsule 300 mg PO TID cap 03/22/19 [History Confirmed 03/23/19] hydrocodone 5 mg-acetaminophen 325 mg tablet 1 tab PO BID-TID PRN tab 03/22/19 [History Confirmed 03/23/19] ipratropium-albuterol 0.5 mg-3 mg(2.5 mg base)/3 mL nebulization soln 3 ml INHALATION Q6H ml 03/22/19 [History Confirmed 03/23/19] levetiracetam 500 mg/5 mL (5 mL) oral solution 500 mg PO BID 03/22/19 [History Confirmed 03/23/19] levothyroxine 50 mcg tablet 50 mcg PO DAILY 03/22/19 [History Confirmed 03/23/19] lisinopril 10 mg tablet 10 mg PO DAILY tab 03/22/19 [History Confirmed 03/23/19] lorazepam 1 mg tablet 0.5 mg PO BID tab 03/22/19 [History Confirmed 03/23/19] methotrexate sodium 2.5 mg tablet 10 mg PO QWEEK tab 03/22/19 [History Confirmed 03/23/19] mirtazapine 45 mg disintegrating tablet 45 mg PO QHS 03/22/19 [History Confirmed 03/23/19] multivitamin tablet 1 tab PO DAILY 03/22/19 [History Confirmed 03/23/19] nitroglycerin 0.3 mg sublingual tablet 0.3 mg SUBLINGUAL Q5-15M 03/22/19 [History Confirmed 03/23/19] ondansetron HCl 4 mg/5 mL oral solution 4 mg PO BID PRN ml 03/22/19 [History Confirmed 03/23/19] thiamine HCl (vitamin B1) 100 mg tablet 100 mg PO DAILY 03/22/19 [History Confirmed 03/23/19] urea 40 % topical cream 1 applic TOPICAL BID PRN 03/22/19 [History Confirmed 03/23/19] zinc 50 mg tablet 50 mg PO DAILY 03/22/19 [History Confirmed 03/23/19] zinc oxide 20 % topical ointment 1 applic TOPICAL BID PRN g 03/22/19 [History Confirmed 03/23/19] [facility] Medical History MICHAELA on CPAP (Chronic) Orthopnea (Acute) SHARP (dyspnea on exertion) (Acute) Peripheral artery disease (Chronic) Bilateral lower extremity edema (Acute) Essential hypertension (Chronic) Atherosclerosis of coronary artery of [place] heart without angina pectoris (Chronic) COPD (chronic obstructive pulmonary disease) (Chronic) Hyperlipidemia (Chronic) Hypothyroidism (Chronic) Heart failure (Chronic) Diabetes mellitus type 2 in obese (Chronic) CVA (cerebral vascular accident) (Chronic) Chronic pain syndrome (Chronic) Epilepsy (Chronic) Esophageal dysmotility (Chronic) Generalized anxiety disorder (Chronic) Hypoxia (Chronic) Iron deficiency anemia (Chronic) Lumbar disc disease (Chronic) Psoriasis (Chronic) Rheumatoid arthritis (Chronic) Vitamin B12 deficiency (Chronic) Zinc deficiency (Chronic) Arthritis with psoriasis (Chronic) Encephalopathy (Chronic) Non-healing ulcer of upper extremity (Chronic) Pain of right upper arm (Chronic) Swelling of right upper extremity (Chronic) Abscess of right arm (Resolved) Cellulitis right arm (Resolved) Open wound of right upper arm (Resolved) Surgical History History of arthroscopy of both knees (Chronic) History of gastric bypass (Chronic) History of jejunostomy tube placement (Chronic) History of bilateral breast reduction surgery (Resolved) History of bilateral oophorectomies (Resolved) History of carpal tunnel release of both wrists (Resolved) History of incision and drainage (Resolved ~10/12/18) History of open reduction and internal fixation (ORIF) procedure (Resolved) History of total abdominal hysterectomy and bilateral salpingo-oophorectomy (Resolved) History of total thyroidectomy (Resolved) Status post panniculectomy (Resolved) Family History Mother Hypertension Glaucoma Diabetes Cancer breast Father CVA (cerebral vascular accident) Glaucoma Sister Diabetes Cancer leukemia Brother CVA (cerebral vascular accident) Grandmother Cancer breast Sickle cell trait Social History (Updated 03/23/19 @ 14:15 by Mendel Randall MD) Smoking Status: Former smoker how long ago did patient quit smokin years ago alcohol intake: never substance use type: does not use ROS Const Const: Positive for other ( referred for edema, SOB, CAD per cath years ago); negative for fatigue, weakness, body ache, fever(s), headache(s), chills, frequent falls, night sweats, daytime sleepiness, difficulty sleeping, excessive sweating, weight gain, weight loss, increased appetite, poor appetite or anorexia Eyes Eyes: Negative for blind spots, loss of peripheral vision, transient loss of vision, blurry vision, change in vision, double vision, floaters, tunnel vision or other ENT ENT: Negative for headache(s), dizziness, hearing loss, tinnitus, Nosebleed/epistaxis, balance problems, post nasal drip, lip swelling, tongue swelling, bleeding gums, hoarseness, neck pain, dry mouth or other Cardio Chest Pain: Yes (Chest pressure) Frequency: more than once a day (notices more when lying down) Character: squeezing, other (pressure. ) Onset: at rest, exercise Location: mid sternal Duration: minutes Exacerbation: activity, positional Relieving: other (Having head of bed up, also nitroglycerin) Palpitations: Yes (Sometimes) feels like its: fast Edema: Bilateral Muscle aches with walking: None Resp Respiratory: Positive for SOB with activity (just from recliner to bathroom, gets out of breath. Oxygen 3-4 liters.), SOB orthopnea\SOB lying down (has to sleep with head up almost sitting.), Cough (dry cough) and other (clear on auscultation. Uses CPAP with oxygen); negative for SOB at rest, Coughing up blood/hemoptysis, chest congestion, pain on inspiration, snoring, stridor, wheezing, crackles or paroxysmal nocturnal dyspnea GI GI: Positive for Difficulty Swallowing and other (esphogeal dysmoteal and mass at end of esophagus, has tube feed); negative nausea, vomiting, heartburn, constipation, belching, bloating, cramping, vomiting blood/hematemesis, bright, red blood in stools, black,tarry stools or loose stools : Negative for hematuria, frequent nighttime urination/ nocturia, erectile dysfunction or abnormal vaginal bleeding Musc Musc: Negative for muscle aches/ myalgia, muscle weakness, joint pain or balance problems Skin Skin: Negative redness, non-healing lesions, rash, unusual bruising, skin ulcer, wounds, jaundice or other Neuro Neuro: Positive for lightheadedness (once in a great while with position change); negative for dizziness, near syncope, syncope, orthostatic symptoms, frequent falls, headache(s), weakness, confusion, memory loss, restless legs, blurry vision, double vision, vertigo, seizures, lack of coordination or other Herman Hematologic/Lymphatic: Negative for easy bleeding, easy bruising, enlarged lymph nodes or other Endo Endo: Negative for fatigue, cold intolerance, heat intolerance, excessive sweating, flushing, increased thirst/drinking, increased hunger, hair loss, hair growth or other Psych Psych: Negative for anxiety, depression, thoughts of harming anyone, thoughts of harming yourself, visual hallucinations, panic attacks or audible hallucinations Allergy Allergy/Immunology: Negative for throat swelling, Negative for tongue swelling, Negative for hives, Negative for rash, Negative for lip swelling Cardiology Exam Const Appearance: cooperative, healthy appearing and no acute distress Nutritional Appearance: well nourished Orientation: alert, oriented x3 and oriented to person Head Head: normal to inspection, normocephalic and atraumatic Nose: external nose normal Face and Sinus: face symmetric Mouth: oral mucosae normal Eyes General: appearance normal, both eyes and all related structures Eyelids: eyelids normal Conjunctivae: conjunctivae normal Pupils: PERRL and normal by confrontation EOM: EOM intact bilaterally Neck Neck: normal visual inspection and full ROM Carotids: normal carotid upstroke Chest Chest inspection: normal inspection of the chest Auscultation: Bilateral: Clear to Auscultation Cardio Palpation: normal PMI Rate: regular rate Rhythm: regular rhythm Heart sounds: S1 normal and S2 normal GI GI: normal to inspection, no hepatosplenomegaly and bowel sounds present Neuro General: alert, awake, oriented x3, CN's II-XI intact bilaterally and moves all extremities Skin Skin: no rashes or lesions noted Extremities Pulses: Normal: Right Femoral Pulse, Left Femoral Pulse, Right Dorsalis Pedis Pulse, Left Dorsalis Pedis Pulse, Right Posterior Tibial Pulse, Left Posterior Tibial Pulse, Right Radial Pulse, Left Radial Pulse Lower Extremity Edema: None: Bilateral Psych Psychological: normal affect Assessment & Plan 1. Atherosclerosis of coronary artery of [place] heart without angina pectoris I25.10 Plan 1. Coronary artery disease: I am concerned that the patient has progressively worsening dyspnea on exertion, shortness of breath, and episodes of chest pain. She apparently had a catheterization many years ago, and was told she had the beginnings of coronary artery disease although we do not have those results in front of us. We will attempt to obtain them however. Given the patient's risk factors, dyspnea on exertion, and difficulty with visualizing her cardiac structures with echocardiograms or imaging, I recommended she undergo a left and right heart catheterization to evaluate her coronary anatomy, coronary atherosclerosis, and determine her pulmonary pressures directly. As she is allergic to aspirin, we will start her on Plavix 75 mg p.o. twice daily in place of aspirin and Plavix. The risks/benefits of the procedure were thoroughly explained the patient, including specific attention to lack of on-site surgical back-up and informed consent was obtained. In addition I recommended that she undergo a 30-day event monitor in order to determine if she has paroxysmal atrial fibrillation to explain her multitude of CVAs in the past. If the patient has evidence of paroxysmal atrial fibrillation not have a low threshold for adding anticoagulation such as Xarelto or Eliquis. Orders Orders: 12 Lead EKG performed by [facility] Today Left & Right Heart Cath 1 Week Basic Metabolic Profile (BMP) Today Chest PA and Lateral Today 2. SHARP (dyspnea on exertion) R06.09 Plan 2. Dyspnea on exertion: The patient is on chronic O2 therapy, and has been diagnosed with COPD although her smoking history has not been that bad. Again we will perform a right heart catheterization and I recommend repeating her 2D echo with Doppler with a Definity contrast agent as this will be the mode of monitoring going forward. Orders Orders: 12 Lead EKG performed by [facility] Today Left & Right Heart Cath 1 Week Basic Metabolic Profile (BMP) Today Chest PA and Lateral Today 3. Hyperlipidemia E78.5 Plan 3. Hyperlipidemia: Her LDL and HDL cholesterol are fairly well-controlled given her risk factors. Continue Lipitor. 4. Return office in 6 months. This note was generated using a voice recognition system and there may be incorrect words, spelling or punctuation that were not noted when reviewing the office note prior to saving. Orders Orders: Basic Metabolic Profile (BMP) Today Plan Detail Other Orders Orders: Left & Right Heart Cath 1 Week G47.33, I10, I73.9, Z99.89 Basic Metabolic Profile (BMP) Today I73.9, R60.0 Lipid Profile 1 Week E78.00 Liver Profile 1 Week E78.00 Prothrombin Time w/INR Today I73.9 Echo Complete Today G47.33, Z99.89 CBC W/Diff, Automated Today G47.33, Z99.89 30 Day Event Recorder Hook-Up Today I63.9, I73.9 Follow Up +6M (Randall) Coding Level of Care Code Off vis,new,level 4 Diagnoses Atherosclerosis of coronary artery of [place] heart without angina pectoris I25.10 SHARP (dyspnea on exertion) R06.09 Hyperlipidemia E78.5 Coding Level of Care Code Off vis,new,level 4 Diagnoses Atherosclerosis of coronary artery of [place] heart without angina pectoris I25.10 SHARP (dyspnea on exertion) R06.09 Hyperlipidemia E78.5 Supplemental Info Supplemental Information Labs LDL Cholesterol 40 mg/dL (0-130) 12/01/17 HDL Cholesterol 62 mg/dL (40-) 12/01/17 Triglycerides 106 mg/dL (-199) 12/01/17 VLDL Cholesterol 21 mg/dL (5-40) 12/01/17 Diagnostics Electrocardiogram 10/11/18 Echocardiogram 11/05/17 Chest X-Ray 11/06/17 Venous Doppler Study 11/25/18 03/23/19 1415 <Electronically signed by Mendel Randall MD> Date _ Mendel Randall MD
[2019-03-23 13:25] VITALS: BMI 49.9
[2019-04-07 07:50] VITALS: BMI 47.1
[2019-04-07 08:15] VITALS: BMI 47.2
[2019-04-07 10:51] LABS: Blood Gas Specimen Type VEN; VBG BASE EXCESS 3 mmol/L (-1.0-3.5); VBG Bicarbonate 28 mmol/L (22-26); VBG Oxygen Content 29 mmol/L (23-33); VBG PO2 38 mmHg (25-40); VBG SO2 71 % (50-70); VBG pCO2 47.4 mmHg (41-51); VBG pH 7.38 (7.32-7.42)
[2019-04-07 10:51] LABS: Blood Gas Specimen Type VEN; VBG BASE EXCESS 2 mmol/L (-1.0-3.5); VBG Bicarbonate 27 mmol/L (22-26); VBG Oxygen Content 28 mmol/L (23-33); VBG PO2 40 mmHg (25-40); VBG SO2 73 % (50-70); VBG pCO2 46.5 mmHg (41-51); VBG pH 7.37 (7.32-7.42)
[2019-04-07 10:51] LABS: Base Excess 2 mmol/L (-2 to +2); Bicarbonate 26.6 mmol/L (22-26); Blood Gas Specimen Type ART; PO2 67 mmHG (75-100); SO2 93 % (95-99); Total Carbon Dioxide 28 mmol/L; pCO2 43.6 mmHg (35-45); pH 7.39 (7.35-7.45)
--- NOTE | 2019-04-07 11:01 | CL.D_ITS ---
Patient Name: VLADIMIR DUNBAR Study Date: 04/07/2019 Performing: Mendel Randall MD Ht: 68.89 inches 175 cm : 1960 Wt: 319.67 lbs 145 kg Age: 58 Gender: female BSA: 2.52 PROCEDURE(S) PERFORMED TG96-EQS/LHC/COR/LV CLINICAL PROFILE AND INDICATIONS Indications: Suspected CAD Heart Failure: None Stress/Imaging Date: 09/05/2017Stress Test with SPECT MPI: Negative Angina Classification Anginal Classification w/in 2 Weeks: No symptoms CAD Presentations: Other: Dyspnea on exertion Comorbidities/Risk Factors: Hypertension Dyslipidemia Chronic Lung Disease Diabetes Mellitus: Diabetes Therapy: Diet CONCLUSIONS Normal coronary arteries Perserved Left Ventricular systolic function with normal EDP LVEF: by LV gram 75 % Non obstructive coronary artery disease of RCA. Cardiomyopathy: Hypertrophic The patient has normal pulmonary hemodynamics. RECOMMENDATIONS Management as per referring Account Manager Continue cardizem cd 120 mg po bid unless HR is still not well controlled, then would switch to Verap lara CD 120 daily and titrate up from there. Manual sheath removal. Aggressive weight loss. DESCRIPTION OF PROCEDURE The patient arrived to the procedure lab. The risks and benefits of the procedure as well as a full d escription of our services here and current unavailability of surgical backup were fully explained to the patient and/or their significant other prior to the catheterization. The Timeout was completed, verifying the correct patient and procedure. The patient's procedural site was prepped and draped in the usual fashion. Local anesthetic was given subcutaneously to right groin region with Lidocaine 2%. Using a modified Seldinger technique, arterial access was obtained via the right femoral artery, a 4 Fr sheath was inserted Venous access was obtained via the right femoral vein, a 7Fr sheath was insert ed. A 7Fr thermal dilution catheter was inserted and right heart pressures were recorded, it was then advanced to PA position for cardiac outputs. Thermal dilution cardiac outputs were then recorded. O2 saturations were then obtained. The Thermal dilution catheter was then removed. Left Ventriculography was performed in FLORIAN projection using a 4 Fr. Pigtail catheter. Simultaneous pressur es were then recorded. LV to AO pullback pressures were then recorded. Left Coronary Artery selective angiography was performed in multiple views using a 4 Fr. JL5 catheter. Right Coronary Artery select roxana angiography was then performed in multiple views using a 4 Fr. 3DRC catheter.The arterial sheath was pulled and manual compression applied until hemostasis is achieved.. The venous sheath was then p ulled and manual compression applied until hemostasis achieved CORONARY ANGIOGRAPHY DOMINANCE: Right Dominant LEFT HEART ASSESSMENT Left Ventricular Ejection Fraction: by LV Gram 75 % Normal LV wall motion Normal Left Ventricular systolic function LVEDP: 10 mmHg Normal Left Ventricular End Diastolic Pressure RIGHT HEART ASSESSMENT Thermal CO: 8.3 Thermal CI: 3.29 Juan Jose CO: 8.96 Juan Jose CI: 3.56 PW: 5 6 PA: 195 12 RV: 25/0 4 RA: 12/09 1 PVR: 58 SVR: 1002 Right Heart pressures - normal LEFT MAIN: Angiographically normal LEFT ANTERIOR DESCENDING ARTERY: Angiographically normal CIRCUMFLEX ARTERY: Angiographically normal RIGHT CORONARY ARTERY: MID RCA: 20 % Stenosis COMPLICATIONS No Complications PROCEDURE MEDICATIONS Versed 1 mg IV Oxygen: 3 L/min via nasal cannula Benadryl 25 mg IV @ 04/07/2019 10:12:00 Plavix 75 mg per Jtube 04/07/2019 08:22:48 Pepcid 20 mg IV 04/07/2019 10:12:46 Solu-medrol 125 mg IV 04/07/2019 10:12:33 SUMMARY OF HEMODYNAMIC DATA Time AIR REST ECG 08:17:01 RA 12/09 (1) SV 10:25:41 RV 25/0, 4 10:25:52 PW 05/15 (6) PV 10:26:12 PA 27/12 (12) PA 10:26:41 LV 152/-22, 14 10:31:03 LV 147/-20, 10 10:31:10 LV 146/-20, 10 10:31:42 PW / (5) 10:31:42 LV 146/-19, 11 10:32:35 RV 27/1, 6 10:32:35 LV 150/-16, 15 10:33:41 LV 131/-6, 17 10:33:48 LVp 153/-9, 15 10:33:56 AOp 157/85 (117) 10:34:01 AO 126/87 (105) SA 10:35:42 10:56:30 Type SV CO (l/m) CI (l/m/ HR Time AIR REST Thermal 97.60 8.30 3.29 85 08:17:01 Juan Jose 105.40 8.96 3.56 85 08:17:01 Label % O2 Pres/Loc Time AIR REST AO 93 PV 10:39:16 PA 72 PA 10:39:21 Signed By Mendel Randall MD On 04/07/2019 11:00:13 AM Mendel Randall MD
--- NOTE | 2019-04-12 10:36 | PCM.HP.BLA ---
Problem List (1) Bilateral lower extremity edema Status: Acute (2) Orthopnea Status: Acute (3) Atherosclerosis of coronary artery of knik heart without angina pectoris Status: Chronic (4) Essential hypertension Status: Chronic (5) Heart failure Status: Chronic (6) Hyperlipidemia Status: Chronic History and Physical Date of Admission: 04/07/19 [facility] [address] [place] [address] OFFICE VISIT Date of Service: 03/23/19 MR#:[id number] Name: VLADIMIR DUNBAR PRep #:[id number] : 1960 Provider:Mendel Randall MD Age/Sex: 58/F Location:[facility] [place] Status:Signed [facility] History of Present Illness Surgical H&P: Yes Details: Ms Dunbar is a very pleasant 58-year-old morbidly obese -Sammar[place] female with a history of hypertension, diabetes, peripheral artery disease, coronary artery disease, COPD on chronic O2 therapy, obstructive sleep apnea compliant with CPAP therapy, hypothyroidism, hyperlipidemia, and history of multiple CVAs, the most recent of which was August 2017. Patient was most recently admitted to [facility] on 10/11/2018 for an abscess over her right arm requiring surgical debridement. Patient is a previous smoker who quit on 08/11/2004 after a 71-cfpc-xbpo smoking history. She also apparently has a history of swallowing difficulty and currently has a PEG tube. Her main complaint is dyspnea on exertion, shortness of breath, and lower extremity edema. Her most recent echocardiogram took place on 11/05/2017 which showed the following results: Normal LV size. Left ventricular systolic function is normal. The estimated ejection fraction is 65 %. Normal diastology for age. Contrast injection was performed. Patient had another echocardiogram dated 03/22/2019 however her LV chamber was uninterpretable and there was no attendant around to use Definity agent contrast. Essentially a uninterpretable study. Patient underwent lower extremity Dopplers on 08/28/2017 which were negative for DVT. On 09/05/2017 the patient underwent a non-walking nuclear stress test which was negative for inducible ischemia. Patient reports that she is compliant with her medications. Her main complaint is worsening dyspnea on exertion, shortness of breath, lower extremity edema. Patient did have an episode of chest pain about 6 months ago which was relieved with sublingual nitroglycerin. Patient been diagnosed with congestive heart failure symptoms mostly diastolic dysfunction since 2004. She apparently has known COPD and had pulmonary function test about 1 year ago. She is compliant with her CPAP. She is allergic to aspirin and has not been on Plavix despite her previous CVAs per In our office today her blood pressure is 120/60, pulse is 80 and regular. Physical exam demonstrates regular rate and rhythm, normal S1/S2, no S3 or S4, no murmurs are noted. She has 2+ bilateral lower extremity edema. EKG dated 10/11/2018 shows normal sinus rhythm, normal axis, normal intervals, poor R wave progression across precordium which may suggest a previous anterior wall myocardial infarction versus lead misplacement. Lipids as of 12/01/2017 show an LDL of 40 and HDL of 62. Intake Vital Signs 03/23/19 Height 5 ft 7 in 03/23/19 Weight: 319 lb 03/23/19 Body Mass Index (BMI) 49.9 03/23/19 Blood Pressure 120/60 03/23/19 Blood Pressure Location Lt brachial 03/23/19 Respiratory Rate 24 H 03/23/19 Pulse Rate 80 03/23/19 Pulse Source Auscultation Intake Visit Reasons: PCP ref'd for SHARP, CAD [employer] Professor Required: No Is patient in pain?: No Allergies Fish Containing Products Allergy (Severe, Verified 03/22/19 10:49) hives, swellimg aspirin Allergy (Verified 10/20/18 13:45) Shortness of breath Penicillins [PCN] Allergy (Verified 10/20/18 13:45) Shortness of breath Medications Diltiazem HCl [Diltiazem 24Hr ER (Cd)] 120 mg PO BID 11/05/17 [History Confirmed 03/23/19] Esomeprazole Magnesium 40 mg PO BID 11/05/17 [History Confirmed 03/23/19] Potassium Chloride [Klor-Con M20] 2 tab PO TID 11/05/17 [History Confirmed 03/23/19] Torsemide [Demadex] 20 mg PO BID 11/05/17 [History Confirmed 03/23/19] cycloBENZAPRine HCl [Flexeril] 10 mg PO BID 11/05/17 [History Confirmed 03/23/19] Betamethasone Dipropionate 1 dose TOPICAL BID 10/11/18 [History Confirmed 03/23/19] Hydroxychloroquine [Plaquenil] 200 mg PO BIDCM 10/11/18 [History Confirmed 03/23/19] Lactose-Reduced Food/Fiber [Isosource 1.5 King Tube Feed Lq] 45 ml JT CONT 10/11/18 [History Confirmed 03/23/19] Polyethylene Glycol 3350 [Miralax] 17 gm PO BID 10/11/18 [History Confirmed 03/23/19] Risperidone [Risperidone Odt] 0.5 mg PO QHS 10/11/18 [History Confirmed 03/23/19] Sumatriptan [Imitrex] 5 mg NS .X1 PRN PRN 10/11/18 [History Confirmed 03/23/19] Melatonin 3 mg PO QHS PRN #20 tab 10/14/18 [Rx Confirmed 03/23/19] adalimumab 40 mg/0.4 mL subcutaneous pen kit 40 mg SC Q2W ea 03/22/19 [History Confirmed 03/23/19] albuterol sulfate HFA 90 mcg/actuation aerosol inhaler 2 puff INHALATION DAILY PRN g 03/22/19 [History Confirmed 03/23/19] atorvastatin 40 mg tablet 40 mg PO QHS 03/22/19 [History Confirmed 03/23/19] calcium carbonate-vitamin D3 600 mg(1,500 mg)-400 unit chewable tablet 1 tab PO DAILY tab 03/22/19 [History Confirmed 03/23/19] calcium citrate 200 mg (950 mg) tablet 200 mg PO BID tab 03/22/19 [History Confirmed 03/23/19] chlorhexidine gluconate 4 % topical liquid 1 applic TOPICAL DAILY ml 03/22/19 [History Confirmed 03/23/19] cyanocobalamin (vit B-12) 1,000 mcg/mL injection kit 1,000 mcg IM Q2W ea 03/22/19 [History Confirmed 03/23/19] ergocalciferol (vitamin D2) 50,000 unit capsule 50,000 unit PO DAILY cap 03/22/19 [History Confirmed 03/23/19] ferrous sulfate 220 mg (44 mg iron)/5 mL oral elixir 286 mg PO TID ml 03/22/19 [History Confirmed 03/23/19] fluticasone 500 mcg-salmeterol 50 mcg/dose blistr powdr for inhalation 1 ea INHALATION BID ea 03/22/19 [History Confirmed 03/23/19] folic acid 1 mg tablet 1 mg PO DAILY 03/22/19 [History Confirmed 03/23/19] gabapentin 100 mg capsule 300 mg PO TID cap 03/22/19 [History Confirmed 03/23/19] hydrocodone 5 mg-acetaminophen 325 mg tablet 1 tab PO BID-TID PRN tab 03/22/19 [History Confirmed 03/23/19] ipratropium-albuterol 0.5 mg-3 mg(2.5 mg base)/3 mL nebulization soln 3 ml INHALATION Q6H ml 03/22/19 [History Confirmed 03/23/19] levetiracetam 500 mg/5 mL (5 mL) oral solution 500 mg PO BID 03/22/19 [History Confirmed 03/23/19] levothyroxine 50 mcg tablet 50 mcg PO DAILY 03/22/19 [History Confirmed 03/23/19] lisinopril 10 mg tablet 10 mg PO DAILY tab 03/22/19 [History Confirmed 03/23/19] lorazepam 1 mg tablet 0.5 mg PO BID tab 03/22/19 [History Confirmed 03/23/19] methotrexate sodium 2.5 mg tablet 10 mg PO QWEEK tab 03/22/19 [History Confirmed 03/23/19] mirtazapine 45 mg disintegrating tablet 45 mg PO QHS 03/22/19 [History Confirmed 03/23/19] multivitamin tablet 1 tab PO DAILY 03/22/19 [History Confirmed 03/23/19] nitroglycerin 0.3 mg sublingual tablet 0.3 mg SUBLINGUAL Q5-15M 03/22/19 [History Confirmed 03/23/19] ondansetron HCl 4 mg/5 mL oral solution 4 mg PO BID PRN ml 03/22/19 [History Confirmed 03/23/19] thiamine HCl (vitamin B1) 100 mg tablet 100 mg PO DAILY 03/22/19 [History Confirmed 03/23/19] urea 40 % topical cream 1 applic TOPICAL BID PRN 03/22/19 [History Confirmed 03/23/19] zinc 50 mg tablet 50 mg PO DAILY 03/22/19 [History Confirmed 03/23/19] zinc oxide 20 % topical ointment 1 applic TOPICAL BID PRN g 03/22/19 [History Confirmed 03/23/19] [facility] Medical History MICHAELA on CPAP (Chronic) Orthopnea (Acute) SHARP (dyspnea on exertion) (Acute) Peripheral artery disease (Chronic) Bilateral lower extremity edema (Acute) Essential hypertension (Chronic) Atherosclerosis of coronary artery of knik heart without angina pectoris (Chronic) COPD (chronic obstructive pulmonary disease) (Chronic) Hyperlipidemia (Chronic) Hypothyroidism (Chronic) Heart failure (Chronic) Diabetes mellitus type 2 in obese (Chronic) CVA (cerebral vascular accident) (Chronic) Chronic pain syndrome (Chronic) Epilepsy (Chronic) Esophageal dysmotility (Chronic) Generalized anxiety disorder (Chronic) Hypoxia (Chronic) Iron deficiency anemia (Chronic) Lumbar disc disease (Chronic) Psoriasis (Chronic) Rheumatoid arthritis (Chronic) Vitamin B12 deficiency (Chronic) Zinc deficiency (Chronic) Arthritis with psoriasis (Chronic) Encephalopathy (Chronic) Non-healing ulcer of upper extremity (Chronic) Pain of right upper arm (Chronic) Swelling of right upper extremity (Chronic) Abscess of right arm (Resolved) Cellulitis right arm (Resolved) Open wound of right upper arm (Resolved) Surgical History History of arthroscopy of both knees (Chronic) History of gastric bypass (Chronic) History of jejunostomy tube placement (Chronic) History of bilateral breast reduction surgery (Resolved) History of bilateral oophorectomies (Resolved) History of carpal tunnel release of both wrists (Resolved) History of incision and drainage (Resolved ~10/12/18) History of open reduction and internal fixation (ORIF) procedure (Resolved) History of total abdominal hysterectomy and bilateral salpingo-oophorectomy (Resolved) History of total thyroidectomy (Resolved) Status post panniculectomy (Resolved) Family History Mother Hypertension Glaucoma Diabetes Cancer breast Father CVA (cerebral vascular accident) Glaucoma Sister Diabetes Cancer leukemia Brother CVA (cerebral vascular accident) Grandmother Cancer breast Sickle cell trait Social History (Updated 03/23/19 @ 14:15 by Mendel Randall MD) Smoking Status: Former smoker how long ago did patient quit smokin years ago alcohol intake: never substance use type: does not use ROS Const Const: Positive for other ( referred for edema, SOB, CAD per cath years ago); negative for fatigue, weakness, body ache, fever(s), headache(s), chills, frequent falls, night sweats, daytime sleepiness, difficulty sleeping, excessive sweating, weight gain, weight loss, increased appetite, poor appetite or anorexia Eyes Eyes: Negative for blind spots, loss of peripheral vision, transient loss of vision, blurry vision, change in vision, double vision, floaters, tunnel vision or other ENT ENT: Negative for headache(s), dizziness, hearing loss, tinnitus, Nosebleed/epistaxis, balance problems, post nasal drip, lip swelling, tongue swelling, bleeding gums, hoarseness, neck pain, dry mouth or other Cardio Chest Pain: Yes (Chest pressure) Frequency: more than once a day (notices more when lying down) Character: squeezing, other (pressure. ) Onset: at rest, exercise Location: mid sternal Duration: minutes Exacerbation: activity, positional Relieving: other (Having head of bed up, also nitroglycerin) Palpitations: Yes (Sometimes) feels like its: fast Edema: Bilateral Muscle aches with walking: None Resp Respiratory: Positive for SOB with activity (just from recliner to bathroom, gets out of breath. Oxygen 3-4 liters.), SOB orthopnea\SOB lying down (has to sleep with head up almost sitting.), Cough (dry cough) and other (clear on auscultation. Uses CPAP with oxygen); negative for SOB at rest, Coughing up blood/hemoptysis, chest congestion, pain on inspiration, snoring, stridor, wheezing, crackles or paroxysmal nocturnal dyspnea GI GI: Positive for Difficulty Swallowing and other (esphogeal dysmoteal and mass at end of esophagus, has tube feed); negative nausea, vomiting, heartburn, constipation, belching, bloating, cramping, vomiting blood/hematemesis, bright, red blood in stools, black,tarry stools or loose stools : Negative for hematuria, frequent nighttime urination/ nocturia, erectile dysfunction or abnormal vaginal bleeding Musc Musc: Negative for muscle aches/ myalgia, muscle weakness, joint pain or balance problems Skin Skin: Negative redness, non-healing lesions, rash, unusual bruising, skin ulcer, wounds, jaundice or other Neuro Neuro: Positive for lightheadedness (once in a great while with position change); negative for dizziness, near syncope, syncope, orthostatic symptoms, frequent falls, headache(s), weakness, confusion, memory loss, restless legs, blurry vision, double vision, vertigo, seizures, lack of coordination or other Herman Hematologic/Lymphatic: Negative for easy bleeding, easy bruising, enlarged lymph nodes or other Endo Endo: Negative for fatigue, cold intolerance, heat intolerance, excessive sweating, flushing, increased thirst/drinking, increased hunger, hair loss, hair growth or other Psych Psych: Negative for anxiety, depression, thoughts of harming anyone, thoughts of harming yourself, visual hallucinations, panic attacks or audible hallucinations Allergy Allergy/Immunology: Negative for throat swelling, Negative for tongue swelling, Negative for hives, Negative for rash, Negative for lip swelling Cardiology Exam Const Appearance: cooperative, healthy appearing and no acute distress Nutritional Appearance: well nourished Orientation: alert, oriented x3 and oriented to person Head Head: normal to inspection, normocephalic and atraumatic Nose: external nose normal Face and Sinus: face symmetric Mouth: oral mucosae normal Eyes General: appearance normal, both eyes and all related structures Eyelids: eyelids normal Conjunctivae: conjunctivae normal Pupils: PERRL and normal by confrontation EOM: EOM intact bilaterally Neck Neck: normal visual inspection and full ROM Carotids: normal carotid upstroke Chest Chest inspection: normal inspection of the chest Auscultation: Bilateral: Clear to Auscultation Cardio Palpation: normal PMI Rate: regular rate Rhythm: regular rhythm Heart sounds: S1 normal and S2 normal GI GI: normal to inspection, no hepatosplenomegaly and bowel sounds present Neuro General: alert, awake, oriented x3, CN's II-XI intact bilaterally and moves all extremities Skin Skin: no rashes or lesions noted Extremities Pulses: Normal: Right Femoral Pulse, Left Femoral Pulse, Right Dorsalis Pedis Pulse, Left Dorsalis Pedis Pulse, Right Posterior Tibial Pulse, Left Posterior Tibial Pulse, Right Radial Pulse, Left Radial Pulse Lower Extremity Edema: None: Bilateral Psych Psychological: normal affect Assessment & Plan 1. Atherosclerosis of coronary artery of knik heart without angina pectoris I25.10 Plan 1. Coronary artery disease: I am concerned that the patient has progressively worsening dyspnea on exertion, shortness of breath, and episodes of chest pain. She apparently had a catheterization many years ago, and was told she had the beginnings of coronary artery disease although we do not have those results in front of us. We will attempt to obtain them however. Given the patient's risk factors, dyspnea on exertion, and difficulty with visualizing her cardiac structures with echocardiograms or imaging, I recommended she undergo a left and right heart catheterization to evaluate her coronary anatomy, coronary atherosclerosis, and determine her pulmonary pressures directly. As she is allergic to aspirin, we will start her on Plavix 75 mg p.o. twice daily in place of aspirin and Plavix. The risks/benefits of the procedure were thoroughly explained the patient, including specific attention to lack of on-site surgical back-up and informed consent was obtained. In addition I recommended that she undergo a 30-day event monitor in order to determine if she has paroxysmal atrial fibrillation to explain her multitude of CVAs in the past. If the patient has evidence of paroxysmal atrial fibrillation not have a low threshold for adding anticoagulation such as Xarelto or Eliquis. Orders Orders: 12 Lead EKG performed by [facility] Today Left & Right Heart Cath 1 Week Basic Metabolic Profile (BMP) Today Chest PA and Lateral Today 2. SHARP (dyspnea on exertion) R06.09 Plan 2. Dyspnea on exertion: The patient is on chronic O2 therapy, and has been diagnosed with COPD although her smoking history has not been that bad. Again we will perform a right heart catheterization and I recommend repeating her 2D echo with Doppler with a Definity contrast agent as this will be the mode of monitoring going forward. Orders Orders: 12 Lead EKG performed by [facility] Today Left & Right Heart Cath 1 Week Basic Metabolic Profile (BMP) Today Chest PA and Lateral Today 3. Hyperlipidemia E78.5 Plan 3. Hyperlipidemia: Her LDL and HDL cholesterol are fairly well-controlled given her risk factors. Continue Lipitor. 4. Return office in 6 months. This note was generated using a voice recognition system and there may be incorrect words, spelling or punctuation that were not noted when reviewing the office note prior to saving. Orders Orders: Basic Metabolic Profile (BMP) Today Plan Detail Other Orders Orders: Left & Right Heart Cath 1 Week G47.33, I10, I73.9, Z99.89 Basic Metabolic Profile (BMP) Today I73.9, R60.0 Lipid Profile 1 Week E78.00 Liver Profile 1 Week E78.00 Prothrombin Time w/INR Today I73.9 Echo Complete Today G47.33, Z99.89 CBC W/Diff, Automated Today G47.33, Z99.89 30 Day Event Recorder Hook-Up Today I63.9, I73.9 Follow Up +6M (Prakash) Coding Level of Care Code Off vis,new,level 4 Diagnoses Atherosclerosis of coronary artery of knik heart without angina pectoris I25.10 SHARP (dyspnea on exertion) R06.09 Hyperlipidemia E78.5 Coding Level of Care Code Off vis,new,level 4 Diagnoses Atherosclerosis of coronary artery of knik heart without angina pectoris I25.10 SHARP (dyspnea on exertion) R06.09 Hyperlipidemia E78.5 Supplemental Info Supplemental Information Labs LDL Cholesterol 40 mg/dL (0-130) 12/01/17 HDL Cholesterol 62 mg/dL (40-) 12/01/17 Triglycerides 106 mg/dL (-199) 12/01/17 VLDL Cholesterol 21 mg/dL (5-40) 12/01/17 Diagnostics Electrocardiogram 10/11/18 Echocardiogram 11/05/17 Chest X-Ray 11/06/17 Venous Doppler Study 11/25/18 03/23/19 1415<Electronically signed by Mendel Randall MD> Date Mendel Randall MD Cosigner Signature:Date (if applicable) CC: Nicko Uribe MD ~ Attending addendum: Patient seen and examined on the day of procedure, and no interim changes noted. We will proceed with left and right heart catheterization as scheduled to evaluate her coronary arteries and right heart pressures directly given her obstructive sleep apnea and O2 requirements. This note was generated using a voice recognition system and there may be incorrect words, spelling or punctuation that were not noted when reviewing the office note prior to saving.
== END 2019-04-07 15:19 | disposition home or self-care (01) ==
LOC: CLSP 07:45
PROVIDERS: Family Provider Family Medicine; PCP Family Medicine; Referring Provider Internal Medicine Cardiovascular Disease; Visit Provider Internal Medicine Cardiovascular Disease
DX: I25.10 Atherosclerotic heart disease of native coronary artery without angina pectoris (principal); I42.2 Other hypertrophic cardiomyopathy; I11.0 Hypertensive heart disease with heart failure; I50.9 Heart failure, unspecified; E11.51 Type 2 diabetes mellitus with diabetic peripheral angiopathy without gangrene; G47.33 Obstructive sleep apnea (adult) (pediatric); J44.9 Chronic obstructive pulmonary disease, unspecified; E66.01 Morbid (severe) obesity due to excess calories; Z68.42 Body mass index [BMI] 45.0-49.9, adult; E03.9 Hypothyroidism, unspecified; E11.69 Type 2 diabetes mellitus with other specified complication; G89.4 Chronic pain syndrome; G40.909 Epilepsy, unspecified, not intractable, without status epilepticus; M06.9 Rheumatoid arthritis, unspecified; K22.4 Dyskinesia of esophagus; E78.5 Hyperlipidemia, unspecified; F41.1 Generalized anxiety disorder; M51.9 Unspecified thoracic, thoracolumbar and lumbosacral intervertebral disc disorder; D50.9 Iron deficiency anemia, unspecified; L40.50 Arthropathic psoriasis, unspecified; Z86.73 Personal history of transient ischemic attack (TIA), and cerebral infarction without residual deficits; Z93.1 Gastrostomy status; Z98.84 Bariatric surgery status; Z99.81 Dependence on supplemental oxygen; Z79.899 Other long term (current) drug therapy; Z87.891 Personal history of nicotine dependence
CPT/HCPCS: 82803; 93460; 99152; 99153; J7040; Q9967; C1751; C1769; C1894; J3490

== ENCOUNTER → 2019-07-19 12:19 | Outpatient (CLI) | payer MEDICARE, SELFPAY ==
[2019-07-05 15:20] VITALS: BMI 47.2
--- NOTE | 2019-07-19 12:21 | CT_ITS ---
STUDY: LEFT WRIST CT SCAN REASON FOR EXAM: Female, 59 years old. Fall. Suspected fracture. RADIATION DOSAGE (If Supplied By Facility): CTDIvol = ( 24.58 ) mGy, DLP = ( 517.58 ) mGycm. Individualized dose optimization techniques were used for this CT.? TECHNIQUE: Axial multidetector CT scan of the left wrist. Coronal and sagittal reformatted images. COMPARISON: None. FINDINGS: Acute nondisplaced distal radius fracture (sagittal image 42 series 602). No dislocation. No bone destruction. Remainder of the osseous structures intact. Mild ulnar negative variance. Minimal carpometacarpal joint arthrosis predominating at the first digit. Mild first interphalangeal joint arthrosis. Mild soft tissue swelling at the wrist. CT/Extremity Upper without Contra IMPRESSION: Acute nondisplaced distal radius fracture Minimal degenerative features Mild swelling Electronically Signed: Akash Gloria DO at 8:41 EST Tel , Service support ,
== END ==
PROVIDERS: Family Provider Family Medicine; PCP Family Medicine; Referring Provider Physician Assistant Surgical; Visit Provider Physician Assistant Surgical
DX: S63.592D Other specified sprain of left wrist, subsequent encounter (principal)
CPT/HCPCS: 73200

== ENCOUNTER 2019-08-10 08:00 | Day surgery (SDC) | payer MEDICARE, SELFPAY ==
[2019-07-05 15:20] VITALS: BMI 47.2
[2019-08-10 08:23] VITALS: BP 163/91; PULSE 99; RESP 16; TEMP 36.9; O2SAT 100; BMI 50.9
[2019-08-10 08:31] LABS: Bedside Glucose 110 mg/dL (70-110)
--- NOTE | 2019-08-10 08:35 | HP.PCM_ITS ---
Problem List (1) Rectal bleeding Status: Acute History and Physical Date of Admission: 08/10/19 Intake Visit Reasons: cscope, recent heart cath, oxygen dependent Chief Complaint: wound right upper arm Content Assistant Required: No Is patient in pain?: No Allergies Fish Containing Products Allergy (Severe, Verified 07/05/19 15:31) hives, swellimg aspirin Allergy (Verified 07/05/19 15:31) Shortness of breath Penicillins [PCN] Allergy (Verified 07/05/19 15:31) Shortness of breath Medications Esomeprazole Magnesium 40 mg PO BID 11/05/17 [History Confirmed 07/05/19] Potassium Chloride [Klor-Con M20] 2 tab PO TID 11/05/17 [History Confirmed 07/05/19] Torsemide [Demadex] 20 mg PO BID 11/05/17 [History Confirmed 07/05/19] cycloBENZAPRine HCl [Flexeril] 10 mg PO BID 11/05/17 [History Confirmed 07/05/19] Betamethasone Dipropionate 1 dose TOPICAL BID 10/11/18 [History Confirmed 07/05/19] Hydroxychloroquine [Plaquenil] 200 mg PO BIDCM 10/11/18 [History Confirmed 07/05/19] Lactose-Reduced Food/Fiber [Isosource 1.5 King Tube Feed Lq] 45 ml JT CONT 10/11/18 [History Confirmed 07/05/19] Polyethylene Glycol 3350 [Miralax] 17 gm PO BID 10/11/18 [History Confirmed 07/05/19] Risperidone [Risperidone Odt] 0.5 mg PO QHS 10/11/18 [History Confirmed 07/05/19] Sumatriptan [Imitrex] 5 mg NS .X1 PRN PRN 10/11/18 [History Confirmed 07/05/19] Melatonin 3 mg PO QHS PRN #20 tab 10/14/18 [Rx Confirmed 07/05/19] adalimumab 40 mg/0.4 mL subcutaneous pen kit 40 mg SC Q2W ea 03/22/19 [History Confirmed 07/05/19] albuterol sulfate HFA 90 mcg/actuation aerosol inhaler 2 puff INHALATION DAILY PRN g 03/22/19 [History Confirmed 07/05/19] calcium carbonate-vitamin D3 600 mg(1,500 mg)-400 unit chewable tablet 1 tab PO DAILY tab 03/22/19 [History Confirmed 07/05/19] calcium citrate 200 mg (950 mg) tablet 200 mg PO BID tab 03/22/19 [History Confirmed 07/05/19] chlorhexidine gluconate 4 % topical liquid 1 applic TOPICAL DAILY ml 03/22/19 [History Confirmed 07/05/19] cyanocobalamin (vit B-12) 1,000 mcg/mL injection kit 1,000 mcg IM Q2W ea 03/22/19 [History Confirmed 07/05/19] ergocalciferol (vitamin D2) 50,000 unit capsule 50,000 unit PO DAILY cap 03/22/19 [History Confirmed 07/05/19] ferrous sulfate 220 mg (44 mg iron)/5 mL oral elixir 286 mg PO TID ml 03/22/19 [History Confirmed 07/05/19] fluticasone 500 mcg-salmeterol 50 mcg/dose blistr powdr for inhalation 1 ea INHALATION BID ea 03/22/19 [History Confirmed 07/05/19] folic acid 1 mg tablet 1 mg PO DAILY 03/22/19 [History Confirmed 07/05/19] gabapentin 100 mg capsule 300 mg PO TID cap 03/22/19 [History Confirmed 07/05/19] hydrocodone 5 mg-acetaminophen 325 mg tablet 1 tab PO BID-TID PRN tab 03/22/19 [History Confirmed 07/05/19] ipratropium-albuterol 0.5 mg-3 mg(2.5 mg base)/3 mL nebulization soln 3 ml INHALATION Q6H ml 03/22/19 [History Confirmed 07/05/19] levetiracetam 500 mg/5 mL (5 mL) oral solution 500 mg PO BID 03/22/19 [History Confirmed 07/05/19] levothyroxine 50 mcg tablet 50 mcg PO DAILY 03/22/19 [History Confirmed 07/05/19] lorazepam 1 mg tablet 0.5 mg PO BID tab 03/22/19 [History Confirmed 07/05/19] methotrexate sodium 2.5 mg tablet 10 mg PO QWEEK tab 03/22/19 [History Confirmed 07/05/19] mirtazapine 45 mg disintegrating tablet 45 mg PO QHS 03/22/19 [History Confirmed 07/05/19] multivitamin tablet 1 tab PO DAILY 03/22/19 [History Confirmed 07/05/19] nitroglycerin 0.3 mg sublingual tablet 0.3 mg SUBLINGUAL Q5-15M 03/22/19 [History Confirmed 07/05/19] ondansetron HCl 4 mg/5 mL oral solution 4 mg PO BID PRN ml 03/22/19 [History Confirmed 07/05/19] thiamine HCl (vitamin B1) 100 mg tablet 100 mg PO DAILY 03/22/19 [History Confirmed 07/05/19] urea 40 % topical cream 1 applic TOPICAL BID PRN 03/22/19 [History Confirmed 07/05/19] zinc 50 mg tablet 50 mg PO DAILY 03/22/19 [History Confirmed 07/05/19] zinc oxide 20 % topical ointment 1 applic TOPICAL BID PRN g 03/22/19 [History Confirmed 07/05/19] clopidogrel 75 mg tablet 75 mg PO DAILY #90 tab 04/07/19 [Rx Confirmed 07/05/19] verapamil ER 240 mg 24 hr capsule,extended release 240 mg PO DAILY #30 cap 06/18/19 [Rx Confirmed 07/05/19] atorvastatin 40 mg tablet 80 mg PO QHS tab 07/05/19 [History Confirmed 07/05/19] lisinopril 10 mg tablet 20 mg PO DAILY tab 07/05/19 [History Confirmed 07/05/19] [facility] Medical History Near syncope (Acute) MICHAELA on CPAP (Chronic) Orthopnea (Acute) SHARP (dyspnea on exertion) (Acute) Peripheral artery disease (Chronic) Bilateral lower extremity edema (Acute) Essential hypertension (Chronic) Atherosclerosis of coronary artery of cabazon heart without angina pectoris (Chronic) COPD (chronic obstructive pulmonary disease) (Chronic) Hyperlipidemia (Chronic) Hypothyroidism (Chronic) Heart failure (Chronic) Diabetes mellitus type 2 in obese (Chronic) CVA (cerebral vascular accident) (Chronic) Arthritis with psoriasis (Chronic) Chronic pain syndrome (Chronic) Encephalopathy (Chronic) Epilepsy (Chronic) Esophageal dysmotility (Chronic) Generalized anxiety disorder (Chronic) Hypoxia (Chronic) Iron deficiency anemia (Chronic) Lumbar disc disease (Chronic) Non-healing ulcer of upper extremity (Chronic) Pain of right upper arm (Chronic) Psoriasis (Chronic) Rheumatoid arthritis (Chronic) Swelling of right upper extremity (Chronic) Vitamin B12 deficiency (Chronic) Zinc deficiency (Chronic) Abscess of right arm (Resolved) Cellulitis right arm (Resolved) Open wound of right upper arm (Resolved) Surgical History History of right and left heart catheterization (LHC) (Chronic 04/07/19) History of arthroscopy of both knees (Chronic) History of gastric bypass (Chronic) History of jejunostomy tube placement (Chronic) History of bilateral breast reduction surgery (Resolved) History of bilateral oophorectomies (Resolved) History of carpal tunnel release of both wrists (Resolved) History of incision and drainage (Resolved ~10/12/18) History of open reduction and internal fixation (ORIF) procedure (Resolved) History of total abdominal hysterectomy and bilateral salpingo-oophorectomy (Resolved) History of total thyroidectomy (Resolved) Status post panniculectomy (Resolved) Family History Mother Hypertension Glaucoma Diabetes Cancer breast Bleeding disorder Heart disease Seizures CVA (cerebral vascular accident) Father CVA (cerebral vascular accident) Glaucoma Colon cancer Arthritis Diabetes Heart disease Hypertension Sister Diabetes Cancer leukemia Hypertension Brother CVA (cerebral vascular accident) Hypertension Grandmother Cancer breast Sickle cell trait Social History (Updated 07/05/19 @ 16:19 by Rojelio Lucio MD) Smoking Status: Former smoker how long ago did patient quit smokin years ago alcohol intake: never substance use type: does not use caffeine: Yes what type of physical activity do you participate in: walking, aerobics, weight training frequency: 3-4 times per week HPI HPI HPI: VLADIMIR DUNBAR, is a 59 F who presents to the office today for HPI HPI HPI: VLADIMIR DUNBAR, is a 59 F who presents to the office today for surgical consultation regarding surveillance colonoscopy. The patient is referred by her primary care is a Dr. Nicko Uribe and a written compromise surgical consult recommendations will be returned to him. She is a rather complex 59-year-old -[place] female. Within the past month she has had some intermittent painless bright red rectal bleeding seen on the tissue paper and around but not in the stool. She has a family history with a father who had colon cancer. She herself has esophageal dysphasia with a obstructive in the distal esophagus requiring intermittent Botox treatment. She is fed via a jejunostomy tube. Current body habitus is a body weight of 322 pounds with a BMI of 47.2. She had a cardiac catheterization per Dr. Mendel Randall April 07, 2019. By report her coronary arteries were felt to be normal. She has hypertrophic cardiomyopathy. She has obstructive sleep apnea and is on chronic oxygen and CPAP. Her most recent colonoscopy was per Dr. Wilson Adler. This was performed November 29, 2014. According to the patient she underwent one set of bowel prep with no results and then the second day underwent another set of bowel prep with still an inefficient result. The colonoscopy report says that 30% of the colon was unseen. Since that time the patient has had esophageal swallowing problems now completely dependent upon her jejunostomy feeding tube. In no way for which she will be able to swallow fluid to the extent required for any type of bowel prep. She denies abdominal pain ROS General General: Yes weight change and fatigue; no appetite, colon cancer or breast cancer HEENT HEENT: Yes difficulty swallowing and swollen glands; no eye injury, eye surgery or hoarseness Endo Endocrine: Yes thyroid disease and diabetes mellitus; no thyroid cancer, Hair loss, heat intolerance or cold intolerance Skin Skin: Yes rash; no changing moles Musc Musculoskeletal: Yes back problems, arthritis and rheumatoid arthritis; no gout or joint pain Cardio Cardiovascular: Yes heart disease and high blood pressure; no murmur, pacemaker, atrial fibrillation, heart attack, heart stent, palpitations, shortness of breat with exertion or chest pain Psych Psychiatric: Yes depression and anxiety; no hearing voices Gastro Gastrointestinal: No abdominal pain, Yes nausea or vomiting, Yes diarrhea, Yes constipation, Yes blood in stool, Yes acid reflux, No hemorrhoids, No ulcers, No gallbladder problem, No black,tarry stools Herman Hematologic: Yes blood thinners, No blood disorders, Yes bleeding, Yes anemia, No blood clots Exam Const General: cooperative, no acute distress Nutritional Appearance: obese morbidly obese Orientation: alert, awake, oriented x3 HENMT Other: Nasal prong oxygen in place Chest Other: Notably increased anterior posterior diameter, kyphosis Resp Other: Poor respiratory description with bibasilar dry rales Cardio Rate: regular rate Rhythm: regular rhythm Heart Sounds: no murmurs GI Other: Overweight, I am not able to perform any type of clinical exam, jejunostomy tube left upper quadrant Neuro Cognition: normal cognition Extrem Other: Chronic nonpitting bilateral lower extremity edema Psych Affect: normal affect Assessment & Plan Problems 1. Family history of colon cancer in father Z80.0 2. Rectal bleeding K62.5 Plan 59-year-old female who was restarted on clopidogrel April 07, 2019. By report this is not for cardiac disease but rather for previous history of TIA. The patient does not have a ongoing neurologist to assist with prescription renewal so at the moment it was being performed by Dr. Mendel Randall. Over the past m onth she has had new onset of asymptomatic rectal bleeding. She has a family history of colon cancer in her father. She is esophageal swallowing problems sounds like achalasia requiring intermittent Botox injections. Because of this she has a chronic jejunostomy tube in place. To complicate matters worse in 2014 when she was still able to swallow she was not able to get an efficient bowel prep to allow for visualization of the colon. She is on chronic oxygen therapy and has sleep apnea. She clearly is at higher interventional risk. I proposed for her and attempted a colonoscopy with possible biopsy or polypectomy as indicated. Very careful inspection for potential source for bright red rectal bleeding will be pursued. As the patient has a jejunostomy tube in place will recommend 4 L of PEG a H solution on day 1 in the same repeat 4 L on day tube through her adjacent ostomy tube. She will hold her clopidogrel 1 day preintervention. She is aware of the technique, benefits, risks, alternatives. We clearly will utilize monitored anesthesia care to assist. She has had an opportunity to ask and have questions answered. We will schedule and proceed at her discretion. I appreciate the opportunity of assisting with her surgical care CC: Dr. Nicko Uribe and Dr. Mendel Lucio M.D., F.A.C.S. Coding Level of Care Code 75340 Diagnoses Family history of colon cancer in father Z80.0 Rectal bleeding K62.5 The patient had additional mag citrate recommended because of lack of deficiency despite a 2-day bowel prep. She now reports that her bowels are running clean. We will attempt to proceed with a colonoscopy with possible biopsy or polypectomy is indicated. Rojelio Lcuio M.D., F.A.C.S.
[2019-08-10] MEDS: Lactated Ringers 1,000 ML 100 ML IV (08:41)
[2019-08-10 09:40] VITALS: BP 131/76; BP 163/91; PULSE 92; RESP 18; TEMP 37.4; O2SAT 97
[2019-08-10 09:45] VITALS: BP 138/81; BP 163/91; PULSE 94; RESP 18; O2SAT 98
[2019-08-10 09:50] VITALS: BP 154/92; BP 163/91; PULSE 90; RESP 18; O2SAT 100
--- NOTE | 2019-08-10 09:50 | OP.COLON_ITS ---
Patient Name: Anabelle Lindo Procedure Date: 08/10/2019 9:06 AM Date of : 1960 Age: 59 Procedure: Colonoscopy Indications: Rectal bleeding Providers: Rojelio Lucio MD Referring MD: Nicko Uribe MD Medicines: See the Anesthesia note for documentation of the administered medications Patient Profile: Last Colonoscopy: November 2014. Complications: No immediate complications. Procedure: Pre-Anesthesia Assessment: - Prior to the procedure, a History and Physical was performed, and patient medications and allergies were reviewed. The patient's tolerance of previous anesthesia was also reviewed. The risks and benefits of the procedure and the sedation options and risks were discussed with the patient. All questions were answered, and informed consent was obtained. Prior Anticoagulants: The patient has taken Plavix (clopidogrel), last dose was 1 day prior to procedure. ASA Grade Assessment: III - A patient with severe systemic disease. After reviewing the risks and benefits, the patient was deemed in satisfactory condition to undergo the procedure. After I obtained informed consent, the scope was passed under direct vision. Throughout the procedure, the patient's blood pressure, pulse, and oxygen saturations were monitored continuously. The adult colonoscope was introduced through the anus and advanced to the cecum, identified by appendiceal orifice and ileocecal valve. The colonoscopy was performed without difficulty. The patient tolerated the procedure well. The quality of the bowel preparation was good. The ileocecal valve and the appendiceal orifice were photographed. Scope In: 9:19:08 AM Scope Withdrawal Time 0 hours 10 minutes 46 seconds Scope Out: 9:37:06 AM Total Procedure Duration Time 0 hours 17 minutes 58 seconds Findings: Hemorrhoids were found on perianal exam. Scattered diverticula were found in the sigmoid colon. The exam was otherwise without abnormality. Impression: - Hemorrhoids found on perianal exam. - Diverticulosis in the sigmoid colon. - The examination was otherwise normal. - No specimens collected. I suspect the patient's anticoagulation on clopidogrel and internal hemorrhoids are source of rare intermittent rectal bleeding. Conservative treatment recommended. Operative treatment not recommended at this time. Recommendation: - Discharge patient to home. - Resume previous diet. - Continue present medications. - Repeat colonoscopy in 10 years for screening purposes. Procedure Code(s): --- Professional --- 19020, Colonoscopy, flexible; diagnostic, including collection of specimen(s) by brushing or washing, when performed (separate procedure) Diagnosis Code(s): --- Professional --- K64.9, Unspecified hemorrhoids K62.5, Hemorrhage of anus and rectum K57.30, Diverticulosis of large intestine without perforation or abscess without bleeding CPT copyright 2017 [employer]. All rights reserved. The codes documented in this report are preliminary and upon investment strategist review may be revised to meet current compliance requirements. Rojelio Lucio MD 08/10/2019 9:50:27 AM This report has been signed electronically. Number of Addenda: 0 Note Initiated On: 08/10/2019 9:06 AM
[2019-08-10 09:55] VITALS: BP 161/97; BP 163/91; PULSE 89; RESP 18; TEMP 36.3; O2SAT 100
[2019-08-10 10:33] VITALS: BP 163/91
== END 2019-08-10 10:35 | disposition home or self-care (01) ==
LOC: EN 08:02 → AC 08:02
PROVIDERS: Family Provider Family Medicine; PCP Family Medicine; Referring Provider Family Medicine; Visit Provider Surgery
PROC: 0DJD8ZZ Inspection of Lower Intestinal Tract, Via Natural or Artificial Opening Endoscopic (ICD-10-PCS; CPT 45378; principal; 2019-08-10 08:55)
DX: K64.8 Other hemorrhoids (principal); K62.5 Hemorrhage of anus and rectum; K57.30 Diverticulosis of large intestine without perforation or abscess without bleeding; Z79.02 Long term (current) use of antithrombotics/antiplatelets; I25.10 Atherosclerotic heart disease of native coronary artery without angina pectoris; I69.351 Hemiplegia and hemiparesis following cerebral infarction affecting right dominant side; I69.311 Memory deficit following cerebral infarction; I69.328 Other speech and language deficits following cerebral infarction; I42.2 Other hypertrophic cardiomyopathy; I10 Essential (primary) hypertension; J44.9 Chronic obstructive pulmonary disease, unspecified; M51.36 Other intervertebral disc degeneration, lumbar region; G89.29 Other chronic pain; K21.9 Gastro-esophageal reflux disease without esophagitis; E78.00 Pure hypercholesterolemia, unspecified; D64.9 Anemia, unspecified; E11.9 Type 2 diabetes mellitus without complications; F32.9 Major depressive disorder, single episode, unspecified; F41.9 Anxiety disorder, unspecified; E06.9 Thyroiditis, unspecified; M06.9 Rheumatoid arthritis, unspecified; G47.33 Obstructive sleep apnea (adult) (pediatric); Z99.81 Dependence on supplemental oxygen; Z79.899 Other long term (current) drug therapy; Z87.891 Personal history of nicotine dependence
CPT/HCPCS: 45378; 82962; J7120; J2405

== ENCOUNTER 2019-09-07 14:04 | Outpatient (RCR) | payer MEDICARE, MEDICAID, SELFPAY ==
--- NOTE | 2019-09-07 15:47 | HP.OTEVAL ---
Patient's Visit Information VLADIMIR DUNBAR is a 59 year old F, referred to Occupational Therapy by Nicko Uribe MD, with a diagnosis of LE lymphedema. Date of Evaluation: 09/07/19 Occupational Therapist: GURPREET Mayfield/Carol, CHT - Subjective Subjective: This 59 year old female was seen for OT eval with dx of lymphedema . Pt states she had swelling initiated in the last week of December. PT states she did get a pair of thigh high compression hose but has not been able to get them on pt states she was dx with lymphedema in 2004 and with a change in heart medication pt was able to mtg her swelling. Pt has multiple medical conditions that will affect lyphatic flow. - Pain BLE 8 Pain Intensity Range: 3, 8 - Lymphedema (Circumferential Measure) Mid-foot: right 25cm left 25cm Ankle: right 27cm left 28cm Lower calf: right 27.5cm left 27.5cm Largest calf: right 45cm left 43cm Below knee: right 43cm left 42cm Above knee: right 55cm left 56cm - Lower Limb Functional Index Lower Extremity Functional Score: 21 - Goals Demonstrate a 20% reduction in edema by d/c: Yes Demonstrate adequate knowledge skin care/prec by 2nd week: Yes Demonstrate adequate knowledge therapeutic exercises by d/c: Yes Select approp compression garment w/donning/care/wear by d/c: Yes Voice need to replace compression garment every 4-6mo by dc: Yes - Rehabilitation General Assessment: pt demo with LE edema- skin tight and painful- this is limiting pts ability to ambulate, lift her legs or bend her legs. Pt would benefit from skilled OT services 2-3 visits to ensure pt is ed.on mtg her lymphedema. Due to inability to magdiel compression socks therapist is red'c velcro closure device. pt was receptive and going to check at [facility] to see if she could get them there. Therapist ed. pt on lymph stim ex and skin care and given handout- pt demo understanding. Therapist rec'd wrapping LE at night to see if this would assist in decreasing pts fluid and then use compression socks during the day. pt is receptive and will reports she will try this when she has help with wrapping. PT is to return with velcro compression garments for therapist to ensure proper fit and review HEP. pt demo understanding and agree to POC. Rehabilitation Potential: Questionable - Anticipated Interventions Anticipated Interventions: Education re Life-long lymphedema Management, Education re Self-Bandaging Techniques, Education re Skin Care and Precautions, Education re Correct Donning Tech,Care&Wearing Sched Comp Garments, Home Program - Visit Plan TEXT: Thank you for the opportunity to evaluate your patient. For Medicare and Medicare HMO plans, please review the plan of care and approve it. It will need to be FAXED BACK to us at [phone] for Medicare purposes. Please let me know if there are questions or concerns regarding this plan of care. Physician Signature: Date:
--- NOTE | 2019-12-18 09:18 | HP.OT.NRP ---
VLADIMIR DUNBAR was seen in my office for initial evaluation on 09/07/19. The following Plan of Care was established for this patient: Anticipated Interventions: Education re Life-long lymphedema Management, Education re Self-Bandaging Techniques, Education re Skin Care and Precautions, Education re Correct Donning Tech,Care&Wearing Sched Comp Garments, Home Program This patient was last seen in our office 09/07/19. Pertinent comments regarding their Occupational therapy will appear below: Pt was seen for OT eval only and due to time lapse in services pt is d/c at this time. At this point I will be discontinuing this patient from occupational therapy. I would be happy to see this patient again in the future if found appropriate by the physician. Thank you! Amarilis Barth, OTR/L, CHT
== END 2019-09-07 19:00 | disposition home or self-care (01) ==
LOC: OT 14:04
PROVIDERS: PCP Family Medicine; Referring Provider Family Medicine; Visit Provider Family Medicine
DX: R60.0 Localized edema (principal); M79.604 Pain in right leg
CPT/HCPCS: 97110; 97166; 97530

== ENCOUNTER → 2020-11-30 15:04 | Outpatient (CLI) | payer MEDICARE, MEDICAID, SELFPAY ==
[2020-11-16 14:02] VITALS: BMI 45.9
--- NOTE | 2020-11-30 15:06 | ECHOCS_ITS ---
Reason For Study: CARDIOMYOPATHY Procedure This was a 2D Doppler, Color Flow transthoracic echocardiogram. The study was technically difficult. Contrast injection was performed. Exam performed in department. Left Ventricle Normal LV size. Left ventricular systolic function is normal. The estimated ejection fraction is 65 %. Diastolic function is indeterminate. No regional wall motion abnormalities noted. Right Ventricle Based upon the 2D echocardiographic images obtained there appears to be grossly normal right ventricular size and systolic function. Atria The left atrium is not well visualized. The right atrium is not well visualized. No doppler evidence for ASD. Mitral Valve There is no mitral annular calcification. Normal mitral valve. Tricuspid Valve The tricuspid valve is not well visualized. Unable to estimate RV systolic pressure/pulmonary artery pressure due to technically difficult study. Aortic Valve The aortic valve is not well visualized. Pulmonic Valve The pulmonic valve is not well visualized. Great Vessels Normal sized aortic root. Pericardium/Pleural No pericardial effusion. Medication 20 gauge I.V. with prn adaptor inserted into right arm. Diluted definity 4.5ml given slow IV push to enhance endocardial definition. MMode/2D Measurements & Calculations RVDd: 3.6 cm Ao root diam: 3.4 cm LAV(MOD-sp4): 49.5 ml LA A4 area: 18.9 cm2 LA dimension(2D): 3.5 cm Time Measurements MV dec time: 0.29 sec Doppler Measurements & Calculations MV E max marcel: 57.7 cm/sec Lat Peak E' Marcel: 8.3 cm/sec Med Peak E' Marcel: 11.3 cm/sec MV A max marcel: 66.7 cm/sec E/E' lat: 7.0 E/E' med: 5.1 MV E/A: 0.86 Ao V2 max: 95.7 cm/sec LV V1 max: 83.4 cm/sec PA V2 max: 79.7 cm/sec Ao max P.7 mmHg LV V1 max P.8 mmHg TR max P.4 mmHg ECHO/Echo Complete W/ Contrast Interpretation Summary The study was technically difficult. Contrast injection was performed. Left ventricular systolic function is normal. The estimated ejection fraction is 65 %. Unable to estimate RV systolic pressure/pulmonary artery pressure due to techni bebeto difficult study. Diastolic function is indeterminate. Ordering Physician: Franklyn Castillo Referring Physician: KENYETTA BRADFORD Performed By: Daniela Lainez, NANCY, RVT
== END ==
PROVIDERS: PCP Family Medicine; Referring Provider Internal Medicine Cardiovascular Disease; Visit Provider Internal Medicine Cardiovascular Disease
DX: I42.9 Cardiomyopathy, unspecified (principal); I25.10 Atherosclerotic heart disease of native coronary artery without angina pectoris; I42.2 Other hypertrophic cardiomyopathy; E78.5 Hyperlipidemia, unspecified; I10 Essential (primary) hypertension
CPT/HCPCS: 93306; Q9957; A4216; C8929

== ENCOUNTER 2021-10-02 08:38 | Outpatient (RCR) | payer MEDICARE, MEDICAID, SELFPAY ==
--- NOTE | 2021-10-04 09:06 | HP.OTEVAL_ITS ---
Patient's Visit Information VLADIMIR DUNBAR is a 61 year old F, referred to Occupational Therapy by ALEXSANDER NICHOLAS, with a diagnosis of lymphedema. Date of Evaluation: 10/02/21 Occupational Therapist: Amarilis Barth, GURPREET/Carol, CHT - Subjective This 61 year old female was seen for OT eval with dx of LE lymphedema. pt states she has had swelling more severe in the last year. pt states she has tried different compression socks- and due to increase in limb size pt has had to cut her socks off- - pt states she sleeps in a hospital bed- and sits with her legs- pt states her compression socks are 20-30mmHg. pt states she started having difficulty with balance due to her feet swelling and feeling like she is walking on a ball on the bottom of her foot. - Lymphedema (Circumferential Measure) Mid-foot: right 26cm left 26cm Ankle: right 31cm left 30.5cm Lower calf: right 27cm left 28cm Largest calf: right 42cm left 43cm Below knee: right 41cm left 40 Above knee: right 50cm left 51cm Mid-thigh: right 58cm left 59cm - Lower Limb Functional Index Lower Extremity Functional Score: 15 - Goals Demonstrate a 20% reduction in edema by d/c: Yes Demonstrate adequate knowledge of self-massage by 2nd week: Yes Demonstrate adequate knowledge skin care/prec by 2nd week: Yes Demonstrate adequate knowledge therapeutic exercises by d/c: Yes Select approp compression garment w/donning/care/wear by d/c: Yes Voice need to replace compression garment every 4-6mo by dc: Yes Goal:: use of velcro closure device - Rehabilitation General Assessment: pt demo with LE edema- skin tight and painful- this is limiting pts ability to ambulate, lift her legs or bend her legs. Pt would benefit from skilled OT services 2-3 visits to ensure pt is ed.on mtg her lymphedema. Due to inability to magdiel compression socks therapist is red'c velcro closure device that includes her foot- (handout was given to pt) Therapist is rec'd legging to assist with thigh and abdomen fluid circulation- and use compression velcro closure device (below knee with foot piece) pt was receptive to this- therapist rec. light compression for legging so pt could don/doff ind. pt was receptive and going to check at [facility] to see if she could get them there. Therapist ed. pt on lymph stim ex and skin care and given handout- pt demo understanding. Therapist rec'd wrapping LE at night to see if this would assist in decreasing pts fluid and or soften pts fluid and then use compression socks during the day. pt is receptive and will reports she will try this when she has help with wrapping. Pt is to return with velcro compression garments for therapist to ensure proper fit and review HEP. pt demo understanding and agree to POC. Rehabilitation Potential: Questionable - Anticipated Interventions Manual Lymph Drainage, Education re Life-long lymphedema Management, Education re Self-Bandaging Techniques, Education re Skin Care and Precautions, Education re Self Massage Techniques, Education re Correct Donning Tech,Care&Wearing Sched Comp Garments, Home Program - Visit Plan TEXT: Thank you for the opportunity to evaluate your patient. For Medicare and Medicare HMO plans, please review the plan of care and approve it. It will need to be FAXED BACK to us at [phone] for Medicare purposes. Please let me know if there are questions or concerns regarding this plan of care. Physician Signature: Date:
== END 2021-10-02 19:00 | disposition home or self-care (01) ==
LOC: OT 08:38
PROVIDERS: PCP Family Medicine
DX: I89.0 Lymphedema, not elsewhere classified (principal); I87.2 Venous insufficiency (chronic) (peripheral)
CPT/HCPCS: 97166

== ENCOUNTER 2021-10-18 17:51 | Outpatient (CLI) | payer MEDICARE, MEDICAID, SELFPAY ==
[2021-10-18 18:39] LABS: Anion Gap 3 (5-15); BUN 7 mg/dL (7-18); BUN/Creat Ratio 10.5 RATIO (10-20); Chloride 105 mmol/L (98-107); Creatinine, Serum 0.67 mg/dL (0.55-1.02); EST Glomerular Filtration Rate 95 mL/min (>60); Est Glom Filt Rate - Afr Amer 115 mL/min (>60); Glucose 82 mg/dL (74-106); Potassium 3.8 mmol/L (3.5-5.1); Sodium Level 142 mmol/L (136-145)
== END 2021-10-18 23:59 | disposition home or self-care (01) ==
PROVIDERS: PCP Family Medicine; Visit Provider Nurse Practitioner Gerontology
DX: I10 Essential (primary) hypertension (principal)
CPT/HCPCS: 80048

== ENCOUNTER 2021-11-16 08:56 | Outpatient (CLI) | payer MEDICARE, MEDICAID, SELFPAY ==
[2021-12-01 16:08] LABS: Aldosterone, Serum 7.1 ng/dL (0.0-30.0)
[2021-12-02 20:19] LABS: Renin, Plasma 0.181 ng/mL/hr (0.167-5.380)
== END 2021-11-16 23:59 | disposition home or self-care (01) ==
PROVIDERS: PCP Family Medicine; Referring Provider Nurse Practitioner Gerontology; Visit Provider Nurse Practitioner Gerontology
DX: I10 Essential (primary) hypertension (principal); R03.0 Elevated blood-pressure reading, without diagnosis of hypertension
CPT/HCPCS: 36415; 82088; 84244; 93788

== ENCOUNTER 2021-11-29 07:30 | Outpatient (CLI) | payer MEDICARE, MEDICAID, SELFPAY ==
--- NOTE | 2021-11-29 07:34 | RDU_ITS ---
Reason For Study: HTN Right Renal Artery Left Renal Artery Right renal artery ostium Left renal artery ostium 132.6/23.8 112.0/26.4 RSV/EDV. PSV/EDV. Right renal artery proximal Left renal artery proximal PSV/EDV 158.6/34.2 PSV/EDV. 114.5/29.0 . Right renal artery mid 134.2/31.1 Left renal artery mid 122.2/26.4 PSV/EDV. PSV/EDV . Right renal artery distal 85.9/20.2 Left renal artery distal 106.7/21.2 PSV/EDV. PSV/EDV. Right Renal Parenchyma Left Renal Parenchyma Upper Pole Medula 32.0/11.2 Left upper pole medulla 37.8/11.9 PSV/EDV. PSV/EDV . Right upper pole medulla EDR .35 . Left upper pole medulla EDR .32 . Right upper pole medulla R.I. .65 . Left upper pole medulla R.I. .68 . Upper Yoel Cortx 17.8/9.0 PSV/EDV. UP Cortex 30.0/8.0 PSV/EDV. Right upper pole cortex EDR .51 . Left upper pole cortex EDR .27 . Right upper pole cortex R.I. .49 . Left upper pole cortex R.I. .73 . Right lower Pole medulla 30.9/9.0 Left lower Pole medulla 23.6/10.6 PSV/EDV . PSV/EDV . Right lower pole medulla EDR .29 . Left lower pole medulla EDR .45 . Right lower pole medulla R.I. .71 . Left lower pole medulla R.I. .55 . Lower Pole Cortex 14.5/7.9 PSV/EDV. Lower Pole Cortx 31.3/11.9 PSV/EDV. Right lower pole cortex EDR .55 . Left lower pole cortex EDR .38 . Right lower pole cortex R.I. .45 . Left lower pole cortex R.I. .62 . Right Renal Hilar Left Renal Hilar Right Hilar avg 32.0/11.2 PSV/EDV. LT Hilar avg 61.1/11.9 PSV/EDV . Right hilar acceleration time 50 Left hilar acceleration time 30 m/sec. m/sec. Right Renal Dimensions Left Renal Dimensions Right kidney size 11.3 cm . Left kidney size 11.6 cm . Right cortical dimension 1.55 cm . Left cortical dimension 1.65 cm . Aorta Proximal abdominal aorta 1.39 x 1.57 cm . Proximal abdominal aorta peak systolic velocity is 119 cm/sec . Normal renal veins bilat. Difficult study due to pt body habitus and feeding tube. VL/Renal Artery Duplex Ultrasound Interpretation Summary Technically difficult examination secondary to body habitus and feeding tube. P roximal abdominal aorta visualized at 1.39 x 1.57 cm diameter. Flow rate 119 cm second flow. This invalidates renal artery to aortic ratios. Less than 60% stenosis right renal artery. Maintained right renal length of 11.3 cm Less than 60% stenosis left renal artery Maintained left renal length 11.6 cm Ordering Physician: Inocencia Copeland Performed By: Travon Michelle RVT
== END 2021-11-29 23:59 | disposition home or self-care (01) ==
LOC: CVS 07:32
PROVIDERS: PCP Family Medicine; Referring Provider Nurse Practitioner Gerontology; Visit Provider Nurse Practitioner Gerontology
DX: I10 Essential (primary) hypertension (principal)
CPT/HCPCS: 93975

== ENCOUNTER → 2021-12-18 | Outpatient (CLI) | payer MEDICARE, MEDICAID, SELFPAY ==
[2021-12-18 16:50] LABS: Anion Gap 4 (5-15); BNP,B-Type NATRIURETIC PEPTIDE 36.7 pg/mL (0-100); BUN 6 mg/dL (7-18); Calcium,Total 9.1 mg/dL (8.5-10.1); Chloride 106 mmol/L (98-107); Creatinine, Serum 0.67 mg/dL (0.55-1.02); EST Glomerular Filtration Rate 95 mL/min (>60); Est Glom Filt Rate - Afr Amer 115 mL/min (>60); Glucose 98 mg/dL (74-106); Potassium 3.8 mmol/L (3.5-5.1); Sodium Level 140 mmol/L (136-145)
== END | disposition home or self-care (01) ==
PROVIDERS: PCP Family Medicine; Referring Provider Nurse Practitioner Gerontology; Visit Provider Nurse Practitioner Gerontology
DX: R06.09 Other forms of dyspnea (principal)
CPT/HCPCS: 36415; 80048; 83880

== ENCOUNTER → 2022-01-01 | Outpatient (CLI) | payer MEDICARE, MEDICAID, SELFPAY | END | disposition home or self-care (01) | LOC: PSN 13:45 | PROVIDERS: PCP Family Medicine; Visit Provider Nurse Practitioner Gerontology | DX: R00.2 Palpitations (principal) | CPT/HCPCS: 93225; 93226 ==

== ENCOUNTER → 2022-10-22 | Outpatient (CLI) | payer MEDICARE, MEDICAID, SELFPAY ==
--- NOTE | 2022-10-22 13:42 | ART_ITS ---
Reason For Study: PAD Procedure A bilateral lower extremity continuous wave Doppler with analog waveform analysis,segmental pressures,and ankle brachial indexes without exercise. Left Segmental Pressures Left brachial= 166mmHg. Left posterior tibial artery = 191mmHg. Left dorsalis pedis artery = 197mmHg. Left digit = 162 mmHg. The left dorsalis pedis waveforms are triphasic. The left posterior tibial artery waveforms are triphasic. Right Segmental Pressures Right brachial= 165mmHg. Right posterior tibial artery = 211mmHg. Right dorsalis pedis artery = 201mmHg. Right digit = 169 mmHg. The right dorsalis pedis waveforms are triphasic. The right posterior tibial artery waveforms are triphasic. Indices The right ankle brachial index by the dorsalis pedis is 1.21. The right ankle brachial index by the posterior tibial artery is 1.27. The right digital-brachial index is 1.02. The left ankle brachial index by the dorsalis pedis is 1.19. The left ankle brachial index by the posterior tibial artery is 1.15. The left digital-brachial index is .98. VL/Lower Ext Art Exam w/o Exercis Interpretation Summary Right DUNIA 1.27, normal. TBI and Doppler/PVR waveforms of the right leg normal a t rest. Left DUNIA 1.19, normal. TBI and Doppler/PVR waveforms of the left leg normal at rest. Ordering Physician: Inocencia Copeland Performed By: Travon Michelle RVT
== END | disposition home or self-care (01) ==
LOC: CVS 13:39
PROVIDERS: PCP Family Medicine; Referring Provider Nurse Practitioner Gerontology; Visit Provider Nurse Practitioner Gerontology
DX: I73.9 Peripheral vascular disease, unspecified (principal)
CPT/HCPCS: 93923

== ENCOUNTER 2022-12-31 06:41 | Inpatient (IN) | payer MEDICARE, MEDICAID, SELFPAY ==
[2022-12-31] VITALS (8 sets, daily range): BP systolic 141–180; BP diastolic 80–89; PULSE 56–98; RESP 16–24; TEMP 36.2–37.1; O2SAT 97–100; BMI 47.3; BMI 46.7
--- NOTE | 2022-12-31 07:07 | EX.ED.DYSGE1 ---
HPI History of Present Illness Chief Complaint: Edema Informant: patient Onset/Context/Timing Onset: Weeks Context: Gradual Onset Narrative Narrative: Patient presents secondary to edema. I received a phone call from Dr. Dillon, her workday director yesterday stating the patient had chronic kidney disease and edema. He currently has her on 3 oral diuretics and in spite of this she has put on 15 pounds in the last month. She complains of swelling to her legs, abdomen, arms. She reports increased shortness of breath over the past couple months. Dr. Dillon feels patient needs to be admitted with IV diuresis. She does have a history of chronic hypokalemia and hypomagnesemia. [facility] Medical History (Updated 12/31/22 @ 08:[address] Ksenia Kamara MD) Abscess of right arm Arthritis with psoriasis Atherosclerosis of coronary artery of [place] heart without angina pectoris Bilateral lower extremity edema Cellulitis right arm Chronic pain syndrome COPD (chronic obstructive pulmonary disease) CVA (cerebral vascular accident) Diabetes mellitus type 2 in obese SHARP (dyspnea on exertion) Encephalopathy Epilepsy Esophageal dysmotility Essential hypertension Generalized anxiety disorder Heart failure Hyperlipidemia Hypothyroidism Hypoxia Iron deficiency anemia Lumbar disc disease Near syncope Non-healing ulcer of upper extremity Open wound of right upper arm Orthopnea MICHAELA on CPAP Pain of right upper arm pain pump installed (~07/30/20) Peripheral artery disease Psoriasis Rheumatoid arthritis Swelling of right upper extremity Vitamin B12 deficiency Zinc deficiency Home Medications esomeprazole magnesium 40 mg capsule,delayed release 40 mg J-tube BID ACID REFLUX 11/05/17 [History Last Taken 10/10/18] betamethasone dipropionate 0.05 % topical ointment 1 dose topical BID skin 10/11/18 [History Last Taken 10/10/18] lactose-reduced food-fiber 0.07 gram-1.5 kcal/mL liquid for tube feed 45 ml J-tube CONT feeding 10/11/18 [History Last Taken Unknown] polyethylene glycol 3350 17 gram oral powder packet 17 gm J-tube BID constipation 10/11/18 [History Last Taken 10/10/18] albuterol sulfate 90 mcg/actuation aerosol inhaler 2 puff inhalation DAILY PRN Wheezing 03/22/19 [History Last Taken Unknown] calcium carbonate 600 mg-vitamin D3 10 mcg (400 unit) chewable tablet (Calcium 600 with Vitamin D3) 1 tab J-tube DAILY 03/22/19 [History Last Taken Unknown] calcium citrate 200 mg (950 mg) tablet 200 mg J-tube BID 03/22/19 [History Last Taken Unknown] cyanocobalamin (vitamin B-12) 1,000 mcg/mL injection kit 1,000 mcg IM Q2W 03/22/19 [History Last Taken Unknown] ferrous sulfate 220 mg (44 mg iron)/5 mL oral elixir 286 mg G-tube TID replacement 03/22/19 [History Last Taken Unknown] fluticasone 500 mcg-salmeterol 50 mcg/dose blistr powdr for inhalation 1 ea inhalation BID COPD 03/22/19 [History Last Taken Unknown] ipratropium 0.5 mg-albuterol 3 mg (2.5 mg base)/3 mL nebulization soln 3 ml inhalation 4X/DAY 03/22/19 [History Last Taken Unknown] levothyroxine 50 mcg tablet 50 mcg J-tube DAILY 03/22/19 [History Last Taken Unknown] multivitamin (Daily Multi-Vitamin tablet) 1 tab J-tube DAILY 03/22/19 [History Last Taken Unknown] nitroglycerin 0.3 mg sublingual tablet 0.3 mg sublingual Q5-15M PRN cp 03/22/19 [History Last Taken Unknown] thiamine HCl (vitamin B1) 100 mg tablet 100 mg J-tube DAILY 03/22/19 [History Last Taken Unknown] nystatin 100,000 unit/gram topical powder 1 applic topical TID 04/07/20 [History Last Taken Unknown] acetic acid 0.25 % irrigation solution 1 irrig irrigation Q3H PRN 11/16/20 [History Last Taken Unknown] vortioxetine 20 mg tablet (Trintellix) 20 mg PO DAILY 11/16/20 [History Last Taken Unknown] infliximab-abda 100 mg intravenous solution (Renflexis) 100 mg .Route .Q 8 Weeks 06/13/21 [History Last Taken Unknown] atorvastatin 80 mg tablet 80 mg PO QHS 12/18/21 [History Last Taken Unknown] folic acid 1 mg tablet 1 mg J-tube BID 12/18/21 [History Last Taken Unknown] gabapentin 250 mg/5 mL (5 mL) oral solution 1,000 mg PO TID 12/18/21 [History Last Taken Unknown] levetiracetam 100 mg/mL oral solution 500 mg PO BID 12/18/21 [History Last Taken Unknown] ondansetron HCl 4 mg/5 mL oral solution 4 mg J-tube TID PRN nausea 12/18/21 [History Last Taken Unknown] potassium chloride 20 mEq/15 mL oral liquid 120 meq PO 4X/DAY 12/18/21 [History Last Taken Unknown] solifenacin 10 mg tablet 10 mg PO DAILY 12/18/21 [History Last Taken Unknown] ubrogepant 100 mg tablet (Ubrelvy) 100 mg PO ONCE PRN 12/18/21 [History Last Taken Unknown] losartan 100 mg tablet 100 mg PO DAILY #90 tabs 03/18/22 [Rx Last Taken Unknown] ergocalciferol (vitamin D2) 1,250 mcg (50,000 unit) capsule 100,000 unit PO DAILY 03/22/22 [History Last Taken Unknown] doxazosin 8 mg tablet 8 mg PO DAILY #30 tabs 04/09/22 [Rx Last Taken Unknown] clopidogrel 75 mg tablet 75 mg PO DAILY #90 tabs 06/17/22 [Rx Last Taken Unknown] BP MACHINE AND CUFF #1 ea 06/19/22 [Rx Last Taken Unknown] verapamil 360 mg 24 hr capsule,extended release 360 mg PO DAILY may give in peg tube if cannot take orally #90 caps 07/03/22 [Rx Last Taken Unknown] torsemide 20 mg tablet 20 mg PO .COMPLEX WATER PILL 07/24/22 [History Last Taken Unknown] brexpiprazole 0.5 mg tablet 0.5 mg PO DAILY 08/14/22 [History Last Taken Unknown] atogepant 60 mg tablet (Qulipta) 60 mg PO DAILY 10/15/22 [History Last Taken Unknown] clonidine HCl 0.1 mg tablet 0.1 mg PO BID 10/15/22 [History Last Taken Unknown] guaifenesin 100 mg/5 mL oral liquid 200 mg PO Q4H PRN 10/15/22 [History Last Taken Unknown] hydroxyzine HCl 10 mg/5 mL oral solution 15 mg PO QHS 10/15/22 [History Last Taken Unknown] mirabegron 50 mg tablet,extended release 24 hr (Myrbetriq) 50 mg PO DAILY 10/15/22 [History Last Taken Unknown] mirtazapine 7.5 mg tablet 45 mg PO QHS 10/15/22 [History Last Taken Unknown] scopolamine base 1 mg over 3 days transdermal patch 1 patch transdermal Q72H 10/15/22 [History Last Taken Unknown] spironolactone 25 mg tablet 50 mg PO BID 10/15/22 [History Last Taken Unknown] methotrexate sodium (PF) 25 mg/mL injection solution 25 mg subcut QWEEK 10/18/22 [History Last Taken Unknown] minoxidil 10 mg tablet 10 mg PO DAILY #30 tabs 10/22/22 [Rx Last Taken Unknown] amiloride 5 mg tablet See Rx Instructions .Route .COMPLEX #60 tabs 12/06/22 [Rx Last Taken Unknown] Allergy/AdvReac Type Severity Reaction Status Date / Time Fish Containing Products Allergy Severe hives, Verified 12/31/22 06:46 swellimg aspirin Allergy Shortness Verified 12/31/22 06:46 of breath Penicillins [PCN] Allergy Shortness Verified 12/31/22 06:46 of breath Family History Mother Hypertension Glaucoma Diabetes Cancer breast Bleeding disorder Heart disease Seizures CVA (cerebral vascular accident) Father CVA (cerebral vascular accident) Glaucoma Colon cancer Arthritis Diabetes Heart disease Hypertension Sister Diabetes Cancer leukemia Hypertension Brother CVA (cerebral vascular accident) Hypertension Grandmother Cancer breast Sickle cell trait Surgical History History of arthroscopy of both knees History of bilateral breast reduction surgery History of bilateral oophorectomies History of carpal tunnel release of both wrists History of gastric bypass History of incision and drainage (~10/12/18) History of jejunostomy tube placement History of open reduction and internal fixation (ORIF) procedure History of right and left heart catheterization (LHC) (04/07/19) History of total abdominal hysterectomy and bilateral salpingo-oophorectomy History of total thyroidectomy Status post panniculectomy Social History Smoking Status: Former smoker how long ago did patient quit smokin years ago alcohol intake: never substance use type: does not use caffeine: Yes what type of physical activity do you participate in: walking, aerobics and weight training frequency: 3-4 times per week ROS ROS ED Constitutional Constitutional ED: Denies chills or fever(s) Eyes Eyes: Denies change in vision or discharge from eye(s) ENT ENT ED: Denies discharge from eye(s), rhinorrhea or sore throat Cardiovascular Cardiovascular: Denies chest pain or palpitations Respiratory/Chest Respiratory/Chest: Reports dyspnea; Denies cough Gastrointestinal Gastrointestinal: Denies abdominal pain, nausea or vomiting Genitourinary Genitourinary ED: Denies dysuria Musculoskeletal Musculoskeletal: Reports extremity pain; Denies back pain Integumentary Denies Abrasions or rash Neurologic Neurologic: Denies headache(s) or weakness Psychiatric Psychiatric: Denies anxiety or depression Allergic/Immunologic Allergic/Immunologic ED: Denies lip swelling or urticaria EXAM Physical Exam Const Vital Signs: 12/31/22 06:42 12/31/22 06:55 Temperature 98.8 F Temperature Source Temporal Pulse Rate 98 Respiratory Rate 24 H Respiratory Effort Normal Non-Labored Respiratory Pattern Normal Blood Pressure 180/89 H Blood Pressure Mean 119 Pulse Ox 99 Oxygen Delivery Method Nasal Cannula Oxygen Flow Rate (L/min) 3 Positive well nourished and well developed General Appearance ED: well developed HEENT Reports normocephalic and head/scalp atraumatic Eyes PERRL and EOMs intact bilaterally Neck supple Chest Wall inspection of chest normal and palpation of chest normal Resp normal respiratory effort Resp Narrative: Diminished breath sounds bilateral bases. Cardio regular rate and regular rhythm GI GI Narrative: Abdomen soft but distended. Palpation: soft Extremity Extremity Narrative: 3-4+ edema bilateral lower extremities, symmetric. Neuro oriented x3 and no sensory deficits noted Sensorium / Orientation: alert Psych mental status grossly normal Skin no rashes or lesions noted MDM MDM MDM Narrative Medical decision making narrative: Patient is placed on playground monitor. Labwork obtained to evaluate for leukocytosis, anemia, and electrolyte derangement. Chest x-ray obtained to evaluate for acute lung pathology, cardiac size, or mediastinal abnormality. Lab Data Attestation: I reviewed the patient's lab results. Labs: Laboratory Results - last 24 hr 12/31/22 12/31/22 12/31/22 06:53 06:53 06:53 WBC 11.5 H RBC 4.47 Hgb 11.5 L Hct 39.1 MCV 87.5 MCH 25.7 L MCHC 29.4 L RDW Std Deviation 51.7 H RDW Coeff of Theresa 16.3 H Plt Count 299 MPV 10.4 Immature Gran % (Auto) 0.200 Neut % (Auto) 45.1 L Lymph % (Auto) 46.0 H [place] % (Auto) 7.8 Eos % (Auto) 0.5 Baso % (Auto) 0.4 Absolute Neuts (auto) 5.2 Absolute Lymphs (auto) 5.31 H Nucleated RBC % 0 Differential Comment COMMENT Sodium 142 Potassium 3.3 L Chloride 107 Carbon Dioxide 29.0 Anion Gap 6 BUN 8 Creatinine 0.75 Estim Creat Clear Calc 73.69 Est GFR (MDRD) Af Amer 100 Est GFR (MDRD) Non-Af 82 BUN/Creatinine Ratio 10.6 Glucose 109 H Calcium 8.5 Magnesium 2.1 B-Natriuretic Peptide 27.9 Radiography Chest X-Ray - ED: 1 View, Read by ED Physician, Chronic Changes and Cardiomegaly Diagnostic Testing: Clinical Impression(s) from Imaging Studies Chest X-Ray 12/31/22 07:15 IMPRESSION: Cardiomegaly with no acute pulmonary airspace disease. Electronically Signed: Nixon Carter MD at 7:42 EDT , Treatment and Re-Evaluation :: CBC reveals a white count 11.5 and hemoglobin 11.5. Differential is unremarkable. Chemistry studies reveal potassium low at 3.3. This is replaced orally. Renal function is normal. Magnesium is normal at 2.1. BNP is 27.9. Chest x-ray per my interpretation reveals cardiomegaly with chronic changes. Radiology interpretation is reviewed and agrees. Patient has been given oral potassium and will be initiated on a Lasix drip. I will speak with hospitalist regarding admission. Discharge Plan Triage Chief Complaint: Edema ED Provider: Ksenia Kamara Dx/Rx/DC Orders Clinical Impression: Anasarca Prescriptions: No Action cyanocobalamin (vitamin B-12) 1,000 mcg/mL kit 1,000 mcg IM Q2W multivitamin [Daily Multi-Vitamin] Tablet 1 tab JT DAILY levothyroxine 50 mcg tablet 50 mcg JT DAILY nitroglycerin 0.3 mg tablet, sublingual 0.3 mg SUBLINGUAL Q5-15M PRN (Reason: cp) ipratropium-albuterol 0.5 mg-3 mg(2.5 mg base)/3 mL solution for nebulization 3 ml INHALATION 4X/DAY calcium citrate 200 mg (950 mg) tablet 200 mg JT BID thiamine HCl (vitamin B1) 100 mg tablet 100 mg JT DAILY Calcium 600 with Vitamin D3 600 mg(1,500mg) -400 unit tablet,chewable 1 tab JT DAILY folic acid 1 mg tablet 1 mg JT BID ergocalciferol (vitamin D2) 1,250 mcg (50,000 unit) capsule 100,000 unit PO DAILY gabapentin 250 mg/5 mL (5 mL) solution 1,000 mg PO TID nystatin 100,000 unit/gram powder 1 applic TOPICAL TID potassium chloride 20 mEq/15 mL liquid 120 meq PO 4X/DAY Trintellix 20 mg tablet 20 mg PO DAILY acetic acid 0.25 % solution 1 irrig IRRIGATION Q3H PRN Renflexis 100 mg recon soln 100 mg .Route .Q 8 Weeks Rx Instructions: Q 8 weeks mirtazapine 7.5 mg tablet 45 mg PO QHS Rx Instructions: Dissolve tablet atorvastatin 80 mg tablet 80 mg PO QHS Label Comments: take 1 tablet by mouth once daily levetiracetam 100 mg/mL solution 500 mg PO BID Label Comments: take 5 milliliters (1 TEASPOONFUL) by mouth twice a day solifenacin 10 mg tablet 10 mg PO DAILY Label Comments: take 1 tablet by mouth once daily Ubrelvy 100 mg tablet 100 mg PO ONCE PRN Rx Instructions: as a single dose; may repeat once in >=2 hours after first dose if needed hydroxyzine HCl 10 mg/5 mL solution 15 mg PO QHS (DME) BP MACHINE AND CUFF See Rx Instructions .Route .MEDSUPPLY Qty: 1 0RF Rx Instructions: As directed Qulipta 60 mg tablet 60 mg PO DAILY spironolactone 25 mg tablet 50 mg PO BID clonidine HCl 0.1 mg tablet 0.1 mg PO BID guaifenesin 100 mg/5 mL liquid 200 mg PO Q4H PRN scopolamine base 1 mg over 3 days patch 3 day 1 patch transdermal Q72H Myrbetriq 50 mg tablet extended release 24 hr 50 mg PO DAILY methotrexate sodium (PF) 25 mg/mL solution 25 mg subcut QWEEK Label Comments: INJECT 1ML SUBCUTANEOUSLY EVERY 7 DAYS esomeprazole magnesium 40 MG capsule,delayed release(DR/EC) 40 mg JT BID fluticasone propion-salmeterol 500-50 mcg/dose blister with device 1 ea INHALATION BID polyethylene glycol 3350 17 GM packet 17 gm JT BID betamethasone dipropionate 15 GM ointment 1 dose topical BID Rx Instructions: hands and feet lactose-reduced food with fibr 1,000 ML liquid 45 ml JT CONT Rx Instructions: water flush 120ml q6 hours ferrous sulfate 220 mg (44 mg iron)/5 mL elixir 286 mg GT TID Rx Instructions: per j tube albuterol sulfate 90 mcg/actuation HFA aerosol inhaler 2 puff inhalation DAILY PRN (Reason: Wheezing) ondansetron HCl 4 mg/5 mL solution 4 mg JT TID PRN (Reason: nausea) Rx Instructions: per Jtube losartan 100 mg tablet 100 mg PO DAILY Qty: 90 3RF doxazosin 8 mg tablet 8 mg PO DAILY Qty: 30 11RF clopidogrel 75 mg tablet 75 mg PO DAILY Qty: 90 3RF Rx Instructions: with applesauce verapamil 360 mg capsule,ext rel. pellets 24 hr 360 mg PO DAILY Qty: 90 3RF torsemide 20 mg tablet 20 mg PO .COMPLEX Label Comments: Updated dosing per Dr. Uribe 07/17/22 Rx Instructions: 20 mg PO 1.5 tablets in the am and 1 tablet at night; brexpiprazole 0.5 mg tablet 0.5 mg PO DAILY minoxidil 10 mg tablet 10 mg PO DAILY Qty: 30 11RF amiloride 5 mg tablet See Rx Instructions .ROUTE .COMPLEX Qty: 60 12RF Dose Instruction: take 2 tablets by mouth once daily Rx Instructions: take 2 tablets by mouth once daily Primary Care Provider: Nicko Uribe Referrals: Nicko Uribe MD [Primary Care Provider] - Disposition Disposition: Acute Care [facility]
--- NOTE | 2022-12-31 07:15 | RAD_ITS ---
INDICATION: Shortness of breath EXAMINATION/TECHNIQUE: X-RAY - AP view of chest COMPARISON: Chest x-ray from 11/06/2017 FINDINGS: LINES/DEVICES: None. LUNGS: No overt pulmonary edema or focal airspace consolidation. No sizable pleural effusion. No detectable pneumothorax. MEDIASTINUM AND CARDIOVASCULAR STRUCTURES: Persistent enlarged heart shadow. Atherosclerotic calcifications along aorta. BONES AND SOFT TISSUES: Skeletal degenerative changes. RAD/Chest 1 View (Portable) IMPRESSION: Cardiomegaly with no acute pulmonary airspace disease. Electronically Signed: Nixon Carter MD at 7:42 EDT ,
[2022-12-31 07:25] LABS: Absolute Lymphocyte Count 5.31 X10^3/uL (0.83-4.51); Absolute Neutrophil Count 5.2 X10^3/uL (2.0-7.7); Basophil# 0.05 X10^3/uL; Basophil% 0.4 % (0-1); Eosinophil# 0.06 X10^3/uL; Eosinophils% 0.5 % (0-5); Hematocrit 39.1 % (37-47); Hemoglobin 11.5 g/dL (12.0-15.0); Lymphocyte # 5.31 X10^3/ul (0.83-4.51); Mean Corp Hgb Conc 29.4 g/dL (32-36); Mean Corpuscular Hgb 25.7 pg (27.0-32.0); Mean Corpuscular Volume 87.5 fL (81-99); Mean Platelet Vol. 10.4 fl (6.2-12.0); Monocyte% 7.8 % (0-10); NRBC Flagged by Analyzer 0 % (0-5); Neutrophil % 45.1 % (47-70); POSITIVE DIFFERENTIAL YES; Platelet Count 299 K/mm3 (150-450); RBC Distribution Width CV 16.3 % (11.6-14.6); RBC Distribution Width SD 51.7 fl (35.1-43.9); Red Blood Count 4.47 M/mm3 (4.2-5.4); White Blood Count 11.5 K/mm3 (4.4-11.0)
[2022-12-31 07:44] LABS: Anion Gap 6 (5-15); BUN 8 mg/dL (7-18); BUN/Creat Ratio 10.6 RATIO (10-20); Calcium,Total 8.5 mg/dL (8.5-10.1); Chloride 107 mmol/L (98-107); Creatinine, Serum 0.75 mg/dL (0.55-1.02); EST Glomerular Filtration Rate 82 mL/min (>60); Est Glom Filt Rate - Afr Amer 100 mL/min (>60); Estimated Creatinine Clearance 73.69 ml/min; Glucose 109 mg/dL (74-106); Magnesium 2.1 mg/dL (1.6-2.6); Potassium 3.3 mmol/L (3.5-5.1); Sodium Level 142 mmol/L (136-145)
[2022-12-31 07:50] LABS: Differential Indicated SCAN CRITERIA MET
[2022-12-31 08:05] LABS: BNP,B-Type NATRIURETIC PEPTIDE 27.9 pg/mL (0-100)
[2022-12-31] MEDS: Acetaminophen 325 MG Tablet 650 MG PO ×3 (08:40→21:28)
[2022-12-31] MEDS: Potassium Chloride Oral Tablet 20 MEQ 40 MEQ PO (08:40)
[2022-12-31] MEDS: Furosemide 500 MG in Empty Viaflex 50 mL 1 EACH CONT INF (09:18)
--- NOTE | 2022-12-31 12:35 | CON.PCM.RE_ITS ---
Assessment & Plan Assessment/Plan (1) Roxana: PLAN: Etiology unclear to me. Echocardiogram looks okay, no history of cirrhosis, no proteinuria. It is possible some of it is at least lymphedema. She does follow with wound clinic/lymphedema clinic. Apparently denied lymphedema pumps. She tells me that she gained about 15 pounds. Clinically edema is not that impressive. We could probably continue Lasix drip for a day and see how things go. Add oral potassium. In general she requires large amounts of potassium supplements. Add spironolactone which is home medications. Discussed with hospitalist HPI Consult Data Date of Consult: 12/31/22 HPI Narrative Reason for Consultation: [facility] Narrative: VLADIMIR DUNBAR, is a 62 F who presents to the hospital with progressively worsening shortness of breath. She is known to me from office. Chronic history of hypokalemia and hypomagnesemia. Etiology unclear at this point. Initially thought to be related to diuretics. Is possible that she has some form of channelopathy like Bartter's/Gettleman's. Takes large amounts of diuretics at home. Etiology is once again unclear. Her previous echocardiogram showed good ejection fraction, right-sided heart function could not be assessed. No history of cirrhosis. No proteinuria hence unlikely nephrotic syndrome. She does follow-up with lymphedema clinic, apparently she was prescribed lymphedema pumps but insurance has denied it. She called our office yesterday with shortness of breath and 15 pound weight gain and hence was directed to the emergency room. Currently looks comfortable. On examination actually she does not have large amounts of edema. She says breathing is rough. Urine output has been okay. She has a PEG tube for nutrition but she also takes pills orally as well. [facility] Medical History Abscess of right arm Arthritis with psoriasis Atherosclerosis of coronary artery of [place] heart without angina pectoris Bilateral lower extremity edema Cellulitis right arm Chronic pain syndrome COPD (chronic obstructive pulmonary disease) CVA (cerebral vascular accident) Diabetes mellitus type 2 in obese SHARP (dyspnea on exertion) Encephalopathy Epilepsy Esophageal dysmotility Essential hypertension Generalized anxiety disorder Heart failure Hyperlipidemia Hypothyroidism Hypoxia Iron deficiency anemia Lumbar disc disease Near syncope Non-healing ulcer of upper extremity Open wound of right upper arm Orthopnea MICHAELA on CPAP Pain of right upper arm pain pump installed (~07/30/20) Peripheral artery disease Psoriasis Rheumatoid arthritis Swelling of right upper extremity Vitamin B12 deficiency Zinc deficiency Home Medications esomeprazole magnesium 40 mg capsule,delayed release 40 mg J-tube BID ACID REFLUX 11/05/17 [History Last Taken 10/10/18] betamethasone dipropionate 0.05 % topical ointment 1 dose topical BID skin 10/11/18 [History Last Taken 10/10/18] lactose-reduced food-fiber 0.07 gram-1.5 kcal/mL liquid for tube feed 45 ml J- tube CONT feeding 10/11/18 [History Last Taken Unknown] polyethylene glycol 3350 17 gram oral powder packet 17 gm J-tube BID constipation 10/11/18 [History Last Taken 10/10/18] albuterol sulfate 90 mcg/actuation aerosol inhaler 2 puff inhalation DAILY PRN Wheezing 03/22/19 [History Last Taken Unknown] calcium carbonate 600 mg-vitamin D3 10 mcg (400 unit) chewable tablet (Calcium 600 with Vitamin D3) 1 tab J-tube DAILY Check with primary doctor 03/22/19 [History Last Taken Unknown] calcium citrate 200 mg (950 mg) tablet 200 mg J-tube BID Check with primary doctor 03/22/19 [History Last Taken Unknown] cyanocobalamin (vitamin B-12) 1,000 mcg/mL injection kit 1,000 mcg IM Q2W Check with primary doctor 03/22/19 [History Last Taken Unknown] ferrous sulfate 220 mg (44 mg iron)/5 mL oral elixir 286 mg G-tube TID replacement 03/22/19 [History Last Taken Unknown] fluticasone 500 mcg-salmeterol 50 mcg/dose blistr powdr for inhalation 1 ea inhalation BID COPD 03/22/19 [History Last Taken Unknown] ipratropium 0.5 mg-albuterol 3 mg (2.5 mg base)/3 mL nebulization soln 3 ml inhalation 4X/DAY Check with primary doctor 03/22/19 [History Last Taken Unknown] levothyroxine 50 mcg tablet 50 mcg J-tube DAILY Check with primary doctor 03/22 [History Last Taken Unknown] multivitamin (Daily Multi-Vitamin tablet) 1 tab J-tube DAILY Check with primary doctor 03/22/19 [History Last Taken Unknown] nitroglycerin 0.3 mg sublingual tablet 0.3 mg sublingual Q5-15M PRN cp 03/22/19 [History Last Taken Unknown] thiamine HCl (vitamin B1) 100 mg tablet 100 mg J-tube DAILY Check with primary doctor 03/22/19 [History Last Taken Unknown] nystatin 100,000 unit/gram topical powder 1 applic topical TID Check with primary doctor 04/07/20 [History Last Taken Unknown] acetic acid 0.25 % irrigation solution 1 irrig irrigation Q3H PRN Wound Care 11/16/20 [History Last Taken Unknown] vortioxetine 20 mg tablet (Trintellix) 20 mg PO DAILY Check with primary doctor 11/16/20 [History Last Taken Unknown] infliximab-abda 100 mg intravenous solution (Renflexis) 100 mg .Route .Q 8 Weeks Check with primary doctor 06/13/21 [History Last Taken Unknown] atorvastatin 80 mg tablet 80 mg PO QHS Check with primary doctor 12/18/21 [History Last Taken Unknown] folic acid 1 mg tablet 1 mg J-tube BID Check with primary doctor 12/18/21 [History Last Taken Unknown] gabapentin 250 mg/5 mL (5 mL) oral solution 1,000 mg PO TID Check with primary doctor 12/18/21 [History Last Taken Unknown] levetiracetam 100 mg/mL oral solution 500 mg PO BID Check with primary doctor 12/18/21 [History Last Taken Unknown] ondansetron HCl 4 mg/5 mL oral solution 4 mg J-tube TID PRN nausea 12/18/21 [History Last Taken Unknown] potassium chloride 20 mEq/15 mL oral liquid 120 meq PO 4X/DAY Check with primary doctor 12/18/21 [History Last Taken Unknown] solifenacin 10 mg tablet 10 mg PO DAILY Check with primary doctor 12/18/21 [History Last Taken Unknown] ubrogepant 100 mg tablet (Ubrelvy) 100 mg PO ONCE PRN Migraine Headache 12/18/21 [History Last Taken Unknown] ergocalciferol (vitamin D2) 1,250 mcg (50,000 unit) capsule 100,000 unit PO DAILY Check with primary doctor 03/22/22 [History Last Taken Unknown] BP MACHINE AND CUFF #1 ea 06/19/22 [Rx Last Taken Unknown] verapamil 360 mg 24 hr capsule,extended release 360 mg PO DAILY may give in peg tube if cannot take orally #90 caps 07/03/22 [Rx Last Taken Unknown] torsemide 20 mg tablet 20 mg PO .COMPLEX WATER PILL 07/24/22 [History Last Taken Unknown] brexpiprazole 0.5 mg tablet 0.5 mg PO DAILY Check with primary doctor 08/14/22 [History Last Taken Unknown] atogepant 60 mg tablet (Qulipta) 60 mg PO DAILY Check with primary doctor 10/15/22 [History Last Taken Unknown] clonidine HCl 0.1 mg tablet 0.1 mg PO BID Check with primary doctor 10/15/22 [History Last Taken Unknown] guaifenesin 100 mg/5 mL oral liquid 200 mg PO Q4H PRN Cough 10/15/22 [History Last Taken Unknown] hydroxyzine HCl 10 mg/5 mL oral solution 15 mg PO QHS Check with primary doctor 10/15/22 [History Last Taken Unknown] mirabegron 50 mg tablet,extended release 24 hr (Myrbetriq) 50 mg PO DAILY Check with primary doctor 10/15/22 [History Last Taken Unknown] mirtazapine 7.5 mg tablet 45 mg PO QHS Check with primary doctor 10/15/22 [History Last Taken Unknown] scopolamine base 1 mg over 3 days transdermal patch 1 patch transdermal Q72H Check with primary doctor 10/15/22 [History Last Taken Unknown] spironolactone 25 mg tablet 50 mg PO BID Check with primary doctor 10/15/22 [History Last Taken Unknown] methotrexate sodium (PF) 25 mg/mL injection solution 25 mg subcut QWEEK Check with primary doctor 10/18/22 [History Last Taken Unknown] Isosource 1.5 King 1 bottle J-tube nutrition 12/31/22 [History Last Taken Unknown] amiloride 5 mg tablet See Rx Instructions .Route .COMPLEX Check with primary doctor 12/31/22 [History Last Taken Unknown] clopidogrel 75 mg tablet 75 mg PO DAILY Check with primary doctor 12/31/22 [History Last Taken Unknown] doxazosin 8 mg tablet 8 mg PO DAILY Check with primary doctor 12/31/22 [History Last Taken Unknown] losartan 100 mg tablet 100 mg PO DAILY Check with primary doctor 12/31/22 [History Last Taken Unknown] minoxidil 10 mg tablet 10 mg PO DAILY Check with primary doctor 12/31/22 [History Last Taken Unknown] Allergy/AdvReac Type Severity Reaction Status Date / Time Fish Containing Products Allergy Severe hives, Verified 12/31/22 06:46 swellimg aspirin Allergy Shortness Verified 12/31/22 06:46 of breath Penicillins [PCN] Allergy Shortness Verified 12/31/22 06:46 of breath Family History Mother Hypertension Glaucoma Diabetes Cancer breast Bleeding disorder Heart disease Seizures CVA (cerebral vascular accident) Father CVA (cerebral vascular accident) Glaucoma Colon cancer Arthritis Diabetes Heart disease Hypertension Sister Diabetes Cancer leukemia Hypertension Brother CVA (cerebral vascular accident) Hypertension Grandmother Cancer breast Sickle cell trait Surgical History History of arthroscopy of both knees History of bilateral breast reduction surgery History of bilateral oophorectomies History of carpal tunnel release of both wrists History of gastric bypass History of incision and drainage (~10/12/18) History of jejunostomy tube placement History of open reduction and internal fixation (ORIF) procedure History of right and left heart catheterization (LHC) (04/07/19) History of total abdominal hysterectomy and bilateral salpingo-oophorectomy History of total thyroidectomy Status post panniculectomy Social History Smoking Status: Former smoker how long ago did patient quit smokin years ago alcohol intake: never substance use type: does not use caffeine: Yes what type of physical activity do you participate in: walking, aerobics and weight training frequency: 3-4 times per week ROS ROS Narrative Negative except above Physical Exam Narrative Alert awake oriented x 3 no obvious distress no pallor no icterus no JVD s1s2 no murmurs lungs clear abdomen soft no organomegaly no edema no cyanosis Lab / Micro Data Result Diagrams: 12/31/22 06:53 12/31/22 06:53 Labs: Laboratory Results - last 24 hr 12/31/22 06:53: WBC 11.5 H, RBC 4.47, Hgb 11.5 L, Hct 39.1, MCV 87.5, MCH 25.7 L , MCHC 29.4 L, RDW Std Deviation 51.7 H, RDW Coeff of Theresa 16.3 H, Plt Count 299, MPV 10.4, Immature Gran % (Auto) 0.200, Neut % (Auto) 45.1 L, Lymph % (Auto) 46.0 H, [place] % (Auto) 7.8, Eos % (Auto) 0.5, Baso % (Auto) 0.4, Absolute Neuts (auto) 5.2, Absolute Lymphs (auto) 5.31 H, Nucleated RBC % 0, Differential Comment COMMENT 12/31/22 06:53: Sodium 142, Potassium 3.3 L, Chloride 107, Carbon Dioxide 29.0, Anion Gap 6, BUN 8, Creatinine 0.75, Estim Creat Clear Calc 73.69, Est GFR (MDRD) Af Amer 100, Est GFR (MDRD) Non-Af 82, BUN/Creatinine Ratio 10.6, Glucose 109 H, Calcium 8.5, Magnesium 2.1 12/31/22 06:53: B-Natriuretic Peptide 27.9 Radiology Impression Chest X-Ray 12/31/22 07:15 IMPRESSION: Cardiomegaly with no acute pulmonary airspace disease. Electronically Signed: Nixon Carter MD at 7:42 EDT ,
[2022-12-31] MEDS: Spironolactone 50 MG Tablet PO ×2 (14:54→21:28)
[2022-12-31] MEDS: Heparin Injection (Vial) 5,000 UNIT/ML VIAL 5000 UNIT SC ×2 (14:54→21:29)
[2022-12-31] MEDS: Potassium Chloride Oral Tablet 20 MEQ 60 MEQ PO (14:55)
[2022-12-31] MEDS: Jevity 1.5 1,000 ML 45 ML JT (14:59)
--- NOTE | 2022-12-31 15:18 | CASEMGMT ---
SW met with patient. Introduced self and role at [facility]. Patient is active with the waiver program and her case manager specialist is Phyllis Trujillo. She also has a case manager specialist through her insurance, [email or web address]. NEHAL let patient know that SW will contact Phyllis and let her know patient is in the hospital. Patient resides at [facility] in [place]. Patient gets frustrated with transportation in town. Patient has to utilize [employer] as required by her insurance. However, [employer] is not always reliable and she has been late to appointments or missed appointments due to rides not showing up. Patient has filed numerous grievances against [employer]. Patient also has cab passes for [place], but they too are not always reliable. Patient has been lat and missed appointments due to taxi drivers not showing up or showing up late. Patient used to utilize [place] [facility]. Unfortunately the transit bus stopped coming to her facility and she has to walk up a rather large hill to catch the bus. Patient is not able to do this physically. [place] [employer] has now changed to [employer]. NEHAL told patient SW can check on the route they will utilize. Patient wanted to know more about the [employer] program. NEHAL went over the information SW has and provided patient with the information as well. ENHAL will also check to see if [facility] van will transport to Dr Dillon's office in [place]. NEHAL called [facility] transport line and they do transport to Dr Dillon's office. NEHAL also found information online regarding the route for [employer]. NEHAL provided this information to patient and also let her know [facility] van will transport to Dr Dillon's office. Patient was very thankful. Anna Marie Taylor NURSING PROFESSOR DEVIN
--- NOTE | 2022-12-31 17:30 | PCM.HP.STD ---
HPI - General General Date of Admission: 12/31/22 Date of Service: 12/31/22 Chief Complaint: Generalized edema, shortness of breath HPI Narrative VLADIMIR DUNBAR, is a 62 F who presents to the emergency room at [facility] with complaints of generalized weight gain and edema over the last several days along with some shortness of breath. She contacted her employee placement specialist yesterday and he recommended that she go to the emergency room for evaluation, according to the emergency room physician today, the patient told her that she was too busy to go to the emergency room yesterday. Patient is on chronic oxygen at home at 3 L, she has multiple medical problems which include persistent hypokalemia, achalasia, hypertrophic nonobstructive cardiomyopathy, chronic obstructive pulmonary disease, obstructive sleep apnea, essential hypertension, coronary artery disease, hypothyroidism,a and seizure disorder. Evaluation of the patient in the emergency room revealed a normal BUN and creatinine, glucose was 109, potassium was 3.3, white blood cell count was elevated at 11.5, and hemoglobin was 11.5. Patient's chest x-ray showed no evidence of CHF. On examination, patient had generalized edema of her lower extremities which to this examiner did not appear to be severe. Patient will be admitted to PCU, she will be placed on an IV Lasix drip, she will be reevaluated tomorrow, she will be seen in consultation by nephrology. I have reviewed all of the patient's medications which are extensive and number, I will hold some of these medications while she is in the hospital. COUNTS INCLUDE 234 BEDS AT THE [facility] Medical History Abscess of right arm Arthritis with psoriasis Atherosclerosis of coronary artery of [place] heart without angina pectoris Bilateral lower extremity edema Cellulitis right arm Chronic pain syndrome COPD (chronic obstructive pulmonary disease) CVA (cerebral vascular accident) Diabetes mellitus type 2 in obese SHARP (dyspnea on exertion) Encephalopathy Epilepsy Esophageal dysmotility Essential hypertension Generalized anxiety disorder Heart failure Hyperlipidemia Hypothyroidism Hypoxia Iron deficiency anemia Lumbar disc disease Near syncope Non-healing ulcer of upper extremity Open wound of right upper arm Orthopnea MICHAELA on CPAP Pain of right upper arm pain pump installed (~07/30/20) Peripheral artery disease Psoriasis Rheumatoid arthritis Swelling of right upper extremity Vitamin B12 deficiency Zinc deficiency Home Medications esomeprazole magnesium 40 mg capsule,delayed release 40 mg J-tube BID ACID REFLUX 11/05/17 [History Last Taken 10/10/18] betamethasone dipropionate 0.05 % topical ointment 1 dose topical BID skin 10/11/18 [History Last Taken 10/10/18] lactose-reduced food-fiber 0.07 gram-1.5 kcal/mL liquid for tube feed 45 ml J-tube CONT feeding 10/11/18 [History Last Taken Unknown] polyethylene glycol 3350 17 gram oral powder packet 17 gm J-tube BID constipation 10/11/18 [History Last Taken 10/10/18] albuterol sulfate 90 mcg/actuation aerosol inhaler 2 puff inhalation DAILY PRN Wheezing 03/22/19 [History Last Taken Unknown] calcium carbonate 600 mg-vitamin D3 10 mcg (400 unit) chewable tablet (Calcium 600 with Vitamin D3) 1 tab J-tube DAILY Check with primary doctor 03/22/19 [History Last Taken Unknown] calcium citrate 200 mg (950 mg) tablet 200 mg J-tube BID Check with primary doctor 03/22/19 [History Last Taken Unknown] cyanocobalamin (vitamin B-12) 1,000 mcg/mL injection kit 1,000 mcg IM Q2W Check with primary doctor 03/22/19 [History Last Taken Unknown] ferrous sulfate 220 mg (44 mg iron)/5 mL oral elixir 286 mg G-tube TID replacement 03/22/19 [History Last Taken Unknown] fluticasone 500 mcg-salmeterol 50 mcg/dose blistr powdr for inhalation 1 ea inhalation BID COPD 03/22/19 [History Last Taken Unknown] ipratropium 0.5 mg-albuterol 3 mg (2.5 mg base)/3 mL nebulization soln 3 ml inhalation 4X/DAY Check with primary doctor 03/22/19 [History Last Taken Unknown] levothyroxine 50 mcg tablet 50 mcg J-tube DAILY Check with primary doctor 03/22/19 [History Last Taken Unknown] multivitamin (Daily Multi-Vitamin tablet) 1 tab J-tube DAILY Check with primary doctor 03/22/19 [History Last Taken Unknown] nitroglycerin 0.3 mg sublingual tablet 0.3 mg sublingual Q5-15M PRN cp 03/22/19 [History Last Taken Unknown] thiamine HCl (vitamin B1) 100 mg tablet 100 mg J-tube DAILY Check with primary doctor 03/22/19 [History Last Taken Unknown] nystatin 100,000 unit/gram topical powder 1 applic topical TID Check with primary doctor 04/07/20 [History Last Taken Unknown] acetic acid 0.25 % irrigation solution 1 irrig irrigation Q3H PRN Wound Care 11/16/20 [History Last Taken Unknown] vortioxetine 20 mg tablet (Trintellix) 20 mg PO DAILY Check with primary doctor 11/16/20 [History Last Taken Unknown] infliximab-abda 100 mg intravenous solution (Renflexis) 100 mg .Route .Q 8 Weeks Check with primary doctor 06/13/21 [History Last Taken Unknown] atorvastatin 80 mg tablet 80 mg PO QHS Check with primary doctor 12/18/21 [History Last Taken Unknown] folic acid 1 mg tablet 1 mg J-tube BID Check with primary doctor 12/18/21 [History Last Taken Unknown] gabapentin 250 mg/5 mL (5 mL) oral solution 1,000 mg PO TID Check with primary doctor 12/18/21 [History Last Taken Unknown] levetiracetam 100 mg/mL oral solution 500 mg PO BID Check with primary doctor 12/18/21 [History Last Taken Unknown] ondansetron HCl 4 mg/5 mL oral solution 4 mg J-tube TID PRN nausea 12/18/21 [History Last Taken Unknown] potassium chloride 20 mEq/15 mL oral liquid 120 meq PO 4X/DAY Check with primary doctor 12/18/21 [History Last Taken Unknown] solifenacin 10 mg tablet 10 mg PO DAILY Check with primary doctor 12/18/21 [History Last Taken Unknown] ubrogepant 100 mg tablet (Ubrelvy) 100 mg PO ONCE PRN Migraine Headache 12/18/21 [History Last Taken Unknown] ergocalciferol (vitamin D2) 1,250 mcg (50,000 unit) capsule 100,000 unit PO DAILY Check with primary doctor 03/22/22 [History Last Taken Unknown] BP MACHINE AND CUFF #1 ea 06/19/22 [Rx Last Taken Unknown] verapamil 360 mg 24 hr capsule,extended release 360 mg PO DAILY may give in peg tube if cannot take orally #90 caps 07/03/22 [Rx Last Taken Unknown] torsemide 20 mg tablet 20 mg PO .COMPLEX WATER PILL 07/24/22 [History Last Taken Unknown] brexpiprazole 0.5 mg tablet 1 mg PO DAILY Check with primary doctor 08/14/22 [History Last Taken Unknown] atogepant 60 mg tablet (Qulipta) 60 mg PO DAILY Check with primary doctor 10/15/22 [History Last Taken Unknown] clonidine HCl 0.1 mg tablet 0.2 mg PO BID Check with primary doctor 10/15/22 [History Last Taken Unknown] guaifenesin 100 mg/5 mL oral liquid 200 mg PO Q4H PRN Cough 10/15/22 [History Last Taken Unknown] hydroxyzine HCl 10 mg/5 mL oral solution 25 mg PO QHS Check with primary doctor 10/15/22 [History Last Taken Unknown] mirabegron 50 mg tablet,extended release 24 hr (Myrbetriq) 50 mg PO DAILY Check with primary doctor 10/15/22 [History Last Taken Unknown] mirtazapine 7.5 mg tablet 45 mg PO QHS Check with primary doctor 10/15/22 [History Last Taken Unknown] scopolamine base 1 mg over 3 days transdermal patch 1 patch transdermal Q72H Check with primary doctor 10/15/22 [History Last Taken Unknown] spironolactone 25 mg tablet 50 mg PO BID Check with primary doctor 10/15/22 [History Last Taken Unknown] methotrexate sodium (PF) 25 mg/mL injection solution 25 mg subcut QWEEK Check with primary doctor 10/18/22 [History Last Taken 12/29/22 07:00] Isosource 1.5 King 1 bottle J-tube nutrition 12/31/22 [History Last Taken Unknown] amiloride 5 mg tablet 10 mg PO DAILY Check with primary doctor 12/31/22 [History Last Taken Unknown] clopidogrel 75 mg tablet 75 mg PO DAILY Check with primary doctor 12/31/22 [History Last Taken Unknown] doxazosin 8 mg tablet 8 mg PO DAILY Check with primary doctor 12/31/22 [History Last Taken Unknown] losartan 100 mg tablet 100 mg PO DAILY Check with primary doctor 12/31/22 [History Last Taken Unknown] minoxidil 10 mg tablet 10 mg PO DAILY Check with primary doctor 12/31/22 [History Last Taken Unknown] Allergy/AdvReac Type Severity Reaction Status Date / Time Fish Containing Products Allergy Severe hives, Verified 12/31/22 06:46 swellimg aspirin Allergy Shortness Verified 12/31/22 06:46 of breath Penicillins [PCN] Allergy Shortness Verified 12/31/22 06:46 of breath Family History Mother Hypertension Glaucoma Diabetes Cancer breast Bleeding disorder Heart disease Seizures CVA (cerebral vascular accident) Father CVA (cerebral vascular accident) Glaucoma Colon cancer Arthritis Diabetes Heart disease Hypertension Sister Diabetes Cancer leukemia Hypertension Brother CVA (cerebral vascular accident) Hypertension Grandmother Cancer breast Sickle cell trait Surgical History History of arthroscopy of both knees History of bilateral breast reduction surgery History of bilateral oophorectomies History of carpal tunnel release of both wrists History of gastric bypass History of incision and drainage (~10/12/18) History of jejunostomy tube placement History of open reduction and internal fixation (ORIF) procedure History of right and left heart catheterization (LHC) (04/07/19) History of total abdominal hysterectomy and bilateral salpingo-oophorectomy History of total thyroidectomy Status post panniculectomy Social History Smoking Status: Former smoker how long ago did patient quit smokin years ago alcohol intake: never substance use type: does not use caffeine: Yes what type of physical activity do you participate in: walking, aerobics and weight training frequency: 3-4 times per week ROS Constitutional Constitutional: Denies anorexia, change in weight, chills, fatigue, fever(s), night sweats or weakness Eyes Eyes: Denies blurry vision, change in vision, discharge from eye(s) or eye pain Cardiovascular Cardiovascular: Reports dyspnea on exertion; Denies chest pain, claudication, edema or palpitations Respiratory/Chest Respiratory/Chest: Reports dyspnea, shortness of breath at rest and shortness of breath with exertion; Denies cough or hemoptysis Gastrointestinal Gastrointestinal: Reports other Details: Chronic dysphagia secondary to achalasia ; Denies abdominal pain, constipation, diarrhea, hematemesis, hematochezia, melena, nausea or vomiting Genitourinary Genitourinary: Denies dysuria, hematuria, urinary frequency, urinary hesitancy, urinary incontinence or urinary urgency Musculoskeletal Musculoskeletal: Denies joint stiffness, joint swelling or myalgias Neurologic Neurologic: Denies abnormal gait, abnormal speech, confusion, disequilibrium, dizziness, focal weakness, headache(s), loss of vision, numbness, other visual disturbances, paresthesias, syncope or tingling Psychiatric Psychiatric: Denies anxiety, cognitive impairment, depression, irritability, mood swings or suicidal ideation Endocrine Endocrinology: Denies change in body appearance, cold intolerance, excessive sweating, heat intolerance, polydipsia or polyuria Hematologic/Lymphatic Hematologic/Lymphatic: Denies none, anemia, easy bleeding, easy bruising or lymphadenopathy Allergic/Immunologic Allergic/Immunologic: Denies rhinitis, urticaria, eczemia or asthma Vital Signs Vital Signs Vital Signs: 12/31/22 06:42 12/31/22 06:55 12/31/22 08:42 Temperature 98.8 F Temperature Source Temporal Pulse Rate 98 56 L Respiratory Rate 24 H 18 Respiratory Effort Normal Non-Labored Respiratory Depth Respiratory Pattern Normal Blood Pressure 180/89 H 148/80 H Blood Pressure Mean 119 102 Blood Pressure Source Blood Pressure Position Blood Pressure Location Pulse Ox 99 100 Oxygen Delivery Method Nasal Cannula Nasal Cannula Oxygen Flow Rate (L/min) 3 2 12/31/22 09:57 12/31/22 10:00 12/31/22 10:34 Temperature 98.3 F 98.2 F Temperature Source Temporal Temporal Pulse Rate 61 59 L 64 Respiratory Rate 17 16 16 Respiratory Effort Respiratory Depth Respiratory Pattern Blood Pressure 151/87 H 151/82 H 148/88 H Blood Pressure Mean 108 105 108 Blood Pressure Source Monitor Blood Pressure Position Semi-Fowlers Blood Pressure Location Left Arm Pulse Ox 100 100 100 Oxygen Delivery Method Nasal Cannula Nasal Cannula Nasal Cannula Oxygen Flow Rate (L/min) 2 2 3 12/31/22 11:50 12/31/22 15:14 12/31/22 15:24 Temperature 97.2 F L Temperature Source Temporal Pulse Rate 61 Respiratory Rate 16 Respiratory Effort Normal Non-Labored Respiratory Depth Normal Respiratory Pattern Normal Blood Pressure 144/85 H Blood Pressure Mean 104 Blood Pressure Source Monitor Blood Pressure Position Semi-Fowlers Blood Pressure Location Left Arm Pulse Ox 97 Oxygen Delivery Method Nasal Cannula Nasal Cannula Nasal Cannula Oxygen Flow Rate (L/min) 3 3 3 12/31/22 14:50 Temperature Temperature Source Pulse Rate Respiratory Rate Respiratory Effort Normal Non-Labored Respiratory Depth Normal Respiratory Pattern Normal Blood Pressure Blood Pressure Mean Blood Pressure Source Blood Pressure Position Blood Pressure Location Pulse Ox Oxygen Delivery Method Nasal Cannula Oxygen Flow Rate (L/min) 3 Weight Weight: 135.256 kg Body Mass Index (BMI) 46.7 Physical Exam Const alert, oriented x3 and no apparent distress Constitutional Narrative: Patient is morbidly obese, she appears older than her stated age General Appearance: cooperative, well kempt and well developed Orientation / Consciousness: awake, oriented to person, oriented to place and oriented to time HEENT normocephalic, head/scalp atraumatic, hearing grossly normal bilaterally and moist oral mucous membranes Eyes PERRL, EOMs intact bilaterally and conjunctivae normal Neck supple, no JVD, thyroid normal and no carotid bruits General: trachea midline Resp normal respiratory effort, no retractions and no use of accessory muscles Resp Narrative: Breath sounds are distant bilaterally Auscultation: Negative for rales, rhonchi or wheezes Cardio regular rate, regular rhythm, S1 normal heart sound, S2 normal heart sound, no murmurs, no rub and no gallops GI normal to inspection, nondistended, normoactive bowel sounds, soft to palpation, non-tender and non-distended Extremity Extremity Narrative: ModerateThere is evidence of edema in the lower extremities bilaterally, there is also noted to be atrophic skin changes over the lower extremities Skin Skin Narrative: Patient has chronic skin changes over both lower extremities Neuro oriented x3, CN's II-XII intact bilaterally, moves all extremities, no focal motor deficits and no sensory deficits noted Sensorium / Orientation: awake and alert Speech: speech normal Psych affect normal Results Lab / Micro Data Result Diagrams: 12/31/22 06:53 12/31/22 06:53 Labs: Laboratory Results - last 24 hr 12/31/22 06:53: WBC 11.5 H, RBC 4.47, Hgb 11.5 L, Hct 39.1, MCV 87.5, MCH 25.7 L, MCHC 29.4 L, RDW Std Deviation 51.7 H, RDW Coeff of Theresa 16.3 H, Plt Count 299, MPV 10.4, Immature Gran % (Auto) 0.200, Neut % (Auto) 45.1 L, Lymph % (Auto) 46.0 H, [place] % (Auto) 7.8, Eos % (Auto) 0.5, Baso % (Auto) 0.4, Absolute Neuts (auto) 5.2, Absolute Lymphs (auto) 5.31 H, Nucleated RBC % 0, Differential Comment COMMENT 12/31/22 06:53: Sodium 142, Potassium 3.3 L, Chloride 107, Carbon Dioxide 29.0, Anion Gap 6, BUN 8, Creatinine 0.75, Estim Creat Clear Calc 73.69, Est GFR (MDRD) Af Amer 100, Est GFR (MDRD) Non-Af 82, BUN/Creatinine Ratio 10.6, Glucose 109 H, Calcium 8.5, Magnesium 2.1 12/31/22 06:53: B-Natriuretic Peptide 27.9 Radiology Impression Chest X-Ray 12/31/22 07:15 IMPRESSION: Cardiomegaly with no acute pulmonary airspace disease. Electronically Signed: Nixon Carter MD at 7:42 EDT , Assessment & Plan Assessment/Plan (1) Anasarca: PLAN: Plan 1. Anasarca-patient will be admitted to PCU, she will be placed on IV Lasix drip, output will be monitored, labs will be repeated tomorrow #2 essential hypertension-patient will remain on her present medications #3 morbid obesity-complicates care, medical course, management, and recovery #4 chronic obstructive pulmonary disease-patient will remain on aerosol treatments, pulse ox will be monitored #5 chronic hypoxic respiratory failure secondary to #4-patient's pulse ox will be monitored, she is on supplemental oxygen chronically #6 obstructive sleep apnea-patient's CPAP will be continued, she has her own machine #7 hypertrophic nonobstructive cardiomyopathy-complicates care, medical course, management, and recovery #8 hyperlipidemia-patient is on atorvastatin #9 seizure disorder-patient will remain on her present medication #10 coronary artery disease-patient will remain on her present medications Total clinical time spent by myself addressing the patient's medical issues, reviewing all of her data, and collaborating with patient's care team: 75 minutes Charges/Coding Visit Charges Inpatient E&M: 75146 Init Hosp L3
[2022-12-31] MEDS: Ipratropium/Albuterol Sulfate 3 ML AMPUL.NEB INHALATION (19:28)
[2022-12-31] MEDS: Budesonide Respules 0.5 MG/2 ML AMPUL.NEB. INHALATION (19:28)
[2022-12-31] MEDS: cloNIDine HCl 0.1 MG Tablet 0.2 MG PO (21:27)
[2022-12-31] MEDS: levETIRAcetam Oral Solution 500 MG/5 ML PO (21:27)
[2022-12-31] MEDS: hydrOXYzine PAM 25 MG Capsule GT (21:27)
[2022-12-31] MEDS: Ferrous Sulfate 300 MG/5 ML UDC JT (21:27)
[2022-12-31] MEDS: Mirtazapine 15 MG Tablet 45 MG PO (21:27)
[2022-12-31] MEDS: Atorvastatin Calcium 80 MG Tablet PO (21:28)
[2022-12-31] MEDS: Pantoprazole Sodium 40 MG Tablet PO (21:28)
[2022-12-31] MEDS: Nystatin Powder 15gm Bottle 1 APPLIC TOPICAL (21:29)
[2022-12-31] MEDS: Potassium Chloride Oral Soln 20 MEQ/15 ML UDC 120 MEQ PO (21:30)
[2022-12-31] MEDS: Polyethylene Glycol 3350 17 GM PACKET JT (21:30)
[2022-12-31] MEDS: Ondansetron 4 MG/2 ML Vial IV (22:34)
[2022-12-31 23:16] LABS: Anion Gap 8 (5-15); BUN 9 mg/dL (7-18); BUN/Creat Ratio 8.7 RATIO (10-20); Calcium,Total 8.4 mg/dL (8.5-10.1); Chloride 103 mmol/L (98-107); Creatinine, Serum 1.03 mg/dL (0.55-1.02); EST Glomerular Filtration Rate 57 mL/min (>60); Est Glom Filt Rate - Afr Amer 69 mL/min (>60); Estimated Creatinine Clearance 53.66 ml/min; Glucose 203 mg/dL (74-106); Potassium 4.4 mmol/L (3.5-5.1); Sodium Level 139 mmol/L (136-145)
[2023-01-01] VITALS (12 sets, daily range): BP systolic 76–122; BP diastolic 54–69; PULSE 58–86; RESP 16–20; TEMP 35.9–36.6; O2SAT 91–100
[2023-01-01] MEDS: proCHLORPERazine 10 MG/2 ML Vial 5 MG IV (02:30)
--- NOTE | 2023-01-01 05:03 | CPS ---
RT set up pt home cpap unit with 4L o2 bked in. Pt was nauseated most of the night, therefore pt did not wear her cpap due to up and down bouts with nausea.
[2023-01-01] MEDS: Nystatin Powder 15gm Bottle 1 APPLIC TOPICAL ×3 (05:52→21:07)
[2023-01-01] MEDS: Levothyroxine 50 MCG Tablet PO (06:00)
[2023-01-01] MEDS: Furosemide 500 MG in Empty Viaflex 50 mL 1 EACH CONT INF (06:38)
[2023-01-01] MEDS: Ipratropium/Albuterol Sulfate 3 ML AMPUL.NEB INHALATION ×4 (07:05→19:20)
[2023-01-01] MEDS: Budesonide Respules 0.5 MG/2 ML AMPUL.NEB. INHALATION ×2 (07:05→19:20)
[2023-01-01 09:47] LABS: Anion Gap 5 (5-15); BUN 14 mg/dL (7-18); BUN/Creat Ratio 9.4 RATIO (10-20); Calcium,Total 8.9 mg/dL (8.5-10.1); Chloride 101 mmol/L (98-107); Creatinine, Serum 1.49 mg/dL (0.55-1.02); EST Glomerular Filtration Rate 37 mL/min (>60); Est Glom Filt Rate - Afr Amer 45 mL/min (>60); Estimated Creatinine Clearance 37.09 ml/min; Glucose 148 mg/dL (74-106); Potassium 4.6 mmol/L (3.5-5.1); Sodium Level 139 mmol/L (136-145)
[2023-01-01] MEDS: Ferrous Sulfate 300 MG/5 ML UDC JT ×2 (10:29→21:06)
[2023-01-01] MEDS: cloNIDine HCl 0.1 MG Tablet 0.2 MG PO (10:31)
[2023-01-01] MEDS: Minoxidil 10 MG Tablet PO (10:31)
[2023-01-01] MEDS: Calcium Carbonate 500 MG Tablet PO ×2 (10:31→16:14)
[2023-01-01] MEDS: Clopidogrel Bisulfate 75 MG Tablet PO (10:31)
[2023-01-01] MEDS: Losartan Potassium 100 MG Tablet PO (10:31)
[2023-01-01] MEDS: levETIRAcetam Oral Solution 500 MG/5 ML PO ×2 (10:32→21:05)
[2023-01-01] MEDS: Heparin Injection (Vial) 5,000 UNIT/ML VIAL 5000 UNIT SC ×2 (10:52→21:06)
[2023-01-01] MEDS: Ibuprofen 600 MG Tablet PO ×2 (10:58→21:30)
--- NOTE | 2023-01-01 11:11 | PCM.PN.REN ---
Subjective Subjective Massive urine output. Creatinine increased, likely related to diuresis. Objective Data Objective Data Vital Signs: Vital Signs Temp Pulse Resp BP Pulse Ox O2 Del Method O2 Flow Rate 97.4 F L 58 L 20 H 115/67 100 Nasal Cannula 2 01/01/23 09:26 01/01/23 09:26 01/01/23 09:26 01/01/23 09:26 01/01/23 09:26 01/01/23 10:00 01/01/23 10:00 Oxygen Flow Rate (L/min) 2 Oxygen Delivery Method Nasal Cannula Weight: 135.256 kg Body Mass Index (BMI) 46.7 Intake & Output: Intake and Output for Last 24 Hours 12/30/22 12/31/22 01/01/23 23:59 23:59 23:59 Intake Total 486.02 / 486.02 80 / 80 Output Total 5300 / 5300 100 / 100 Balance -4813.98 / -4813.98 -20 / -20 Lab / Micro Data Result Diagrams: 12/31/22 06:53 01/01/23 09:10 Labs: Laboratory Results - last 24 hr 12/31/22 22:46: Sodium 139, Potassium 4.4, Chloride 103, Carbon Dioxide 28.0, Anion Gap 8, BUN 9, Creatinine 1.03 H, Estim Creat Clear Calc 53.66, Est GFR (MDRD) Af Amer 69, Est GFR (MDRD) Non-Af 57 L, BUN/Creatinine Ratio 8.7 L, Glucose 203 H, Calcium 8.4 L 01/01/23 06:20: Sodium Cancelled, Potassium Cancelled, Chloride Cancelled, Carbon Dioxide Cancelled, Anion Gap Cancelled, BUN Cancelled, Creatinine Cancelled, Estim Creat Clear Calc Cancelled, Est GFR (MDRD) Af Amer Cancelled, Est GFR (MDRD) Non-Af Cancelled, BUN/Creatinine Ratio Cancelled, Glucose Cancelled, Calcium Cancelled 01/01/23 09:10: Sodium 139, Potassium 4.6, Chloride 101, Carbon Dioxide 33.0 H, Anion Gap 5, BUN 14, Creatinine 1.49 H, Estim Creat Clear Calc 37.09, Est GFR (MDRD) Af Amer 45 L, Est GFR (MDRD) Non-Af 37 L, BUN/Creatinine Ratio 9.4 L, Glucose 148 H, Calcium 8.9 Physical Exam Narrative Alert awake oriented x 3 no obvious distress no pallor no icterus no JVD s1s2 no murmurs lungs clear abdomen soft no organomegaly no edema no cyanosis Assessment & Plan Assessment/Plan (1) Anasarca: PLAN: Etiology unclear. Echocardiogram looks okay, no history of cirrhosis, no proteinuria. It is possible some of it is at least lymphedema. She does follow with wound clinic/lymphedema clinic. Apparently denied lymphedema pumps. She was sent in because of shortness of breath and about 15 pound weight gain. Examination was not impressive. Started on Lasix drip. Urine output about 5 and half liters, apparently she lost some urine as well. Breathing is better. Creatinine is increased, likely related to diuresis. Hypokalemia. Chronic history. Of note she is on massive amounts of potassium at home but despite this her potassium has never been normal. Here I only gave her about half of what she takes at home and her potassium is high normal. Her total medication list includes about 40 medications. 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 I am not sure if she is actually taking all of these medications since potassium is normal and she has never been normal before. Plan for today will DC Lasix drip. Change to p.o. Possible discharge plans as per primary Discussed with hospitalist
--- NOTE | 2023-01-01 11:30 | CASEMGMT ---
RN CM Face to Face with patient for initial transition planning/care coordination assessment. RN CM introduced self and role at [facility]. Patient sitting in edge of bed, alert and oriented. Patient willing to participate in assessment and is able to answer all questions appropriately. Care providers, pharmacy, and demographics verified. Patient wishes to discharge home with resumption of HHC with [facility] nursing. Patient states she has no further needs or concerns at this time. CM to follow for discharge planning needs that may arise. PCP: Jojo Specialists: RA Jeremiah; Ivelisse, assistant professor of history; CACHORRO, cardiology; Wilma, tablet technician Preferred [facility]: [facility] Prescription Benefit: yes Living Will/HPOA: yes, son Ronda Lindo LNOK: son Living Arrangements: Patient lives alone in a first floor apartment with no steps to enter. Patient states she is independent at home. Transportation: insurance, [employer], son DME/HHC: Patient has shower chair, BSC, raised toilet, cane, hospital bed, lift chair, grab bars, rollator, wheelchair, medical alert, cpap, nebulizer, pulse ox, [employer] for oxygen with portability at 3lpm, glucometer, tubefeed through [place]. Patient has been to [facility]. Patient has HHC with [facility] for nursing. Patient has aides through [facility] 2x per week for 3hrs per day. Patient is active with Waiver program. Disposition Plan: Patient to discharge home with resumption of HHC, family support, and follow-up plans in place. Maribel PRICE, RN, CM
[2023-01-01] MEDS: Polyethylene Glycol 3350 17 GM PACKET JT (12:26)
--- NOTE | 2023-01-01 14:48 | DCINST_ITS ---
Discharge Instructions Diet Discharge Diet: 1800 Calorie Control Diet Activity Discharge Activity: Return to Normal Activity Weight Bearing Status: Full weight bearing Follow Up Care Test Results: Test results from this visit will be discussed in further detail at your follow- up appointment, if applicable. Discharge Plan Admission Admit Date/Time: 12/31/22 08:48 Primary Reason for Your Visit: niki Attending Provider: Nixon Caldwell Primary Care Provider: Nicko Uribe Consulting Providers: Demetris Dillon Instructions Additional Instructions / Restrictions: Hold Torsemide dose tonite, resume Verapamil tomorrow Discharge Orders/Prescriptions Prescriptions: Continued cyanocobalamin (vitamin B-12) 1,000 mcg/mL kit 1,000 mcg IM Q2W multivitamin [Daily Multi-Vitamin] Tablet 1 tab JT DAILY levothyroxine 50 mcg tablet 50 mcg JT DAILY nitroglycerin 0.3 mg tablet, sublingual 0.3 mg SUBLINGUAL Q5-15M PRN (Reason: cp) ipratropium-albuterol 0.5 mg-3 mg(2.5 mg base)/3 mL solution for nebulization 3 ml INHALATION 4X/DAY calcium citrate 200 mg (950 mg) tablet 200 mg JT BID thiamine HCl (vitamin B1) 100 mg tablet 100 mg JT DAILY Calcium 600 with Vitamin D3 600 mg(1,500mg) -400 unit tablet,chewable 1 tab JT DAILY folic acid 1 mg tablet 1 mg JT BID ergocalciferol (vitamin D2) 1,250 mcg (50,000 unit) capsule 100,000 unit PO DAILY gabapentin 250 mg/5 mL (5 mL) solution 1,000 mg PO TID nystatin 100,000 unit/gram powder 1 applic TOPICAL TID potassium chloride 20 mEq/15 mL liquid 120 meq PO 4X/DAY Trintellix 20 mg tablet 20 mg PO DAILY acetic acid 0.25 % solution 1 irrig IRRIGATION Q3H PRN (Reason: Wound Care) Renflexis 100 mg recon soln 100 mg .Route .Q 8 Weeks Rx Instructions: Q 8 weeks mirtazapine 7.5 mg tablet 45 mg PO QHS Rx Instructions: Dissolve tablet atorvastatin 80 mg tablet 80 mg PO QHS Label Comments: take 1 tablet by mouth once daily levetiracetam 100 mg/mL solution 500 mg PO BID Label Comments: take 5 milliliters (1 TEASPOONFUL) by mouth twice a day solifenacin 10 mg tablet 10 mg PO DAILY Label Comments: take 1 tablet by mouth once daily Ubrelvy 100 mg tablet 100 mg PO ONCE PRN (Reason: Migraine Headache) Rx Instructions: as a single dose; may repeat once in >=2 hours after first dose if needed hydroxyzine HCl 10 mg/5 mL solution 25 mg PO QHS (DME) BP MACHINE AND CUFF See Rx Instructions .Route .MEDSUPPLY Qty: 1 0RF Rx Instructions: As directed Qulipta 60 mg tablet 60 mg PO DAILY spironolactone 25 mg tablet 50 mg PO BID clonidine HCl 0.1 mg tablet 0.2 mg PO BID guaifenesin 100 mg/5 mL liquid 200 mg PO Q4H PRN (Reason: Cough) scopolamine base 1 mg over 3 days patch 3 day 1 patch transdermal Q72H Myrbetriq 50 mg tablet extended release 24 hr 50 mg PO DAILY methotrexate sodium (PF) 25 mg/mL solution 25 mg subcut QWEEK Label Comments: INJECT 1ML SUBCUTANEOUSLY EVERY 7 DAYS esomeprazole magnesium 40 MG capsule,delayed release(DR/EC) 40 mg JT BID fluticasone propion-salmeterol 500-50 mcg/dose blister with device 1 ea INHALATION BID polyethylene glycol 3350 17 GM packet 17 gm JT BID betamethasone dipropionate 15 GM ointment 1 dose topical BID Rx Instructions: hands and feet lactose-reduced food with fibr 1,000 ML liquid 45 ml JT CONT Rx Instructions: water flush 120ml q6 hours ferrous sulfate 220 mg (44 mg iron)/5 mL elixir 286 mg GT TID Rx Instructions: per j tube albuterol sulfate 90 mcg/actuation HFA aerosol inhaler 2 puff inhalation DAILY PRN (Reason: Wheezing) ondansetron HCl 4 mg/5 mL solution 4 mg JT TID PRN (Reason: nausea) Rx Instructions: per Jtube clopidogrel 75 mg tablet 75 mg PO DAILY Rx Instructions: with applesauce amiloride 5 mg tablet 10 mg PO DAILY doxazosin 8 mg tablet 8 mg PO DAILY minoxidil 10 mg tablet 10 mg PO DAILY losartan 100 mg tablet 100 mg PO DAILY Isosource 1.5 King liquid 1 bottle J-tube Rx Instructions: 6 x a day @ 45 ml/ hr verapamil 360 mg capsule,ext rel. pellets 24 hr 360 mg PO DAILY Qty: 90 3RF torsemide 20 mg tablet 20 mg PO .COMPLEX Label Comments: Updated dosing per Dr. Uribe 07/17/22 Rx Instructions: 20 mg PO 1.5 tablets in the am and 1 tablet at night; brexpiprazole 0.5 mg tablet 1 mg PO DAILY Referrals / Follow Up: Nicko Uribe MD [Primary Care Provider] - Within 2 Weeks Disposition Disposition (needs filled in before D/C Order can be placed): Home, Self Care
--- NOTE | 2023-01-01 15:21 | CASEMGMT ---
Discharge Planning Referral for resumption of HH services sent via [facility] to [facility]. Griselda Donis
[2023-01-01] MEDS: 0.9% Normal Saline 250 ML IV.SOLN. IV (15:42)
--- NOTE | 2023-01-01 15:52 | PCM.DC.SUM ---
Providers Date of Admission: 12/31/22 Date of Discharge: 01/02/23 Primary Care Physician: Dr. Nicko Uribe MD Consultations 12/31/22 10:33 Consult: Nephrology Routine Consulting Provider: Demetris Dillon Reason for Consult: anasarca EMERGENT Consult: No MD Notified: Yes Date Notified: 12/31/22 Time Notified: 11:15 Method of Notification: Answering Service Reason For Visit: ANASARCA Diagnosis Discharge Diagnosis (1) Anasarca: Status: Acute Code(s): R60.1 - Generalized edema Plan 1. Anasarca-patient will be admitted to PCU, she will be placed on IV Lasix drip, output will be monitored, labs will be repeated tomorrow #2 essential hypertension-patient will remain on her present medications #3 morbid obesity-complicates care, medical course, management, and recovery #4 chronic obstructive pulmonary disease-patient will remain on aerosol treatments, pulse ox will be monitored #5 chronic hypoxic respiratory failure secondary to #4-patient's pulse ox will be monitored, she is on supplemental oxygen chronically #6 obstructive sleep apnea-patient's CPAP will be continued, she has her own machine #7 hypertrophic nonobstructive cardiomyopathy-complicates care, medical course, management, and recovery #8 hyperlipidemia-patient is on atorvastatin #9 seizure disorder-patient will remain on her present medication #10 coronary artery disease-patient will remain on her present medications Total clinical time spent by myself addressing the patient's medical issues, reviewing all of her data, and collaborating with patient's care team: 75 minutes Medications at Discharge Home Medications esomeprazole magnesium 40 mg capsule,delayed release 40 mg J-tube BID ACID REFLUX 11/05/17 betamethasone dipropionate 0.05 % topical ointment 1 dose topical BID skin 10/11/18 lactose-reduced food-fiber 0.07 gram-1.5 kcal/mL liquid for tube feed 45 ml J-tube CONT feeding 10/11/18 polyethylene glycol 3350 17 gram oral powder packet 17 gm J-tube BID constipation 10/11/18 albuterol sulfate 90 mcg/actuation aerosol inhaler 2 puff inhalation DAILY PRN Wheezing 03/22/19 calcium carbonate 600 mg-vitamin D3 10 mcg (400 unit) chewable tablet (Calcium 600 with Vitamin D3) 1 tab J-tube DAILY supplement 03/22/19 calcium citrate 200 mg (950 mg) tablet 200 mg J-tube BID supplement 03/22/19 cyanocobalamin (vitamin B-12) 1,000 mcg/mL injection kit 1,000 mcg IM Q2W vitamin 03/22/19 ferrous sulfate 220 mg (44 mg iron)/5 mL oral elixir 286 mg G-tube TID replacement 03/22/19 fluticasone 500 mcg-salmeterol 50 mcg/dose blistr powdr for inhalation 1 ea inhalation BID COPD 03/22/19 ipratropium 0.5 mg-albuterol 3 mg (2.5 mg base)/3 mL nebulization soln 3 ml inhalation 4X/DAY breathing 03/22/19 levothyroxine 50 mcg tablet 50 mcg J-tube DAILY thyroid 03/22/19 multivitamin (Daily Multi-Vitamin tablet) 1 tab J-tube DAILY vitamin 03/22/19 nitroglycerin 0.3 mg sublingual tablet 0.3 mg sublingual Q5-15M PRN cp 03/22/19 thiamine HCl (vitamin B1) 100 mg tablet 100 mg J-tube DAILY supplement 03/22/19 nystatin 100,000 unit/gram topical powder 1 applic topical TID rash 04/07/20 acetic acid 0.25 % irrigation solution 1 irrig irrigation Q3H PRN Wound Care 11/16/20 vortioxetine 20 mg tablet (Trintellix) 20 mg PO DAILY mental health 11/16/20 infliximab-abda 100 mg intravenous solution (Renflexis) 100 mg .Route .Q 8 Weeks chrons 06/13/21 atorvastatin 80 mg tablet 80 mg PO QHS cholesterol 12/18/21 folic acid 1 mg tablet 1 mg J-tube BID supplement 12/18/21 gabapentin 250 mg/5 mL (5 mL) oral solution 1,000 mg PO TID nerve pain 12/18/21 levetiracetam 100 mg/mL oral solution 500 mg PO BID seizures 12/18/21 ondansetron HCl 4 mg/5 mL oral solution 4 mg J-tube TID PRN nausea 12/18/21 potassium chloride 20 mEq/15 mL oral liquid 120 meq PO 4X/DAY supplement 12/18/21 solifenacin 10 mg tablet 10 mg PO DAILY urine 12/18/21 ubrogepant 100 mg tablet (Ubrelvy) 100 mg PO ONCE PRN Migraine Headache 12/18/21 ergocalciferol (vitamin D2) 1,250 mcg (50,000 unit) capsule 100,000 unit PO DAILY vitamin 03/22/22 BP MACHINE AND CUFF #1 ea 06/19/22 verapamil 360 mg 24 hr capsule,extended release 360 mg PO DAILY may give in peg tube if cannot take orally #90 caps 07/03/22 torsemide 20 mg tablet 20 mg PO .COMPLEX WATER PILL 07/24/22 brexpiprazole 0.5 mg tablet 1 mg PO DAILY mental health 08/14/22 atogepant 60 mg tablet (Qulipta) 60 mg PO DAILY migraines 10/15/22 clonidine HCl 0.1 mg tablet 0.2 mg PO BID mental health 10/15/22 guaifenesin 100 mg/5 mL oral liquid 200 mg PO Q4H PRN Cough 10/15/22 hydroxyzine HCl 10 mg/5 [facility]22 mirabegron 50 mg tablet,extended release 24 hr (Myrbetriq) 50 mg PO DAILY urine 10/15/22 [facility] 7.5 mg tablet [facility]/15/22 scopolamine base 1 mg over 3 days transdermal patch 1 patch transdermal Q72H nausea 10/15/22 spironolactone 25 mg tablet 50 mg PO BID diuretic 10/15/22 methotrexate sodium (PF) 25 mg/mL injection solution 25 mg subcut QWEEK inflammation 10/18/22 Isosource 1.5 King 1 bottle J-tube nutrition 12/31/22 amiloride 5 mg tablet 10 mg PO DAILY edema 12/31/22 clopidogrel 75 mg tablet 75 mg PO DAILY anti platelet 12/31/22 doxazosin 8 mg tablet 8 mg PO DAILY blood pressure 12/31/22 losartan 100 mg tablet 100 mg PO DAILY blood pressure 12/31/22 minoxidil 10 mg tablet 10 mg PO DAILY blood pressure 12/31/22 Hospital Course Operations None Procedures None Summary of Care Provided Minutes Spent on Discharge: 32 Hospital Course: This 62-year-old black female was seen in the emergency room at [facility] after being instructed to come in for evaluation of water retention and lower extremity edema, she had been told to come to the emergency room the day before but she had too busy and could not come to the emergency room. Evaluation in the emergency room included labs which revealed a normal BUN and creatinine, potassium was low at 3.3, hemoglobin was 11.5. Chest x-ray showed no evidence of CHF. Patient was admitted to PCU for anasarca and lower extremity edema, she was placed on Lasix drip and diuresed very well over 24 hours. Patient was seen in consultation by nephrology. On 01/02/2023, patient was seen and examined: On examination she appeared in good health and spirits, she does not appear to be in any distress. Patient is morbidly obese. Vital signs as documented. Skin warm and dry and without overt rashes. Neck without JVD, thyroid appears normal, trachea is midline, neck is supple. Lungs clear, normal air movement was noted. Heart exam notable for regular rhythm, normal sounds and absence of murmurs, rubs or gallops. Abdomen unremarkable and without evidence of organomegaly, masses, or abdominal aortic enlargement, bowel sounds are present in all 4 quadrants, no abdominal tenderness was noted. Extremities there is mild lower extremity edema noted on today's exam, no cyanosis was noted, no clubbing was noted. Neuro: Cranial nerves II through XII are grossly intact, no focal motor deficits were noted, sensation to light touch and pinprick is intact, motor exam 5/5 throughout. Psych: Patient is alert and oriented x3, she does not appear anxious or depressed, she does not appear agitated. On 01/02/2023, patient was seen and examined and felt to be stable for discharge home. Home health care will be set up for the patient. Weight / BMI Weight Weight: 135.256 kg Body Mass Index (BMI) 46.7 ABG / Lab / Microbiology Data Result Diagrams: 12/31/22 06:53 01/01/23 09:10 Laboratory: Laboratory Results - last 24 hr 12/31/22 22:46: Sodium 139, Potassium 4.4, Chloride 103, Carbon Dioxide 28.0, Anion Gap 8, BUN 9, Creatinine 1.03 H, Estim Creat Clear Calc 53.66, Est GFR (MDRD) Af Amer 69, Est GFR (MDRD) Non-Af 57 L, BUN/Creatinine Ratio 8.7 L, Glucose 203 H, Calcium 8.4 L 01/01/23 06:20: Sodium Cancelled, Potassium Cancelled, Chloride Cancelled, Carbon Dioxide Cancelled, Anion Gap Cancelled, BUN Cancelled, Creatinine Cancelled, Estim Creat Clear Calc Cancelled, Est GFR (MDRD) Af Amer Cancelled, Est GFR (MDRD) Non-Af Cancelled, BUN/Creatinine Ratio Cancelled, Glucose Cancelled, Calcium Cancelled 01/01/23 09:10: Sodium 139, Potassium 4.6, Chloride 101, Carbon Dioxide 33.0 H, Anion Gap 5, BUN 14, Creatinine 1.49 H, Estim Creat Clear Calc 37.09, Est GFR (MDRD) Af Amer 45 L, Est GFR (MDRD) Non-Af 37 L, BUN/Creatinine Ratio 9.4 L, Glucose 148 H, Calcium 8.9 D/C Instructions Discharge Diet: 1800 Calorie Control Diet Weight Bearing Status: Full weight bearing Meaningful Use Info Meaningful Use Diagnoses (Choose all that apply): None applicable Discharge Plan Admission Admit Date/Time: 12/31/22 08:48 Primary Reason for Your Visit: niki Attending Provider: Nixon Caldwell Primary Care Provider: Nicko Uribe Consulting Providers: Demetris Dillon Instructions Additional Instructions / Restrictions: Hold Torsemide dose tonite, resume Verapamil tomorrow Discharge Orders/Prescriptions Prescriptions: Continued cyanocobalamin (vitamin B-12) 1,000 mcg/mL kit 1,000 mcg IM Q2W multivitamin [Daily Multi-Vitamin] Tablet 1 tab JT DAILY levothyroxine 50 mcg tablet 50 mcg JT DAILY nitroglycerin 0.3 mg tablet, sublingual 0.3 mg SUBLINGUAL Q5-15M PRN (Reason: cp) ipratropium-albuterol 0.5 mg-3 mg(2.5 mg base)/3 mL solution for nebulization 3 ml INHALATION 4X/DAY calcium citrate 200 mg (950 mg) tablet 200 mg JT BID thiamine HCl (vitamin B1) 100 mg tablet 100 mg JT DAILY Calcium 600 with Vitamin D3 600 mg(1,500mg) -400 unit tablet,chewable 1 tab JT DAILY folic acid 1 mg tablet 1 mg JT BID ergocalciferol (vitamin D2) 1,250 mcg (50,000 unit) capsule 100,000 unit PO DAILY gabapentin 250 mg/5 mL (5 mL) solution 1,000 mg PO TID nystatin 100,000 unit/gram powder 1 applic TOPICAL TID potassium chloride 20 mEq/15 mL liquid 120 meq PO 4X/DAY Trintellix 20 mg tablet 20 mg PO DAILY acetic acid 0.25 % solution 1 irrig IRRIGATION Q3H PRN (Reason: Wound Care) Renflexis 100 mg recon soln 100 mg .Route .Q 8 Weeks Rx Instructions: Q 8 weeks mirtazapine 7.5 mg tablet 45 mg PO QHS Rx Instructions: Dissolve tablet atorvastatin 80 mg tablet 80 mg PO QHS Label Comments: take 1 tablet by mouth once daily levetiracetam 100 mg/mL solution 500 mg PO BID Label Comments: take 5 milliliters (1 TEASPOONFUL) by mouth twice a day solifenacin 10 mg tablet 10 mg PO DAILY Label Comments: take 1 tablet by mouth once daily Ubrelvy 100 mg tablet 100 mg PO ONCE PRN (Reason: Migraine Headache) Rx Instructions: as a single dose; may repeat once in >=2 hours after first dose if needed hydroxyzine HCl 10 mg/5 mL solution 25 mg PO QHS (DME) BP MACHINE AND CUFF See Rx Instructions .Route .MEDSUPPLY Qty: 1 0RF Rx Instructions: As directed Qulipta 60 mg tablet 60 mg PO DAILY spironolactone 25 mg tablet 50 mg PO BID clonidine HCl 0.1 mg tablet 0.2 mg PO BID guaifenesin 100 mg/5 mL liquid 200 mg PO Q4H PRN (Reason: Cough) scopolamine base 1 mg over 3 days patch 3 day 1 patch transdermal Q72H Myrbetriq 50 mg tablet extended release 24 hr 50 mg PO DAILY methotrexate sodium (PF) 25 mg/mL solution 25 mg subcut QWEEK Label Comments: INJECT 1ML SUBCUTANEOUSLY EVERY 7 DAYS esomeprazole magnesium 40 MG capsule,delayed release(DR/EC) 40 mg JT BID fluticasone propion-salmeterol 500-50 mcg/dose blister with device 1 ea INHALATION BID polyethylene glycol 3350 17 GM packet 17 gm JT BID betamethasone dipropionate 15 GM ointment 1 dose topical BID Rx Instructions: hands and feet lactose-reduced food with fibr 1,000 ML liquid 45 ml JT CONT Rx Instructions: water flush 120ml q6 hours ferrous sulfate 220 mg (44 mg iron)/5 mL elixir 286 mg GT TID Rx Instructions: per j tube albuterol sulfate 90 mcg/actuation HFA aerosol inhaler 2 puff inhalation DAILY PRN (Reason: Wheezing) ondansetron HCl 4 mg/5 mL solution 4 mg JT TID PRN (Reason: nausea) Rx Instructions: per Jtube clopidogrel 75 mg tablet 75 mg PO DAILY Rx Instructions: with applesauce amiloride 5 mg tablet 10 mg PO DAILY doxazosin 8 mg tablet 8 mg PO DAILY minoxidil 10 mg tablet 10 mg PO DAILY losartan 100 mg tablet 100 mg PO DAILY Isosource 1.5 King liquid 1 bottle J-tube Rx Instructions: 6 x a day @ 45 ml/ hr verapamil 360 mg capsule,ext rel. pellets 24 hr 360 mg PO DAILY Qty: 90 3RF torsemide 20 mg tablet 20 mg PO .COMPLEX Label Comments: Updated dosing per Dr. Uribe 07/17/22 Rx Instructions: 20 mg PO 1.5 tablets in the am and 1 tablet at night; brexpiprazole 0.5 mg tablet 1 mg PO DAILY Referrals / Follow Up: Nicko Uribe MD [Primary Care Provider] - Within 2 Weeks Disposition Disposition (needs filled in before D/C Order can be placed): Home, Self Care Charges/Coding Visit Charges Inpatient E&M: 74154 Disch Hosp >30min
--- NOTE | 2023-01-01 17:49 | PN.HOSP_ITS ---
Reason for Visit Reason for Visit: Diagnoses Generalized edema (12/31/22) Subjective Subjective Patient was seen and examined today, I talked with nephrology about her care, nephrology recommended stopping her Lasix drip. Patient's blood pressure was a little bit low this afternoon, I gave her a small amount of IV normal saline. I was set to discharge the patient when she told nursing that she did not feel good and wanted to stay until tomorrow. I agreed to let the patient stay in the hospital, I will evaluate her early in the morning for discharge. I have decided to hold her torsemide tonight due to her low blood pressure. Patient was also not given her verapamil today due to low blood pressure. I feel the patient is on an excessive amount of medications, I discussed this with her and told her that I advised her to talk with her primary care doctor about limiting some of her medications. Unfortunately I think the patient sees several physicians and this complicates matters. Objective Data Objective Data Vital Signs: Vital Signs Temp Pulse Resp BP Pulse Ox O2 Del Method O2 Flow Rate 97.0 F L 66 16 96/59 L 94 Nasal Cannula 3 01/01/23 14:27 01/01/23 15:50 01/01/23 15:50 01/01/23 14:27 01/01/23 15:50 01/01/23 15:50 01/01/23 15:50 Oxygen Flow Rate (L/min) 3 Oxygen Delivery Method Nasal Cannula Weight: 135.256 kg Body Mass Index (BMI) 46.7 Intake & Output: Intake and Output for Last 24 Hours 12/30/22 12/31/22 01/01/23 23:59 23:59 23:59 Intake Total 486.02 / 486.02 242.10 / 242.10 Output Total 5300 / 5300 750 / 750 Balance -4813.98 / -4813.98 -507.90 / -507.90 Lab / Micro Data Result Diagrams: 12/31/22 06:53 01/01/23 09:10 Labs: Laboratory Results - last 24 hr 12/31/22 22:46: Sodium 139, Potassium 4.4, Chloride 103, Carbon Dioxide 28.0, Anion Gap 8, BUN 9, Creatinine 1.03 H, Estim Creat Clear Calc 53.66, Est GFR (MDRD) Af Amer 69, Est GFR (MDRD) Non-Af 57 L, BUN/Creatinine Ratio 8.7 L, Glucose 203 H, Calcium 8.4 L 01/01/23 06:20: Sodium Cancelled, Potassium Cancelled, Chloride Cancelled, Carbon Dioxide Cancelled, Anion Gap Cancelled, BUN Cancelled, Creatinine Cancelled, Estim Creat Clear Calc Cancelled, Est GFR (MDRD) Af Amer Cancelled, Est GFR (MDRD) Non-Af Cancelled, BUN/Creatinine Ratio Cancelled, Glucose Cancelled, Calcium Cancelled 01/01/23 09:10: Sodium 139, Potassium 4.6, Chloride 101, Carbon Dioxide 33.0 H, Anion Gap 5, BUN 14, Creatinine 1.49 H, Estim Creat Clear Calc 37.09, Est GFR (MDRD) Af Amer 45 L, Est GFR (MDRD) Non-Af 37 L, BUN/Creatinine Ratio 9.4 L, Glucose 148 H, Calcium 8.9 Physical Exam Const alert, oriented x3 and no apparent distress General Appearance: cooperative, well kempt and well developed Orientation / Consciousness: awake, oriented to person, oriented to place and oriented to time HEENT normocephalic, head/scalp atraumatic and moist oral mucous membranes Eyes PERRL, EOMs intact bilaterally and conjunctivae normal Neck supple, no JVD, thyroid normal and no carotid bruits General: trachea midline Resp normal respiratory effort, no retractions, no use of accessory muscles and clear to auscultation bilaterally Auscultation: Negative for rales, rhonchi or wheezes Cardio regular rate, regular rhythm, S1 normal heart sound, S2 normal heart sound, no murmurs, no rub and no gallops GI normal to inspection, nondistended, normoactive bowel sounds, soft to palpation, non-tender and non-distended Extremity normal to inspection Extremity Narrative: Patient has minimal lower extremity edema noted, she has chronic skin changes in keeping with chronic edema Skin Skin Narrative: Chronic skin changes over the lower extremities due to edema Neuro oriented x3, CN's II-XII intact bilaterally, moves all extremities, no focal motor deficits and no sensory deficits noted Sensorium / Orientation: awake and alert Speech: speech normal Psych affect normal Assessment & Plan Assessment/Plan (1) Anasarca: PLAN: Plan 1. Anasarca-patient diuresed several liters of fluid, her Lasix drip was sto pped today, her blood pressures were in the 80s and 90s systolic at 1 point, I have decided to hold her blood pressure medication and oral torsemide. Patient will be reevaluated in the morning for discharge tomorrow. I will repeat her BMP tomorrow. #2 essential hypertension-patient will remain on her present medications #3 morbid obesity-complicates care, medical course, management, and recovery #4 chronic obstructive pulmonary disease-patient will remain on aerosol treatments, pulse ox will be monitored #5 chronic hypoxic respiratory failure secondary to #4-patient's pulse ox will be monitored, she is on supplemental oxygen chronically #6 obstructive sleep apnea-patient's CPAP will be continued, she has her own machine #7 hypertrophic nonobstructive cardiomyopathy-complicates care, medical course, management, and recovery #8 hyperlipidemia-patient is on atorvastatin #9 seizure disorder-patient will remain on her present medication #10 coronary artery disease-patient will remain on her present medications Total clinical time spent by myself addressing the patient's medical issues, reviewing all of her data, and collaborating with patient's care team: 35 minutes Charges/Coding Visit Charges Inpatient E&M: 19414 Subs Hosp L2
[2023-01-01] MEDS: hydrOXYzine PAM 25 MG Capsule GT (21:05)
[2023-01-01] MEDS: Atorvastatin Calcium 80 MG Tablet PO (21:05)
[2023-01-01] MEDS: Pantoprazole Sodium 40 MG Tablet PO (21:05)
[2023-01-01] MEDS: Mirtazapine 15 MG Tablet 45 MG PO (21:06)
[2023-01-01] MEDS: Midodrine HCl 5 MG Tablet 10 MG PO (21:19)
[2023-01-01] MEDS: Jevity 1.5 1,000 ML 45 ML JT (22:37)
[2023-01-02 04:38] VITALS: BP 118/69; PULSE 68; RESP 19; TEMP 35.9; O2SAT 98
[2023-01-02] MEDS: Levothyroxine 50 MCG Tablet PO (05:52)
[2023-01-02] MEDS: Nystatin Powder 15gm Bottle 1 APPLIC TOPICAL (05:52)
[2023-01-02 07:43] VITALS: O2SAT 95
[2023-01-02] MEDS: Ipratropium/Albuterol Sulfate 3 ML AMPUL.NEB INHALATION (08:51)
[2023-01-02] MEDS: Budesonide Respules 0.5 MG/2 ML AMPUL.NEB. INHALATION (08:51)
--- NOTE | 2023-01-02 09:08 | PCM.PN.REN ---
Subjective Subjective Patient is resting in bed. No overnight events. No complaints today. Patient reports blood draw was attempted this morning with no success. Objective Data Objective Data Vital Signs: Vital Signs Temp Pulse Resp BP Pulse Ox O2 Del Method O2 Flow Rate 96.7 F L 68 19 H 118/69 95 Nasal Cannula 3 01/02/23 04:38 01/02/23 04:38 01/02/23 04:38 01/02/23 04:38 01/02/23 07:43 01/02/23 07:43 01/02/23 07:43 Oxygen Flow Rate (L/min) 3 Oxygen Delivery Method Nasal Cannula Weight: 135.256 kg Body Mass Index (BMI) 46.7 Intake & Output: Intake and Output for Last 24 Hours 12/31/22 01/01/23 01/02/23 23:59 23:59 23:59 Intake Total 486.02 / 486.02 1242.10 / 1362.10 120 / 120 Output Total 5300 / 5300 750 / 950 800 / 800 Balance -4813.98 / -4813.98 492.10 / 412.10 -680 / -680 Lab / Micro Data Result Diagrams: 12/31/22 06:53 01/01/23 09:10 Labs: Laboratory Results - last 24 hr 01/01/23 09:10: Sodium 139, Potassium 4.6, Chloride 101, Carbon Dioxide 33.0 H, Anion Gap 5, BUN 14, Creatinine 1.49 H, Estim Creat Clear Calc 37.09, Est GFR (MDRD) Af Amer 45 L, Est GFR (MDRD) Non-Af 37 L, BUN/Creatinine Ratio 9.4 L, Glucose 148 H, Calcium 8.9 Physical Exam Narrative Alert, awake oriented x 3, no obvious distress no JVD s1s2 no murmurs lungs clear abdomen soft, nontender, PEG tube intact no pitting edema to bilateral legs or feet. Patient has wrinkling noted to bilateral feet and bilateral lower legs Assessment & Plan Assessment/Plan (1) Anasarca: PLAN: - Anasarca; Etiology unclear. Echocardiogram looks okay, no history of cirrhosis, no proteinuria. It is possible some of it is at least lymphedema. She does follow with wound clinic/lymphedema clinic. Apparently denied lymphedema pumps. She was sent in because of shortness of breath and about 15 pound weight gain. Started on Lasix drip with urine output at least 5.3 L. Creatinine 1.0 on 12/31, creatinine increased to 1.49 yesterday. Labs pending for today. Off Lasix drip due to increase in creatinine. Quite possibly may see creatinine elevated again from overdiuresis and also noted low blood pressures over last 24hrs. Continue off Lasix drip. - Hypokalemia. Chronic history. Of note she is on massive amounts of potassium at home but despite this her potassium has never been normal. Here I only gave her about half of what she takes at home and her potassium is high normal. Her total medication list includes about 40 medications. 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 I am not sure if she is actually taking all of these medications since potassium is normal and she has never been normal before. Continue off Lasix drip. On Aldactone. - History of hypertension. Blood pressure elevated on admission, 180/89. During hospitalization blood pressures have improved to now low-normal. Patient is on clonidine 0.2 twice daily, Cardura 8 mg daily, losartan 100 mg daily, minoxidil 10 mg daily, and Aldactone 50 mg daily. She is also on midodrine 10 mg 3 times daily. Once discharged recommend for patient to follow up with PCP as she may not need as much antihypertensives. possible discharge today, discussed with Dr. Caldwell
[2023-01-02 09:16] VITALS: PULSE 78; RESP 21
[2023-01-02 09:28] VITALS: BP 124/63; PULSE 86; RESP 18; TEMP 36.4; O2SAT 98
--- NOTE | 2023-01-02 11:13 | CASEMGMT ---
Discharge Planning Discharge documents sent via [facility] to [facility] for resumption of services. Griselda Donis
--- NOTE | 2023-01-02 15:06 | CASEMGMT ---
Discharge Planning New HH order sent to [facility] via [facility]. Griselda Donis
== END 2023-01-02 10:09 | disposition home health service (06) | DRG 948 ==
LOC: ED 08:35 → PCU 10:39
PROVIDERS: Admitting Provider Internal Medicine; Emergency Provider Emergency Medicine; PCP Family Medicine; Visit Provider Internal Medicine
DX: R60.1 Generalized edema (principal); N17.9 Acute kidney failure, unspecified; J96.11 Chronic respiratory failure with hypoxia; I42.2 Other hypertrophic cardiomyopathy; E11.22 Type 2 diabetes mellitus with diabetic chronic kidney disease; D50.9 Iron deficiency anemia, unspecified; E66.01 Morbid (severe) obesity due to excess calories; G40.909 Epilepsy, unspecified, not intractable, without status epilepticus; J44.9 Chronic obstructive pulmonary disease, unspecified; I25.10 Atherosclerotic heart disease of native coronary artery without angina pectoris; E78.5 Hyperlipidemia, unspecified; E87.6 Hypokalemia; G47.33 Obstructive sleep apnea (adult) (pediatric); G89.4 Chronic pain syndrome; Z79.02 Long term (current) use of antithrombotics/antiplatelets; Z82.3 Family history of stroke; Z87.891 Personal history of nicotine dependence; Z79.51 Long term (current) use of inhaled steroids; F41.1 Generalized anxiety disorder
CPT/HCPCS: 36415; 71045; 80048; 83735; 83880; 85025; 94640; 97162; 97802; 99252; 99285; J7040; J7050; A4216; G0463; J1940; J2405

== ENCOUNTER → 2023-02-13 | Outpatient (CLI) | payer MEDICARE, MEDICAID, SELFPAY ==
[2023-02-13 11:50] LABS: Absolute Lymphocyte Count 3.55 X10^3/uL (0.83-4.51); Absolute Neutrophil Count 4.3 X10^3/uL (2.0-7.7); Basophil# 0.03 X10^3/uL; Basophil% 0.3 % (0-1); Eosinophil# 0.03 X10^3/uL; Eosinophils% 0.3 % (0-5); Hematocrit 38.6 % (37-47); Hemoglobin 11.3 g/dL (12.0-15.0); Lymphocyte # 3.55 X10^3/ul (0.83-4.51); Lymphocyte % 40.7 % (19-41); Mean Corp Hgb Conc 29.3 g/dL (32-36); Mean Corpuscular Hgb 24.8 pg (27.0-32.0); Mean Corpuscular Volume 84.6 fL (81-99); Mean Platelet Vol. 9.9 fl (6.2-12.0); Monocyte% 9.2 % (0-10); NRBC Flagged by Analyzer 0 % (0-5); Neutrophil # 4.29 X10^3/uL (2.7-7.7); Neutrophil % 49.3 % (47-70); Platelet Count 323 K/mm3 (150-450); RBC Distribution Width CV 16.9 % (11.6-14.6); RBC Distribution Width SD 51.3 fl (35.1-43.9); Red Blood Count 4.56 M/mm3 (4.2-5.4); White Blood Count 8.7 K/mm3 (4.4-11.0)
[2023-02-13 12:24] LABS: BNP,B-Type NATRIURETIC PEPTIDE 32.8 pg/mL (0-100)
[2023-02-13 12:25] LABS: Anion Gap 1 (5-15); BUN 8 mg/dL (7-18); BUN/Creat Ratio 11.7 RATIO (10-20); Calcium,Total 8.8 mg/dL (8.5-10.1); Chloride 107 mmol/L (98-107); Creatinine, Serum 0.68 mg/dL (0.55-1.02); EST Glomerular Filtration Rate 92 mL/min (>60); Est Glom Filt Rate - Afr Amer 111 mL/min (>60); Glucose 92 mg/dL (74-106); Magnesium 2.2 mg/dL (1.6-2.6); Potassium 3.5 mmol/L (3.5-5.1); Sodium Level 140 mmol/L (136-145)
== END | disposition home or self-care (01) ==
PROVIDERS: PCP Family Medicine; Referring Provider Nurse Practitioner Gerontology; Visit Provider Nurse Practitioner Gerontology
DX: R06.09 Other forms of dyspnea (principal)
CPT/HCPCS: 36415; 80048; 83735; 83880; 85025

== ENCOUNTER → 2023-07-18 | Outpatient (CLI) | payer MEDICARE, MEDICAID, SELFPAY ==
--- NOTE | 2023-07-18 12:07 | CT_ITS ---
STUDY: CT LUMBAR SPINE WITHOUT CONTRAST REASON FOR EXAM: Female, 63 years old. LUMBAR DDD, INTRATHECAL PUMP PRESENCE RADIATION DOSAGE (If Supplied By Facility): CTDIvol = ( 51.93 ) mGy, DLP = ( 1574.18 ) mGycm TECHNIQUE: The patient was scanned in a multi detector CT scanner. High resolution transaxial imaging was performed. Images were obtained from T12 to S1 intervertebral level. Sagittal and coronal images were reconstructed. Individualized dose optimization techniques were used for this CT. COMPARISON: None FINDINGS: Normal lumbar lordosis. There is no substantial scoliosis. Electrodes from a pain pump are seen. Normal vertebrae of the lumbar spine. L1-2: Facet joint osteoarthritis and hypertrophy. Bilateral neural foraminal stenosis and mild degree of central canal stenosis due to hypertrophy of the ligamentum flavum and facet joints. L2-3: Mild degree of disc space narrowing. Moderate degree of central canal stenosis and bilateral neural foraminal stenosis due to hypertrophy of the facet joints and ligamenta flava. L3-4: Mild degree of disc space narrowing. Mild degree of diffuse posterior disc bulge. Facet joint osteoarthritis and hypertrophy. Hypertrophy of the ligamenta flava. Moderate central canal stenosis and bilateral neural foraminal stenosis. L4-5: Diffuse posterior disc bulge. Bilateral neural foraminal stenosis. Hypertrophy of the facet joints causing moderate degree of bilateral neural foraminal stenosis is worse on the right side. L5-S1: Normal endplates. Normal disc height and morphology. Normal bilateral facet joints. Normal central canal and bilateral lateral recesses. Normal bilateral intervertebral neural foramina. Normal visualized paraspinous soft tissue structures. CT/Spine Lumbar without Contrast IMPRESSION: Multilevel degenerative changes, as described above. Multilevel spinal stenosis and neural foraminal stenosis. Electronically Signed: Louis Grant MD at 12:50 EST ,
== END | disposition home or self-care (01) ==
LOC: CT 12:05
PROVIDERS: PCP Family Medicine; Referring Provider Clinical Nurse Specialist Adult Health; Visit Provider Clinical Nurse Specialist Adult Health
DX: M51.36 Other intervertebral disc degeneration, lumbar region (principal)
CPT/HCPCS: 72131; Q9967

== ENCOUNTER → 2023-09-05 | Outpatient (CLI) | payer MEDICARE, MEDICAID, SELFPAY ==
[2023-09-05 12:05] LABS: Absolute Lymphocyte Count 4.48 X10^3/uL (0.83-4.51); Absolute Neutrophil Count 6.5 X10^3/uL (2.0-7.7); Basophil# 0.04 X10^3/uL; Basophil% 0.3 % (0-1); Eosinophil# 0.01 X10^3/uL; Eosinophils% 0.1 % (0-5); Hematocrit 38.3 % (37-47); Hemoglobin 11.5 g/dL (12.0-15.0); Lymphocyte # 4.48 X10^3/ul (0.83-4.51); Lymphocyte % 37.1 % (19-41); Mean Corpuscular Hgb 27.3 pg (27.0-32.0); Mean Platelet Vol. 9.9 fl (6.2-12.0); Monocyte# 1.02 X10^3/uL; Monocyte% 8.5 % (0-10); NRBC Flagged by Analyzer 0 % (0-5); Neutrophil # 6.48 X10^3/uL (2.7-7.7); Neutrophil % 53.8 % (47-70); Platelet Count 269 K/mm3 (150-450); RBC Distribution Width SD 50.3 fl (35.1-43.9); Red Blood Count 4.21 M/mm3 (4.2-5.4); White Blood Count 12.1 K/mm3 (4.4-11.0)
[2023-09-05 12:49] LABS: BNP,B-Type NATRIURETIC PEPTIDE 13.2 pg/mL (0-100)
[2023-09-05 12:51] LABS: Anion Gap 2 (5-15); BUN 14 mg/dL (7-18); BUN/Creat Ratio 18.7 RATIO (10-20); Calcium,Total 8.9 mg/dL (8.5-10.1); Chloride 106 mmol/L (98-107); Creatinine, Serum 0.75 mg/dL (0.55-1.02); EST Glomerular Filtration Rate 83 mL/min (>60); Est Glom Filt Rate - Afr Amer 100 mL/min (>60); Glucose 90 mg/dL (74-106); Potassium 3.1 mmol/L (3.5-5.1); Sodium Level 141 mmol/L (136-145)
== END | disposition home or self-care (01) ==
PROVIDERS: PCP Family Medicine; Referring Provider Nurse Practitioner Gerontology; Visit Provider Nurse Practitioner Gerontology
DX: R06.09 Other forms of dyspnea (principal)
CPT/HCPCS: 36415; 80048; 83880; 85025

== ENCOUNTER → 2024-03-24 | Outpatient (CLI) | payer MEDICARE, SELFPAY | END | disposition home or self-care (01) | PROVIDERS: PCP Family Medicine; Referring Provider Dermatology; Visit Provider Dermatology | DX: L02.416 Cutaneous abscess of left lower limb (principal) | CPT/HCPCS: 87070; 87077; 87186; 87205 ==

== ENCOUNTER → 2024-05-25 | Outpatient (CLI) | payer MEDICARE, MEDICAID, SELFPAY ==
[2024-05-25 12:08] LABS: Absolute Neutrophil Count 3.7 X10^3/uL (2.0-7.7); Basophil# 0.03 X10^3/uL; Basophil% 0.3 % (0-1); Hematocrit 31.2 % (37-47); Lymphocyte % 47.6 % (19-41); Mean Corp Hgb Conc 28.8 g/dL (32-36); Mean Corpuscular Hgb 22.5 pg (27.0-32.0); Mean Platelet Vol. 9.1 fl (6.2-12.0); Monocyte# 0.86 X10^3/uL; Monocyte% 9.8 % (0-10); NRBC Flagged by Analyzer 0 % (0-5); Neutrophil # 3.71 X10^3/uL (2.7-7.7); Neutrophil % 42.1 % (47-70); POSITIVE MORPHOLOGY YES; Platelet Count 457 K/mm3 (150-450); RBC Distribution Width CV 21.2 % (11.6-14.6); RBC Distribution Width SD 59.4 fl (35.1-43.9); White Blood Count 8.8 K/mm3 (4.4-11.0)
[2024-05-25 12:11] LABS: Differential Indicated SCAN CRITERIA MET
[2024-05-25 12:41] LABS: Anion Gap 5 (5-15); BUN 11 mg/dL (7-18); BUN/Creat Ratio 16.2 RATIO (10-20); Calcium,Total 9.3 mg/dL (8.5-10.1); Chloride 108 mmol/L (98-107); Creatinine, Serum 0.68 mg/dL (0.55-1.02); EST Glomerular Filtration Rate 92 mL/min (>60); Est Glom Filt Rate - Afr Amer 112 mL/min (>60); Glucose 93 mg/dL (74-106); Potassium 3.8 mmol/L (3.5-5.1); Sodium Level 141 mmol/L (136-145)
[2024-05-25 13:15] LABS: Anisocytosis 2+; Differential Comment SCANNED
[2024-05-25 13:16] LABS: Hypochromasia 1+
== END | disposition home or self-care (01) ==
PROVIDERS: PCP Family Medicine; Referring Provider Nurse Practitioner Gerontology; Visit Provider Nurse Practitioner Gerontology
DX: I10 Essential (primary) hypertension (principal); E87.6 Hypokalemia; D72.829 Elevated white blood cell count, unspecified
CPT/HCPCS: 36415; 80048; 83880; 85025

== ENCOUNTER → 2024-06-14 | Outpatient (CLI) | payer MEDICARE, MEDICAID, SELFPAY | END | disposition home or self-care (01) | PROVIDERS: PCP Family Medicine; Referring Provider Nurse Practitioner Gerontology; Visit Provider Nurse Practitioner Gerontology | DX: R00.2 Palpitations (principal) | CPT/HCPCS: 93225; 93226 ==

== ENCOUNTER → 2024-12-20 | Outpatient (CLI) | payer MEDICARE, MEDICAID, SELFPAY ==
--- NOTE | 2024-12-20 16:24 | STRESSREP ---
Stress Test Report Pharmacologic myocardial perfusion stress test. 64-year-old lady with a history of palpitations and chest pressure Resting EKG demonstrates sinus rhythm with a rate of 62 bpm. Resting blood pressure is 142/88 mmHg. 0.4 mg of regadenoson was infused per usual protocol followed by rapid intravenous saline flush injection. Continuous EKG monitoring was performed. The maximum heart rate was 93 bpm which was 60% of max impacted heart rate the maximum workload was 1 metabolic equivalent. At rest there were no ST or T wave changes noted to suggest ischemia and at peak infusion nonspecific ST changes were noted which did not meet the criteria for ischemia. No clinical angina is noted. The final blood pressure was 134/86 mmHg. Myocardial perfusion protocol. 14.5 mCi of technetium 99m sestamibi was injected at rest. 0.4 mg of regadenoson was infused per usual protocol. At peak infusion 44.1 mCi of technetium 99m sestamibi was injected stress images were obtained stress and rest images were reconstructed and compared in the short axis vertical long and horizontal long axis. Gated images were also obtained. Perfusion SPECT analysis: Review of the stress images demonstrate normal uptake of tracer noted in all areas of the myocardium. The resting images similar demonstrated normal uptake of tracer noted in all areas of the myocardium. No areas of reversibility are noted to suggest ischemia and no previous infarct is noted. Gated SPECT analysis: The gated ejection fraction is 62%. Conclusion: Normal pharmacologic myocardial perfusion stress test. Preserved ejection fraction.
== END | disposition home or self-care (01) ==
LOC: CVS 06:55
PROVIDERS: PCP Family Medicine; Referring Provider Physician Assistant Medical; Visit Provider Internal Medicine Cardiovascular Disease
DX: R07.9 Chest pain, unspecified (principal)
CPT/HCPCS: 78452; 93017; A9500; A4216; J2785

== ENCOUNTER → 2025-06-27 | Outpatient (CLI) | payer MEDICARE, MEDICAID, SELFPAY ==
--- NOTE | 2025-06-27 11:10 | ECHOCS_ITS ---
Reason For Study Reason For Study: DYSPNEA/SOB Procedure This was a 2D Doppler, Color Flow transthoracic echocardiogram. The study was technically difficult. Contrast injection was performed. Exam performed in department. Left Ventricle Normal LV size. Left ventricular systolic function is normal. The left ventricular ejection fraction is 65 %. Stage 1 diastolic dysfunction. No regional wall motion abnormalities noted. Right Ventricle Normal RV size. Normal systolic function. Atria Normal left atrium. Normal right atrium. Mitral Valve Normal mitral valve. Tricuspid Valve Normal tricuspid valve. Aortic Valve Normal aortic valve. Pulmonic Valve Normal pulmonic valve. Great Vessels Normal aortic root. The pulmonary artery is normal size. Inferior vena cava collapse with respiration. Pericardium/Pleural No pericardial effusion. Medication 22 gauge I.V. with prn adaptor inserted into right arm. Diluted definity 1ml given slow IV push to enhance endocardial definition. MMode/2D Measurements & Calculations LVIDd: 4.4 cm IVSd: 0.99 cm LAV(MOD- bp): 43.0 ml LVIDs: 2.6 cm LVPWd: 1.0 cm RVDd: 3.8 cm FS: 41.3 % LAV(MOD- bp) Indexed: 18.8 ml/m2 LAV(MOD- sp2): 36.1 ml LAV(MOD- sp4): 42.0 ml SV(MOD- sp4): 79.7 ml LVAd ap4: 36.5 cm2 LVAd ap2: 32.4 cm2 LVLd ap4: 8.7 cm LVLd ap2: 9.1 cm SI(MOD- sp4): 34.7 ml/m2 EDV(MOD-sp4): 124.9 ml EDV(MOD-sp2): 93.9 ml EDV(sp4-el): 130.7 ml EDV(sp2-el): 98.1 ml LVAs ap4: 19.9 cm2 LVAs ap2: 15.1 cm2 LVLs ap4: 7.1 cm LVLs ap2: 6.9 cm ESV(MOD-sp4): 45.2 ml ESV(MOD-sp2): 26.8 ml ESV(sp4-el): 47.2 ml ESV(sp2-el): 28.0 ml EF(MOD-sp4): 63.8 % EF(MOD-sp2): 71.5 % EF(sp4-el): 63.8 % SV(MOD-sp2): 67.1 ml SV(sp4-el): 83.4 ml LA A4 area: 17.1 cm2 SI(MOD-sp2): 29.3 ml/m2 TAPSE: 2.0 cm RA A4 area: 13.9 cm2 Time Measurements MV dec time: 0.27 sec Doppler Measurements & Calculations MV E max marcel: 55.6 cm/sec Lat Peak E' Marcel: 7.9 cm/sec Med Peak E' Marcel: 5.7 cm/sec MV A max marcel: 60.8 cm/sec E/E' lat: 7.0 E/E' med: 9.7 MV E/A: 0.92 MV dec slope: 208.3 cm/sec2 Ao V2 max: 82.3 cm/sec LV V1 max: 70.6 cm/sec Ao max P.7 mmHg LV V1 max P.0 mmHg Ao V2 mean: 67.9 cm/sec LV V1 mean P.5 mmHg Ao mean P.9 mmHg LV V1 mean: 59.1 cm/sec Ao V2 VTI: 22.1 cm LV V1 VTI: 19.4 cm AV (velocity ratio): 0.88 PA V2 max: 73.7 cm/sec ECHO/Echo Complete W/ Contrast Interpretation Summary Normal LV size. Left ventricular systolic function is normal. The left ventricular ejection fraction is 65 %. Stage 1 diastolic dysfunction. Ordering Physician: Inocencia Copeland Referring Physician: Nicko Uribe Performed By: Gwen Carnes RDCS
== END | disposition home or self-care (01) ==
LOC: CVS 11:09
PROVIDERS: PCP Family Medicine; Referring Provider Nurse Practitioner Gerontology; Visit Provider Nurse Practitioner Gerontology
DX: R06.09 Other forms of dyspnea (principal)
CPT/HCPCS: 93306; Q9957; A4216; C8929